=== PATIENT | male | born 1940 | race Caucasian/White ===

== ENCOUNTER 2023-04-21 18:31 | Inpatient (IN) | payer MEDICARE, OTHER, SELFPAY ==
[2023-04-21] VITALS (8 sets, daily range): BP systolic 98–148; BP diastolic 61–82
[2023-04-21 13:18] LABS: % Basophils 0.3 % (0-2); % Eosinophils 1.2 % (0-6); % Immature Granulocytes 0.4 % (0-0.5); % Lymphocytes 5.9 % (20.5-51.1); % Monocytes 6.8 % (1.7-9.3); % Neutrophils 85.4 % (42.2-75.2); Absolute Eosinophils 0.1 10^3/uL (0-0.7); Absolute Lymphocytes 0.6 10^3/uL (1.2-3.4); Absolute Monocytes 0.7 10^3/uL (0.1-0.6); Absolute Neutrophils 8.1 10^3/uL (1.4-6.5); Hematocrit 35.8 % (39.0-52.0); Hemoglobin 12.4 g/dL (13.0-18.0); Mean Corp Hgb Conc. 34.6 g/dL (33.0-37.0); Mean Corpuscular Hgb 27.8 pg (27.0-31.0); Mean Corpuscular Volume 80.3 fL (80.0-94.0); Nucleated Red Blood Cells % 0 % (-); Platelet Count 255 10^3/uL (130-400); Red Blood Cell Count 4.46 10^6/uL (4.70-6.10); Red Cell Dist. Width 14.6 % (11.5-14.5); White Blood Cell Count 9.5 10^3/uL (4.8-10.8)
[2023-04-21 13:52] LABS: Troponin I 0.061 ng/ml
[2023-04-21 13:53] LABS: ALT (SGPT) 120 U/L (0-50); AST (SGOT) 152 U/L (17-59); Albumin 3.7 g/dl (3.5-5.0); Alkaline Phosphatase 157 U/L (38-126); Blood Urea Nitrogen 82 mg/dl (9-20); Calcium 8.3 mg/dl (8.4-10.2); Carbon Dioxide 10 mmol/L (22-30); Chloride 107 mmol/L (98-107); Glucose 209 mg/dl (70-99); Potassium 5.3 mmol/L (3.5-5.1); Sodium 131 mmol/L (135-145); Total Protein 6.8 g/dl (6.3-8.2)
--- NOTE | 2023-04-21 14:33 | ED.GENMED ---
History of Present Illness
General
Chief Complaint: Weakness
Time Seen by Provider: 04/21/23 14:03
Travel History
Have you had any contact with someone who has COVID-19?: No
Do you have any symptoms of coronavirus? Fever > 100 degrees, chills, cough, shortness of breath, sore throat, loss of taste or smell, muscle aches, or headache?: No
History of Present Illness
History of Present Illness:
82-year-old male with history of insulin-dependent diabetes, hypertension, hyperlipidemia, and recent TIA presents to the emergency department for evaluation of generalized weakness and poor p.o. intake over the past 7 to 10 days. Patient was
recently admitted to [facility] in January after a TIA for reasons unknown the patient was apparently referred to nephrology as an outpatient due to chronic kidney disease however is not aware of what his baseline creatinine seems to
be. He was also started after his hospitalization on Entresto, he had some difficulty obtaining this due to over insurance coverage however started approximately 1 month ago. As his symptoms progressed he contacted his first coat operator (Dr Munguia at
[facility]) who advised him to stop the Entresto however his symptoms continue to progress downward, this was 1-2 weeks ago. Patient reports that he has been urinating well and denies any difficulty starting his stream. No abdominal pain. No fevers or
chills. Denies any other new medications that he initiated. Denies any muscle aches or weakness
Review of Systems
Review of Systems
Allergies reviewed?: Yes
All Other Systems: ROS reviewed and negative except as documented in HPI and ROS
Phy Exam
Physical Exam
Physical Exam:
GEN: Ill-appearing, no immediate distress
Eyes: PERRLA, EOMs intact, no scleral icterus
HENT: NCAT, oral mucosa dry
Lungs: CTAB, no wheezes, rales, rhonchi, normal chest wall excursion
Cardiac: Tachycardic and irregular, no murmur
Abdomen: S, NT, ND, NABS, no masses or hepatosplenomegaly
Neuro: AO x 3, no focal deficits to BUE/BLE, normal sensation throughout
MSK: No gross deformity or ecchymosis. No edema. No digital clubbing
Skin: No rashes, petechiae. Normal color, no pallor or jaundice.
Psych: Calm, cooperative, proper hygiene
Course
Orders/Labs/Results
Orders:
Orders
04/21/23 12:48
EKG [Electrocardiogram (*1)] Urgent
Reason for Study: Tachycardia
04/21/23 12:49
EKG- Treatment ONCE
04/21/23 13:08
Complete Blood Count/With Diff Urgent
Comprehensive Metabolic Panel Urgent
Creatine Phosphokinase Urgent
Comment: ADD ON
Troponin I Urgent
04/21/23 14:05
Add On- LAB Urgent
Tests Added?: CPK
Bladder Scan- Treatment ONCE
04/21/23 14:20
US Renal Only W/O Bladder Urgent
Comment:
Reason For Exam: acute renal failure
04/21/23 14:37
Urinalysis Reflex To Culture Urgent
Date Specimen was Collected: 04/21/23
Time Specimen was Collected: 14:18
Urine Microscopic Reflex Cult Urgent
Urine Culture Urgent
LUIS ENRIQUE Source: U
Specimen Description:
Date Specimen was Collected: 04/21/23
Time Specimen was Collected: 14:18
0.9% Sodium Chloride 1000 ml [Nss] 1,000 ml IV BOLUS
04/21/23 14:39
NEPHROLOGY CONSULT Urgent
Consulting Provider: Clare Loredo
Was physician already notified: Yes
Reason for consult: renal failure
04/21/23 15:08
Sodium Zirconium Cyclosilicate [Lokelma] 10 gram PO NOW STA
04/21/23 15:09
Lactic Acid Urgent
Venous Blood Gas Urgent
%Oxygen/Room Air: 97
Blood Culture Q30M
LUIS ENRIQUE Source: Blood/Venous
Specimen Description:
04/21/23 15:23
Blood Culture Q30M
LUIS ENRIQUE Source: Blood/Venous
Specimen Description:
04/21/23 15:30
Dextrose 5%/Water 1000 ml [D5w] 1,000 ml Sodium Bicarbonate 150 meq IV 150 mls/hr
04/21/23 17:23
Admit/Transfer Patient As Directed
Co-Sign Provider:
Level of Care: Inpatient admission
Assign to:: Telemetry
Physician / Group: Sofia
Diagnosis: TESSA, Metabolic Acidosis
Reason for Telemetry: Arrhythmia
Date to Stop Telemetry: 04/24/23
Time to Stop Telemetry: 11:00
Reason for Hospitalization: Nephrology consult
Expected length of stay greater than two midnights?: Yes
ELOS- Estimated Length of Stay in days: 3
I certify the patient meets the requirements for IP care: Yes
04/21/23 17:25
Code Status As Directed
Resuscitation Status: Full Code
04/21/23 18:04
Cordova Catheter [Catheter- Indwelling] As Directed
Reason for insertion: Acute Kidney Injury
Discontinue Date/Time: 04/24/23 0600
Intake/ Output As Directed
Frequency: Per unit guidelines
Comment: strict intake and output monitoring
Weight As Directed
Frequency: Daily
04/24/23 11:00
DC Protocol for Telemetry ONCE
Abnormal Lab Results
04/21/23 04/21/23 04/21/23
13:08 14:37 15:09
RBC 4.46 L 10^6/uL
(4.70-6.10)
Hgb 12.4 L g/dL
(13.0-18.0)
Hct 35.8 L %
(39.0-52.0)
RDW 14.6 H %
(11.5-14.5)
Absolute Neuts (auto) 8.1 H 10^3/uL
(1.4-6.5)
Absolute Lymphs (auto) 0.6 L 10^3/uL
(1.2-3.4)
Absolute Monos (auto) 0.7 H 10^3/uL
(0.1-0.6)
Neutrophils % 85.4 H %
(42.2-75.2)
Lymphocytes % 5.9 L %
(20.5-51.1)
VBG pH 7.21 L
(7.32-7.43)
VBG HCO3 14.4 L mmol/L
(22-27)
Sodium 131 L mmol/L
(135-145)
Potassium 5.3 H mmol/L
(3.5-5.1)
Carbon Dioxide 10 L* mmol/L
(22-30)
BUN 82 H mg/dl
(9-20)
Creatinine 15.7 H* mg/dL
(0.7-1.3)
Glucose 209 H mg/dl
(70-99)
Calcium 8.3 L mg/dl
(8.4-10.2)
AST 152 H U/L
(17-59)
ALT 120 H U/L
(0-50)
Alkaline Phosphatase 157 H U/L
(38-126)
Creatine Kinase 650 H U/L
(55-170)
Troponin I 0.061 H* ng/ml
Urine Ketones Trace A
(Negative)
Ur Occult Blood Reflex 4+ A
(Negative)
Leukocyte Esterase Rfl 1+ A
(Negative)
Urine WBC (Reflex) 11-15 A /HPF
(0-5)
Urine Bacteria (Reflex) Many A
(Negative)
Urine Glucose 1+ A
(Negative)
Urine Albumin (Reflex) 2+ A
(Neg - Trace)
04/21/23 13:08
04/21/23 13:08
Vital Signs
Initial and Last Documented VS:
Initial Vital Signs
Temp Pulse Resp BP Pulse Ox
97.4 F 114 18 148/82 100
04/21/23 12:46 04/21/23 12:46 04/21/23 12:46 04/21/23 12:46 04/21/23 12:46
Last Documented Vital Signs
Temp Pulse Resp BP Pulse Ox
97.4 F 92 21 135/62 100
04/21/23 12:46 04/21/23 16:31 04/21/23 16:31 04/21/23 17:03 04/21/23 17:30
MDM/Problems Addressed
MDM/Problems Addressed:
82-year-old male presenting with weakness, found to have profound acute renal failure with metabolic acidosis. He was started on crystalloid resuscitation and bicarbonate infusion. Nephrology was made aware, he is currently clinically stable but
certainly may require dialysis given severe creatinine elevation. Could be partially due to recent Entresto use, bladder scan negative rules out postrenal etiology. Will be admitted to the hospitalist service for further management
Comment
Comment:
EKG independently interpreted by me shows rapid atrial fibrillation at a rate of 105 with a left bundle branch block, no ST changes concerning for ischemia
*Critical Care Note
Total Time (30-74mins, 75-104mins- exclusive of procedures): 45 minutes
comment:
Critical care time: 45 minutes
Critical care time was exclusive of: Separately billable procedures, treating other patients, and teaching time
Critical care was necessary to treat or prevent imminent or life-threatening deterioration of the following conditions: Metabolic acidosis/renal failure
Critical care time spent personally by me on the following activities:
[x] Review of old charts
[x] Obtaining history from patient or surrogate
[x] Ordering and review of the laboratory studies
[x] Ordering and review of radiographic studies
[x] Ordering and performing treatments and interventions
[x] Patient patient's response to treatment
[x] Development of treatment plan with patient or surrogate
Update Note
Update Note:
Patient's creatinine was 2.7 as of outpatient labs of March 23 and 1.85 as of inpatient labs to [facility] in January
ED Attending Note
-
Portions of this chart may have been created with voice recognition software.� Occasional wrong word or��sound alike� substitutions may have occurred due to the inherent limitations of voice recognition software.
Discharge Plan
Departure
Patient Disposition: Admit
Date of Disposition: 04/21/23
Time of Disposition: 16:34
Admit to: IMU
Presentation/result/management discussed w/ accepting MD/DO: Hospitalist
Discharge Problem:
Acute renal failure, Metabolic acidosis, Acute hyperkalemia
Prescriptions:
No Action
Tradjenta 5 MG tablet
5 mg PO DAILY
clopidogrel 75 MG tablet
75 mg PO DAILY 0RF
metoprolol succinate [Toprol XL] 25 mg Tablet Extended Release 24 Hr
25 mg PO BID
ezetimibe [Zetia] 10 mg Tablet
10 mg PO QPM
rosuvastatin [Crestor] 40 mg Tablet
40 mg PO QPM
insulin glargine [Lantus Solostar U-100 Insulin] 100 unit/mL (3 mL) Insulin Pen
30 unit SC DAILY
Eliquis 2.5 mg Tablet
2.5 mg PO BID
Simbrinza 1-0.2 % Drops,Suspension
1 drp RIGHT EYE BID
Referrals:
UNKNOWN - PT DOES,NOT KNOW [Family Provider] -
Interventions
Interventions:
ED- Fall Risk Assessment Last Done: 04/21/23 15:27
ED- Cardiac Assessment Last Done: 04/21/23 15:27
ED- Neurological Assessment Last Done: 04/21/23 15:27
ED- Pulmonary Assessment Last Done: 04/21/23 15:27
[2023-04-21 14:34] LABS: eGFR 2.76
[2023-04-21 15:07] LABS: Urine Albumin 2+ (Neg - Trace); Urine Bilirubin Negative (Negative); Urine Character Slightly Cloudy (Clear); Urine Color Yellow; Urine Glucose 1+ (Negative); Urine Ketone Trace (Negative); Urine Leukocyte 1+ (Negative); Urine Nitrite Negative (Negative); Urine Occult Blood 4+ (Negative); Urine Specific Gravity 1.015 (<1.030); Urine Urobilinogen Negative (Neg - 1+)
[2023-04-21 15:15] LABS: Creatine Phosphokinase 650 U/L (55-170)
[2023-04-21] MEDS: NSS 1000 IV (15:20)
[2023-04-21] MEDS: LOKELMA 10 GRAM PO (15:21)
[2023-04-21 15:24] LABS: Venous Blood Gas B.E. -12.6 mmol/L (-4 to +4); Venous Blood Gas HCO3 14.4 mmol/L (22-27); Venous Blood Gas O2 Sat % 77.6 %; Venous Blood Gas pCO2 36 mmHg (35-48); Venous Blood Gas pH 7.21 (7.32-7.43); Venous Blood Gas pO2 49 mmHg (30-50)
[2023-04-21 15:28] LABS: Urine Bacteria Many (Negative); Urine Red Blood Cell 0-2 /HPF (0-2)
[2023-04-21 15:29] LABS: Urine Amorphous Seen
[2023-04-21] MEDS: SODIUM BICARBONATE 1150 MEQ IV ×2 (15:34→23:44)
[2023-04-21 15:35] LABS: Lactic Acid 0.9 mmol/L (0.7-2.0)
--- NOTE | 2023-04-21 17:19 | HPS.HSE ---
Addendum entered and electronically signed by Moise Black DO 04/21/23 18:36:
Patient seen and examined and discussed with BLAYNE Taylor and I agree with her note. Gen-AAOx3, NAD
HEENT-NC, AT, anicteric, clear oral mm
Neck-supple
CV-reg, no M, +S1/S2
Lungs-clear B/L
Abd-soft, NT, ND
Ext-no edema
Musculoskeletal-no cyanosis, clubbing, right second toe superficial gangrene
Skin-warm and dry
Neuro-grossly non-focal
Psych-calm, cooperative
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 Admit to telemetry. Consult nephrology. IV fluids. Renal ultrasound done today without hydronephrosis.
Metabolic acidosis -high anion gap and normal anion gap acidosis. Serum bicarbonate 10. Bicarbonate infusion. Repeat labs in the morning.
Hyperkalemia -suspect due to TESSA.
Hyponatremia -component of hyperglycemia induced hyponatremia.
DM2 with hyperglycemia -suspect component of mild DKA given positive urine ketones and metabolic acidosis. Glucose 209 this afternoon. Resume glargine insulin at 50% usual dose. Low resistance sliding scale. Hold Tradjenta.
Right second toe superficial gangrene -check DONOVAN, may need vascular surgery consult. Recently completed a course of oral antibiotics for right lower extremity cellulitis.
Hyperlipidemia
Essential hypertension
History of stroke x 2
Permanent atrial fibrillation -hold Eliquis for now in case a procedure is needed.
CAD -stable. Continue clopidogrel.
Chronic heart failure reduced EF -currently volume depleted. Has not been on diuretics at home.
Colon cancer
Full code
PT/OT
Family updated at the bedside.
Original Note:
Family Physician
-
Family Physician: NOT KNOW UNKNOWN - PT DOES
Chief Complaint
-
Weakness
History of Present Illness
Patient is an 82 y/o male past medical history of hypertension, diabetes, chronic kidney disease, atherosclerotic cardiovascular disease, heart failure and recent stroke who presents with weakness and poor oral intake over the past 7-10 days.
Work-up in the emergency department revealed a creatinine of 15. Upon further discussion patient had recent been started on Entresto and Lasix after her was found to have newly reduced EF by Echo. He has since stopped both of these medicines as he
lost 10lbs and also was experiencing episodes of dizziness and low blood pressure. Patient also reports recent episodes of diarrhea which has improved. He states he is still making urine, and currently has the urge to urinate. Review of previous
blood work shows creatinine was 1.85 in January and 2.7 on March 23.
Medical History
Past Medical History
Past Medical History: Reports Other
Additional Past Medical History:
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
Coronary Artery Disease s/p stent
Bilateral Carotid Artery Stenosis
Chronic HFrEF
Atrial Fibrillation
Essential Hypertension
Hyperlipidemia
Diabetes Mellitus
CKD Stage IV
Colon Cancer
Past Surgical History: Reports Other
Additional Past Surgical History:
Cholecystectomy
Right Hemicolectomy
Ventral Hernia Repair
Lower Extremity Angioplasty
Social History
Tobacco: Former Smoker (Quit in 1977)
Alcohol: Occasional
Personal:
Family History
Family History: Not pertinent
Allergies / Home Medications
Allergies reflects when Allergies were last updated in [facility].
Home Medications with original date entered in [facility]
Allergy/Medication List:
Allergies
Allergy/AdvReac Type Severity Reaction Status Date / Time
ibuprofen Allergy chest pain Verified 06/15/17 11:50
Home Medications
linagliptin 5 mg tablet (Tradjenta) 5 mg PO DAILY 06/15/17
clopidogrel 75 mg tablet 75 mg PO DAILY 06/16/17
apixaban 2.5 mg tablet (Eliquis) 2.5 mg PO BID 04/21/23
brinzolamide 1 %-brimonidine 0.2 % eye drops,suspension (Simbrinza) 1 drp RIGHT EYE BID 04/21/23
ezetimibe 10 mg tablet (Zetia) 10 mg PO QPM 04/21/23
insulin glargine 100 unit/mL (3 mL) subcutaneous pen (Lantus Solostar U-100 Insulin) 30 unit SC DAILY 04/21/23
metoprolol succinate 25 mg tablet,extended release 24 hr (Toprol XL) 25 mg PO BID 04/21/23
rosuvastatin 40 mg tablet (Crestor) 40 mg PO QPM 04/21/23
Review of Systems
-
A 12 point ROS was completed and negative except as noted: Yes
Constitutional: Denies Fever or Chills
Respiratory: Denies Cough or Trouble Breathing
Cardiac: Denies Chest Pain or Palpitations
Physical Exam
Vital Signs
Vital Signs
Temp Pulse Resp BP Pulse Ox
97.4 F 95 15 130/81 99
04/21/23 12:46 04/21/23 15:30 04/21/23 15:30 04/21/23 15:06 04/21/23 15:15
Physical Exam
General: Comfortable and Conversant
HEENT: NormoCephalic, Anicteric and Atraumatic
Respiratory: Clear and Non Labored Respirations
Cardiac: S1/S2 and Irregular Rhythm
GI: Soft and Non Tender
Rectal: Deferred by Provider
Musculoskeletal: No Clubbing, No Cyanosis and No Edema
Skin: Warm and Dry
Neuro: Awake, Alert, Oriented and Nonfocal/grossly intact
Psych: Calm
Laboratory Results
-
04/21/23 13:08
04/21/23 13:08
Laboratory Results
Lactic Acid 0.9 mmol/L (0.7-2.0) 04/21/23 15:09
Total Bilirubin 1.0 mg/dl (0.2-1.3) 04/21/23 13:08
AST 152 U/L (17-59) H 04/21/23 13:08
ALT 120 U/L (0-50) H 04/21/23 13:08
Alkaline Phosphatase 157 U/L (38-126) H 04/21/23 13:08
Troponin I 0.061 ng/ml H* 04/21/23 13:08
Data Reviewed
-
Ultrasound: Report Reviewed by me
Lab Data: Labs Reviewed by me
Old Records: Reviewed
Impression/Plan
-
Acute Kidney Injury on CKD Stage IV
Severe Metabolic Acidosis
-Consult Nephrology
-Place Cordova Catheter
-Continue IVFs with sodium bicarbonate
-Monitor labs closely
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
Coronary Artery Disease s/p stent
-Continue Plavix
Chronic HFrEF
-Echo Jan 2023: EF 20-25% with Stage II Diastolic Dysfunction
-Monitor Is&Os and Daily Weights
Permanent Atrial Fibrillation
-Hold Eliquis should patient require any procedures
-Continue metoprolol
Hyperlipidemia
-Continue Crestor and Zetia
Diabetes Mellitus, Type II
-Continue Lantus at decreased dose
-Monitor sugars and continue coverage insulin
DVT proph: Eliquis
Code Status: Full Code
[2023-04-21 20:30] LABS: Glucose - Point of Care 324 mg/dl (70-99)
[2023-04-21 21:01] LABS: Blood Urea Nitrogen 76 mg/dl (9-20); Chloride 113 mmol/L (98-107); Glucose 205 mg/dl (70-99); Sodium 131 mmol/L (135-145); eGFR 3.53
[2023-04-21 21:03] LABS: Calcium 6.5 mg/dl (8.4-10.2); Carbon Dioxide 9 mmol/L (22-30)
--- NOTE | 2023-04-21 21:19 | W.CON.NEPH ---
Consultation
-
Date/Time Consultation Requested: 04/21/23
Date/Time Consultation Performed: 04/21/23 9:20PM
Requesting Provider: Ankita Taylor
Performing Provider: Clare Loredo
Reason for Consultation: TESSA
Medical History
-
Chief Complaint: TESAS
History of Present Illness:
Mr. Chicas is an 82 YOM with PMH of HTN, T2DM, CKD, HFrEF with diastolic dysfunction ( EF20-25%), stroke who presents to the hospital for weakness over the past month.
Patient has had a long and complicated medical course over the past few years. He had stent placement in 2017. He had his great toe amputated on R foot after infection (2019). Most recently in January 2023, he had a TIA (third one). He was placed
at a hospital rehab after his TIA. States that he started hearing he had kidney trouble a few years ago. Briefly, the patient was seen by me on 03/04 in the nephrology clinic for abnormal kidney function. Our records are limited but reviewing Cr
trend, patient appears to have a normal Cr of 1.1 in 2018. By 2019, Cr had elevated to 1.76 and over the past few weeks it has risen from 2.48 to 2.65. When I saw the patient, I stopped his lasix as it was causing issues with urination and the
patient had minimal signs of volume overload and appeared to be volume down. I advised caution on Entresto and asked the patient to check labs if cardiology ended up initiating entresto. His repeat Cr was 2.7 on 03/22/23. Since then, he continued
entresto and had episodes of dizziness and low blood pressure. He also had a bout of ?cellulitis and was started on Keflex (course completed) but then developed diarrhea. He felt so horrible, he stopped the entresto but then was told to restart by
cardiology. He again stopped the medication when his noted that his blood pressures were as low as 80s/50s at home. He continues to make urine, significantly less than prior. He has lost about 10lbs.
Past Medical History
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
Coronary Artery Disease s/p stent
Bilateral Carotid Artery Stenosis
Chronic HFrEF
Atrial Fibrillation
Essential Hypertension
Hyperlipidemia
Diabetes Mellitus
CKD Stage IV
Colon Cancer
Social History
Tobacco: Former Smoker
Alcohol: None
Drug: None
Personal:
Living: With Family
Family History
Family History: Not Pertinent and Other (no known family history of CKD)
Allergies / Home Medications
Allergy/AdvReac Type Severity Reaction Status Date / Time
ibuprofen Allergy chest pain Verified 06/15/17 11:50
Medication Instructions Recorded Confirmed Type
linagliptin 5 mg tablet (Tradjenta) 5 mg PO DAILY 06/15/17 04/21/23 History
clopidogrel 75 mg tablet 75 mg PO DAILY 06/16/17 04/21/23 Rx
apixaban 2.5 mg tablet (Eliquis) 2.5 mg PO BID 04/21/23 04/21/23 History
brinzolamide 1 %-brimonidine 0.2 % 1 drp RIGHT EYE BID 04/21/23 04/21/23 History
eye drops,suspension (Simbrinza)
ezetimibe 10 mg tablet (Zetia) 10 mg PO QPM 04/21/23 04/21/23 History
insulin glargine 100 unit/mL (3 30 unit SC DAILY 04/21/23 04/21/23 History
mL) subcutaneous pen (Lantus
Solostar U-100 Insulin)
metoprolol succinate 25 mg 25 mg PO BID 04/21/23 04/21/23 History
tablet,extended release 24 hr
(Toprol XL)
rosuvastatin 40 mg tablet (Crestor) 40 mg PO QPM 04/21/23 04/21/23 History
Review of Systems
-
History Source: Patient and Family
All other systems: Negative unless noted
Constitutional: Weight Loss and Fatigue
EENT: Other (bloody nose)
Respiratory: No Symptoms
Cardiac: No Symptoms
Abdomen/GI: Diarrhea
: Incontinence and Urgency
Musculoskeletal: No Symptoms
Skin: No Symptoms
Neurological: Weakness
Physical Exam
Vital Signs
Vital Signs
Temp Pulse Resp BP Pulse Ox
97.4 F 86 21 116/74 100
04/21/23 12:46 04/21/23 20:01 04/21/23 20:01 04/21/23 20:01 04/21/23 18:30
Lab Results
WBC 9.5 10^3/uL (4.8-10.8) 04/21/23 13:08
RBC 4.46 10^6/uL (4.70-6.10) L 04/21/23 13:08
Hgb 12.4 g/dL (13.0-18.0) L 04/21/23 13:08
Hct 35.8 % (39.0-52.0) L 04/21/23 13:08
Plt Count 255 10^3/uL (130-400) 04/21/23 13:08
Sodium 131 mmol/L (135-145) L 04/21/23 20:31
Potassium Not Reportable 04/21/23 20:31
Chloride 113 mmol/L (98-107) H 04/21/23 20:31
Carbon Dioxide 9 mmol/L (22-30) L* 04/21/23 20:31
BUN 76 mg/dl (9-20) H 04/21/23 20:31
Creatinine 12.8 mg/dL (0.7-1.3) H* 04/21/23 20:31
eGFR 3.53 04/21/23 20:31
Glucose 205 mg/dl (70-99) H 04/21/23 20:31
Calcium 6.5 mg/dl (8.4-10.2) L* D 04/21/23 20:31
Albumin 3.7 g/dl (3.5-5.0) 04/21/23 13:08
Physical Exam
General: AOx3
HEENT: PERRL and EOMI
Respiratory: Clear
Cardiac: S1/S2 and No Edema
Breast: N/A
Abdomen: Soft and Nontender
Rectal: Deferred by Provider
Genito-urinary: Clear Urine
Musculoskeletal: No Edema
Skin: No Rash, Warm and Dry
Neuro: Nonfocal/Grossly Intact
Psych: Mood/afflect pleasant and Insight/judgement good
Assessment/Plan
-
Assessment:
TESSA on CKD
HAGMA + NAGMA
Afib
HFrEF
Diarrhea
hyperK
hypocalcemia
Plan:
TESSA likely in the setting of volume depletion vs. AIN (keflex?) vs. ATN from hemodynamic shifts
- peak 15.7, down to 12.8
Noted to have CKD with baseline Cr around 2.7 with significant proteinuria in the outpatient. thought to be in the setting of DKD
- obtain UPCR while inpatient. obtain paraprotein workup.
agree with sodium bicarb gtt at 150cc/hr
please replete calcium PRN
likely hyponatremia from renal failure --> continue with sodium bicarbonate
- uosm and raul obtained
KUS without evidence of obstruction
Agree with Cordova placement for accurate I/Os
hold all nephrotoxic agents
Data Reviewed
-
Radiology: Image Personally Visualized and interpreted (KUS without evidence of hydronephrosis) and Report Reviewed by me
Labs: Labs Reviewed by me, Discussed with Physician and Discussed with Patient
Old Records: Reviewed
[2023-04-21] MEDS: CRESTOR 40 MG PO (22:03)
[2023-04-21] MEDS: ZETIA 10 MG PO (22:06)
[2023-04-21] MEDS: TOPROL XL 25 MG PO (22:06)
[2023-04-21] MEDS: NOVOLOG FLEXPEN-LOW RESISTANCE 4 UNITS SC (22:10)
[2023-04-21] MEDS: SODIUM BICARBONATE IV (22:22)
[2023-04-21 22:30] LABS: Blood Urea Nitrogen 81 mg/dl (9-20); Calcium 7.3 mg/dl (8.4-10.2); Carbon Dioxide 15 mmol/L (22-30); Chloride 103 mmol/L (98-107); Glucose 313 mg/dl (70-99); Potassium 4.4 mmol/L (3.5-5.1); Sodium 129 mmol/L (135-145)
[2023-04-21] MEDS: CALCIUM GLUCONATE 100 IV (22:48)
[2023-04-21 23:11] LABS: eGFR 2.89
[2023-04-21 23:44] LABS: Glucose - Point of Care 344 mg/dl (70-99)
[2023-04-22] VITALS (27 sets, daily range): BP systolic 94–126; BP diastolic 59–90; BMI 24.9; BMI 25.7
[2023-04-22] MEDS: SODIUM BICARBONATE 1150 MEQ IV ×2 (00:44→10:09)
[2023-04-22 02:12] LABS: Osmolality Urine 341 mOsm/kg (300-900)
[2023-04-22 02:17] LABS: Protein/creatinine Ratio 2.3; Urine Protein 156 mg/dl; Urine Sodium 85 mmol/L (30-90)
[2023-04-22 02:43] LABS: Microalbumin, Random Urine 40.9 mg/dl (0.6-1.7)
[2023-04-22 06:09] LABS: Hematocrit 27.4 % (39.0-52.0); Hemoglobin 9.7 g/dL (13.0-18.0); Mean Corp Hgb Conc. 35.4 g/dL (33.0-37.0); Mean Corpuscular Hgb 27.6 pg (27.0-31.0); Mean Corpuscular Volume 78.1 fL (80.0-94.0); Mean Platelet Volume 10.4 fL (7.4-10.4); Platelet Count 209 10^3/uL (130-400); Red Blood Cell Count 3.51 10^6/uL (4.70-6.10); Red Cell Dist. Width 14.4 % (11.5-14.5); White Blood Cell Count 7.6 10^3/uL (4.8-10.8)
[2023-04-22 06:36] LABS: Blood Urea Nitrogen 80 mg/dl (9-20); Calcium 7.4 mg/dl (8.4-10.2); Carbon Dioxide 16 mmol/L (22-30); Chloride 105 mmol/L (98-107); Estimated Creatinine Clearance 4 ml/min; Glucose 158 mg/dl (70-99); Magnesium 2.1 mg/dl (1.6-2.3); Phosphorus 5.9 mg/dl (2.5-4.5); Potassium 4.1 mmol/L (3.5-5.1); Sodium 131 mmol/L (135-145); eGFR 2.94
--- NOTE | 2023-04-22 06:39 | PTCARENOTE ---
Patient arrived to room 3350 at 0615. Transferred from stretcher to bed, pt has unsteady gait. CHG bath done. A/O x4, slightly forgetful. Tele applied showing Afib. 95-99% on RA. Denies any pain, nausea, sob or palpitations. Admission questions
started. Cordova catheter in place. ED ER emptied about 315mL urine total. IVF Bicarb continue. Right big toe amputated, second toe is black in color. Pt endorses numbness and tingling. Partial dentures at home, no hearing aids, glasses at bedside.
Bed alarm set. Call pascal and tray table within reach. Report to be given to dayshift RN.
--- NOTE | 2023-04-22 07:46 | W.PN.HOSP.TC ---
Today's Communication/Plan
-
Consult vascular surgery
DONOVAN
Continue bicarb drip
Assessment / Plan
Assessment / Plan
Gen-Awake, alert, NAD
HEENT-NC, AT, anicteric, clear oral mm
Neck-supple
CV-reg, no M, +S1/S2
Lungs-clear B/L
Abd-soft, NT, ND
Ext-no edema
Musculoskeletal-no cyanosis, clubbing, right second toe superficial gangrene
Skin-warm and dry
Neuro-grossly non-focal
Psych-calm, cooperative
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 Possibly antibiotic induced interstitial nephritis given exposure to Keflex prior to admission. Nephrology consulted.� IV fluids.� Renal ultrasound without
hydronephrosis. Creatinine 14.9 this morning. Cordova catheter placed on admission.
Subacute diarrhea -started after exposure to Keflex. Patient states it is improving. Low suspicion for C. difficile colitis. Can check stools if it worsens.
Metabolic acidosis -high anion gap and normal anion gap acidosis.� Serum bicarbonate improving, 16 today. Continue sodium bicarbonate drip.
Hyperkalemia -suspect due to TESSA. Potassium improved.
Hyponatremia -component of hyperglycemia induced hyponatremia.
DM2 with hyperglycemia -suspect component of mild DKA given positive urine ketones and metabolic acidosis.� Glucose 158 this morning. Anion gap 10.� Resume glargine insulin at 50% usual dose.� Low resistance sliding scale.� Hold Tradjenta.
Right second toe superficial gangrene -check DONOVAN, may need vascular surgery consult.� Recently completed a course of oral antibiotics for right lower extremity cellulitis.
Hyperlipidemia -continue Crestor, Zetia.
Essential hypertension -stable.
History of stroke x 2
Permanent atrial fibrillation -hold Eliquis for now in case a procedure is needed.
CAD -stable.� Continue clopidogrel.
Chronic heart failure reduced EF -currently volume depleted.� Has not been on diuretics at home.
Colon cancer
Full code
PT/OT
Anticipated Discharge: > 48 hours
Subjective/Interval History
-
Date of Service: April 22, 2023
Patient seen and examined. Currently denies any symptoms.
Objective Data
-
Labs:
Laboratory Results
04/21/23 04/21/23 04/22/23
20:31 22:01 05:43
WBC 7.6
Hgb 9.7 L D
Hct 27.4 L
Plt Count 209
Sodium 131 L 129 L 131 L
Potassium Not Reportable 4.4 4.1
Chloride 113 H 103 105
Carbon Dioxide 9 L* 15 L 16 L
BUN 76 H 81 H 80 H
Creatinine 12.8 H* 15.1 H* 14.9 H*
Glucose 205 H 313 H 158 H
Calcium 6.5 L* D 7.3 L 7.4 L
Vital Signs:
Vital Signs
Temp Pulse Resp BP Pulse Ox
97.6 F 77 20 113/77 99
04/22/23 06:31 04/22/23 06:30 04/22/23 06:30 04/22/23 06:13 04/22/23 06:13
I&O
04/21/23 04/22/23 04/23/23
06:59 06:59 06:59
Output Total 325 / 325
Balance -325 / -325
Review of Systems
-
History Source: Patient
All other systems: Reviewed and negative
[2023-04-22] MEDS: NOVOLOG FLEXPEN-LOW RESISTANCE SC ×2 (07:58→14:33)
[2023-04-22 08:07] LABS: Glucose - Point of Care 139 mg/dl (70-99)
--- NOTE | 2023-04-22 09:30 | W.PN.NEPH.PH ---
Today's Communication / Plan
-
arrange for HD catheter placement
maintain IVfs
Assessment/Plan
-
Assessment:
TESSA on CKD
HAGMA + NAGMA
Afib
HFrEF
Diarrhea
hyperK
hypocalcemia
Plan:
TESSA likely in the setting of volume depletion vs. AIN (keflex?) vs. ATN from hemodynamic shifts
- peak 15.7, now back up to ~15, with around 300cc uop via hdz
-renal u/s noted no obstruction: noted chronic changes
-Noted to have CKD with baseline Cr around 2.7 with significant proteinuria in the outpatient. thought to be in the setting of DKD
obtained UPCR while inpatient. obtain paraprotein workup.: 2.3 grams
agree with sodium bicarb gtt at 150cc/hr for metabolic acidosis
please replete calcium PRN
likely hyponatremia from renal failure
Agree with Hdz placement for accurate I/Os
will arrange for HD as creatinine with minimal improvement and patient oliguric
IR to be contacte
high clinical risk with persistent TESSA
-
-
Date of Service: April 22, 2023
CC / HPI / ROS
-
Chief Complaint:
TESSA
History of Present Illness:
TESSA persistent
hemodynamically stable
metabolic acidosis persistent on sodium bicarbonate IVFs
Review of Systems:
oliguric
no fevers
no chest pain or SOB
Labs
-
Labs:
WBC 7.6 10^3/uL (4.8-10.8) 04/22/23 05:43
RBC 3.51 10^6/uL (4.70-6.10) L 04/22/23 05:43
Hgb 9.7 g/dL (13.0-18.0) L D 04/22/23 05:43
Hct 27.4 % (39.0-52.0) L 04/22/23 05:43
Plt Count 209 10^3/uL (130-400) 04/22/23 05:43
Sodium 131 mmol/L (135-145) L 04/22/23 05:43
Potassium 4.1 mmol/L (3.5-5.1) 04/22/23 05:43
Chloride 105 mmol/L (98-107) 04/22/23 05:43
Carbon Dioxide 16 mmol/L (22-30) L 04/22/23 05:43
BUN 80 mg/dl (9-20) H 04/22/23 05:43
Creatinine 14.9 mg/dL (0.7-1.3) H* 04/22/23 05:43
eGFR 2.94 04/22/23 05:43
Glucose 158 mg/dl (70-99) H 04/22/23 05:43
Calcium 7.4 mg/dl (8.4-10.2) L 04/22/23 05:43
Phosphorus 5.9 mg/dl (2.5-4.5) H 04/22/23 05:43
Albumin 3.7 g/dl (3.5-5.0) 04/21/23 13:08
Physical Exam
-
Vital Signs:
Vital Signs
Temp Pulse Resp BP Pulse Ox
97.6 F 77 20 113/77 99
04/22/23 06:31 04/22/23 06:30 04/22/23 06:30 04/22/23 06:13 04/22/23 06:13
Cardiovascular:: Regular rate and rhythm
Respiratory:: Bilateral: CTA
Lung Excursion:: Normal
Abdomen:: Nontender and Soft
Bowel Sounds:: Normal
Extremity Edema:: None: Bilateral:
Hdz Catheter: Yes
[2023-04-22] MEDS: TOPROL XL 25 MG PO (10:01)
[2023-04-22] MEDS: PLAVIX 75 MG PO (10:02)
[2023-04-22] MEDS: LANTUS 0.149999999999999994 UNITS SC (10:02)
--- NOTE | 2023-04-22 10:15 | CM ---
Alert awake oriented patient who lives with his Henny who lives in a 2 story home with 1 step to enter and 16 steps to bed and bathroom. He is independent in showering assisted with meals and med prep.Spoke with Henny explained CM role and
she was happy for call. He uses a walker.Pt may need new HD as per
No VN hx / No SNF history
Pharmacy [facility]
PCP DR Ermias Munguia cardiology
PLAN Will need PT OT gigi to prepare dc plan
[2023-04-22 10:19] LABS: Glucose - Point of Care 209 mg/dl (70-99)
--- NOTE | 2023-04-22 11:59 | CON.VAS ---
Addendum entered and electronically signed by CAIN Smart 04/22/23 14:13:
Right second toe wound
Original Note:
Consultation
Consultation Request
Performing Provider: Moi
Reason for Consultation: Nonhealing right toe wound
Medical History
-
Chief Complaint: SOB
History of Present Illness:
82-year-old male with hypertension, diabetes, coronary artery disease (history of coronary stenting, EF 20 to 25%), CKD.� Admitted with worsened renal function.� Now had catheter placed for hemodialysis today.� To initiate dialysis soon.� Asked to
evaluate regarding right second toe lesion.� Per patient's initiated likely about 2 and half weeks ago.� [place] to be from rubbing on the shoes.� (He has a history of a prior right first toe amputation without any revascularization, healed
although the notes was very slow and required a VAC).� No prior lower extremity revascularizations.� No history/family history of aneurysms that he is aware.
He does have a history of tobacco use smoked 2-1/2 packs a day but quit in the 1970s.
On exam He is awake and alert.� Head is normocephalic and atraumatic.� Eyes are anicteric.� Neck is soft no jugular venous distention.� Breathing is unlabored.� Abdomen is soft, nondistended, nontender.� Lower extremity with 2+ femoral pulses
palpable bilaterally.� 1+ popliteal pulses palpable bilaterally.� Feet are warm pink and well-perfused nonpalpable distal pulses bilaterally.� No rubor.� On the right foot there is a healed first toe amputation.� The right second toe with dry
gangrene on the dorsum.� No overt infection.
Noninvasive studies reviewed.� Right lower extremity DONOVAN 0.44.� Mid/distal SFA stenosis greater than 75% based on velocity ratio.� Left-sided DONOVAN 0.61.
Past Medical History
Past Medical History: Arrhythmias (afib), CAD, Cancer (colon), CHF, HTN, IDDM, Renal Failure (CKD 4) and Other (CVA Right Tad in Jan 2023, Bilateral Carotid Artery Stenosis, Hyperlipidemia)
Past Surgical History: Bowel Resection, Cholecystectomy and Other (Lower extremity angioplasty?)
Social History
Tobacco: Former Smoker
Alcohol: Occasional
Personal:
Family History
Family History: Reviewed & Not Pertinent
Allergies / Home Medications
Allergy/AdvReac Type Severity Reaction Status Date / Time
ibuprofen Allergy chest pain Verified 06/15/17 11:50
Medication Instructions Recorded Confirmed Type
linagliptin 5 mg tablet (Tradjenta) 5 mg PO DAILY 06/15/17 04/21/23 History
clopidogrel 75 mg tablet 75 mg PO DAILY 06/16/17 04/21/23 Rx
apixaban 2.5 mg tablet (Eliquis) 2.5 mg PO BID 04/21/23 04/21/23 History
brinzolamide 1 %-brimonidine 0.2 % 1 drp RIGHT EYE BID 04/21/23 04/21/23 History
eye drops,suspension (Simbrinza)
ezetimibe 10 mg tablet (Zetia) 10 mg PO QPM 04/21/23 04/21/23 History
insulin glargine 100 unit/mL (3 30 unit SC DAILY 04/21/23 04/21/23 History
mL) subcutaneous pen (Lantus
Solostar U-100 Insulin)
metoprolol succinate 25 mg 25 mg PO BID 04/21/23 04/21/23 History
tablet,extended release 24 hr
(Toprol XL)
rosuvastatin 40 mg tablet (Crestor) 40 mg PO QPM 04/21/23 04/21/23 History
Review of Systems
-
History Source: Patient
All other systems: Negative unless noted
Constitutional: Reports No Symptoms
EENT: Reports No Symptoms
Respiratory: Reports Trouble Breathing
Cardiac: Reports No Symptoms
Vascular: Denies Leg Pain / Claudication
Abdomen/GI: Reports No Symptoms
: Reports No Symptoms
Musculoskeletal: Reports Edema
Skin: Reports Other (right 2nd toe wound)
Neurological: Reports No Symptoms
Endocrine: Reports No Symptoms
Physical Exam
Vital Signs
Temp Pulse Resp BP Pulse Ox
97.4 F 89 15 117/73 99
04/22/23 07:15 04/22/23 11:00 04/22/23 11:00 04/22/23 10:01 04/22/23 08:15
Lab Results
04/22/23 05:43
04/22/23 05:43
Troponin I 0.061 ng/ml H* 04/21/23 13:08
Physical Exam
General: No Apparent Distress
HEENT: Normocephalic and Atraumatic
Respiratory: Non Labored Respirations
Cardiac: Negative JVD
GI: Soft and Non Tender
Musculoskeletal: No Clubbing, No Cyanosis and Edema (mild to the right foot)
Skin: Warm and Other (see above image)
Neuro: Awake, Alert and Oriented
Psych: Calm
Pulses: Bilateral Femoral: +2, Bilateral Popliteal: +1, Bilateral Dorsalis Pedis: Doppler (nonpalp) and Bilateral Posterior Tibial: Doppler (nonpalp)
Assessment / Plan
-
Plan/
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
in the setting of right second toe gangrene and arterial insufficiency noted on exam and on ultrasound studies.� Discussed angiography.� Discussed scenarios/outcomes including: #1 successful endovascular treatment, #2 need for staged surgical
bypass, #3 no unreconstructable distal small vessel disease.� Discussed risks of procedures including but not limited to bleeding, arterial injury/worsened or acute limb ischemia.� Discussed also if he has some recoverable renal function, this could
impact this as well (contrast-induced nephropathy).� However if he is permanently on dialysis likely will not make a difference.� Therefore for now recommend dialysis since he is requiring that at this point.� Would recommend optimization over the
course of the next week.� Will discuss with breastfeeding peer counselor, and if likely permanent dialysis, then we will plan angiography next week.� If patient still here then we will plan as inpatient, otherwise I will schedule him as an outpatient (likely
angiogram on Thursday04/29/23).�
2) ESRD.� Will discuss with breastfeeding peer counselor, but likely will need eventual permanent dialysis access creation.� If needed after discussion with breastfeeding peer counselor, will plan this in the outpatient setting.
--- NOTE | 2023-04-22 13:38 | W.PN.UPDATE ---
Update Note
Progress Note Update
Seen and examined with CLERK TYPIST's. Full consultation to follow. Briefly 82-year-old male with hypertension, diabetes, coronary artery disease (history of coronary stenting, EF 20 to 25%), CKD. Admitted with worsened renal function. Now had catheter
placed for hemodialysis today. To initiate dialysis soon. Asked to evaluate regarding right second toe lesion. Per patient's initiated likely about 2 and half weeks ago. [place] to be from rubbing on the shoes. (He has a history of a prior
right first toe amputation without any revascularization, healed although the notes was very slow and required a VAC). No prior lower extremity revascularizations. No history/family history of aneurysms that he is aware.
He does have a history of tobacco use smoked 2-1/2 packs a day but quit in the 1970s.
On exam He is awake and alert. Head is normocephalic and atraumatic. Eyes are anicteric. Neck is soft no jugular venous distention. Breathing is unlabored. Abdomen is soft, nondistended, nontender. Lower extremity with 2+ femoral pulses
palpable bilaterally. 1+ popliteal pulses palpable bilaterally. Feet are warm pink and well-perfused nonpalpable distal pulses bilaterally. No rubor. On the right foot there is a healed first toe amputation. The right second toe with dry
gangrene on the dorsum. No overt infection.
Noninvasive studies reviewed. Right lower extremity DONOVAN 0.44. Mid/distal SFA stenosis greater than 75% based on velocity ratio. Left-sided DONOVAN 0.61.
Plan/
1) PAD with gangrene R 2nd toe, chronic limb threatening ischemia. Discussed extensively with the patient and his at the bedside management here. Discussed recommendation for revascularization given risk of limb loss without revascularization
in the setting of right second toe gangrene and arterial insufficiency noted on exam and on ultrasound studies. Discussed angiography. Discussed scenarios/outcomes including: #1 successful endovascular treatment, #2 need for staged surgical
bypass, #3 no unreconstructable distal small vessel disease. Discussed risks of procedures including but not limited to bleeding, arterial injury/worsened or acute limb ischemia. Discussed also if he has some recoverable renal function, this could
impact this as well (contrast-induced nephropathy). However if he is permanently on dialysis likely will not make a difference. Therefore for now recommend dialysis since he is requiring that at this point. Would recommend optimization over the
course of the next week. Will discuss with seating and mobility technologist, and if likely permanent dialysis, then we will plan angiography next week. If patient still here then we will plan as inpatient, otherwise I will schedule him as an outpatient (likely
angiogram on Thursday04/29/23).
2) ESRD. Will discuss with seating and mobility technologist, but likely will need eventual permanent dialysis access creation. If needed after discussion with seating and mobility technologist, will plan this in the outpatient setting.
--- NOTE | 2023-04-22 14:15 | WOUNDNOTE ---
R GREAT TOE (photo taken by Krystin Cruz, WOC RN)
[2023-04-22 14:43] LABS: Glucose - Point of Care 147 mg/dl (70-99)
--- NOTE | 2023-04-22 14:46 | WOUNDNOTE ---
WO RN note: Patient admitted with right second toe gangrene
See H&P for complete history.
PMH: HTN, diabetes CAD, CHF, CKD, plan to start HD today or tomorrow. RLE DONOVAN .44, Left DONOVAN .61. Prior right toe amputation w/o revascularization.
Wound Location and type/assessment: Patient admitted with: right second necrotic toe. No open areas or drainage noted. Heels are blanchable, sacrum intact. Patient is able to turn self and reports independence with ADL's prior to hospitalization.
Appetite: Ate 100% of meal during assessment and reports very good appetite.
Pressure redistribution devices in place: Centrella Max Air. Heels off-loaded with pillow under heels when in bed.
Plan: Betadine applied to eschar of right toe. Adhesive foam applied to bilateral heel. Instructed patient on turning/repositioning and off-loading heels when in bed. Continue to follow for plan from vascular. Will confirm orders with hospitalist
and update nurse. Updated care plan and will follow as needed.
Note to case management of equipment requested for discharge:
Recommend follow up at wound care center upon discharge.
[2023-04-22 16:39] LABS: Glucose - Point of Care 178 mg/dl (70-99)
[2023-04-22] MEDS: NOVOLOG FLEXPEN-LOW RESISTANCE 1 UNITS SC (17:02)
[2023-04-22] MEDS: ZETIA 10 MG PO (17:12)
[2023-04-22] MEDS: CRESTOR 40 MG PO (17:12)
--- NOTE | 2023-04-22 17:13 | W.PN.NEPH.HD ---
Assessment
-
Patient seen on HD
sbp stable on HD
HD again tomorrow
Progress Note - Hemodialysis
-
Date of Service: April 22, 2023
Duration: 2 hours
Potassium Bath: 3
Calcium Bath: 2.5
Opti-Dialyzer: 160
Ultrafiltration: Other (even)
Blood Flow: 250
Dialysate Flow: 600
Heparin: none
EPO: given
[2023-04-22] MEDS: MANNITOL 12.5 GRAMS IV ×2 (17:40→18:49)
[2023-04-22 18:05] LABS: Calcium 7.4 mg/dl (8.4-10.2)
[2023-04-22] MEDS: HEPARIN 2500 UNITS INTRACATH ×2 (19:35)
[2023-04-22] MEDS: HEPARIN INTRACATH (19:42)
[2023-04-22] MEDS: SODIUM BICARBONATE IV (19:42)
[2023-04-22] MEDS: TOPROL XL PO (20:31)
[2023-04-22 21:54] LABS: Glucose - Point of Care 216 mg/dl (70-99)
--- NOTE | 2023-04-22 23:06 | PTCARENOTE ---
Pt AAOx3, status post HD. VSS. Pt noted to have blood tinged urine in hdz catheter tubing and bag. Hdz care performed. Some dried blood noted around catheter insertion site. This RN ensured catheter tubing is secure in stat lock. Bag emptied.
Will continue to monitor output throughout this shift. Safe environment maintained. Call pascal within reach.
[2023-04-23] VITALS (27 sets, daily range): BP systolic 90–128; BP diastolic 56–94; PULSE 91–117; O2SAT 98; BMI 23.5
[2023-04-23 05:24] LABS: % Basophils 0.4 % (0-2); % Eosinophils 1.8 % (0-6); % Immature Granulocytes 0.6 % (0-0.5); % Monocytes 8.9 % (1.7-9.3); % Neutrophils 82.3 % (42.2-75.2); Absolute Eosinophils 0.2 10^3/uL (0-0.7); Absolute Immature Granulocytes 0.1 10^3/uL (0-0.05); Absolute Lymphocytes 0.5 10^3/uL (1.2-3.4); Absolute Monocytes 0.8 10^3/uL (0.1-0.6); Absolute Neutrophils 6.9 10^3/uL (1.4-6.5); Hematocrit 27.9 % (39.0-52.0); Hemoglobin 9.9 g/dL (13.0-18.0); Mean Corp Hgb Conc. 35.5 g/dL (33.0-37.0); Mean Corpuscular Hgb 27.6 pg (27.0-31.0); Mean Corpuscular Volume 77.7 fL (80.0-94.0); Mean Platelet Volume 10.6 fL (7.4-10.4); Nucleated Red Blood Cells % 0 % (-); Platelet Count 191 10^3/uL (130-400); Red Blood Cell Count 3.59 10^6/uL (4.70-6.10); Red Cell Dist. Width 14.1 % (11.5-14.5); White Blood Cell Count 8.4 10^3/uL (4.8-10.8)
[2023-04-23 05:54] LABS: ALT (SGPT) 84 U/L (0-50); AST (SGOT) 94 U/L (17-59); Albumin 2.7 g/dl (3.5-5.0); Alkaline Phosphatase 101 U/L (38-126); Blood Urea Nitrogen 57 mg/dl (9-20); Calcium 7.4 mg/dl (8.4-10.2); Carbon Dioxide 25 mmol/L (22-30); Chloride 97 mmol/L (98-107); Estimated Creatinine Clearance 5 ml/min; Glucose 133 mg/dl (70-99); Potassium 3.7 mmol/L (3.5-5.1); Sodium 133 mmol/L (135-145); Total Bilirubin 1.2 mg/dl (0.2-1.3); Total Protein 5.3 g/dl (6.3-8.2); eGFR 4.74
[2023-04-23 08:12] LABS: Glucose - Point of Care 146 mg/dl (70-99)
--- NOTE | 2023-04-23 08:30 | W.PN.HOSP.TC ---
Addendum entered and electronically signed by Moise Black DO 04/23/23 14:19:
Non Ischemic myocardial injury -present on admission. Suspect related to severe acute kidney injury.
Addendum entered and electronically signed by Moise Black DO 04/23/23 10:10:
I spoke with Dr. Prater of vascular surgery. He recommends resuming Eliquis as he is not likely to do any procedures this week. Possibly next week.
Original Note:
Today's Communication/Plan
-
Check anemia labs
Assessment / Plan
Assessment / Plan
Gen-Awake, alert, NAD
HEENT-NC, AT, anicteric, clear oral mm
Neck-supple
CV-reg, no M, +S1/S2
Lungs-clear B/L
Abd-soft, NT, ND
Ext-no edema
Musculoskeletal-no cyanosis, clubbing, right second toe superficial gangrene
Skin-warm and dry
Neuro-grossly non-focal
Psych-calm, cooperative
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 Possibly antibiotic induced interstitial nephritis given exposure to Keflex prior to admission. Hemodialysis started. Temporary dialysis catheter placed.�
Renal ultrasound without hydronephrosis. Creatinine 10 this morning. Cordova catheter placed on admission.
Subacute diarrhea -started after exposure to Keflex. Patient states it is improving. Low suspicion for C. difficile colitis. Can check stools if it worsens.
Metabolic acidosis -high anion gap and normal anion gap acidosis.� Acidosis resolved. Serum bicarbonate improving, 25 today.
Hyperkalemia -suspect due to TESSA. Potassium improved.
Hyponatremia -component of hyperglycemia induced hyponatremia. Sodium stable at 133.
DM2 with hyperglycemia -suspect component of mild DKA given positive urine ketones and metabolic acidosis.� Glucose 133 this morning, 216 last night. Received 15 units of Lantus last night. Continue low resistance aspart scale.�Hold Tradjenta.
PAD/right second toe superficial gangrene -severe PAD noted, ABIs noted. Appreciate vascular surgery input. Will need eventual revascularization.
Hyperlipidemia -continue Crestor, Zetia.
Essential hypertension -stable.
History of stroke x 2
Permanent atrial fibrillation -hold Eliquis for now in case a procedure is needed. Will discuss with Dr. Prater timing of resumption.
CAD -stable.� Continue clopidogrel.
Chronic heart failure reduced EF -currently volume depleted.� Has not been on diuretics at home.
Chronic anemia -likely due to chronic kidney disease. Hemoglobin relatively stable today, 9.9. Microcytosis noted. Check anemia labs.
Hx Colon cancer
Full code
PT/OT
Anticipated Discharge: > 48 hours
Subjective/Interval History
-
Date of Service: April 23, 2023
Patient seen and examined. Finished breakfast. No complaints. Feels well.
Objective Data
-
Labs:
Laboratory Results
04/23/23
05:17
WBC 8.4
Hgb 9.9 L
Hct 27.9 L
Plt Count 191
Sodium 133 L
Potassium 3.7
Chloride 97 L
Carbon Dioxide 25
BUN 57 H
Creatinine 10.0 H*
Glucose 133 H
Calcium 7.4 L
Total Bilirubin 1.2
AST 94 H
ALT 84 H
Alkaline Phosphatase 101
Vital Signs:
Vital Signs
Temp Pulse Resp BP Pulse Ox
98.5 F 88 25 110/71 90
04/23/23 04:08 04/23/23 06:00 04/23/23 06:00 04/23/23 06:00 04/23/23 06:00
I&O
04/22/23 04/23/23 04/24/23
06:59 06:59 06:59
Intake Total 1800 / 1800
Output Total 325 / 325 900 / 900
Balance -325 / -325 900 / 900
Review of Systems
-
History Source: Patient
All other systems: Reviewed and negative
[2023-04-23] MEDS: NOVOLOG FLEXPEN-LOW RESISTANCE SC (08:31)
[2023-04-23] MEDS: LANTUS 0.149999999999999994 UNITS SC (08:37)
[2023-04-23] MEDS: PLAVIX 75 MG PO (08:37)
[2023-04-23] MEDS: TOPROL XL PO ×2 (08:37→20:24)
[2023-04-23 08:47] LABS: Reticulocyte Count 0.6 % (0.4-2.8)
[2023-04-23 10:23] LABS: Iron 61 ug/dl (49-181)
[2023-04-23 10:27] LABS: Percent Saturation 24 % (20-50); Total Iron Binding Capacity 246 ug/dl (261-462)
[2023-04-23 11:00] LABS: Folate 12.4 ng/ml (2.76-20); Vitamin B12 580 pg/ml (239-931)
[2023-04-23 12:09] LABS: Glucose - Point of Care 244 mg/dl (70-99)
--- NOTE | 2023-04-23 12:22 | CM ---
Chart reviewed. Spoke with pt and at bedside
PT/OT recs snf at d/c - pt agreeable to snf
Given list of SNF's from [employer] site
Requested pt/ review facility's and try to choose at least 3
CM will follow up with family regarding snf choices
Plan - d/c to snf - tbd - when medically stable
[2023-04-23] MEDS: ELIQUIS 2.5 MG PO ×2 (12:26→20:30)
[2023-04-23] MEDS: NOVOLOG FLEXPEN-LOW RESISTANCE 2 UNITS SC (12:26)
[2023-04-23] MEDS: MANNITOL 12.5 GRAMS IV ×2 (12:58→14:19)
--- NOTE | 2023-04-23 13:36 | PN.CDI ---
CDI
- -
CDI:
Physician Documentation Request
Admit Date: 04/21/23 18:31
Dear Doctor Sofia,
Patient admitted with TESSA on CKD 4. HD to started. Troponin on 04/20 resulted at 0.061 H
Could you provide a diagnosis that supports the above lab abnormalities?
Non Ischemic myocardial injury
Type II LA demand ischemia
Abnormal lab value clinically insignificant
Other
Use of terms such as suspected, likely, concern for, or probable (associated with a specific diagnosis that is being evaluated, monitored, or treated as if it exists) are acceptable and can be coded in the inpatient setting, when documented at the
time of discharge.
Thank you,
Mayuri Polk RN, BSN
CDI Specialist
tiger text
Please use your independent medical judgment in providing your response.
--- NOTE | 2023-04-23 13:45 | W.PN.NEPH.HD ---
Assessment
-
patient seen on HD
sbp stable at 120, even u/f
HD again in am then watch overweekend for renal recovery
Progress Note - Hemodialysis
-
Date of Service: April 23, 2023
Duration: 30 minutes and 2 hours
Potassium Bath: 3
Calcium Bath: 2.5
Opti-Dialyzer: 160
Ultrafiltration: Other (none)
Blood Flow: 250
Dialysate Flow: 600
Heparin: none
EPO: none
[2023-04-23] MEDS: HEPARIN 2100 UNITS INTRACATH (15:03)
--- NOTE | 2023-04-23 16:45 | PTCARENOTE ---
pt being transferred to room 329. report given to Torito. transport called for wheelchair.
[2023-04-23] MEDS: ZETIA 10 MG PO (17:45)
[2023-04-23] MEDS: CRESTOR 40 MG PO (17:45)
[2023-04-23 18:03] LABS: Glucose - Point of Care 166 mg/dl (70-99)
[2023-04-23] MEDS: NOVOLOG FLEXPEN-LOW RESISTANCE 1 UNITS SC (18:04)
--- NOTE | 2023-04-23 18:21 | TRANSFER ---
pt arrives to unit at 1723 via wheel chair with spouse at side. 1 person assist provided as pt ambulated to hospital bed. pt and spouse oriented to unit. Pt aaox3, VSS, on RA. lungs clear throughout. reports neuropathy in feet. Cordova intact
draining francy color urine in tubing and punch red in collection bag, emptied for 500 mls. pt with b/l PIV in forearms and Right IJ present. Pt afib on the monitor. reports pain in feet, awaiting pharmacy to clear pain meds. dinner ordered. pt
with no concern at the moment. care plan continues to followed. HD scheduled tomorrow at 0700.
[2023-04-23] MEDS: ULTRAM 25 MG PO (18:41)
[2023-04-23 19:09] LABS: Hepatitis B Surface Antigen Negative (Negative)
[2023-04-23 19:26] LABS: Hepatitis B Core Ab, Total Negative (Negative); Hepatitis B Surface Antibody Negative; Hepatitis C Antibody Negative (Negative)
[2023-04-23] MEDS: TYLENOL 650 MG PO (20:36)
[2023-04-23 22:43] LABS: Glucose - Point of Care 178 mg/dl (70-99)
[2023-04-24 03:41] VITALS: BP 127/64
[2023-04-24 06:09] LABS: % Basophils 0.5 % (0-2); % Eosinophils 1.5 % (0-6); % Immature Granulocytes 0.4 % (0-0.5); % Lymphocytes 6.2 % (20.5-51.1); % Monocytes 9.8 % (1.7-9.3); % Neutrophils 81.6 % (42.2-75.2); Absolute Eosinophils 0.1 10^3/uL (0-0.7); Absolute Lymphocytes 0.5 10^3/uL (1.2-3.4); Absolute Monocytes 0.8 10^3/uL (0.1-0.6); Hematocrit 29.6 % (39.0-52.0); Hemoglobin 10.2 g/dL (13.0-18.0); Mean Corp Hgb Conc. 34.5 g/dL (33.0-37.0); Mean Corpuscular Hgb 28.1 pg (27.0-31.0); Mean Corpuscular Volume 81.5 fL (80.0-94.0); Mean Platelet Volume 10.5 fL (7.4-10.4); Nucleated Red Blood Cells % 0 % (-); Platelet Count 172 10^3/uL (130-400); Red Blood Cell Count 3.63 10^6/uL (4.70-6.10); Red Cell Dist. Width 14.1 % (11.5-14.5); White Blood Cell Count 8.6 10^3/uL (4.8-10.8)
[2023-04-24 07:36] LABS: ALT (SGPT) 89 U/L (0-50); AST (SGOT) 106 U/L (17-59); Albumin 2.8 g/dl (3.5-5.0); Alkaline Phosphatase 120 U/L (38-126); Blood Urea Nitrogen 39 mg/dl (9-20); Calcium 7.4 mg/dl (8.4-10.2); Carbon Dioxide 27 mmol/L (22-30); Chloride 99 mmol/L (98-107); Estimated Creatinine Clearance 6 ml/min; Glucose 145 mg/dl (70-99); Potassium 3.9 mmol/L (3.5-5.1); Sodium 132 mmol/L (135-145); Total Bilirubin 1.2 mg/dl (0.2-1.3); Total Protein 5.4 g/dl (6.3-8.2); eGFR 5.93
[2023-04-24 07:44] VITALS: BP 120/76
[2023-04-24] MEDS: MANNITOL 12.5 GRAMS IV ×2 (08:15→09:19)
[2023-04-24 08:18] LABS: Glucose - Point of Care 114 mg/dl (70-99)
[2023-04-24] MEDS: NOVOLOG FLEXPEN-LOW RESISTANCE SC ×2 (08:42→12:34)
[2023-04-24] MEDS: LANTUS 0.149999999999999994 UNITS SC (08:44)
--- NOTE | 2023-04-24 08:47 | CM ---
CM received call from pts with choices for SNF referrals
[facility]
Referrals sent in Care port
Plan - d/c to snf -tbd, when medically ready
[2023-04-24] MEDS: RETACRIT 6000 UNITS IV (09:19)
--- NOTE | 2023-04-24 10:07 | W.PN.HOSP.TC ---
Today's Communication/Plan
-
[place] nasal spray
Elevate heels
Continue current care
Assessment / Plan
Assessment / Plan
Gen-Awake, alert, NAD
HEENT-NC, AT, anicteric, clear oral mm, dried blood in right nares
Neck-supple
CV-reg, no M, +S1/S2
Lungs-clear B/L
Abd-soft, NT, ND
Ext-no edema
Musculoskeletal-no cyanosis, clubbing, right second toe superficial gangrene, dressings on both heels
Skin-warm and dry
Neuro-grossly non-focal
Psych-calm, cooperative
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 Possibly antibiotic induced interstitial nephritis given exposure to Keflex prior to admission. Hemodialysis started. Temporary dialysis catheter placed.�
Renal ultrasound without hydronephrosis. Creatinine 8.3 this morning. Cordova catheter placed on admission.
Subacute diarrhea -started after exposure to Keflex. Patient states it is improving. Low suspicion for C. difficile colitis. Can check stools if it worsens.
Metabolic acidosis -high anion gap and normal anion gap acidosis.� Acidosis resolved. Serum bicarbonate improving, 27 today.
Right-sided epistaxis -appears to have resolved. [place] nasal spray ordered. Discussed with patient to avoid blowing the nose or sticking tissues up the nose. Not currently on oxygen.
Hyperkalemia -suspect due to TESSA. Potassium improved.
Hyponatremia -component of hyperglycemia induced hyponatremia. Sodium stable at 132.
DM2 with hyperglycemia -suspect component of mild DKA given positive urine ketones and metabolic acidosis.� Glucose 145 this morning, 178 last night. Received 15 units of Lantus last night. Continue low resistance aspart scale.�Hold Tradjenta.
PAD/right second toe superficial gangrene -severe PAD noted, ABIs noted. Appreciate vascular surgery input. Will need eventual revascularization.
Hyperlipidemia -continue Crestor Zetia.
Essential hypertension -stable.
History of stroke x 2
Permanent atrial fibrillation -hold Eliquis for now in case a procedure is needed. Will discuss with Dr. Prater timing of resumption.
CAD -stable.� Continue clopidogrel.
Chronic heart failure reduced EF -currently volume depleted.� Has not been on diuretics at home.
Chronic anemia -likely due to chronic kidney disease. Hemoglobin relatively stable today, 10.2. Microcytosis noted. Not iron deficient on labs. B12, folic acid normal.
Hx Colon cancer
Full code
PT/OT
Dispo -eventual discharge to SNF when medically stable.
Anticipated Discharge: > 48 hours
Subjective/Interval History
-
Date of Service: April 24, 2023
Patient seen and examined. Complaining of pain in both heels.
Objective Data
-
Labs:
Laboratory Results
04/24/23
05:54
WBC 8.6
Hgb 10.2 L
Hct 29.6 L
Plt Count 172
Sodium 132 L
Potassium 3.9
Chloride 99
Carbon Dioxide 27
BUN 39 H
Creatinine 8.3 H*
Glucose 145 H
Calcium 7.4 L
Total Bilirubin 1.2
AST 106 H
ALT 89 H
Alkaline Phosphatase 120
Vital Signs:
Vital Signs
Temp Pulse Resp BP Pulse Ox
97.4 F 77 20 120/76 97
04/24/23 07:44 04/24/23 07:44 04/24/23 07:44 04/24/23 07:44 04/24/23 07:44
I&O
04/23/23 04/24/23 04/25/23
06:59 06:59 06:59
Intake Total 1800 / 1800 1000 / 1000
Output Total 900 / 900 950 / 950
Balance 900 / 900 50 / 50
Review of Systems
-
History Source: Patient
All other systems: Reviewed and negative
[2023-04-24 11:20] VITALS: BP 119/62
[2023-04-24] MEDS: ELIQUIS 2.5 MG PO ×2 (11:26→19:40)
[2023-04-24] MEDS: PLAVIX 75 MG PO (11:26)
[2023-04-24] MEDS: TOPROL XL PO (11:26)
[2023-04-24] MEDS: HEPARIN 2500 UNITS INTRACATH (11:47)
[2023-04-24 11:56] LABS: Glucose - Point of Care 141 mg/dl (70-99)
[2023-04-24 12:45] VITALS: BMI 25.4
--- NOTE | 2023-04-24 12:55 | W.PN.NEPH.HD ---
Assessment
-
- plan for third session HD today
- will monitor over the weekend for renal recovery
Progress Note - Hemodialysis
-
Date of Service: April 24, 2023
Duration: 30 minutes and 3 hours
Potassium Bath: 3
Calcium Bath: 2.5
Opti-Dialyzer: 160
Ultrafiltration: Other (none)
Blood Flow: 300
Dialysate Flow: 600
[2023-04-24 15:00] VITALS: BP 112/77; PULSE 85
[2023-04-24 15:12] VITALS: BP 112/77
[2023-04-24 16:39] LABS: Glucose - Point of Care 195 mg/dl (70-99)
[2023-04-24] MEDS: ZETIA 10 MG PO (17:19)
[2023-04-24] MEDS: NOVOLOG FLEXPEN-LOW RESISTANCE 1 UNITS SC (17:19)
[2023-04-24] MEDS: CRESTOR 40 MG PO (17:19)
[2023-04-24] MEDS: TOPROL XL 25 MG PO (19:39)
[2023-04-24 21:23] LABS: Glucose - Point of Care 183 mg/dl (70-99)
[2023-04-24 23:00] VITALS: BP 121/76
[2023-04-25 06:00] VITALS: BMI 25.2
[2023-04-25 07:47] VITALS: BP 130/74
[2023-04-25 08:09] LABS: % Basophils 0.4 % (0-2); % Eosinophils 1.6 % (0-6); % Immature Granulocytes 0.4 % (0-0.5); % Lymphocytes 8.2 % (20.5-51.1); % Monocytes 8.4 % (1.7-9.3); Absolute Eosinophils 0.1 10^3/uL (0-0.7); Absolute Lymphocytes 0.7 10^3/uL (1.2-3.4); Absolute Monocytes 0.7 10^3/uL (0.1-0.6); Absolute Neutrophils 6.7 10^3/uL (1.4-6.5); Hematocrit 33.8 % (39.0-52.0); Hemoglobin 11.3 g/dL (13.0-18.0); Mean Corp Hgb Conc. 33.4 g/dL (33.0-37.0); Mean Corpuscular Volume 83.7 fL (80.0-94.0); Mean Platelet Volume 10.9 fL (7.4-10.4); Nucleated Red Blood Cells % 0 % (-); Platelet Count 196 10^3/uL (130-400); Red Blood Cell Count 4.04 10^6/uL (4.70-6.10); Red Cell Dist. Width 14.3 % (11.5-14.5); White Blood Cell Count 8.3 10^3/uL (4.8-10.8)
[2023-04-25 08:12] LABS: Glucose - Point of Care 125 mg/dl (70-99)
[2023-04-25] MEDS: ELIQUIS 2.5 MG PO ×2 (08:28→20:14)
[2023-04-25] MEDS: LANTUS 0.149999999999999994 UNITS SC (08:28)
[2023-04-25] MEDS: TOPROL XL 25 MG PO (08:29)
[2023-04-25] MEDS: NOVOLOG FLEXPEN-LOW RESISTANCE SC (08:29)
[2023-04-25] MEDS: PLAVIX 75 MG PO (08:29)
[2023-04-25 08:38] LABS: ALT (SGPT) 101 U/L (0-50); AST (SGOT) 138 U/L (17-59); Albumin 3.3 g/dl (3.5-5.0); Alkaline Phosphatase 129 U/L (38-126); Blood Urea Nitrogen 30 mg/dl (9-20); Calcium 8.3 mg/dl (8.4-10.2); Carbon Dioxide 29 mmol/L (22-30); Chloride 95 mmol/L (98-107); Estimated Creatinine Clearance 8 ml/min; Glucose 140 mg/dl (70-99); Potassium 3.8 mmol/L (3.5-5.1); Sodium 135 mmol/L (135-145); Total Bilirubin 1.9 mg/dl (0.2-1.3); Total Protein 6.2 g/dl (6.3-8.2)
[2023-04-25 11:15] LABS: Intact PTH 903.8 pg/ml (13.6-85.8)
--- NOTE | 2023-04-25 11:32 | W.PN.NEPH.PH ---
Today's Communication / Plan
-
- HD Thursday
- Repeat UA
Assessment/Plan
-
Assessment:
TESSA on CKD
HAGMA + NAGMA
Afib
HFrEF
Diarrhea
hyperK
hypocalcemia
Plan:
TESSA likely in the setting of volume depletion vs. AIN (keflex?) vs. ATN from hemodynamic shifts
-peak 15.7, coming down with HD,Cordova out, 2 moderate urination events noted
-renal u/s noted no obstruction: noted chronic changes
-Noted to have CKD with baseline Cr around 2.7 with significant proteinuria in the outpatient. thought to be in the setting of DKD
obtained UPCR while inpatient. obtain paraprotein workup.: 2.3 grams
-will monitor over weekend for renal recovery.
-repeat UA to check for blood. if continued blood, will obtain serologic workup of TESSA
-plan for HD on Thursday if Cr does not downtrend
-
-
Date of Service: April 25, 2023
CC / HPI / ROS
-
Chief Complaint:
TESSA
History of Present Illness:
TESSA persistent, now on HD
hemodynamically stable
Review of Systems:
oliguric
no fevers
no chest pain or SOB
Labs
-
Labs:
WBC 8.3 10^3/uL (4.8-10.8) 04/25/23 07:43
RBC 4.04 10^6/uL (4.70-6.10) L 04/25/23 07:43
Hgb 11.3 g/dL (13.0-18.0) L 04/25/23 07:43
Hct 33.8 % (39.0-52.0) L 04/25/23 07:43
Plt Count 196 10^3/uL (130-400) 04/25/23 07:43
Sodium 135 mmol/L (135-145) 04/25/23 07:43
Potassium 3.8 mmol/L (3.5-5.1) 04/25/23 07:43
Chloride 95 mmol/L (98-107) L 04/25/23 07:43
Carbon Dioxide 29 mmol/L (22-30) 04/25/23 07:43
BUN 30 mg/dl (9-20) H 04/25/23 07:43
Creatinine 6.9 mg/dL (0.7-1.3) H* 04/25/23 07:43
eGFR 7.40 04/25/23 07:43
Glucose 140 mg/dl (70-99) H 04/25/23 07:43
Calcium 8.3 mg/dl (8.4-10.2) L 04/25/23 07:43
Phosphorus 5.9 mg/dl (2.5-4.5) H 04/22/23 05:43
Albumin 3.3 g/dl (3.5-5.0) L 04/25/23 07:43
Physical Exam
-
Vital Signs:
Vital Signs
Temp Pulse Resp BP Pulse Ox
98 F 80 17 130/74 99
04/25/23 07:47 04/25/23 08:29 04/25/23 07:47 04/25/23 08:29 04/25/23 07:47
Cardiovascular:: Regular rate and rhythm
Respiratory:: Bilateral: Coarse
Lung Excursion:: Normal
Abdomen:: Nontender and Soft
Bowel Sounds:: Normal
Extremity Edema:: None: Bilateral:
Cordova Catheter: No
[2023-04-25 12:04] LABS: Glucose - Point of Care 229 mg/dl (70-99)
[2023-04-25] MEDS: NOVOLOG FLEXPEN-LOW RESISTANCE 2 UNITS SC ×2 (12:43→17:08)
--- NOTE | 2023-04-25 12:43 | W.PN.HOSP.TC ---
Today's Communication/Plan
-
Continue current care
Assessment / Plan
Assessment / Plan
Gen-Awake, alert, NAD
HEENT-NC, AT, anicteric, clear oral mm, dried blood in right nares
Neck-supple
CV-reg, no M, +S1/S2
Lungs-clear B/L
Abd-soft, NT, ND
Ext-no edema
Musculoskeletal-no cyanosis, clubbing, right second toe superficial gangrene, dressings on both heels
Skin-warm and dry
Neuro-grossly non-focal
Psych-calm, cooperative
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 Possibly antibiotic induced interstitial nephritis given exposure to Keflex prior to admission. Hemodialysis started. Temporary dialysis catheter placed.�
Renal ultrasound without hydronephrosis. Creatinine 6.9 this morning. Cordova catheter placed on admission.
Subacute diarrhea -started after exposure to Keflex. Patient states it is improving. Low suspicion for C. difficile colitis. Can check stools if it worsens.
Metabolic acidosis -high anion gap and normal anion gap acidosis.� Acidosis resolved.
Right-sided epistaxis -appears to have resolved. [place] nasal spray ordered. Discussed with patient to avoid blowing the nose or sticking tissues up the nose. Not currently on oxygen.
Hyperkalemia -suspect due to TESSA. Potassium improved.
Hyponatremia -component of hyperglycemia induced hyponatremia. Sodium stable at 132.
DM2 with hyperglycemia -suspect component of mild DKA given positive urine ketones and metabolic acidosis.� Glucose 140 this morning, 183 last night. Received 15 units of Lantus last night. Continue low resistance aspart scale.�Hold Tradjenta.
PAD/right second toe superficial gangrene -severe PAD noted, ABIs noted. Appreciate vascular surgery input. Will need eventual revascularization.
Hyperlipidemia -continue Crestor, Zetia.
Essential hypertension -stable.
History of stroke x 2
Permanent atrial fibrillation -Eliquis resumed. Discussed with vascular surgery, timing of any intervention to be determined.
CAD -stable.� Continue clopidogrel.
Chronic heart failure reduced EF -currently volume depleted.� Has not been on diuretics at home.
Chronic anemia -likely due to chronic kidney disease. Hemoglobin stable. Microcytosis noted. Not iron deficient on labs. B12, folic acid normal.
Hx Colon cancer
Full code
PT/OT
Dispo -eventual discharge to SNF when medically stable. Updated at the bedside.
Anticipated Discharge: 24 - 48 hours
Subjective/Interval History
-
Date of Service: April 25, 2023
Patient seen and examined. No shortness of breath on exertion. No complaints.
Objective Data
-
Labs:
Laboratory Results
04/25/23
07:43
WBC 8.3
Hgb 11.3 L
Hct 33.8 L
Plt Count 196
Sodium 135
Potassium 3.8
Chloride 95 L
Carbon Dioxide 29
BUN 30 H
Creatinine 6.9 H*
Glucose 140 H
Calcium 8.3 L
Total Bilirubin 1.9 H
AST 138 H
ALT 101 H
Alkaline Phosphatase 129 H
Vital Signs:
Vital Signs
Temp Pulse Resp BP Pulse Ox
98 F 80 17 130/74 99
04/25/23 07:47 04/25/23 08:29 04/25/23 07:47 04/25/23 08:29 04/25/23 07:47
I&O
04/24/23 04/25/23 04/26/23
06:59 06:59 07:59
Intake Total 1000 / 1000 1200 / 1200
Output Total 950 / 950
Balance 50 / 50 1200 / 1200
Review of Systems
-
History Source: Patient
All other systems: Reviewed and negative
[2023-04-25 13:05] LABS: 24 Hour Urine Total Volume Random mL; Urine Collection Length Random hr; Urine Free Kappa Light Chains 535.12 mg/L (0.00-32.90); Urine Free Lambda Light Chains 322.64 mg/L (0.00-3.79)
[2023-04-25 15:27] VITALS: BP 127/76
[2023-04-25 16:55] LABS: Glucose - Point of Care 228 mg/dl (70-99)
[2023-04-25] MEDS: ZETIA 10 MG PO (17:12)
[2023-04-25] MEDS: CRESTOR 40 MG PO (17:12)
[2023-04-25 17:39] LABS: Urine Albumin 2+ (Neg - Trace); Urine Bilirubin Negative (Negative); Urine Character Clear (Clear); Urine Color Yellow; Urine Glucose 2+ (Negative); Urine Ketone Negative (Negative); Urine Leukocyte Negative (Negative); Urine Nitrite Negative (Negative); Urine Occult Blood 3+ (Negative); Urine Urobilinogen 1+ (Neg - 1+)
[2023-04-25 17:48] LABS: Urine Hyaline Cast 0-2 /LPF (0-2); Urine Squamous Cell 0-2 /LPF (Few); Urine Waxy Cast 0-2 /LPF; Urine White Cell 0-2 /HPF (0-5)
[2023-04-25] MEDS: OCEAN, SALINE MIST 1 SPRAYS NASAL (18:08)
[2023-04-25] MEDS: TOPROL XL PO (20:14)
[2023-04-25 21:13] LABS: Glucose - Point of Care 245 mg/dl (70-99)
[2023-04-25 21:24] LABS: Albumin 2.82 g/dL (3.75-5.01); Alpha 2 Globulin 0.92 g/dL (0.48-1.05); SPEP IFE Reflex Not Done; Total Protein-Electrophoresis 5.7 g/dL (6.3-8.2)
[2023-04-25 23:00] VITALS: BP 120/71
[2023-04-26 06:00] VITALS: BMI 25.4
[2023-04-26 07:39] VITALS: BP 127/69
[2023-04-26 08:08] LABS: Glucose - Point of Care 128 mg/dl (70-99)
[2023-04-26] MEDS: PLAVIX 75 MG PO (09:08)
[2023-04-26] MEDS: ELIQUIS 2.5 MG PO ×2 (09:08→19:56)
[2023-04-26] MEDS: TOPROL XL 25 MG PO (09:09)
[2023-04-26] MEDS: LANTUS 0.149999999999999994 UNITS SC (09:10)
[2023-04-26] MEDS: NOVOLOG FLEXPEN-LOW RESISTANCE SC (09:10)
--- NOTE | 2023-04-26 11:01 | W.PN.HOSP.TC ---
Today's Communication/Plan
-
Add NovoLog
Assessment / Plan
Assessment / Plan
Gen-Awake, alert, NAD
HEENT-NC, AT, anicteric, clear oral mm, dried blood in right nares
Neck-supple
CV-reg, no M, +S1/S2
Lungs-clear B/L
Abd-soft, NT, ND
Ext-no edema
Musculoskeletal-no cyanosis, clubbing, right second toe superficial gangrene, dressings on both heels
Skin-warm and dry
Neuro-grossly non-focal
Psych-calm, cooperative
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 Possibly antibiotic induced interstitial nephritis given exposure to Keflex prior to admission. Hemodialysis started. Temporary dialysis catheter placed.�
Renal ultrasound without hydronephrosis. Creatinine improving. Cordova catheter placed on admission.
Subacute diarrhea -started after exposure to Keflex. Patient states it is improving. Low suspicion for C. difficile colitis. Can check stools if it worsens.
Metabolic acidosis -high anion gap and normal anion gap acidosis.� Acidosis resolved.
Right-sided epistaxis -appears to have resolved. [place] nasal spray ordered. Discussed with patient to avoid blowing the nose or sticking tissues up the nose. Not currently on oxygen.
Hyperkalemia -suspect due to TESSA. Potassium improved.
Hyponatremia -component of hyperglycemia induced hyponatremia. Sodium improved.
DM2 with hyperglycemia -suspect component of mild DKA given positive urine ketones and metabolic acidosis.� Glucose 128 this morning, 245 last night. Received 15 units of Lantus last night. Continue low resistance aspart scale.�Hold Tradjenta.
Add 4 units of NovoLog AC.
PAD/right second toe superficial gangrene -severe PAD noted, ABIs noted. Appreciate vascular surgery input. Will need eventual revascularization.
Hyperlipidemia -continue Crestor, Zetia.
Essential hypertension -stable.
History of stroke x 2
Permanent atrial fibrillation -Eliquis resumed. Discussed with vascular surgery, timing of any intervention to be determined.
CAD -stable.� Continue clopidogrel.
Chronic heart failure reduced EF -currently volume depleted.� Has not been on diuretics at home.
Chronic anemia -likely due to chronic kidney disease. Hemoglobin stable. Microcytosis noted. Not iron deficient on labs. B12, folic acid normal.
Hx Colon cancer
Full code
PT/OT
Dispo -eventual discharge to SNF when medically stable. Updated at the bedside.
Anticipated Discharge: > 48 hours
Subjective/Interval History
-
Date of Service: April 26, 2023
Patient seen and examined. Eating breakfast. No complaints.
Objective Data
-
Vital Signs:
Vital Signs
Temp Pulse Resp BP Pulse Ox
98 F 75 17 127/69 99
04/26/23 07:39 04/26/23 09:09 04/26/23 07:39 04/26/23 09:09 04/26/23 07:39
I&O
04/25/23 04/26/23 04/27/23
05:59 06:59 06:59
Intake Total
Output Total
Balance
Review of Systems
-
History Source: Patient
All other systems: Reviewed and negative
--- NOTE | 2023-04-26 11:19 | W.PN.NEPH.PH ---
Today's Communication / Plan
-
- ordered serologies
- HD tomorrow
Assessment/Plan
-
Assessment:
TESSA on CKD
HAGMA + NAGMA
Afib
HFrEF
Diarrhea
hyperK
hypocalcemia
Plan:
TESSA likely in the setting of volume depletion vs. AIN (keflex?) vs. ATN from hemodynamic shifts
-peak 15.7, coming down with HD,Cordova out, 2 moderate urination events noted
-renal u/s noted no obstruction: noted chronic changes
-Noted to have CKD with baseline Cr around 2.7 with significant proteinuria in the outpatient. thought to be in the setting of DKD
-obtained UPCR while inpatient: 2.3 grams. paraprotein workup negative
-no evidence of renal recovery noted
-repeat UA with blood. will obtain NYDIA, ANCA
-repeat UA to check for blood. if continued blood, will obtain serologic workup of TESSA
-plan for HD on Thursday if Cr does not downtrend
-
-
Date of Service: April 26, 2023
CC / HPI / ROS
-
Chief Complaint:
TESSA
History of Present Illness:
TESSA persistent, now on HD
hemodynamically stable
Review of Systems:
oliguric
no fevers
no chest pain or SOB
Labs
-
Labs:
WBC 8.3 10^3/uL (4.8-10.8) 04/25/23 07:43
RBC 4.04 10^6/uL (4.70-6.10) L 04/25/23 07:43
Hgb 11.3 g/dL (13.0-18.0) L 04/25/23 07:43
Hct 33.8 % (39.0-52.0) L 04/25/23 07:43
Plt Count 196 10^3/uL (130-400) 04/25/23 07:43
Sodium 135 mmol/L (135-145) 04/25/23 07:43
Potassium 3.8 mmol/L (3.5-5.1) 04/25/23 07:43
Chloride 95 mmol/L (98-107) L 04/25/23 07:43
Carbon Dioxide 29 mmol/L (22-30) 04/25/23 07:43
BUN 30 mg/dl (9-20) H 04/25/23 07:43
Creatinine 6.9 mg/dL (0.7-1.3) H* 04/25/23 07:43
eGFR 7.40 04/25/23 07:43
Glucose 140 mg/dl (70-99) H 04/25/23 07:43
Calcium 8.3 mg/dl (8.4-10.2) L 04/25/23 07:43
Phosphorus 5.9 mg/dl (2.5-4.5) H 04/22/23 05:43
Albumin 3.3 g/dl (3.5-5.0) L 04/25/23 07:43
Physical Exam
-
Vital Signs:
Vital Signs
Temp Pulse Resp BP Pulse Ox
98 F 75 17 127/69 99
04/26/23 07:39 04/26/23 09:09 04/26/23 07:39 04/26/23 09:09 04/26/23 07:39
Cardiovascular:: Regular rate and rhythm
Respiratory:: Bilateral: CTA
Lung Excursion:: Normal
Abdomen:: Nontender and Soft
Bowel Sounds:: Normal
Extremity Edema:: None: Bilateral:
Cordova Catheter: No
[2023-04-26 12:48] LABS: Glucose - Point of Care 313 mg/dl (70-99)
[2023-04-26] MEDS: NOVOLOG FLEXPEN 4 UNITS SC ×2 (12:53→17:12)
[2023-04-26] MEDS: NOVOLOG FLEXPEN-LOW RESISTANCE 4 UNITS SC (12:54)
[2023-04-26 15:30] VITALS: BP 120/64
[2023-04-26 16:04] VITALS: BP 120/64; PULSE 94; O2SAT 94
[2023-04-26 16:41] LABS: Glucose - Point of Care 250 mg/dl (70-99)
[2023-04-26] MEDS: NOVOLOG FLEXPEN-LOW RESISTANCE 3 UNITS SC (17:12)
[2023-04-26] MEDS: CRESTOR 40 MG PO (17:12)
[2023-04-26] MEDS: ZETIA 10 MG PO (17:12)
[2023-04-26] MEDS: TOPROL XL PO (19:55)
[2023-04-26 21:44] LABS: Glucose - Point of Care 256 mg/dl (70-99)
[2023-04-26 23:25] VITALS: BP 110/76
[2023-04-27 01:12] LABS: Complement C3 95 mg/dl (88-165)
[2023-04-27 06:00] VITALS: BMI 25.4
[2023-04-27 07:00] VITALS: BP 130/67
[2023-04-27 08:13] LABS: Glucose - Point of Care 165 mg/dl (70-99)
[2023-04-27] MEDS: NOVOLOG FLEXPEN SC (08:52)
[2023-04-27] MEDS: NOVOLOG FLEXPEN-LOW RESISTANCE SC ×2 (08:53→11:23)
--- NOTE | 2023-04-27 09:17 | W.PN.HOSP.TC ---
Addendum entered and electronically signed by Cullen York MD 04/27/23 17:04:
Discussed with vascular surgery, who recommends holding Eliquis and making the patient n.p.o. after midnight for possible angiogram tomorrow.
Original Note:
Today's Communication/Plan
-
see bold
Assessment / Plan
Assessment / Plan
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 Possibly antibiotic induced interstitial nephritis given exposure to Keflex prior to admission. Hemodialysis started. Temporary dialysis catheter placed.�
Renal ultrasound without hydronephrosis. Creatinine improving. Cordova catheter placed on admission. Continue dialysis as per nephrology, monitor for renal recovery. Needs SNF upon dc
Subacute diarrhea -started after exposure to Keflex. Patient states it is improving. Low suspicion for C. difficile colitis. Can check stools if it worsens.
PAD/right second toe superficial gangrene -severe PAD noted, ABIs noted. Appreciate vascular surgery input. Will need eventual revascularization. Timing TBD. Change tramadol to oxycodone for pain prn
Metabolic acidosis -high anion gap and normal anion gap acidosis.� Acidosis resolved.
Right-sided epistaxis -appears to have resolved. [place] nasal spray ordered. Discussed with patient to avoid blowing the nose or sticking tissues up the nose. Not currently on oxygen.
Hyperkalemia -suspect due to TESSA. Resolved, potassium normal
Hyponatremia -component of hyperglycemia induced hyponatremia. Resolved, sodium normal
DM2 with hyperglycemia -suspect component of mild DKA given positive urine ketones and metabolic acidosis.� Glucose 128 this morning, 245 last night. Received 15 units of Lantus last night. Continue low resistance aspart scale.�Hold Tradjenta.
Continue Lantus 15 units at bedtime, NovoLog 4 units AC 3 times daily
Hyperlipidemia -continue Crestor, Zetia.
Essential hypertension -stable.
History of stroke x 2
Permanent atrial fibrillation -Eliquis resumed. Discussed with vascular surgery, timing of any intervention to be determined.
CAD -stable.� Continue clopidogrel.
Chronic heart failure reduced EF -currently volume depleted.� Has not been on diuretics at home.
Chronic anemia -likely due to chronic kidney disease. Hemoglobin stable. Microcytosis noted. Not iron deficient on labs. B12, folic acid normal.
Hx Colon cancer
DVT prophylaxis�Eliquis
Full code
Gen-Awake, alert, NAD
HEENT-NC, AT, anicteric, clear oral mm, dried blood in right nares
Neck-supple
CV-reg, no M, +S1/S2
Lungs-clear B/L
Abd-soft, NT, ND
Ext-no edema
Musculoskeletal-no cyanosis, clubbing, right second toe superficial gangrene, dressings on both heels
Skin-warm and dry
Neuro-grossly non-focal
Psych-calm, cooperative
Anticipated Discharge: 24 - 48 hours
Subjective/Interval History
-
Date of Service: April 27, 2023
Patient complains of his right second toe pain. No fever, no chest pain, no shortness of breath. No nausea, no vomiting.
Objective Data
-
Vital Signs:
Vital Signs
Temp Pulse Resp BP Pulse Ox
98.2 F 88 16 130/67 97
04/27/23 07:00 04/27/23 07:00 04/27/23 07:00 04/27/23 07:00 04/27/23 07:00
I&O
04/26/23 04/27/23 04/28/23
06:59 06:59 06:59
Intake Total 1380 / 1380
Output Total
Balance 1380 / 1380
--- NOTE | 2023-04-27 11:06 | W.PN.NEPH.HD ---
Assessment
-
pt seen during HD
SBP 99, limited F
pt reports urinating normal-need to measure UOP
will also need pre HD cr values
likely change to TDC if no improvement seen on thursday
serologies pending
Progress Note - Hemodialysis
-
Date of Service: April 27, 2023
Duration: 3 hours
Potassium Bath: 3
Calcium Bath: 2.5
Opti-Dialyzer: 160
Ultrafiltration: Other (1-1.5kg)
Blood Flow: 400
Dialysate Flow: 600
Heparin: no
EPO: no
[2023-04-27] MEDS: DILAUDID 0.25 MG IV (11:18)
[2023-04-27] MEDS: ELIQUIS 2.5 MG PO (11:19)
[2023-04-27] MEDS: PLAVIX 75 MG PO (11:19)
[2023-04-27] MEDS: TOPROL XL PO ×2 (11:20→19:31)
[2023-04-27 11:23] LABS: Glucose - Point of Care 102 mg/dl (70-99)
[2023-04-27] MEDS: LANTUS 0.149999999999999994 UNITS SC (11:23)
[2023-04-27] MEDS: NOVOLOG FLEXPEN 4 UNITS SC ×2 (11:23→17:24)
--- NOTE | 2023-04-27 14:51 | CM ---
Chart reviewed - CM following for d/c planning
Creat remains elevated, receiving HD - Nephro following
CM - will follow - May need out-patient HD
Plan - d/c to snf (TBD) when medically ready
[2023-04-27 15:00] VITALS: BP 105/55
[2023-04-27 16:57] LABS: Glucose - Point of Care 264 mg/dl (70-99)
[2023-04-27] MEDS: ZETIA 10 MG PO (17:22)
[2023-04-27] MEDS: CRESTOR 10 MG PO (17:22)
[2023-04-27] MEDS: NOVOLOG FLEXPEN-LOW RESISTANCE 3 UNITS SC (17:23)
[2023-04-27 21:38] LABS: Glucose - Point of Care 249 mg/dl (70-99)
[2023-04-27 23:01] VITALS: BP 105/67
[2023-04-28 06:00] VITALS: BMI 25.1
[2023-04-28 06:38] LABS: Blood Urea Nitrogen 39 mg/dl (9-20); Calcium 7.7 mg/dl (8.4-10.2); Carbon Dioxide 30 mmol/L (22-30); Chloride 98 mmol/L (98-107); Estimated Creatinine Clearance 8 ml/min; Glucose 136 mg/dl (70-99); Potassium 3.7 mmol/L (3.5-5.1); Sodium 133 mmol/L (135-145)
[2023-04-28 07:24] LABS: Glucose - Point of Care 138 mg/dl (70-99)
[2023-04-28 07:31] VITALS: BP 130/75
--- NOTE | 2023-04-28 07:59 | W.PN.HOSP.TC ---
Today's Communication/Plan
-
Discussed with nephrology and vascular surgery, plan for angiogram on Thursday so he can have dialysis afterwards to protect his kidneys
Assessment / Plan
Assessment / Plan
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 Cordova catheter placed on admission. Continue dialysis M/W/F as per nephrology, monitor for
renal recovery. Needs SNF upon dc
Subacute diarrhea -started after exposure to Keflex. Patient states it is improving. Low suspicion for C. difficile colitis. Continue to monitor
PAD/right second toe superficial gangrene -severe PAD noted, ABIs noted. Discussed with nephrology and vascular surgery, plan for angiogram on Thursday so he can have dialysis afterwards to protect his kidneys. Continue oxycodone as needed pain
Metabolic acidosis -high anion gap and normal anion gap acidosis.� Acidosis resolved.
Right-sided epistaxis -appears to have resolved. [place] nasal spray ordered. Discussed with patient to avoid blowing the nose or sticking tissues up the nose. Not currently on oxygen.
Hyperkalemia -suspect due to TESSA. Resolved, potassium normal
Hyponatremia -component of hyperglycemia induced hyponatremia. Resolved, sodium normal
DM2 with hyperglycemia -suspect component of mild DKA given positive urine ketones and metabolic acidosis.��Hold Tradjenta. Continue Lantus 15 units at bedtime, NovoLog 4 units AC 3 times daily, SSI
Hyperlipidemia -continue Crestor, Zetia.
Essential hypertension -stable.
History of stroke x 2
Permanent atrial fibrillation -continue Eliquis
CAD -stable.� Continue clopidogrel.
Chronic heart failure reduced EF -currently volume depleted.� Has not been on diuretics at home.
Chronic anemia -likely due to chronic kidney disease. Hemoglobin stable. Microcytosis noted. Not iron deficient on labs. B12, folic acid normal.
Hx Colon cancer
DVT prophylaxis�Eliquis
Full code
Total time spent to see the patient on the floor, examine the patient, review data and lab results, discuss treatment plan with patient, nursing staff around 51 minutes.
Gen-Awake, alert, NAD
HEENT-NC, AT, anicteric, clear oral mm, dried blood in right nares
Neck-supple
CV-reg, no M, +S1/S2
Lungs-clear B/L
Abd-soft, NT, ND
Ext-no edema
Musculoskeletal-no cyanosis, clubbing, right second toe superficial gangrene, dressings on both heels
Skin-warm and dry
Neuro-grossly non-focal
Psych-calm, cooperative
Anticipated Discharge: > 48 hours
Subjective/Interval History
-
Date of Service: April 28, 2023
Patient reports that he has mild right toe pain. No nausea, no vomiting. No chest pain, no shortness of breath. No fever.
Objective Data
-
Labs:
Laboratory Results
04/28/23
05:45
Sodium 133 L
Potassium 3.7
Chloride 98
Carbon Dioxide 30
BUN 39 H
Creatinine 6.5 H*
Glucose 136 H
Calcium 7.7 L
Vital Signs:
Vital Signs
Temp Pulse Resp BP Pulse Ox
97.8 F 91 17 130/75 93
04/28/23 07:31 04/28/23 07:31 04/28/23 07:31 04/28/23 07:31 04/28/23 07:31
I&O
04/27/23 04/28/23 04/29/23
06:59 06:59 06:59
Intake Total 1380 / 1380 480 / 480
Balance 1380 / 1380 480 / 480
[2023-04-28] MEDS: NOVOLOG FLEXPEN-LOW RESISTANCE SC ×2 (08:24→12:03)
[2023-04-28] MEDS: LANTUS SC (08:24)
[2023-04-28] MEDS: NOVOLOG FLEXPEN SC (08:24)
[2023-04-28] MEDS: PLAVIX 75 MG PO (08:25)
[2023-04-28] MEDS: TOPROL XL 25 MG PO (08:25)
--- NOTE | 2023-04-28 08:25 | W.PN.UPDATE ---
Addendum entered and electronically signed by Martin Cordova III, MD 04/28/23 11:01:
This patient was seen and examined with CAIN Epps. Discussed case with hospitalist and nephrology. They would like to wait on the arteriogram until a dialysis day so that he can be dialyzed following the administration of contrast
media. Will plan for Thursday05/01/23.
Signed:
Martin Cordova III, MD
[facility]
[phone] (cell)
Original Note:
Update Note
Progress Note Update
Plan for right lower extremity arteriogram today with Dr. Martin Cordova III, NPO and vivienne kennedy. Discussed with patient at bedside, all questions and concerns addressed. Nursing updated.
[2023-04-28 10:37] VITALS: BP 111/63; PULSE 89; O2SAT 98
[2023-04-28 11:49] LABS: Glucose - Point of Care 120 mg/dl (70-99)
[2023-04-28] MEDS: ELIQUIS 2.5 MG PO ×2 (12:01→20:50)
[2023-04-28] MEDS: LANTUS 0.149999999999999994 UNITS SC (12:01)
[2023-04-28] MEDS: NOVOLOG FLEXPEN 4 UNITS SC ×2 (12:01→17:22)
--- NOTE | 2023-04-28 13:25 | W.PN.NEPH.PH ---
Today's Communication / Plan
-
see plan
Assessment/Plan
-
Assessment:
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
HAGMA + NAGMA
Afib
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
Diarrhea
hyperK
hypocalcemia
PAD/right second toe superficial gangrene -severe PAD noted
h/o amputation of right foot toe
Right iliac art aneurysm
Right-sided epistaxis -appears to have resolved.�
DM2 with hyperglycemia
Hyperlipidemia
Essential hypertension
History of stroke x 2
Permanent atrial fibrillation- Eliquis
CAD
h/o pericarditis
Chronic anemia
Hx Colon cancer s/p right hemicolectomy 2016
bilat carotid art disease
h/o ventral hernia repair 2021
Echo at [facility]: 01/2023:
EF 20-25%, Grade2 DD, mild AI
Plan:
TESSA likely in the setting of volume depletion ATN from hemodynamic shifts vs AIN from abx
-peak 15.7 on admit, HD initiated on 04/21, need to monitor UOP still
-renal u/s noted no obstruction: noted chronic changes
-Noted to have CKD with baseline Cr around 2.7 with significant proteinuria in the outpatient. thought to be in the setting of DKD
-obtained UPCR while inpatient: 2.3 grams. paraprotein workup negative, serologies pending
-no evidence of renal recovery noted at this time
uncertain if we are going to expect renal recovery
plan angio on Thursday and HD after
HD tomorrow per schedule MWF
need to change to tunneled catheter and out pt HD unit placement
long d/w pt and at bedside in detail , answered many questions
d/w primary and vasc
-
-
Date of Service: April 28, 2023
CC / HPI / ROS
-
Chief Complaint:
TESSA
History of Present Illness:
TESSA persistent, now on HD from 04/21
hemodynamically stable
no fever,
Review of Systems:
UOP not measured
no fevers
no chest pain or SOB
Labs
-
Labs:
WBC 8.3 10^3/uL (4.8-10.8) 04/25/23 07:43
RBC 4.04 10^6/uL (4.70-6.10) L 04/25/23 07:43
Hgb 11.3 g/dL (13.0-18.0) L 04/25/23 07:43
Hct 33.8 % (39.0-52.0) L 04/25/23 07:43
Plt Count 196 10^3/uL (130-400) 04/25/23 07:43
Sodium 133 mmol/L (135-145) L 04/28/23 05:45
Potassium 3.7 mmol/L (3.5-5.1) 04/28/23 05:45
Chloride 98 mmol/L (98-107) 04/28/23 05:45
Carbon Dioxide 30 mmol/L (22-30) 04/28/23 05:45
BUN 39 mg/dl (9-20) H 04/28/23 05:45
Creatinine 6.5 mg/dL (0.7-1.3) H* 04/28/23 05:45
eGFR 7.90 04/28/23 05:45
Glucose 136 mg/dl (70-99) H 04/28/23 05:45
Calcium 7.7 mg/dl (8.4-10.2) L 04/28/23 05:45
Phosphorus 5.9 mg/dl (2.5-4.5) H 04/22/23 05:43
Albumin 3.3 g/dl (3.5-5.0) L 04/25/23 07:43
Physical Exam
-
Vital Signs:
Vital Signs
Temp Pulse Resp BP Pulse Ox
97.8 F 91 17 130/75 93
04/28/23 07:31 04/28/23 08:25 04/28/23 07:31 04/28/23 08:25 04/28/23 08:34
Cardiovascular:: Regular rate and rhythm
Respiratory:: Bilateral: CTA
Lung Excursion:: Normal
Abdomen:: Nontender and Soft
Extremity Edema:: None: Bilateral:
Cordova Catheter: No
[2023-04-28 15:21] VITALS: BP 116/63
[2023-04-28 16:46] LABS: Glucose - Point of Care 273 mg/dl (70-99)
[2023-04-28] MEDS: NOVOLOG FLEXPEN-LOW RESISTANCE 3 UNITS SC (17:23)
[2023-04-28] MEDS: ZETIA 10 MG PO (17:23)
[2023-04-28] MEDS: CRESTOR 10 MG PO (17:23)
[2023-04-28] MEDS: TOPROL XL PO ×2 (20:50→21:10)
[2023-04-28 21:31] LABS: Glucose - Point of Care 268 mg/dl (70-99)
[2023-04-28 23:00] VITALS: BP 116/70
[2023-04-29 02:37] LABS: ANA, IgG Reflex to HEp-2 None Detected (None Detected)
[2023-04-29 06:00] VITALS: BMI 24.8
[2023-04-29 07:00] VITALS: BP 111/63
[2023-04-29 08:24] LABS: Glucose - Point of Care 122 mg/dl (70-99)
[2023-04-29] MEDS: NOVOLOG FLEXPEN-LOW RESISTANCE SC ×2 (08:36→17:27)
[2023-04-29] MEDS: LANTUS 0.149999999999999994 UNITS SC (09:00)
[2023-04-29] MEDS: NOVOLOG FLEXPEN 4 UNITS SC ×2 (09:01→12:03)
[2023-04-29] MEDS: ELIQUIS 2.5 MG PO ×2 (09:01→21:23)
[2023-04-29] MEDS: PLAVIX 75 MG PO (09:02)
[2023-04-29] MEDS: TOPROL XL PO (09:02)
--- NOTE | 2023-04-29 09:08 | W.PN.HOSP.TC ---
Today's Communication/Plan
-
see bold
Assessment / Plan
Assessment / Plan
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 Cordova catheter placed on admission. Continue dialysis M/W/F as per nephrology, monitor for
renal recovery. Needs SNF upon dc
Subacute diarrhea -started after exposure to Keflex. Patient states it is improving. Low suspicion for C. difficile colitis. Continue to monitor
PAD/right second toe superficial gangrene -severe PAD noted, ABIs noted. Discussed with nephrology and vascular surgery, plan for angiogram on Thursday so he can have dialysis afterwards to protect his kidneys. Continue oxycodone as needed pain
Metabolic acidosis -high anion gap and normal anion gap acidosis.� Acidosis resolved.
Right-sided epistaxis -appears to have resolved. [place] nasal spray ordered. Discussed with patient to avoid blowing the nose or sticking tissues up the nose. Not currently on oxygen.
Hyperkalemia -suspect due to TESSA. Resolved, potassium normal
Hyponatremia -component of hyperglycemia induced hyponatremia. Resolved, sodium normal
DM2 with hyperglycemia -suspect component of mild DKA given positive urine ketones and metabolic acidosis.��Hold Tradjenta. Continue Lantus 15 units at bedtime, increase NovoLog 8 units AC 3 times daily, SSI
Hyperlipidemia -continue Crestor, Zetia.
Essential hypertension -stable.
History of stroke x 2
Permanent atrial fibrillation -continue Eliquis
CAD -stable.� Continue clopidogrel.
Chronic heart failure reduced EF -currently volume depleted.� Has not been on diuretics at home.
Chronic anemia -likely due to chronic kidney disease. Hemoglobin stable. Microcytosis noted. Not iron deficient on labs. B12, folic acid normal.
Hx Colon cancer
DVT prophylaxis�Eliquis
Full code
Physical exam
Gen-Awake, alert, NAD
HEENT-NC, AT, anicteric, clear oral mm, dried blood in right nares
Neck-supple
CV-reg, no M, +S1/S2
Lungs-clear B/L
Abd-soft, NT, ND
Ext-no edema
Musculoskeletal-no cyanosis, clubbing, right second toe superficial gangrene, dressings on both heels
Skin-warm and dry
Neuro-grossly non-focal
Psych-calm, cooperative
Anticipated Discharge: > 48 hours
Subjective/Interval History
-
Date of Service: April 29, 2023
Patient reports that his right second toe pain is tolerable. No chest pain, shortness of breath.
Objective Data
-
Labs:
Laboratory Results
04/29/23
06:00
PT Pending
INR Pending
Sodium Pending
Potassium Pending
Chloride Pending
Carbon Dioxide Pending
BUN Pending
Creatinine Pending
Glucose Pending
Calcium Pending
Vital Signs:
Vital Signs
Temp Pulse Resp BP Pulse Ox
98.2 F 72 18 111/63 98
04/29/23 07:00 04/29/23 07:00 04/29/23 07:00 04/29/23 09:02 04/29/23 07:00
I&O
04/28/23 04/29/23 04/30/23
06:59 06:59 06:59
Intake Total 480 / 480 600 / 600
Balance 480 / 480 600 / 600
[2023-04-29 11:57] LABS: Glucose - Point of Care 287 mg/dl (70-99)
[2023-04-29] MEDS: NOVOLOG FLEXPEN-LOW RESISTANCE 3 UNITS SC (12:03)
[2023-04-29] MEDS: HEPARIN 500 UNITS IV ×2 (12:25→13:25)
[2023-04-29 13:23] LABS: Blood Urea Nitrogen 59 mg/dl (9-20); Carbon Dioxide 25 mmol/L (22-30); Chloride 93 mmol/L (98-107); Estimated Creatinine Clearance 7 ml/min; Glucose 263 mg/dl (70-99); Potassium 3.8 mmol/L (3.5-5.1); Sodium 131 mmol/L (135-145); eGFR 6.55
[2023-04-29] MEDS: MANNITOL 12.5 GRAMS IV (13:34)
[2023-04-29] MEDS: FLEXBUMIN 25% FOR HEMODIALYSIS 12.5 GRAMS IV (13:34)
[2023-04-29 13:48] LABS: INR 1.58
[2023-04-29 15:00] VITALS: BP 137/71
--- NOTE | 2023-04-29 15:03 | W.PN.NEPH.HD ---
Assessment
-
- no complaints on HD
- continues to make urine
- blood pressures softer, decreased UF goal
Progress Note - Hemodialysis
-
Date of Service: April 29, 2023
Duration: 30 minutes and 3 hours
Potassium Bath: 3
Calcium Bath: 2.5
Opti-Dialyzer: 160
Ultrafiltration: Other
Blood Flow: 400
Dialysate Flow: 600
Heparin: 500x2
[2023-04-29] MEDS: HEPARIN 2200 UNITS INTRACATH (16:07)
[2023-04-29 17:23] LABS: Glucose - Point of Care 121 mg/dl (70-99)
[2023-04-29] MEDS: NOVOLOG FLEXPEN 8 UNITS SC (17:27)
[2023-04-29] MEDS: ZETIA 10 MG PO (17:28)
[2023-04-29] MEDS: CRESTOR 10 MG PO (17:28)
[2023-04-29] MEDS: TOPROL XL 25 MG PO (21:23)
[2023-04-29 21:40] LABS: Glucose - Point of Care 258 mg/dl (70-99)
--- NOTE | 2023-04-29 22:18 | PTCARENOTE ---
Pt complained of 5/0 pain in right foot. Oral PRN pain medications offered, pt refused. Pt requested topical cream. COMPUTER OPERATIONS SUPERVISOR made aware, new order provided, see MAR. Will continue to monitor.
[2023-04-29] MEDS: BenGay-Like 1 APPLIC TOPICAL (22:50)
[2023-04-29 23:00] VITALS: BP 114/55
[2023-04-29 23:25] LABS: Glomerular Base Membrane Ab 0 AU/mL (0-19); Myeloperoxidase Antibody 0 AU/mL (0-19); Serine Protease-3, IgG 0 AU/mL (0-19)
[2023-04-29 23:53] VITALS: BP 114/55
[2023-04-30 06:00] VITALS: BMI 24.5
[2023-04-30 07:00] VITALS: BP 136/77
[2023-04-30 07:12] LABS: Blood Urea Nitrogen 35 mg/dl (9-20); Calcium 7.8 mg/dl (8.4-10.2); Carbon Dioxide 29 mmol/L (22-30); Chloride 101 mmol/L (98-107); Estimated Creatinine Clearance 11 ml/min; Glucose 121 mg/dl (70-99); Potassium 3.8 mmol/L (3.5-5.1); Sodium 133 mmol/L (135-145); eGFR 11.09
[2023-04-30 08:15] LABS: Glucose - Point of Care 124 mg/dl (70-99)
[2023-04-30] MEDS: TOPROL XL 25 MG PO ×2 (08:17→19:53)
[2023-04-30] MEDS: ELIQUIS 2.5 MG PO (08:17)
[2023-04-30] MEDS: PLAVIX 75 MG PO (08:18)
[2023-04-30] MEDS: LANTUS 0.149999999999999994 UNITS SC (08:18)
[2023-04-30] MEDS: NOVOLOG FLEXPEN 8 UNITS SC ×2 (08:20→12:46)
[2023-04-30] MEDS: NOVOLOG FLEXPEN-LOW RESISTANCE SC ×3 (08:20→17:28)
--- NOTE | 2023-04-30 08:43 | W.PN.HOSP.TC ---
Today's Communication/Plan
-
For angiogram tomorrow followed by dialysis tomorrow
Assessment / Plan
Assessment / Plan
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 Cordova catheter placed on admission. Continue dialysis M/W/F as per nephrology, monitor for
renal recovery. Getting tunneled HD catheter today. Needs SNF upon dc
Subacute diarrhea -started after exposure to Keflex. Patient states it is improving. Low suspicion for C. difficile colitis. Continue to monitor
PAD/right second toe superficial gangrene -severe PAD noted, ABIs noted. Discussed with nephrology and vascular surgery, plan for angiogram on Thursday so he can have dialysis afterwards to protect his kidneys. Continue oxycodone as needed pain
Metabolic acidosis -high anion gap and normal anion gap acidosis.� Acidosis resolved.
Right-sided epistaxis -appears to have resolved. [place] nasal spray ordered. Discussed with patient to avoid blowing the nose or sticking tissues up the nose. Not currently on oxygen.
Hyperkalemia -suspect due to TESSA. Resolved, potassium normal
Hyponatremia -component of hyperglycemia induced hyponatremia. Resolved, sodium normal
DM2 with hyperglycemia -suspect component of mild DKA given positive urine ketones and metabolic acidosis.��Hold Tradjenta. Continue Lantus 15 units at bedtime, increase NovoLog 10 units AC 3 times daily, SSI
Hyperlipidemia -continue Crestor, Zetia.
Essential hypertension -stable.
History of stroke x 2
Permanent atrial fibrillation -hold eliquis tonight for angiogram tomorrow
CAD -stable.� Continue clopidogrel.
Chronic heart failure reduced EF -currently volume depleted.� Has not been on diuretics at home.
Chronic anemia -likely due to chronic kidney disease. Hemoglobin stable. Microcytosis noted. Not iron deficient on labs. B12, folic acid normal.
Hx Colon cancer
DVT prophylaxis�hold eliquis tonight for angiogram tomorrow
Full code
Physical exam
Gen-Awake, alert, NAD
HEENT-NC, AT, anicteric, clear oral mm, dried blood in right nares
Neck-supple
CV-reg, no M, +S1/S2
Lungs-clear B/L
Abd-soft, NT, ND
Ext-no edema
Musculoskeletal-no cyanosis, clubbing
Right first toe amputation noted
Right second toe superficial gangrene, dressings on both heels
Skin-warm and dry
Neuro-grossly non-focal
Psych-calm, cooperative
Anticipated Discharge: > 48 hours
Subjective/Interval History
-
Date of Service: April 30, 2023
No chest pain, no shortness of breath. Right toe pain tolerable.
Objective Data
-
Labs:
Laboratory Results
04/30/23
05:56
Sodium 133 L
Potassium 3.8
Chloride 101
Carbon Dioxide 29
BUN 35 H
Creatinine 4.9 H*
Glucose 121 H
Calcium 7.8 L
Vital Signs:
Vital Signs
Temp Pulse Resp BP Pulse Ox
97.6 F 82 18 136/77 99
04/30/23 07:00 04/30/23 08:17 04/30/23 07:00 04/30/23 08:17 04/30/23 07:00
I&O
04/29/23 04/30/23 05/01/23
06:59 06:59 06:59
Intake Total 600 / 600 1440 / 1440
Balance 600 / 600 1440 / 1440
[2023-04-30 12:00] VITALS: BP 116/72; PULSE 104
[2023-04-30 12:07] LABS: Glucose - Point of Care 268 mg/dl (70-99)
--- NOTE | 2023-04-30 12:43 | W.PN.NEPH.PH ---
Today's Communication / Plan
-
- HD tomorrow AFTER arteriogram
Assessment/Plan
-
Assessment:
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
HAGMA + NAGMA
Afib
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
Diarrhea
hyperK
hypocalcemia
PAD/right second toe superficial gangrene -severe PAD noted
h/o amputation of right foot toe
Right iliac art aneurysm
Right-sided epistaxis -appears to have resolved.�
DM2 with hyperglycemia
Hyperlipidemia
Essential hypertension
History of stroke x 2
Permanent atrial fibrillation- Eliquis
CAD
h/o pericarditis
Chronic anemia
Hx Colon cancer s/p right hemicolectomy 2016
bilat carotid art disease
h/o ventral hernia repair 2021
Echo at [facility]: 01/2023:
EF 20-25%, Grade2 DD, mild AI
Plan:
TESSA likely in the setting of volume depletion ATN from hemodynamic shifts vs AIN from abx
-peak 15.7 on admit, HD initiated on 04/21, need to monitor UOP still
-renal u/s noted no obstruction: noted chronic changes
-Noted to have CKD with baseline Cr around 2.7 with significant proteinuria in the outpatient. thought to be in the setting of DKD
-obtained UPCR while inpatient: 2.3 grams. paraprotein workup negative, serologies negative
-no evidence of renal recovery noted at this time
uncertain if we are going to expect renal recovery
plan for arteriogram tomorrow with HD afterwards
HD tomorrow per schedule MWF
need to change to tunneled catheter and out pt HD unit placement
d/w primary and vasc
-
-
Date of Service: April 30, 2023
CC / HPI / ROS
-
Chief Complaint:
TESSA
History of Present Illness:
TESSA persistent, now on HD from 04/21
hemodynamically stable
no fever,
Review of Systems:
UOP not measured
no fevers
no chest pain or SOB
Labs
-
Labs:
WBC 8.3 10^3/uL (4.8-10.8) 04/25/23 07:43
RBC 4.04 10^6/uL (4.70-6.10) L 04/25/23 07:43
Hgb 11.3 g/dL (13.0-18.0) L 04/25/23 07:43
Hct 33.8 % (39.0-52.0) L 04/25/23 07:43
Plt Count 196 10^3/uL (130-400) 04/25/23 07:43
Sodium 133 mmol/L (135-145) L 04/30/23 05:56
Potassium 3.8 mmol/L (3.5-5.1) 04/30/23 05:56
Chloride 101 mmol/L (98-107) 04/30/23 05:56
Carbon Dioxide 29 mmol/L (22-30) 04/30/23 05:56
BUN 35 mg/dl (9-20) H 04/30/23 05:56
Creatinine 4.9 mg/dL (0.7-1.3) H* 04/30/23 05:56
eGFR 11.09 04/30/23 05:56
Glucose 121 mg/dl (70-99) H 04/30/23 05:56
Calcium 7.8 mg/dl (8.4-10.2) L 04/30/23 05:56
Phosphorus 5.9 mg/dl (2.5-4.5) H 04/22/23 05:43
Albumin 3.3 g/dl (3.5-5.0) L 04/25/23 07:43
Physical Exam
-
Vital Signs:
Vital Signs
Temp Pulse Resp BP Pulse Ox
97.6 F 82 18 136/77 99
04/30/23 07:00 04/30/23 08:17 04/30/23 07:00 04/30/23 08:17 04/30/23 07:00
Cardiovascular:: Regular rate and rhythm
Respiratory:: Bilateral: Coarse
Lung Excursion:: Normal
Abdomen:: Nontender and Soft
Bowel Sounds:: Normal
Extremity Edema:: None: Bilateral:
Cordova Catheter: No
[2023-04-30 14:30] VITALS: BP 109/71; BP_SYST 75
--- NOTE | 2023-04-30 14:50 | CM ---
Chart reviewed and spoke with pts - pt off unit
Pt accepted at [facility] for snf - based on bed availability at time of d/c
Explained process to Mrs Chicas - asked for more choices for snf - reports she will review and either call CM or CM will follow up with family tomorrow
Plan - snf at d/c -
[2023-04-30 15:00] VITALS: BP 114/65
[2023-04-30 15:48] VITALS: BP 133/80
[2023-04-30] MEDS: FLUSH (NSS) 1 FLUSH IV (15:55)
[2023-04-30] MEDS: ANCEF 10 IV (15:55)
[2023-04-30 17:02] LABS: Glucose - Point of Care 126 mg/dl (70-99)
[2023-04-30] MEDS: CRESTOR 10 MG PO (17:35)
[2023-04-30] MEDS: ZETIA 10 MG PO (17:35)
[2023-04-30] MEDS: NOVOLOG FLEXPEN 10 UNITS SC (17:49)
--- NOTE | 2023-04-30 19:10 | VATNOTE ---
Pt's R tunnelled HD cath bleeding. Asked by primary RN to change dressing. Dressing changed and QuikClot applied. 30 min later called because dressing was saturated. Dressing changed again using 2 QuikClots, pt laid flat and 1L IV bag placed over
new dressing for pressure. IR contacted per primary RN. Will continue to monitor.
--- NOTE | 2023-04-30 19:34 | VATNOTE ---
checked right hd tunneled catheter site now; no active bleeding. Pt. holding IV bag over site. PCN raised HOB slightly now to see pt. progress with HDC bleeding. at bedside and extremely angry. She insists that the HD catheter bleeding be
repaired tonight. PCN states that IR on-call employee has been reached out to. will follow next 4 hrs. by this VAT RN.
--- NOTE | 2023-04-30 21:10 | VATNOTE ---
assessed right IJ HD catheter @ 2100. No active bleeding from site. Found pt. in chair with weight bag on bedside table. Dsg. non-occlusive on bottom side so another dsg. applied.
[2023-04-30 21:46] LABS: Glucose - Point of Care 96 mg/dl (70-99)
[2023-04-30 23:30] VITALS: BP 124/74
[2023-05-01] VITALS (12 sets, daily range): BP systolic 96–128; BP diastolic 60–79; PULSE 81; BMI 25.1
[2023-05-01 06:00] LABS: Glucose - Point of Care 102 mg/dl (70-99)
[2023-05-01] MEDS: NOVOLOG FLEXPEN-LOW RESISTANCE SC ×2 (06:04→12:51)
[2023-05-01] MEDS: BenGay-Like 1 APPLIC TOPICAL (06:05)
[2023-05-01] MEDS: NOVOLOG FLEXPEN SC ×2 (08:22→12:51)
[2023-05-01] MEDS: PLAVIX 75 MG PO (08:25)
[2023-05-01] MEDS: TOPROL XL 25 MG PO (08:25)
[2023-05-01] MEDS: LANTUS 0.149999999999999994 UNITS SC (08:26)
--- NOTE | 2023-05-01 08:43 | W.PN.HOSP.TC ---
Today's Communication/Plan
-
For angiogram followed by dialysis today
Assessment / Plan
Assessment / Plan
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 Cordova catheter placed on admission. Continue dialysis M/W/F as per nephrology, monitor for
renal recovery. S/p tunneled R IJ HD catheter 04/29. Needs SNF upon dc
Subacute diarrhea -started after exposure to Keflex. Patient states it is improving. Low suspicion for C. difficile colitis. Continue to monitor
PAD/right second toe superficial gangrene -severe PAD noted, ABIs noted. Discussed with nephrology and vascular surgery, plan for angiogram today so he can have dialysis afterwards to protect his kidneys. Continue oxycodone as needed pain
Metabolic acidosis -high anion gap and normal anion gap acidosis.� Acidosis resolved.
Right-sided epistaxis -appears to have resolved. [place] nasal spray ordered. Discussed with patient to avoid blowing the nose or sticking tissues up the nose. Not currently on oxygen.
Hyperkalemia -suspect due to TESSA. Resolved, potassium normal
Hyponatremia -component of hyperglycemia induced hyponatremia. Resolved, sodium normal
DM2 with hyperglycemia -suspect component of mild DKA given positive urine ketones and metabolic acidosis.��Hold Tradjenta. Continue Lantus 15 units at bedtime, increase NovoLog 10 units AC 3 times daily, SSI
Hyperlipidemia -continue Crestor, Zetia.
Essential hypertension -stable.
History of stroke x 2
Permanent atrial fibrillation -hold eliquis for angiogram today
CAD -stable.� Continue clopidogrel.
Chronic heart failure reduced EF -currently volume depleted.� Has not been on diuretics at home.
Chronic anemia -likely due to chronic kidney disease. Hemoglobin stable. Microcytosis noted. Not iron deficient on labs. B12, folic acid normal.
Hx Colon cancer
DVT prophylaxis�hold eliquis for angiogram today
Full code
Physical exam
Gen-Awake, alert, NAD
HEENT-NC, AT, anicteric, clear oral mm, dried blood in right nares
Neck-supple
CV-reg, no M, +S1/S2
Lungs-clear B/L
Abd-soft, NT, ND
Ext-no edema
Musculoskeletal-no cyanosis, clubbing
Right first toe amputation noted
Right second toe superficial gangrene, dressings on both heels
Skin-warm and dry
Neuro-grossly non-focal
Psych-calm, cooperative
Anticipated Discharge: > 48 hours
Subjective/Interval History
-
Date of Service: May 01, 2023
Patient reports that his right foot pain is tolerable. No chest pain, shortness of breath, or palpitations.
Objective Data
-
Labs:
Laboratory Results
05/01/23
06:00
WBC Pending
Hgb Pending
Hct Pending
Plt Count Pending
Sodium Pending
Potassium Pending
Chloride Pending
Carbon Dioxide Pending
BUN Pending
Creatinine Pending
Glucose Pending
Calcium Pending
Vital Signs:
Vital Signs
Temp Pulse Resp BP Pulse Ox
97.8 F 83 16 128/71 94
05/01/23 07:45 05/01/23 08:25 05/01/23 07:45 05/01/23 08:25 05/01/23 07:45
I&O
04/30/23 05/01/23 05/02/23
06:59 06:59 06:59
Intake Total 1440 / 1440 480 / 480
Output Total 100 / 100
Balance 1440 / 1440 380 / 380
[2023-05-01 09:41] LABS: Glucose - Point of Care 120 mg/dl (70-99)
--- NOTE | 2023-05-01 10:47 | W.SUR.PREOP ---
Pre-Operative Surgical Note
-
I have examined this patient prior to the performance of the scheduled procedure.
The patient's condition is unchanged from the time of the current History and
Physical and the patient is able to undergo the scheduled procedure.
--- NOTE | 2023-05-01 13:22 | W.PV.INTER ---
VPI Note
Pre Admission Note
Functional Status: Self Care
Ambulation: Ambulate with Assistance (rolling walker)
Pre Op Medications
Pre Op ASA: No
Pre Op Statin: Yes
Pre Op DINORA Inhibitor/ARB: No
Pre Op P2y12 Antagonist: Clopidogrel
Pre Op Beta Blockers: Chronic > 30 Days
Pre Op Chronic Anticoagulant: Apixaban
Pre Op Cilostazol: No
Post Op Medications
Post Op ASA: No
Post Op Statin: Yes
Post Op DINORA Inhibitor/ARB: No
Post Op P2y12 Antagonist: Clopidogrel
Post Op Beta Blockers: Chronic > 30 Days
Post Op Chronic Anticoagulant: Apixaban
Post Op Cilostazol: No
[2023-05-01 13:25] LABS: Glucose - Point of Care 99 mg/dl (70-99)
--- NOTE | 2023-05-01 13:26 | W.IMMPOSTOP ---
Surgical Immed Post Op Note
-
Primary Surgeon: Martin Cordova III, MD
Assisting Surgeon: Dhruv Carmichael MD
Pre-op Diagnosis: Non-healing RLE wound
Post-op Diagnosis: Non-healing RLE wound
Procedure Performed: RLE angiogram, R SFA balloon angioplasty / stenting, R peroneal shockwave lithotripsy / balloon angioplasty
Anesthesia Type: Light Sedation
Specimen / Cultures: NA
Estimated Blood Loss: 2cc
Complications: NA
Operative Findings:
Access was obtained across contralateral leg and wire/catheters/sheath were serially advanced across the iliac bifurcation into the contralateral femoral artery. CO2 arteriogram demonstrated significant SFA disease, significant peroneal disease.
Shockwave lithotripsy and balloon angioplasty of the peroneal artery was successful. SFA was serially dilated with balloon catheter and ZILVER PTX 6x60 stent placement in mid/distal SFA without issue.
--- NOTE | 2023-05-01 13:39 | CM ---
Spoke with pts at bedside- pt off floor
CM following for d/c planning - obtained additional choice
Additional referral sent in [facility]
Will cont to follow for d/c needs
Plan - snf when medically stable - tbd
--- NOTE | 2023-05-01 14:19 | PTCARENOTE ---
pt arrived from PACU. report received from Vicente SOURCING ASSISTANT. Pt resting comfortably in bed. L groin CDI, soft and nontender. b/l dorsalis pedis pulses present with doppler. pt currently on bedrest until 1912.
[2023-05-01 14:57] LABS: Hematocrit 27.1 % (39.0-52.0); Hemoglobin 9.1 g/dL (13.0-18.0); Mean Corp Hgb Conc. 33.6 g/dL (33.0-37.0); Mean Corpuscular Volume 83.4 fL (80.0-94.0); Platelet Count 179 10^3/uL (130-400); Red Blood Cell Count 3.25 10^6/uL (4.70-6.10); Red Cell Dist. Width 14.9 % (11.5-14.5); White Blood Cell Count 7.7 10^3/uL (4.8-10.8)
[2023-05-01 15:03] LABS: Blood Urea Nitrogen 46 mg/dl (9-20); Calcium 7.9 mg/dl (8.4-10.2); Carbon Dioxide 23 mmol/L (22-30); Chloride 103 mmol/L (98-107); Estimated Creatinine Clearance 8 ml/min; Glucose 87 mg/dl (70-99); Potassium 4.1 mmol/L (3.5-5.1); Sodium 133 mmol/L (135-145); eGFR 7.76
--- NOTE | 2023-05-01 15:09 | W.PN.NEPH.HD ---
Assessment
-
pt seen during HD
vials stable
s/p angio earlier, sig PAD
RLE angiogram, R SFA balloon angioplasty / stenting, R peroneal shockwave lithotripsy / balloon angioplasty
cr cont to riise pre HD , cont HD
subjectively non oliguric
monitor bleeding from CVC site
Progress Note - Hemodialysis
-
Date of Service: May 01, 2023
Duration: 30 minutes and 3 hours
Potassium Bath: 3
Calcium Bath: 2.5
Opti-Dialyzer: 160
Ultrafiltration: Other (1kg)
Blood Flow: 400
Dialysate Flow: 600
Heparin: no
EPO: 6000
[2023-05-01] MEDS: RETACRIT 6000 UNITS IV (15:33)
--- NOTE | 2023-05-01 15:44 | OR.RPT ---
Operative Report
Operative Report
Date of Operation: 05/01/2023
Pre Op Diagnosis: Critical limb threatening ischemia right lower extremity
Post Op Diagnosis: Critical limb threatening ischemia right lower extremity
Procedure:
1.) Intravascular lithotripsy to right peroneal artery and tibioperoneal trunk stenoses (3.5 mm x 40 mm S4 shockwave balloon)
2.) Intravascular lithotripsy to right superficial femoral artery stenosis (6 mm x 60 mm M5 + shockwave balloon)
3.) Balloon angioplasty and stenting of right superficial femoral artery stenosis (6 mm x 60 mm Zilver PTX; postdilated with 6 mm balloon)
4.) Diagnostic aortobiiliac arteriogram (CO2)
5.) Diagnostic right lower extremity arteriogram (CO2 + 1/4 strength contrast)
6.) Ultrasound-guided percutaneous access to the left common femoral artery
Surgeon: Martin Cordova III, MD
Research Investigator: Dhruv Carmichael MD PGY-1
Anesthesia: Sedation with local
Fluoroscopy:
36.7 min
109 mGy
32.58 Gy.cm2
Complications: None
Estimated Blood Loss: Less than 20 cc
History and Indications for Procedure: 82-year-old male with multiple medical comorbidities and critical limb threatening ischemia of his right lower extremity.
Procedure in Detail: Pito Chicas was correctly identified and placed supine on the operating table. After adequate induction of anesthesia the bilateral groins were prepped and draped in the usual sterile fashion. A timeout was performed with the
nursing and anesthesia staff confirming the patient's identity as well as the nature and laterality of the procedure.
The left common femoral artery was identified under ultrasound guidance. The artery was patent. The superior and inferior aspects of the femoral head were identified with radiographic guidance and marked at the skin level. The proposed puncture site
was infiltrated with local anesthesia. We saved a copy of the ultrasound image to the medical record. Under ultrasound guidance we accessed the left common femoral artery with a micropuncture needle and upsized to a 5 Fr sheath over a Bentson wire.
The wire and a [email or web address] hook flush catheter were advanced into the distal abdominal aorta and a diagnostic aorto-biiliac arteriogram was performed with CO2:
AORTO-ILIAC ARTERIOGRAM:
Aorta: Patent with no significant stenosis identified
Right common iliac artery: Patent with no significant stenosis identified
Right external iliac artery: Tortuous. Patent with no significant stenosis identified
CO2 flow down the left iliac system was not clearly visualized
Under roadmap guidance using a Glidewire and the Shepherds hook catheter we selected the right common iliac artery and then the external iliac artery. A catheter was tracked up and over the aortic bifurcation and placed in the distal external iliac
artery. A diagnostic right lower extremity arteriogram was then performed with a combination of CO2 and quarter strength contrast which demonstrated the following:
RIGHT LOWER EXTREMITY:
Common femoral artery: Patent with no significant stenosis identified
Profunda femoral artery: Patent with no significant stenosis identified
Superficial femoral artery: Patent. Diffuse calcified plaque identified, especially mid/distally contributing to high-grade stenosis.
Popliteal artery: Peripherally calcified. Patent with no significant stenosis identified.
Anterior tibial artery: Occluded. No distal reconstitution identified. No reconstitution of the dorsalis pedis identified.
Tibioperoneal trunk: Patent with diffuse calcified high-grade stenosis
Peroneal artery: Patent proximal and mid section with high-grade calcified stenosis proximally. Occludes distally into a robust collateral network that continues towards the foot.
Posterior tibial artery: Occluded. Limited reconstitution of a heavily diseased segment behind the medial malleolus. Flow into the foot via plantar branches is identified.
Severe distal tibial disease and small vessel disease identified.
ENDOVASCULAR INTERVENTION: Systemic heparin was administered. Exchanged out for a 6 Fr 45 cm sheath over a Frenzoo wire. Selected the superficial femoral and popliteal artery under roadmap guidance with Quickcross catheter and glidewire. The
mid/distal SFA stenoses were crossed with a Quickcross and Glidewire. Similarly the TP trunk and proximal peroneal artery stenoses were crossed in this manner. The wire and catheter were advanced into the distal peroneal artery and subtraction
angio confirmed proper position in the true lumen. Exchanged out for a 0.014 wire. Due to the heavily calcified nature of the TP trunk and peroneal artery disease and in an effort to modify the calcium to achieve maximum luminal gain with
endovascular intervention I elected to proceed with intravascular lithotripsy. A 3.5 mm x 40 mm S4 shockwave balloon was placed across the stenosis under roadmap guidance. Alternating rounds of lithotripsy pulse delivery at sub-nominal pressure and
angioplasty at nominal pressure was performed across the stenosis. In between rounds of pulse delivery and angioplasty the balloon was deflated and repositioned under roadmap guidance. All 160 pulses were delivered. Subsequent arteriogram
demonstrated an excellent technical result. There was some residual distal focal stenosis that was treated with a 3 mm x 40 mm angioplasty balloon.
Next I focused my attention on the superficial femoral artery disease. Due to the heavily calcified nature of the arterial disease and in an effort to modify the calcium to achieve maximum luminal gain with endovascular intervention I elected to
proceed with intravascular lithotripsy. A 6 mm x 60 mm M5+ shockwave balloon was placed across the stenosis under roadmap guidance. Alternating rounds of lithotripsy pulse delivery at sub-nominal pressure and angioplasty at nominal pressure was
performed across the stenosis. In between rounds of pulse delivery and angioplasty the balloon was deflated and repositioned under roadmap guidance. All 300 pulses were delivered. Subsequent arteriogram demonstrated a significantly improved but
suboptimal result with some residual stenosis present focally in the distal SFA. This was treated with a 6 mm x 60 mm Zilver PTX stent. This was deployed under roadmap guidance in the desired location. The stent was postdilated with a 6 mm
angioplasty balloon.
COMPLETION ARTERIOGRAM: Excellent technical result. Widely patent superficial femoral artery and popliteal artery. Patent SFA stent with no significant residual stenosis. TP trunk and peroneal artery patent with no significant residual stenosis
identified. Improved flow to the distal collaterals. Extensive tibial occlusive disease and small vessel disease once again demonstrated.
Satisfied with this result we concluded the procedure. The sheath tip was pulled back into the left external iliac artery. Protamine was administered.
The patient tolerated the procedure well and was taken to the recovery area in stable condition.
Attestation: I was present and responsible for the entire procedure.
Signed:
Martin Cordova III, MD
[facility]
[phone] (babn)
[2023-05-01 16:49] LABS: Glucose - Point of Care 183 mg/dl (70-99)
[2023-05-01] MEDS: NOVOLOG FLEXPEN-LOW RESISTANCE 1 UNITS SC (18:06)
[2023-05-01] MEDS: NOVOLOG FLEXPEN 10 UNITS SC (18:06)
[2023-05-01] MEDS: ZETIA 10 MG PO (18:07)
[2023-05-01] MEDS: CRESTOR 10 MG PO (18:07)
[2023-05-01] MEDS: TOPROL XL PO (20:02)
[2023-05-01 21:05] LABS: Glucose - Point of Care 136 mg/dl (70-99)
[2023-05-02 03:25] VITALS: BP 101/66
[2023-05-02 05:54] VITALS: BMI 25.1
[2023-05-02 07:42] LABS: Blood Urea Nitrogen 39 mg/dl (9-20); Carbon Dioxide 26 mmol/L (22-30); Chloride 98 mmol/L (98-107); Estimated Creatinine Clearance 10 ml/min; Glucose 142 mg/dl (70-99); Potassium 4.3 mmol/L (3.5-5.1); Sodium 134 mmol/L (135-145); eGFR 10.33
[2023-05-02 07:45] VITALS: BP 133/60
--- NOTE | 2023-05-02 08:02 | W.PN.VS ---
Today's Communication / Plan
-
Discussed with Dr. Damian
Assessment/Plan
-
POD 1 Intravascular lithotripsy to right peroneal artery and tibioperoneal trunk stenoses (3.5 mm x 40 mm S4 shockwave balloon)
Intravascular lithotripsy to right superficial femoral artery stenosis (6 mm x 60 mm M5 + shockwave balloon)
Balloon angioplasty and stenting of right superficial femoral artery stenosis (6 mm x 60 mm Zilver PTX; postdilated with 6 mm balloon)
Diagnostic right lower extremity arteriogram (CO2 + 1/4 strength contrast)
Plan:
-Okay for DC from vascular standpoint
-Follow-up added to chart
-Okay to start OAC
Subjective Data
-
Date of Service: May 02, 2023
Patient seen resting this a.m. at bedside. Patient offers no complaints at this time no events overnight. Groin site dry
Objective Data
-
Vital Signs
Temp Pulse Resp BP Pulse Ox
98.1 F 87 17 107/70 96
05/02/23 07:45 05/02/23 07:45 05/02/23 07:45 05/02/23 07:45 05/02/23 07:45
Intake and Output
05/01/23 05/02/23 05/03/23
06:59 06:59 06:59
Intake Total 480 / 480 704 / 704
Output Total 100 / 100
Balance 380 / 380 704 / 704
Intake:
Oral fluids 480 / 480 619 / 619
IV fluids (Total) 85 / 85
NS 85 / 85
Output:
Urine, Voided 100 / 100
Other:
Number of approximated MODERATE 1 2
amounts of urine
Lab Results
05/02/23 06:20
Calcium 8.0 mg/dl (8.4-10.2) L 05/02/23 06:20
Phosphorus 5.9 mg/dl (2.5-4.5) H 04/22/23 05:43
Magnesium 2.1 mg/dl (1.6-2.3) 04/22/23 05:43
Total Bilirubin 1.9 mg/dl (0.2-1.3) H 04/25/23 07:43
AST 138 U/L (17-59) H 04/25/23 07:43
ALT 101 U/L (0-50) H 04/25/23 07:43
Alkaline Phosphatase 129 U/L (38-126) H 04/25/23 07:43
Total Protein 6.2 g/dl (6.3-8.2) L 04/25/23 07:43
Albumin 3.3 g/dl (3.5-5.0) L 04/25/23 07:43
Physical Exam
-
AAOx3
No tachypnea
No tachycardia
Abdomen soft
Left groin site clean dry and intact, soft, no drainage
Bilateral feet warm and pink
--- NOTE | 2023-05-02 08:11 | W.PN.HOSP.TC ---
Today's Communication/Plan
-
see bold
Assessment / Plan
Assessment / Plan
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 Cordova catheter placed on admission. Continue dialysis M/W/F as per nephrology, monitor for
renal recovery. S/p tunneled R IJ HD catheter 04/29. Needs SNF upon dc
PAD/right second toe superficial gangrene -severe PAD noted, ABIs noted. Status post right lower extremity angiogram with lithotripsy and stent placement to the right superficial femoral artery 04/30. Vascular surgery recommends continued wound
care. No amputation recommended as the wound would likely not heal. Continue oxycodone as needed pain
Permanent atrial fibrillation -cleared by vascular surgery to resume Eliquis 05/01
Metabolic acidosis -high anion gap and normal anion gap acidosis.� Acidosis resolved.
Subacute diarrhea -started after exposure to Keflex. Resolved. Continue to monitor
Right-sided epistaxis -appears to have resolved. [place] nasal spray ordered. Discussed with patient to avoid blowing the nose or sticking tissues up the nose. Not currently on oxygen.
Hyperkalemia -suspect due to TESSA. Resolved, potassium normal
Hyponatremia -component of hyperglycemia induced hyponatremia. Resolved, sodium normal
DM2 with hyperglycemia -suspect component of mild DKA given positive urine ketones and metabolic acidosis.��Hold Tradjenta. Continue Lantus 15 units at bedtime, increased NovoLog 10 units AC 3 times daily, SSI
Hyperlipidemia -continue Crestor, Zetia.
Essential hypertension -stable.
History of stroke x 2
CAD -stable.� Continue clopidogrel.
Chronic heart failure reduced EF -currently volume depleted.� Has not been on diuretics at home.
Chronic anemia -likely due to chronic kidney disease. Hemoglobin stable. Microcytosis noted. Not iron deficient on labs. B12, folic acid normal.
Hx Colon cancer
DVT prophylaxis�Eliquis
Full code
Total time spent to see the patient on the floor, examine the patient, review data and lab results, discuss treatment plan with patient, nursing staff around 51 minutes.
Physical exam
Gen-Awake, alert, NAD
HEENT-NC, AT, anicteric, clear oral mm, dried blood in right nares
Neck-supple
CV-reg, no M, +S1/S2
Lungs-clear B/L
Abd-soft, NT, ND
Ext-no edema
Musculoskeletal-no cyanosis, clubbing
Right first toe amputation noted
Right second toe superficial gangrene, dressings on both heels
Skin-warm and dry
Neuro-grossly non-focal
Psych-calm, cooperative
Anticipated Discharge: > 48 hours
Subjective/Interval History
-
Date of Service: May 02, 2023
Patient reports improvement in his right toe pain. No chest pain, nausea, vomiting. No shortness of breath, no palpitations. No fever.
Objective Data
-
Labs:
Laboratory Results
05/02/23
06:20
WBC Pending
Hgb Pending
Hct Pending
Plt Count Pending
Sodium 134 L
Potassium 4.3
Chloride 98
Carbon Dioxide 26
BUN 39 H
Creatinine 5.2 H*
Glucose 142 H
Calcium 8.0 L
Vital Signs:
Vital Signs
Temp Pulse Resp BP Pulse Ox
98.1 F 87 17 107/70 96
05/02/23 07:45 05/02/23 07:45 05/02/23 07:45 05/02/23 07:45 05/02/23 07:45
I&O
05/01/23 05/02/23 05/03/23
06:59 06:59 06:59
Intake Total 480 / 480 704 / 704
Output Total 100 / 100
Balance 380 / 380 704 / 704
[2023-05-02 08:12] LABS: Glucose - Point of Care 141 mg/dl (70-99)
[2023-05-02] MEDS: TOPROL XL 25 MG PO ×2 (09:18→21:08)
[2023-05-02] MEDS: PLAVIX 75 MG PO (09:18)
[2023-05-02] MEDS: NOVOLOG FLEXPEN 10 UNITS SC ×3 (09:19→18:10)
[2023-05-02] MEDS: NOVOLOG FLEXPEN-LOW RESISTANCE SC (09:19)
[2023-05-02] MEDS: LANTUS 0.149999999999999994 UNITS SC (09:19)
[2023-05-02 09:29] LABS: Hematocrit 27.3 % (39.0-52.0); Mean Corpuscular Volume 84.8 fL (80.0-94.0); Mean Platelet Volume 11.6 fL (7.4-10.4); Platelet Count 150 10^3/uL (130-400); Red Blood Cell Count 3.22 10^6/uL (4.70-6.10); Red Cell Dist. Width 14.8 % (11.5-14.5); White Blood Cell Count 9.9 10^3/uL (4.8-10.8)
[2023-05-02 12:25] LABS: Glucose - Point of Care 202 mg/dl (70-99)
[2023-05-02] MEDS: NOVOLOG FLEXPEN-LOW RESISTANCE 2 UNITS SC (13:01)
[2023-05-02] MEDS: ELIQUIS 2.5 MG PO ×2 (13:02→21:07)
--- NOTE | 2023-05-02 13:41 | W.PN.NEPH.PH ---
Today's Communication / Plan
-
Await HD unit palcement
Assessment/Plan
-
Assessment:
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
HAGMA + NAGMA
Afib
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
Diarrhea
hyperK
hypocalcemia
PAD/right second toe superficial gangrene -severe PAD noted
h/o amputation of right foot toe
Right iliac art aneurysm
Right-sided epistaxis -appears to have resolved.�
DM2 with hyperglycemia
Hyperlipidemia
Essential hypertension
History of stroke x 2
Permanent atrial fibrillation- Eliquis
CAD
h/o pericarditis
Chronic anemia
Hx Colon cancer s/p right hemicolectomy 2016
bilat carotid art disease
h/o ventral hernia repair 2021
Echo at [facility]: 01/2023:
EF 20-25%, Grade2 DD, mild AI
Plan:
TESSA likely in the setting of volume depletion ATN from hemodynamic shifts vs AIN from abx
-peak 15.7 on admit, HD initiated on 04/21, need to monitor UOP still
-renal u/s noted no obstruction: noted chronic changes
-Noted to have CKD with baseline Cr around 2.7 with significant proteinuria in the outpatient. thought to be in the setting of DKD
-obtained UPCR while inpatient: 2.3 grams. paraprotein workup negative, serologies negative
-no evidence of renal recovery noted at this time
uncertain if we are going to expect renal recovery
s/p RLE angiogram, R SFA balloon angioplasty / stenting, R peroneal shockwave lithotripsy / balloon angioplasty on 04/30
HD tomorrow per schedule MWF
HD on Thursday, await HD unit placement
-
-
Date of Service: May 02, 2023
CC / HPI / ROS
-
Chief Complaint:
TESSA
History of Present Illness:
TESSA persistent, now on HD from 04/21
hemodynamically stable
no fever, UOP not measured
cr increasing trend pre HD
Review of Systems:
no fevers
no chest pain or SOB
not out of bed
Labs
-
Labs:
WBC 9.9 10^3/uL (4.8-10.8) 05/02/23 06:20
RBC 3.22 10^6/uL (4.70-6.10) L 05/02/23 06:20
Hgb 9.0 g/dL (13.0-18.0) L 05/02/23 06:20
Hct 27.3 % (39.0-52.0) L 05/02/23 06:20
Plt Count 150 10^3/uL (130-400) 05/02/23 06:20
Sodium 134 mmol/L (135-145) L 05/02/23 06:20
Potassium 4.3 mmol/L (3.5-5.1) 05/02/23 06:20
Chloride 98 mmol/L (98-107) 05/02/23 06:20
Carbon Dioxide 26 mmol/L (22-30) 05/02/23 06:20
BUN 39 mg/dl (9-20) H 05/02/23 06:20
Creatinine 5.2 mg/dL (0.7-1.3) H* 05/02/23 06:20
eGFR 10.33 05/02/23 06:20
Glucose 142 mg/dl (70-99) H 05/02/23 06:20
Calcium 8.0 mg/dl (8.4-10.2) L 05/02/23 06:20
Phosphorus 5.9 mg/dl (2.5-4.5) H 04/22/23 05:43
Albumin 3.3 g/dl (3.5-5.0) L 04/25/23 07:43
Physical Exam
-
Vital Signs:
Vital Signs
Temp Pulse Resp BP Pulse Ox
98.1 F 92 17 133/60 98
05/02/23 07:45 05/02/23 07:45 05/02/23 07:45 05/02/23 07:45 05/02/23 07:45
Cardiovascular:: Regular rate and rhythm
Respiratory:: Bilateral: CTA
Lung Excursion:: Normal
Abdomen:: Nontender and Soft
Extremity Edema:: None: Bilateral:
Cordova Catheter: No
[2023-05-02 16:30] VITALS: BP 102/57; BP 129/65; PULSE 90
[2023-05-02 16:36] VITALS: BP 129/65
[2023-05-02 17:05] LABS: Glucose - Point of Care 157 mg/dl (70-99)
[2023-05-02] MEDS: NOVOLOG FLEXPEN-LOW RESISTANCE 300 UNITS SC (18:10)
[2023-05-02] MEDS: CRESTOR 10 MG PO (18:11)
[2023-05-02] MEDS: ZETIA 10 MG PO (18:11)
[2023-05-02 21:22] LABS: Glucose - Point of Care 84 mg/dl (70-99)
[2023-05-02 23:30] VITALS: BP 113/68
[2023-05-03 06:00] VITALS: BMI 25.3
[2023-05-03 07:34] LABS: Hematocrit 27.3 % (39.0-52.0); Hemoglobin 8.9 g/dL (13.0-18.0); Mean Corp Hgb Conc. 32.6 g/dL (33.0-37.0); Mean Corpuscular Volume 85.8 fL (80.0-94.0); Mean Platelet Volume 11.4 fL (7.4-10.4); Platelet Count 154 10^3/uL (130-400); Red Blood Cell Count 3.18 10^6/uL (4.70-6.10); White Blood Cell Count 7.7 10^3/uL (4.8-10.8)
[2023-05-03 07:57] VITALS: BP 125/63
--- NOTE | 2023-05-03 08:04 | W.PN.HOSP.TC ---
Today's Communication/Plan
-
see bold
Assessment / Plan
Assessment / Plan
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 Cordova catheter placed on admission. Continue dialysis M/W/F as per nephrology, monitor for
renal recovery. S/p tunneled R IJ HD catheter 04/29. Needs SNF upon dc
PAD/right second toe superficial gangrene -severe PAD noted, ABIs noted. Status post RLE angiogram & angioplasty w/ stent placement to the right superficial femoral artery 04/30. Vascular surgery recommends continued wound care. No amputation
recommended as the wound would likely not heal. Continue Eliquis, Plavix, oxycodone as needed for pain.
Permanent atrial fibrillation -cleared by vascular surgery to resume Eliquis 05/01
Metabolic acidosis -high anion gap and normal anion gap acidosis.� Acidosis resolved.
Subacute diarrhea -started after exposure to Keflex. Resolved. Continue to monitor
Right-sided epistaxis -appears to have resolved. [place] nasal spray ordered. Discussed with patient to avoid blowing the nose or sticking tissues up the nose. Not currently on oxygen.
Acute blood loss anemia superimposed on anemia of chronic disease�blood loss due to epistaxis, resolved. Monitor hemoglobin
Hyperkalemia -suspect due to TESSA. Resolved, potassium normal
Hyponatremia -component of hyperglycemia induced hyponatremia. Resolved, sodium normal
DM2 with hyperglycemia -suspect component of mild DKA given positive urine ketones and metabolic acidosis.��Hold Tradjenta. Continue Lantus 15 units at bedtime, increased NovoLog 10 units AC 3 times daily, SSI
Hyperlipidemia -continue Crestor, Zetia.
Essential hypertension -stable.
History of stroke x 2
CAD -stable.� Continue clopidogrel.
Chronic heart failure reduced EF -currently volume depleted.� Has not been on diuretics at home.
Chronic anemia -likely due to chronic kidney disease. Hemoglobin stable. Microcytosis noted. Not iron deficient on labs. B12, folic acid normal.
Hx Colon cancer
DVT prophylaxis�Eliquis
Full code
Physical exam
Gen-Awake, alert, NAD
HEENT-NC, AT, anicteric, clear oral mm, dried blood in right nares
Neck-supple
CV-reg, no M, +S1/S2
Lungs-clear B/L
Abd-soft, NT, ND
Ext-no edema
Musculoskeletal-no cyanosis, clubbing
Right first toe amputation noted
Right second toe superficial gangrene, dressings on both heels
Skin-warm and dry
Neuro-grossly non-focal
Psych-calm, cooperative
Anticipated Discharge: 24 - 48 hours
Subjective/Interval History
-
Date of Service: May 03, 2023
Patient denies chest pain, shortness of breath, palpitations. No fever, no vomiting. His right toe pain is tolerable.
Objective Data
-
Labs:
Laboratory Results
05/03/23
05:48
WBC 7.7
Hgb 8.9 L
Hct 27.3 L
Plt Count 154
Vital Signs:
Vital Signs
Temp Pulse Resp BP Pulse Ox
97.9 F 91 17 125/63 96
05/03/23 07:57 05/03/23 07:57 05/03/23 07:57 05/03/23 07:57 05/03/23 07:57
I&O
05/02/23 05/03/23 05/04/23
06:59 06:59 06:59
Intake Total 704 / 704 1380 / 1380
Balance 704 / 704 1380 / 1380
[2023-05-03 08:43] LABS: Glucose - Point of Care 127 mg/dl (70-99)
[2023-05-03] MEDS: NOVOLOG FLEXPEN-LOW RESISTANCE SC (08:53)
[2023-05-03] MEDS: NOVOLOG FLEXPEN 10 UNITS SC ×3 (09:10→17:24)
[2023-05-03] MEDS: PLAVIX 75 MG PO (09:11)
[2023-05-03] MEDS: TOPROL XL 25 MG PO ×2 (09:11→21:28)
[2023-05-03] MEDS: ELIQUIS 2.5 MG PO ×2 (09:11→21:28)
[2023-05-03] MEDS: LANTUS 0.149999999999999994 UNITS SC (09:13)
[2023-05-03 12:28] LABS: Glucose - Point of Care 235 mg/dl (70-99)
[2023-05-03] MEDS: NOVOLOG FLEXPEN-LOW RESISTANCE 2 UNITS SC (12:39)
--- NOTE | 2023-05-03 14:07 | W.PN.NEPH.PH ---
Today's Communication / Plan
-
HD tomorrow
Assessment/Plan
-
Assessment:
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
HAGMA + NAGMA
Afib
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
Diarrhea
hyperK
hypocalcemia
PAD/right second toe superficial gangrene -severe PAD noted
h/o amputation of right foot toe
Right iliac art aneurysm
Right-sided epistaxis -appears to have resolved.�
DM2 with hyperglycemia
Hyperlipidemia
Essential hypertension
History of stroke x 2
Permanent atrial fibrillation- Eliquis
CAD
h/o pericarditis
Chronic anemia
Hx Colon cancer s/p right hemicolectomy 2016
bilat carotid art disease
h/o ventral hernia repair [address] [facility]: 01/2023:
EF 20-25%, Grade2 DD, mild AI
Plan:
TESSA likely in the setting of volume depletion ATN from hemodynamic shifts vs AIN from abx
-peak 15.7 on admit, HD initiated on 04/21, need to monitor UOP still
-renal u/s noted no obstruction: noted chronic changes
-Noted to have CKD with baseline Cr around 2.7 with significant proteinuria in the outpatient. thought to be in the setting of DKD
- UPCR while inpatient: 2.3 grams. paraprotein workup negative, serologies negative
-no evidence of renal recovery noted at this time
uncertain if we are going to expect renal recovery
s/p RLE angiogram, R SFA balloon angioplasty / stenting, R peroneal shockwave lithotripsy / balloon angioplasty on 04/30
HD MWF, await HD unit placement
c/o right uE weakness for 2months, CT head shows old lacunar infarct
known Afib on AC
-
-
Date of Service: May 03, 2023
CC / HPI / ROS
-
Chief Complaint:
TESSA
History of Present Illness:
TESSA persistent, now on HD from 04/21
hemodynamically stable
no fever, UOP not measured, subjectively non oliguric
cr increasing trend pre HD
Review of Systems:
no fevers
no chest pain or SOB
walking in room with walker
Labs
-
Labs:
WBC 7.7 10^3/uL (4.8-10.8) 05/03/23 05:48
RBC 3.18 10^6/uL (4.70-6.10) L 05/03/23 05:48
Hgb 8.9 g/dL (13.0-18.0) L 05/03/23 05:48
Hct 27.3 % (39.0-52.0) L 05/03/23 05:48
Plt Count 154 10^3/uL (130-400) 05/03/23 05:48
Sodium 134 mmol/L (135-145) L 05/02/23 06:20
Potassium 4.3 mmol/L (3.5-5.1) 05/02/23 06:20
Chloride 98 mmol/L (98-107) 05/02/23 06:20
Carbon Dioxide 26 mmol/L (22-30) 05/02/23 06:20
BUN 39 mg/dl (9-20) H 05/02/23 06:20
Creatinine 5.2 mg/dL (0.7-1.3) H* 05/02/23 06:20
eGFR 10.33 05/02/23 06:20
Glucose 142 mg/dl (70-99) H 05/02/23 06:20
Calcium 8.0 mg/dl (8.4-10.2) L 05/02/23 06:20
Phosphorus 5.9 mg/dl (2.5-4.5) H 04/22/23 05:43
Albumin 3.3 g/dl (3.5-5.0) L 04/25/23 07:43
Physical Exam
-
Vital Signs:
Vital Signs
Temp Pulse Resp BP Pulse Ox
97.9 F 91 17 125/63 96
05/03/23 07:57 05/03/23 09:11 05/03/23 07:57 05/03/23 09:11 05/03/23 07:57
Cardiovascular:: Regular rate and rhythm
Respiratory:: Bilateral: CTA
Lung Excursion:: Normal
Abdomen:: Nontender and Soft
Extremity Edema:: None: Bilateral:
Cordova Catheter: No
[2023-05-03 15:35] VITALS: BP 131/67
[2023-05-03 17:14] LABS: Glucose - Point of Care 167 mg/dl (70-99)
[2023-05-03] MEDS: CRESTOR 10 MG PO (17:23)
[2023-05-03] MEDS: ZETIA 10 MG PO (17:23)
[2023-05-03] MEDS: NOVOLOG FLEXPEN-LOW RESISTANCE 1 UNITS SC (17:25)
[2023-05-03 21:13] LABS: Glucose - Point of Care 128 mg/dl (70-99)
[2023-05-03 23:15] VITALS: BP 133/74
[2023-05-04 06:00] VITALS: BMI 25.0
[2023-05-04 07:00] VITALS: BP 163/102
[2023-05-04 08:07] LABS: Glucose - Point of Care 155 mg/dl (70-99)
[2023-05-04] MEDS: LANTUS 0.149999999999999994 UNITS SC (08:26)
[2023-05-04] MEDS: PLAVIX 75 MG PO (08:26)
[2023-05-04] MEDS: ELIQUIS 2.5 MG PO ×2 (08:26→21:23)
[2023-05-04] MEDS: TOPROL XL 25 MG PO (08:26)
[2023-05-04] MEDS: NOVOLOG FLEXPEN 10 UNITS SC ×3 (08:27→21:23)
[2023-05-04] MEDS: NOVOLOG FLEXPEN-LOW RESISTANCE 1 UNITS SC ×3 (08:27→21:23)
[2023-05-04 10:38] LABS: Hematocrit 29.6 % (39.0-52.0); Hemoglobin 9.6 g/dL (13.0-18.0); Mean Corp Hgb Conc. 32.4 g/dL (33.0-37.0); Mean Corpuscular Hgb 28.2 pg (27.0-31.0); Mean Corpuscular Volume 86.8 fL (80.0-94.0); Mean Platelet Volume 11.4 fL (7.4-10.4); Platelet Count 221 10^3/uL (130-400); Red Blood Cell Count 3.41 10^6/uL (4.70-6.10); Red Cell Dist. Width 15.2 % (11.5-14.5); White Blood Cell Count 8.6 10^3/uL (4.8-10.8)
[2023-05-04 10:52] LABS: Blood Urea Nitrogen 67 mg/dl (9-20); Calcium 8.5 mg/dl (8.4-10.2); Carbon Dioxide 22 mmol/L (22-30); Chloride 97 mmol/L (98-107); Estimated Creatinine Clearance 7 ml/min; Glucose 248 mg/dl (70-99); Magnesium 2.1 mg/dl (1.6-2.3); Potassium 4.2 mmol/L (3.5-5.1); Sodium 133 mmol/L (135-145); eGFR 6.25
--- NOTE | 2023-05-04 11:08 | W.PN.HOSP.TC ---
Today's Communication/Plan
-
Discharge planning
Assessment / Plan
Assessment / Plan
Gen-AAOx3, NAD
HEENT-NC, AT, anicteric, clear oral mm
Neck-supple
CV-reg, no M, +S1/S2
Lungs-clear B/L
Abd-soft, NT, ND
Ext-no edema
Musculoskeletal-no cyanosis, clubbing
Skin-warm and dry
Neuro-grossly non-focal
Psych-calm, cooperative
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 [place] catheter placed on admission. Continue dialysis M/W/F as per nephrology, monitor for
renal recovery. S/p tunneled R IJ HD catheter 04/29. Needs SNF upon dc
PAD/right second toe superficial gangrene -severe PAD noted, ABIs noted. Status post RLE angiogram & angioplasty w/ stent placement to the right superficial femoral artery 04/30. Vascular surgery recommends continued wound care. No amputation
recommended as the wound would likely not heal. Continue Eliquis, Plavix, oxycodone as needed for pain.
Permanent atrial fibrillation -Eliquis resumed. Heart rate elevated this morning, can consider increasing metoprolol dose if persists.
Metabolic acidosis -high anion gap and normal anion gap acidosis.� Acidosis resolved.
Subacute diarrhea -started after exposure to Keflex. Resolved. Continue to monitor
Right-sided epistaxis -appears to have resolved. [place] nasal spray ordered. Discussed with patient to avoid blowing the nose or sticking tissues up the nose. Not currently on oxygen.
Acute blood loss anemia superimposed on anemia of chronic disease�blood loss due to epistaxis, resolved. Monitor hemoglobin
Hyperkalemia -suspect due to TESSA. Resolved, potassium normal
Hyponatremia -component of hyperglycemia induced hyponatremia. Resolved, sodium normal
DM2 with hyperglycemia -suspect component of mild DKA given positive urine ketones and metabolic acidosis.��Hold Tradjenta. Continue Lantus 15 units at bedtime, continue NovoLog 10 units AC 3 times daily, SSI
Hyperlipidemia -continue Crestor, Zetia.
Essential hypertension -blood pressure high this morning, should improve with dialysis.
History of stroke x 2
CAD -stable.� Continue clopidogrel.
Chronic heart failure reduced EF -currently volume depleted.� Has not been on diuretics at home.
Chronic anemia -likely due to chronic kidney disease. Hemoglobin stable. Microcytosis noted. Not iron deficient on labs. B12, folic acid normal.
Hx Colon cancer
DVT prophylaxis�Eliquis
Full code
Dispo -medically stable for discharge to SNF. Case management aware.
Anticipated Discharge: Within 24 hours
Subjective/Interval History
-
Date of Service: May 04, 2023
Patient seen and examined. No complaints.
Objective Data
-
Labs:
Laboratory Results
05/04/23
09:52
WBC 8.6
Hgb 9.6 L
Hct 29.6 L
Plt Count 221 D
Sodium 133 L
Potassium 4.2
Chloride 97 L
Carbon Dioxide 22
BUN 67 H
Creatinine 7.9 H*
Glucose 248 H
Calcium 8.5
Vital Signs:
Vital Signs
Temp Pulse Resp BP Pulse Ox
98.0 F 124 19 163/102 96
05/04/23 07:00 05/04/23 08:26 05/04/23 07:00 05/04/23 08:26 05/04/23 07:00
I&O
05/03/23 05/04/23 05/05/23
06:59 06:59 06:59
Intake Total 1380 / 1380 1260 / 1260
Output Total 500 / 500
Balance 1380 / 1380 760 / 760
Review of Systems
-
History Source: Patient
All other systems: Reviewed and negative
[2023-05-04 11:37] LABS: Glucose - Point of Care 195 mg/dl (70-99)
[2023-05-04 13:58] VITALS: BP 163/102; PULSE 85
--- NOTE | 2023-05-04 14:51 | CM ---
CM following for d/c planning
Medically ready - no beds at referred facilities
Spoke with pt and his
Obtained additional facilities - referred in [facility]
Plan - snf at d/c tbd
[2023-05-04 15:00] VITALS: BP 126/57
[2023-05-04 16:38] LABS: Glucose - Point of Care 226 mg/dl (70-99)
[2023-05-04] MEDS: RETACRIT 8000 UNITS IV (16:53)
--- NOTE | 2023-05-04 17:06 | W.PN.NEPH.HD ---
Assessment
-
Patient seen on HD
resting comfortably
sbp stable at 132 at current u/f
Progress Note - Hemodialysis
-
Date of Service: May 04, 2023
Duration: 30 minutes and 3 hours
Potassium Bath: 3
Calcium Bath: 2.5
Opti-Dialyzer: 160
Ultrafiltration: Other (1kg)
Blood Flow: 400
Dialysate Flow: 600
Heparin: none
EPO: 8ooo
[2023-05-04] MEDS: HEPARIN 4200 UNITS INTRACATH (19:30)
[2023-05-04 21:20] LABS: Glucose - Point of Care 157 mg/dl (70-99)
[2023-05-04] MEDS: CRESTOR 10 MG PO (21:21)
[2023-05-04] MEDS: ZETIA 10 MG PO (21:21)
[2023-05-04] MEDS: TOPROL XL PO ×2 (21:23→22:12)
[2023-05-04 22:10] VITALS: BP 115/63
[2023-05-05 06:00] VITALS: BMI 24.7
[2023-05-05 07:36] VITALS: BP 99/58
[2023-05-05 07:38] LABS: Glucose - Point of Care 134 mg/dl (70-99)
[2023-05-05] MEDS: NOVOLOG FLEXPEN 10 UNITS SC ×3 (08:33→17:36)
[2023-05-05] MEDS: NOVOLOG FLEXPEN-LOW RESISTANCE SC ×2 (08:33→11:59)
[2023-05-05] MEDS: LANTUS 0.149999999999999994 UNITS SC (08:35)
[2023-05-05] MEDS: ELIQUIS 2.5 MG PO ×2 (08:35→21:35)
[2023-05-05] MEDS: PLAVIX 75 MG PO (08:36)
[2023-05-05] MEDS: TOPROL XL PO (08:36)
--- NOTE | 2023-05-05 10:32 | W.PN.HOSP.TC ---
Today's Communication/Plan
-
Await placement
Assessment / Plan
Assessment / Plan
Gen-AAOx3, NAD
HEENT-NC, AT, anicteric, clear oral mm
Neck-supple
CV-reg, no M, +S1/S2
Lungs-clear B/L
Abd-soft, NT, ND
Ext-no edema
Musculoskeletal-no cyanosis, clubbing
Skin-warm and dry
Neuro-grossly non-focal
Psych-calm, cooperative
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 [place] catheter placed on admission. Continue dialysis M/W/F as per nephrology, monitor for
renal recovery. S/p tunneled R IJ HD catheter 04/29. Needs SNF upon dc
PAD/right second toe superficial gangrene -severe PAD noted, ABIs noted. Status post RLE angiogram & angioplasty w/ stent placement to the right superficial femoral artery 04/30. Vascular surgery recommends continued wound care. No amputation
recommended as the wound would likely not heal. Continue Eliquis, Plavix, oxycodone as needed for pain.
Permanent atrial fibrillation -Eliquis resumed. Rate controlled.
Metabolic acidosis -high anion gap and normal anion gap acidosis.� Acidosis resolved.
Subacute diarrhea -started after exposure to Keflex. Resolved. Continue to monitor
Right-sided epistaxis -appears to have resolved. [place] nasal spray ordered. Discussed with patient to avoid blowing the nose or sticking tissues up the nose. Not currently on oxygen.
Acute blood loss anemia superimposed on anemia of chronic disease�blood loss due to epistaxis, resolved. Monitor hemoglobin
Hyperkalemia -suspect due to TESSA. Resolved, potassium normal
Hyponatremia -component of hyperglycemia induced hyponatremia. Resolved, sodium normal
DM2 with hyperglycemia -glucose 134 this morning.��Hold Tradjenta. Continue Lantus 15 units at bedtime, continue NovoLog 10 units AC 3 times daily, SSI
Hyperlipidemia -continue Crestor, Zetia.
Essential hypertension -blood pressure high this morning, should improve with dialysis.
History of stroke x 2
CAD -stable.� Continue clopidogrel.
Chronic heart failure reduced EF -currently volume depleted.� Has not been on diuretics at home.
Chronic anemia -likely due to chronic kidney disease. Hemoglobin stable. Microcytosis noted. Not iron deficient on labs. B12, folic acid normal.
Hx Colon cancer
DVT prophylaxis�Eliquis
Full code
Dispo -medically stable for discharge to SNF. Case management aware.
Anticipated Discharge: Within 24 hours
Subjective/Interval History
-
Date of Service: May 05, 2023
Patient seen and examined. No complaints.
Objective Data
-
Vital Signs:
Vital Signs
Temp Pulse Resp BP Pulse Ox
98.1 F 88 18 99/58 99
05/05/23 07:36 05/05/23 08:36 05/05/23 07:36 05/05/23 08:36 05/05/23 07:36
I&O
05/04/23 05/05/23 05/06/23
06:59 06:59 06:59
Intake Total 1260 / 1260 840 / 840
Output Total 500 / 500 400 / 400
Balance 760 / 760 440 / 440
Review of Systems
-
History Source: Patient
All other systems: Reviewed and negative
--- NOTE | 2023-05-05 11:23 | WOUNDNOTE ---
R 2ND TOE
--- NOTE | 2023-05-05 11:24 | WOUNDNOTE ---
WON RN NOTE: Followed up today regarding R 2nd toe. Dry eschar in place, no drainage. Continued with Betadine to eschar, 2x2 gauze btw 2nd and 3rd toe. Patient able to turn self to sides, sacrum and heels blanchable red. Air cushion given to use
when sitting. Repositioned patient in bed with assist from nurse Adam, pillow placed under calves. Patient states he is hopefully going to be discharged soon and go to either a rehab or home.
[2023-05-05 11:40] LABS: Glucose - Point of Care 118 mg/dl (70-99)
--- NOTE | 2023-05-05 11:44 | W.PN.NEPH.PH ---
Today's Communication / Plan
-
Hd tomorrow
Assessment/Plan
-
Assessment:
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
HAGMA + NAGMA
Afib
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
Diarrhea
hyperK
hypocalcemia
PAD/right second toe superficial gangrene -severe PAD noted
h/o amputation of right foot toe
Right iliac art aneurysm
Right-sided epistaxis -appears to have resolved.�
DM2 with hyperglycemia
Hyperlipidemia
Essential hypertension
History of stroke x 2
Permanent atrial fibrillation- Eliquis
CAD
h/o pericarditis
Chronic anemia
Hx Colon cancer s/p right hemicolectomy 2016
bilat carotid art disease
h/o ventral hernia repair 2021
Echo at [facility]: 01/2023:
EF 20-25%, Grade2 DD, mild AI
Plan:
TESSA likely in the setting of volume depletion ATN from hemodynamic shifts vs AIN from abx
-peak 15.7 on admit, HD initiated on 04/21, need to monitor UOP still non oliguric ~400cc, but creatinine was 7.9 yesterday pre HD
-renal u/s noted no obstruction: noted chronic changes
-Noted to have CKD with baseline Cr around 2.7 with significant proteinuria in the outpatient. thought to be in the setting of DKD
- UPCR while inpatient: 2.3 grams. paraprotein workup negative, serologies negative
-no evidence of renal recovery noted at this time , patient remains hemodynamically unstable
s/p RLE angiogram, R SFA balloon angioplasty / stenting, R peroneal shockwave lithotripsy / balloon angioplasty on 04/30
HD MWF, await HD unit placement
c/o right uE weakness for 2months, CT head shows old lacunar infarct
known Afib on AC
-
-
Date of Service: May 05, 2023
CC / HPI / ROS
-
Chief Complaint:
TESSA
History of Present Illness:
TESSA persistent, now on HD from 04/21
hemodynamically labile
creatinine increasing trend pre HD
Review of Systems:
no fevers
no chest pain or SOB
walking in room with walker
non oliguric
Labs
-
Labs:
WBC 8.6 10^3/uL (4.8-10.8) 05/04/23 09:52
RBC 3.41 10^6/uL (4.70-6.10) L 05/04/23 09:52
Hgb 9.6 g/dL (13.0-18.0) L 05/04/23 09:52
Hct 29.6 % (39.0-52.0) L 05/04/23 09:52
Plt Count 221 10^3/uL (130-400) D 05/04/23 09:52
Sodium 133 mmol/L (135-145) L 05/04/23 09:52
Potassium 4.2 mmol/L (3.5-5.1) 05/04/23 09:52
Chloride 97 mmol/L (98-107) L 05/04/23 09:52
Carbon Dioxide 22 mmol/L (22-30) 05/04/23 09:52
BUN 67 mg/dl (9-20) H 05/04/23 09:52
Creatinine 7.9 mg/dL (0.7-1.3) H* 05/04/23 09:52
eGFR 6.25 05/04/23 09:52
Glucose 248 mg/dl (70-99) H 05/04/23 09:52
Calcium 8.5 mg/dl (8.4-10.2) 05/04/23 09:52
Phosphorus 5.9 mg/dl (2.5-4.5) H 04/22/23 05:43
Albumin 3.3 g/dl (3.5-5.0) L 04/25/23 07:43
Physical Exam
-
Vital Signs:
Vital Signs
Temp Pulse Resp BP Pulse Ox
98.1 F 88 18 99/58 99
05/05/23 07:36 05/05/23 08:36 05/05/23 07:36 05/05/23 08:36 05/05/23 07:36
Cardiovascular:: Regular rate and rhythm
Respiratory:: Bilateral: CTA
Lung Excursion:: Normal
Abdomen:: Nontender and Soft
Bowel Sounds:: Normal
Extremity Edema:: None: Bilateral:
Cordova Catheter: No
--- NOTE | 2023-05-05 12:50 | CM ---
Addendum entered by Renetta Croft 05/05/23 14:59:
Received call from pts
Updated on accepting facilities - agreed to [facility]
Waiting for acceptance from [facility] for HD chair
Original Note:
CM following for d/c planning
Pt accepted at [facility]
[place] - no HD beds available
Additional clinicals faxed to [facility] at [facility]
[2023-05-05 14:46] VITALS: BP 100/55
[2023-05-05] MEDS: NOVOLOG FLEXPEN-LOW RESISTANCE 2 UNITS SC (17:35)
[2023-05-05 17:38] LABS: Glucose - Point of Care 217 mg/dl (70-99)
[2023-05-05] MEDS: ZETIA 10 MG PO (17:38)
[2023-05-05] MEDS: CRESTOR 10 MG PO (17:38)
[2023-05-05 21:34] LABS: Glucose - Point of Care 175 mg/dl (70-99)
[2023-05-05] MEDS: TOPROL XL 25 MG PO (21:35)
[2023-05-06 00:08] VITALS: BP 117/61
[2023-05-06 07:16] LABS: Glucose - Point of Care 131 mg/dl (70-99)
[2023-05-06 07:29] VITALS: BP 131/72
[2023-05-06] MEDS: LANTUS 0.149999999999999994 UNITS SC (07:43)
[2023-05-06] MEDS: NOVOLOG FLEXPEN-LOW RESISTANCE SC ×2 (07:44→12:12)
[2023-05-06] MEDS: NOVOLOG FLEXPEN 10 UNITS SC ×3 (07:45→17:48)
[2023-05-06 08:20] LABS: Hematocrit 28.3 % (39.0-52.0); Hemoglobin 9.2 g/dL (13.0-18.0)
[2023-05-06 08:35] LABS: Blood Urea Nitrogen 48 mg/dl (9-20); Calcium 8.4 mg/dl (8.4-10.2); Carbon Dioxide 23 mmol/L (22-30); Chloride 101 mmol/L (98-107); Estimated Creatinine Clearance 8 ml/min; Glucose 206 mg/dl (70-99); Sodium 134 mmol/L (135-145)
[2023-05-06] MEDS: MANNITOL 12.5 GRAMS IV ×2 (08:54→09:56)
--- NOTE | 2023-05-06 08:59 | CM ---
Received call from [facility] requesting chest xray or TB testing for pt
Additional clinical information sent to [facility] at [facility] via fax
Waiting on acceptance from [facility] for HD chair
Plan - [facility] when HD chair obtained
[2023-05-06] MEDS: RETACRIT 10000 UNITS IV (09:57)
--- NOTE | 2023-05-06 10:38 | W.PN.HOSP.TC ---
Today's Communication/Plan
-
Discharge planning
Assessment / Plan
Assessment / Plan
Gen-AAOx3, NAD
HEENT-NC, AT, anicteric, clear oral mm
Neck-supple
CV-reg, no M, +S1/S2
Lungs-clear B/L
Abd-soft, NT, ND
Ext-no edema
Musculoskeletal-no cyanosis, clubbing
Skin-warm and dry
Neuro-grossly non-focal
Psych-calm, cooperative
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 Cordova catheter placed on admission. Continue dialysis M/W/F as per nephrology, monitor for
renal recovery. S/p tunneled R IJ HD catheter 04/29. Needs SNF upon dc
PAD/right second toe superficial gangrene -severe PAD noted, ABIs noted. Status post RLE angiogram & angioplasty w/ stent placement to the right superficial femoral artery 04/30. Vascular surgery recommends continued wound care. No amputation
recommended as the wound would likely not heal. Continue Eliquis, Plavix, oxycodone as needed for pain.
Permanent atrial fibrillation -Eliquis resumed. Rate controlled.
Metabolic acidosis -high anion gap and normal anion gap acidosis.� Acidosis resolved.
Subacute diarrhea -started after exposure to Keflex. Resolved. Continue to monitor
Right-sided epistaxis -appears to have resolved. [place] nasal spray ordered. Discussed with patient to avoid blowing the nose or sticking tissues up the nose. Not currently on oxygen.
Acute blood loss anemia superimposed on anemia of chronic disease�blood loss due to epistaxis, resolved. Monitor hemoglobin
Hyperkalemia -suspect due to TESSA. Resolved, potassium normal
Hyponatremia -component of hyperglycemia induced hyponatremia. Resolved, sodium normal
DM2 with hyperglycemia -glucose 134 this morning.��Hold Tradjenta. Continue Lantus 15 units at bedtime, continue NovoLog 10 units AC 3 times daily, SSI
Hyperlipidemia -continue Crestor, Zetia.
Essential hypertension -blood pressure high this morning, should improve with dialysis.
History of stroke x 2
CAD -stable.� Continue clopidogrel.
Chronic heart failure reduced EF -currently volume depleted.� Has not been on diuretics at home.
Chronic anemia -likely due to chronic kidney disease. Hemoglobin stable. Microcytosis noted. Not iron deficient on labs. B12, folic acid normal.
Hx Colon cancer
Full code
Dispo -medically stable for discharge to SNF. Case management aware. updated at the bedside.
Anticipated Discharge: Within 24 hours
Subjective/Interval History
-
Date of Service: May 06, 2023
Patient seen and examined. Getting dialysis. No complaints.
Objective Data
-
Labs:
Laboratory Results
05/06/23
08:10
Hgb 9.2 L
Hct 28.3 L
Sodium 134 L
Potassium 4.0
Chloride 101
Carbon Dioxide 23
BUN 48 H
Creatinine 6.3 H*
Glucose 206 H
Calcium 8.4
Vital Signs:
Vital Signs
Temp Pulse Resp BP Pulse Ox
97.8 F 92 17 131/72 99
05/06/23 07:29 05/06/23 07:29 05/06/23 07:29 05/06/23 07:29 05/06/23 07:29
I&O
05/05/23 05/06/23 05/07/23
06:59 06:59 06:59
Intake Total 840 / 840 660 / 660
Output Total 400 / 400
Balance 440 / 440 660 / 660
Review of Systems
-
History Source: Patient
All other systems: Reviewed and negative
[2023-05-06] MEDS: HEPARIN 4300 UNITS INTRACATH (11:27)
[2023-05-06 11:33] LABS: Glucose - Point of Care 85 mg/dl (70-99)
--- NOTE | 2023-05-06 11:36 | W.PN.NEPH.HD ---
Assessment
-
pt seen during HD
vitals stable
BP soft hence no UF and wt sig wt gain as he probably is non oliguric
cr rise is slightly better, follow pre HD labs
await HD unit placement
CVC functions well
d/w
Progress Note - Hemodialysis
-
Date of Service: May 06, 2023
Duration: 30 minutes and 3 hours
Potassium Bath: 3
Calcium Bath: 2.5
Opti-Dialyzer: 160
Ultrafiltration: Other (0)
Blood Flow: 400
Dialysate Flow: 600
Heparin: no
EPO: [id number]
[2023-05-06] MEDS: PLAVIX 75 MG PO (11:41)
[2023-05-06] MEDS: ELIQUIS 2.5 MG PO ×2 (11:41→23:21)
[2023-05-06] MEDS: TOPROL XL PO (11:45)
[2023-05-06 12:24] VITALS: BMI 24.8
[2023-05-06 15:40] VITALS: BP 127/66
[2023-05-06 15:50] VITALS: BP 111/54; PULSE 85; O2SAT 100
[2023-05-06 16:01] VITALS: BP 111/54; PULSE 91; O2SAT 99
[2023-05-06 16:34] LABS: Glucose - Point of Care 176 mg/dl (70-99)
[2023-05-06] MEDS: NOVOLOG FLEXPEN-LOW RESISTANCE 1 UNITS SC (17:48)
[2023-05-06] MEDS: ZETIA 10 MG PO (17:54)
[2023-05-06] MEDS: CRESTOR 10 MG PO (17:54)
[2023-05-06 21:37] LABS: Glucose - Point of Care 252 mg/dl (70-99)
[2023-05-06] MEDS: TOPROL XL 25 MG PO (23:21)
[2023-05-06 23:40] VITALS: BP 121/64
[2023-05-07 06:00] VITALS: BMI 25.0
[2023-05-07 07:36] LABS: Glucose - Point of Care 130 mg/dl (70-99)
[2023-05-07 07:45] VITALS: BP 121/67
[2023-05-07] MEDS: PLAVIX 75 MG PO (07:51)
[2023-05-07] MEDS: ELIQUIS 2.5 MG PO (07:51)
[2023-05-07] MEDS: NOVOLOG FLEXPEN-LOW RESISTANCE SC (07:51)
[2023-05-07] MEDS: LANTUS 0.149999999999999994 UNITS SC (07:51)
[2023-05-07] MEDS: TOPROL XL 25 MG PO (07:53)
[2023-05-07] MEDS: NOVOLOG FLEXPEN 10 UNITS SC ×2 (09:39→12:12)
--- NOTE | 2023-05-07 11:21 | W.PN.HOSP.TC ---
Today's Communication/Plan
-
Discharge
Assessment / Plan
Assessment / Plan
Gen-AAOx3, NAD
HEENT-NC, AT, anicteric, clear oral mm
Neck-supple
CV-reg, no M, +S1/S2
Lungs-clear B/L
Abd-soft, NT, ND
Ext-no edema
Musculoskeletal-no cyanosis, clubbing
Skin-warm and dry
Neuro-grossly non-focal
Psych-calm, cooperative
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 Cordova catheter placed on admission. Continue dialysis M/W/F as per nephrology, monitor for
renal recovery. S/p tunneled R IJ HD catheter 04/29. Needs SNF upon dc
PAD/right second toe superficial gangrene -severe PAD noted, ABIs noted. Status post RLE angiogram & angioplasty w/ stent placement to the right superficial femoral artery 04/30. Vascular surgery recommends continued wound care. No amputation
recommended as the wound would likely not heal. Continue Eliquis, Plavix, oxycodone as needed for pain.
Permanent atrial fibrillation -Eliquis resumed. Rate controlled.
Metabolic acidosis -high anion gap and normal anion gap acidosis.� Acidosis resolved.
Subacute diarrhea -started after exposure to Keflex. Resolved. Continue to monitor
Right-sided epistaxis -appears to have resolved. [place] nasal spray ordered. Discussed with patient to avoid blowing the nose or sticking tissues up the nose. Not currently on oxygen.
Acute blood loss anemia superimposed on anemia of chronic disease�blood loss due to epistaxis, resolved. Monitor hemoglobin
Hyperkalemia -suspect due to TESSA. Resolved, potassium normal
Hyponatremia -component of hyperglycemia induced hyponatremia. Resolved, sodium normal
DM2 with hyperglycemia -glucose 134 this morning.��Hold Tradjenta. Continue Lantus 15 units at bedtime, continue NovoLog 10 units AC 3 times daily, SSI
Hyperlipidemia -continue Crestor, Zetia.
Essential hypertension -blood pressure high this morning, should improve with dialysis.
History of stroke x 2
CAD -stable.� Continue clopidogrel.
Chronic heart failure reduced EF -currently volume depleted.� Has not been on diuretics at home.
Chronic anemia -likely due to chronic kidney disease. Hemoglobin stable. Microcytosis noted. Not iron deficient on labs. B12, folic acid normal.
Hx Colon cancer
Full code
Dispo -medically stable for discharge to SNF. Case management aware. updated at the bedside.
Anticipated Discharge: Today
Subjective/Interval History
-
Date of Service: May 07, 2023
Patient seen and examined. at the bedside. No complaints.
Objective Data
-
Vital Signs:
Vital Signs
Temp Pulse Resp BP Pulse Ox
98.0 F 84 16 121/67 94
05/07/23 07:45 05/07/23 07:45 05/07/23 07:45 05/07/23 07:45 05/07/23 07:45
I&O
05/06/23 05/07/23 05/08/23
06:59 06:59 06:59
Intake Total 660 / 660 420 / 420
Balance 660 / 660 420 / 420
Review of Systems
-
History Source: Patient
All other systems: Reviewed and negative
--- NOTE | 2023-05-07 11:23 | W.DS.TRANS ---
DC Summary - [employer] Super[employer]
-
Discharge Instructions:
Sleep Apnea Risk Intermediate
Discharge Diagnosis/Procedures Acute kidney injury, chronic kidney disease, PAD
, permanent atrial fibrillation
Diet Diabetic, Carb Controlled,2 Gram Sodium,Other
diet
Additional Diets 40 ounce fluid restriction
Activity With assistance
Driving Restrictions No driving
Bathing Restrictions None
Others Tests Ultrasound: 06/04 @ 2
Instructions:
Stand-Alone Forms: DC Instr - Vascular OR
Changes to Home Medications: No
Discharge Medications:
DC Medications w/original date entered in [facility]
linagliptin 5 mg tablet (Tradjenta) 5 mg PO DAILY Diabetes 06/15/17
clopidogrel 75 mg tablet 75 mg PO DAILY 06/16/17
apixaban 2.5 mg tablet (Eliquis) 2.5 mg PO BID Blood Clot Prevention/Tx 04/21/23
brinzolamide 1 %-brimonidine 0.2 % eye drops,suspension (Simbrinza) 1 drp RIGHT EYE BID Eye Condition 04/21/23
ezetimibe 10 mg tablet (Zetia) 10 mg PO QPM High Cholesterol 04/21/23
metoprolol succinate 25 mg tablet,extended release 24 hr (Toprol XL) 25 mg PO BID Blood Pressure 04/21/23
rosuvastatin 40 mg tablet (Crestor) 40 mg PO QPM High Cholesterol 04/21/23
Insulin Glargine Lantus [Lantus] 15 units As Directed mls/hr SC DAILY 05/06/23
insulin aspart U-100 100 unit/mL (3 mL) subcutaneous pen 10 unit (0.1 mL) SC AC #0 mL 05/06/23
sodium chloride 0.65 % nasal spray aerosol (Saline Nasal) 0 sprays intranasal QIDPRN PRN dry nose #0 mL 05/06/23
Home Medication Changes
Pending Results: No
[2023-05-07 11:32] LABS: Glucose - Point of Care 257 mg/dl (70-99)
--- NOTE | 2023-05-07 11:34 | CM ---
Pt for d/c today to [facility] [place]
Discussed IMM with pt and
Pts to transport to facility
Plan - Transfer to [facility]
Report - [phone]
Fax - [phone]
[2023-05-07] MEDS: NOVOLOG FLEXPEN-LOW RESISTANCE 3 UNITS SC (12:11)
[2023-05-07 13:17] VITALS: BP 104/57
--- NOTE | 2023-05-07 15:31 | W.PN.NEPH.PH ---
Today's Communication / Plan
-
d/c to rehab
Assessment/Plan
-
Assessment:
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
HAGMA + NAGMA
Afib
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
Diarrhea
hyperK
hypocalcemia
PAD/right second toe superficial gangrene -severe PAD noted
h/o amputation of right foot toe
Right iliac art aneurysm
Right-sided epistaxis -appears to have resolved.�
DM2 with hyperglycemia
Hyperlipidemia
Essential hypertension
History of stroke x 2
Permanent atrial fibrillation- Eliquis
CAD
h/o pericarditis
Chronic anemia
Hx Colon cancer s/p right hemicolectomy 2016
bilat carotid art disease
h/o ventral hernia repair 2021
Echo at [facility]: 01/2023:
EF 20-25%, Grade2 DD, mild AI
Plan:
TESSA likely in the setting of volume depletion ATN from hemodynamic shifts vs AIN from abx
-peak 15.7 on admit, HD initiated on 04/21,
-renal u/s noted no obstruction: noted chronic changes
-Noted to have CKD with baseline Cr around 2.7 with significant proteinuria in the outpatient. thought to be in the setting of DKD
- UPCR while inpatient: 2.3 grams. paraprotein workup negative, serologies negative
-no evidence of renal recovery noted at this time , patient remains hemodynamically stable
pre HD cr variable but no definite improvement noted yet
s/p R SFA balloon angioplasty / stenting, R peroneal shockwave lithotripsy / balloon angioplasty on 04/30
HD MWF, for d/c today
d/w and pt
-
-
Date of Service: May 07, 2023
CC / HPI / ROS
-
Chief Complaint:
TESSA
History of Present Illness:
TESSA persistent, now on HD from 04/21
hemodynamically stable
creatinine increasing trend pre HD
Review of Systems:
no fevers
no chest pain or SOB
Labs
-
Labs:
WBC 8.6 10^3/uL (4.8-10.8) 05/04/23 09:52
RBC 3.41 10^6/uL (4.70-6.10) L 05/04/23 09:52
Hgb 9.2 g/dL (13.0-18.0) L 05/06/23 08:10
Hct 28.3 % (39.0-52.0) L 05/06/23 08:10
Plt Count 221 10^3/uL (130-400) D 05/04/23 09:52
Sodium 134 mmol/L (135-145) L 05/06/23 08:10
Potassium 4.0 mmol/L (3.5-5.1) 05/06/23 08:10
Chloride 101 mmol/L (98-107) 05/06/23 08:10
Carbon Dioxide 23 mmol/L (22-30) 05/06/23 08:10
BUN 48 mg/dl (9-20) H 05/06/23 08:10
Creatinine 6.3 mg/dL (0.7-1.3) H* 05/06/23 08:10
eGFR 8.20 05/06/23 08:10
Glucose 206 mg/dl (70-99) H 05/06/23 08:10
Calcium 8.4 mg/dl (8.4-10.2) 05/06/23 08:10
Phosphorus 5.9 mg/dl (2.5-4.5) H 04/22/23 05:43
Albumin 3.3 g/dl (3.5-5.0) L 04/25/23 07:43
Physical Exam
-
Vital Signs:
Vital Signs
Temp Pulse Resp BP Pulse Ox
98.9 F 90 20 104/57 100
05/07/23 13:17 05/07/23 13:17 05/07/23 13:17 05/07/23 13:17 05/07/23 13:17
Cardiovascular:: Regular rate and rhythm
Respiratory:: Bilateral: CTA
Lung Excursion:: Normal
Abdomen:: Nontender and Soft
Extremity Edema:: None: Bilateral:
[place] Catheter: No
== END 2023-05-07 16:43 | DRG 278 ==
LOC: 3 WEST ACU 18:31
PROVIDERS: Emergency Medicine; Family Medicine; Internal Medicine; Nurse Practitioner Gerontology; Physician Assistant; Physician Assistant Medical; Radiology Diagnostic Radiology; Radiology Vascular & Interventional Radiology; Specialist; Surgery Vascular Surgery; ADMITTING PHYSICIAN Hospitalist; CONSULT PHYSICIAN Student in an Organized Health Care Education/Training Program; EMERGENCY PHYSICIAN Emergency Medicine; OTHER PHYSICIAN Surgery Vascular Surgery
PROC: 0T9B70Z Drainage of Bladder with Drainage Device, Via Natural or Artificial Opening (ICD-10-PCS; 2023-04-21)
PROC: 02H633Z Insertion of Infusion Device into Right Atrium, Percutaneous Approach (ICD-10-PCS; 2023-04-22)
PROC: 5A1D70Z Performance of Urinary Filtration, Intermittent, Less than 6 Hours Per Day (ICD-10-PCS; 2023-04-22)
PROC: B5181ZA Fluoroscopy of Superior Vena Cava using Low Osmolar Contrast, Guidance (ICD-10-PCS; 2023-04-22)
PROC: 0JH63XZ Insertion of Tunneled Vascular Access Device into Chest Subcutaneous Tissue and Fascia, Percutaneous Approach (ICD-10-PCS; 2023-04-30)
PROC: B41F1ZZ Fluoroscopy of Right Lower Extremity Arteries using Low Osmolar Contrast (ICD-10-PCS; 2023-05-01)
PROC: 04FK3ZZ Fragmentation of Right Femoral Artery, Percutaneous Approach (ICD-10-PCS; 2023-05-01)
PROC: 04FM3ZZ Fragmentation of Right Popliteal Artery, Percutaneous Approach (ICD-10-PCS; 2023-05-01)
PROC: B41C1ZZ Fluoroscopy of Pelvic Arteries using Low Osmolar Contrast (ICD-10-PCS; 2023-05-01)
PROC: B4101ZZ Fluoroscopy of Abdominal Aorta using Low Osmolar Contrast (ICD-10-PCS; 2023-05-01)
PROC: 047K34Z Dilation of Right Femoral Artery with Drug-eluting Intraluminal Device, Percutaneous Approach (ICD-10-PCS; 2023-05-01)
PROC: 04FT3ZZ Fragmentation of Right Peroneal Artery, Percutaneous Approach (ICD-10-PCS; 2023-05-01)
DX: E11.52 Type 2 diabetes mellitus with diabetic peripheral angiopathy with gangrene (principal); N17.0 Acute kidney failure with tubular necrosis; E87.1 Hypo-osmolality and hyponatremia; I50.22 Chronic systolic (congestive) heart failure; I13.0 Hypertensive heart and chronic kidney disease with heart failure and stage 1 through stage 4 chronic kidney disease, or unspecified chronic kidney disease; I70.261 Atherosclerosis of native arteries of extremities with gangrene, right leg; L03.115 Cellulitis of right lower limb; I48.21 Permanent atrial fibrillation; K52.1 Toxic gastroenteritis and colitis; I5A Non-ischemic myocardial injury (non-traumatic); N10 Acute pyelonephritis; N18.4 Chronic kidney disease, stage 4 (severe); D62 Acute posthemorrhagic anemia; E11.10 Type 2 diabetes mellitus with ketoacidosis without coma; R53.1 Weakness; E83.51 Hypocalcemia; T36.1X5A Adverse effect of cephalosporins and other beta-lactam antibiotics, initial encounter; Y92.9 Unspecified place or not applicable; E87.5 Hyperkalemia; E11.22 Type 2 diabetes mellitus with diabetic chronic kidney disease; E11.65 Type 2 diabetes mellitus with hyperglycemia; E78.5 Hyperlipidemia, unspecified; D63.1 Anemia in chronic kidney disease; I65.23 Occlusion and stenosis of bilateral carotid arteries; I25.10 Atherosclerotic heart disease of native coronary artery without angina pectoris; E86.9 Volume depletion, unspecified; R04.0 Epistaxis; Z86.73 Personal history of transient ischemic attack (TIA), and cerebral infarction without residual deficits; Z79.02 Long term (current) use of antithrombotics/antiplatelets; Z79.01 Long term (current) use of anticoagulants; Z79.4 Long term (current) use of insulin; Z95.5 Presence of coronary angioplasty implant and graft; Z87.891 Personal history of nicotine dependence; Z88.6 Allergy status to analgesic agent; Z85.038 Personal history of other malignant neoplasm of large intestine; Z86.11 Personal history of tuberculosis; Z89.419 Acquired absence of unspecified great toe
CPT/HCPCS: 36556; 36558; 51702; 51798; 70450; 71046; 75625; 75716; 76775; 76937; 77001; 80048; 80053; 81003; 81015; 82043; 82550; 82570; 82607; 82728; 82746; 82805; 82962; 83516; 83521; 83540; 83550; 83605; 83735; 83935; 83970; 84100; 84155; 84156; 84165; 84300; 84484; 85014; 85018; 85025; 85027; 85045; 85610; 86038; 86160; 86335; 86704; 86706; 86803; 87040; 87070; 87086; 87340; 93005; 93922; 93925; 96365; 96366; 97116; 97163; 97167; 97530; 97535; 99152; 99153; 99291; C1725; C1750; C1752; C1769; C1874; C1894; C9765; C9772; G0257; P9047; Q5106; Q9967

== ENCOUNTER 2023-05-19 02:32 | Inpatient (IN) | payer MEDICARE, OTHER, SELFPAY ==
[2023-05-18 20:21] VITALS: BMI 25.4
[2023-05-18 20:23] VITALS: BP 127/72
[2023-05-18 20:48] LABS: % Basophils 0.4 % (0-2); % Immature Granulocytes 0.3 % (0-0.5); % Neutrophils 84.3 % (42.2-75.2); Absolute Eosinophils 0.2 10^3/uL (0-0.7); Absolute Lymphocytes 0.5 10^3/uL (1.2-3.4); Absolute Monocytes 0.8 10^3/uL (0.1-0.6); Absolute Neutrophils 7.9 10^3/uL (1.4-6.5); Hematocrit 28.4 % (39.0-52.0); Hemoglobin 9.4 g/dL (13.0-18.0); Mean Corp Hgb Conc. 33.1 g/dL (33.0-37.0); Mean Corpuscular Hgb 28.1 pg (27.0-31.0); Mean Platelet Volume 10.7 fL (7.4-10.4); Nucleated Red Blood Cells % 0 % (-); Platelet Count 254 10^3/uL (130-400); Red Blood Cell Count 3.34 10^6/uL (4.70-6.10); Red Cell Dist. Width 15.9 % (11.5-14.5); White Blood Cell Count 9.4 10^3/uL (4.8-10.8)
[2023-05-18 21:15] LABS: ALT (SGPT) 39 U/L (0-50); AST (SGOT) 62 U/L (17-59); Albumin 3.7 g/dl (3.5-5.0); Alkaline Phosphatase 184 U/L (38-126); Blood Urea Nitrogen 20 mg/dl (9-20); Calcium 8.2 mg/dl (8.4-10.2); Carbon Dioxide 28 mmol/L (22-30); Chloride 99 mmol/L (98-107); Glucose 231 mg/dl (70-99); Potassium 4.1 mmol/L (3.5-5.1); Sodium 135 mmol/L (135-145); Total Bilirubin 1.3 mg/dl (0.2-1.3); Total Protein 6.7 g/dl (6.3-8.2); eGFR 14.15
[2023-05-18 21:20] LABS: NT-proBNP > 27000 pg/ml; Troponin I 0.047 ng/ml
[2023-05-18 21:33] LABS: INR 1.64; PT 19.2 Sec (11.4-14.6)
[2023-05-18 22:22] VITALS: BP 117/77
--- NOTE | 2023-05-18 22:30 | ED.GENMED ---
History of Present Illness
<ERICKA Lo - Last Filed: 05/18/23 22:42>
General
Chief Complaint: Breathing Problem
Source: patient
Exam Limitations: none
Time Seen by Provider: 05/18/23 22:03
Nursing documentation reviewed up to this point in time: agreed with
Travel History
Have you had any contact with someone who has COVID-19?: No
Do you have any symptoms of coronavirus? Fever > 100 degrees, chills, cough, shortness of breath, sore throat, loss of taste or smell, muscle aches, or headache?: No
History of Present Illness
History of Present Illness:
patient is a 83 y/o male with PMH of CKD, AFIB, CHF presenting with shortness of breath for the last few days. patient states that he becomes SOB on exertion. Patient states symptoms get better with rest. Patient states that he can' barely walk two
steps without stopping.' Patient admits to mild dizziness when he becomes short of breath on walking. Patient admits to a mild stomach ache that occurred yesterday but was relieved with having a bowel movement and has not had issues since. Patient
denies CP, RICO, cough, fever, chills, palpations, V/D/C, edema. Patient admits that he is currently living at home and his last dialysis appointment was this morning with no issues. Patient is currently on Eliquis and clopidogrel. Patient is
currently in afib.
Review of Systems
<ERICKA Lo - Last Filed: 05/18/23 22:42>
Review of Systems
Constitutional: Reports no symptoms
EENT: Reports no symptoms
Respiratory: Reports trouble breathing (dyspnea on exertion)
Cardiac: Reports no symptoms
ABD/GI: Reports nausea
: Reports no symptoms
Musculoskeletal: Reports no symptoms
Skin: Reports no symptoms
Neurological: Reports dizzy (with exertion)
Endocrine: Reports no symptoms
Hematologic/Lymphatic: Reports no symptoms
Psychiatric: Reports no symptoms
Phy Exam
<Sissy FrancheskaSTPA - Last Filed: 05/18/23 22:42>
General Physical Exam
General Presentation: well appearing and no apparent distress
General Skin: warm and dry
General Habitus: normal
General Mental: alert
General Hydration: appears well hydrated
ENT Exam
ENT Exam: EOMI, pharynx normal, neck supple and normocephalic
Eye Exam
Eye Exam: PERRL, cornea clear and conjunctiva normal
Cardiovascular Exam
Cardiovascular Exam: regular rate/rhythm, no edema, no murmur and normal peripheral pulses
Pulmonary Exam
Pulmonary Exam: no cough
Gastrointestinal Exam
Gastrointestinal Exam: normal bowel sounds, non tender, soft, no organomegaly, no pulsatile mass and non distended
Neurological Exam
Neurological Exam: alert, oriented x3, no motor deficits and speech normal
Musculoskeletal Exam
Musculoskeletal Exam: full ROM and no edema
Skin Exam
Skin Exam: normal color, warm/dry, no rash and no petechia
Psychiatric Exam
Psychiatric Exam: normal mood/affect
Scores
<Em Gee DO - Last Filed: 05/19/23 00:27>
Heart Failure Risk
Heart Failure Risk Score: Yes
History of Stroke or TIA: Yes
History of intubation for respiratory distress: No
Heart rate on ED arrival >/= 110: No
SaO2 <90% on arrival on room air: No
HR >/=110 during 3min walk test (or too ill to perform test): Yes
ECG has acute ischemic changes: No
Urea >/=12mmol/L (BUN 33.6mg/dL): No
Serum CO2>/=35mmol/L: No
Troponin I or T elevated to AL Level (0.4mg/dL): No
NT-proBNP >/=5,000ng/L (5,000pg/ml): Yes
HF Risk Score: 4
Admission Status: HIGH RISK 26.1% Consider SNF treatment or admission to hospital
Course
<ERICKA Lo - Last Filed: 05/18/23 22:42>
Orders/Labs/Results
Orders:
Orders
05/18/23 20:28
Electrocardiogram (*1) Urgent
Reason for Study: Atrial Fibrillation
05/18/23 20:29
EKG- Treatment ONCE
05/18/23 20:41
Complete Blood Count/With Diff Urgent
05/18/23 20:42
Comprehensive Metabolic Panel Urgent
NT-proBNP Urgent
PT/INR [Prothrombin Time] Urgent
Troponin I Urgent
05/18/23 22:16
CR Chest - 2 Views Urgent
Comment:
Reason For Exam: SOB
Abnormal Lab Results
05/18/23 05/18/23
20:41 20:42
RBC 3.34 L 10^6/uL
(4.70-6.10)
Hgb 9.4 L g/dL
(13.0-18.0)
Hct 28.4 L %
(39.0-52.0)
RDW 15.9 H %
(11.5-14.5)
MPV 10.7 H fL
(7.4-10.4)
Absolute Neuts (auto) 7.9 H 10^3/uL
(1.4-6.5)
Absolute Lymphs (auto) 0.5 L 10^3/uL
(1.2-3.4)
Absolute Monos (auto) 0.8 H 10^3/uL
(0.1-0.6)
Neutrophils % 84.3 H %
(42.2-75.2)
Lymphocytes % 5.0 L %
(20.5-51.1)
PT 19.2 H Sec
(11.4-14.6)
Creatinine 4.0 H mg/dL
(0.7-1.3)
Glucose 231 H mg/dl
(70-99)
Calcium 8.2 L mg/dl
(8.4-10.2)
AST 62 H U/L
(17-59)
Alkaline Phosphatase 184 H U/L
(38-126)
Troponin I 0.047 H* ng/ml
05/18/23 20:41
05/18/23 20:42
Vital Signs
Initial and Last Documented VS:
Initial Vital Signs
Temp Pulse Resp BP Pulse Ox
97.5 F 121 16 127/72 98
05/18/23 20:23 05/18/23 20:23 05/18/23 20:23 05/18/23 20:23 05/18/23 20:23
Last Documented Vital Signs
Temp Pulse Resp BP Pulse Ox
97.5 F 95 19 117/77 98
05/18/23 20:23 05/18/23 22:22 05/18/23 22:22 05/18/23 22:22 05/18/23 22:22
<Em Gee, DO - Last Filed: 05/19/23 00:27>
Orders/Labs/Results
Orders:
Orders
05/18/23 20:28
Electrocardiogram (*1) Urgent
Reason for Study: Atrial Fibrillation
05/18/23 20:29
EKG- Treatment ONCE
05/18/23 20:41
Complete Blood Count/With Diff Urgent
05/18/23 20:42
Comprehensive Metabolic Panel Urgent
NT-proBNP Urgent
PT/INR [Prothrombin Time] Urgent
Troponin I Urgent
05/18/23 22:16
CR Chest - 2 Views Urgent
Comment:
Reason For Exam: SOB
Abnormal Lab Results
05/18/23 05/18/23
20:41 20:42
RBC 3.34 L 10^6/uL
(4.70-6.10)
Hgb 9.4 L g/dL
(13.0-18.0)
Hct 28.4 L %
(39.0-52.0)
RDW 15.9 H %
(11.5-14.5)
MPV 10.7 H fL
(7.4-10.4)
Absolute Neuts (auto) 7.9 H 10^3/uL
(1.4-6.5)
Absolute Lymphs (auto) 0.5 L 10^3/uL
(1.2-3.4)
Absolute Monos (auto) 0.8 H 10^3/uL
(0.1-0.6)
Neutrophils % 84.3 H %
(42.2-75.2)
Lymphocytes % 5.0 L %
(20.5-51.1)
PT 19.2 H Sec
(11.4-14.6)
Creatinine 4.0 H mg/dL
(0.7-1.3)
Glucose 231 H mg/dl
(70-99)
Calcium 8.2 L mg/dl
(8.4-10.2)
AST 62 H U/L
(17-59)
Alkaline Phosphatase 184 H U/L
(38-126)
Troponin I 0.047 H* ng/ml
05/18/23 20:41
05/18/23 20:42
Vital Signs
Initial and Last Documented VS:
Initial Vital Signs
Temp Pulse Resp BP Pulse Ox
97.5 F 121 16 127/72 98
04/01/24 20:23 05/18/23 20:23 05/18/23 20:23 05/18/23 20:23 05/18/23 20:23
Last Documented Vital Signs
Temp Pulse Resp BP Pulse Ox
97.5 F 95 19 117/77 98
05/18/23 20:23 05/18/23 22:22 05/18/23 22:22 05/18/23 22:22 05/18/23 22:22
<ERICKA Lo - Last Filed: 05/18/23 22:42>
MDM/Problems Addressed
Differential Diagnosis Includes:
heart failure exacerbation
fluid overload
afib exacerbation
MDM/Problems Addressed:
shortness of breath
<ERICKA Lo - Last Filed: 05/18/23 22:42>
*Critical Care Note
Total Time (30-74mins, 75-104mins- exclusive of procedures): Not Applicable
<Em Gee DO - Last Filed: 05/19/23 00:27>
*Radiology
Radiology exam reviewed: preliminary read by ED provider (Increased interstitial markings bilaterally as well as scant effusion right base concerning for acute CHF. Small nodular density right base appears similar to previous.)
*Pulse Oximetry
Patient hypoxic: no
*EKG
Interpreted by ED Provider?: Yes
Interpretation: abnormal
Comparison EKG: no changes (Unchanged from previous April 21, 2023)
Heart Rate: 100
Rate: normal
Rhythm: a-fib
[place]: left axis deviation
QRS Pattern: left vent hypertrophy
Ischemia: non-specific ST changes
*Student Services Representative Interpretation
Rate: normal
Interpretation: abnormal
Rhythm: a-fib
ED Attending Note
<ERICKA Lo - Last Filed: 05/18/23 22:42>
-
Portions of this chart may have been created with voice recognition software.� Occasional wrong word or��sound alike� substitutions may have occurred due to the inherent limitations of voice recognition software.
<Em Gee DO - Last Filed: 05/19/23 00:27>
ED Attending Note
Patient seen and examined by attending physician: Yes
I performed the substantive portion of visit, reviewed & personally made and approve the management plan that is documented in note by myself or ENZO.: Yes
I performed a history and physical exam of patient and discussed management with resident, I reviewed resident's note and agree with documented findings and plan of care.: Yes
ED Attending Note:
This is an 83-year-old gentleman who has history of hypertension, chronic A-fib, diabetes, chronic kidney disease, atherosclerotic CVD, CHF, suffered a TIA March of this year who was hospitalized here April 20 until May 06 initially for
treatment of acute kidney injury on chronic kidney disease thought to be related to severe volume depletion, anorexia and GI losses. Treated with IV fluids along with initiation of hemodialysis. Hospital course was complicated by severe ischemia
of right lower extremity requiring angioplasty of several vessels of his right lower extremity.
He is chronically maintained on Eliquis as well as Plavix.
He was discharged to a [facility] facility where he remained for only 5 days, then transition to home.
He continues on thrice weekly dialysis having received dialysis today, May 17.
Prior to his hospitalization April 20, it was found that patient had recently lost 10 pounds and had recently been started on Lasix as well as Entresto. His initial creatinine was 15, prior to that creatinine was 1.8 in January and 2.7 March 23.
Lasix and Entresto were discontinued only of day or 2 prior to hospitalization April 20 and have not been resumed.
He has been feeling relatively well since discharge home last week. More recently however over the past 2 to 3 days he has had progressive dyspnea on exertion, today moderate to severe dyspnea on exertion reporting significant shortness of breath
with only taking a few steps. He has not had a fever nor chills. He admits to rare dry cough that is somewhat chronic and unchanged. He denies palpitations.
He denies chest pain but does note some perhaps mild chest discomfort that he attributes to shortness of breath with activity.
He has had no leg pain or swelling.
He does continue to urinate and has had no difficulty with urination. Appetite has been fair.
GENERAL: 83-year-old gentleman appears his stated age, awake and alert, pleasant, very minimal resting tachypnea is noted but able to speak in full sentences without difficulty nor breathlessness.
EYE: anicteric
NECK: Supple, nontender, no meningismus, no significant adenopathy. Mild to moderate JVD.
ENT: oral mucosa is moist. nares patent.
CARDIAC: Irregularly irregular at a rate of 100, no murmur. Dialysis catheter right upper chest wall, site is clean and dry.
LUNGS: Minimal resting tachypnea, moderate bibasilar rales are noted. No wheezing.
ABDOMEN: Soft, nondistended, without focal tenderness, . normoactive BS.
NEUROLOGICAL: Alert and oriented x3, no focal neuro deficits.
SKIN: Warm and dry, mildly pale/sallow in complexion, skin intact. No rash.
MUSCULOSKELETAL: No C/C/E. peripheral pulses are full and equal b/l. No palpable tenderness.
PSYCH: Normal and appropriate interaction.
Concern for acute CHF, ACS, pneumonia, pleural effusion.
As patient has been maintained on Eliquis and Plavix, PE is unlikely.
Labs show mild anemia with hemoglobin of 9.4 has improved from May 05 at 9.2. Normal white blood cell count.
Chemistries show improvement in creatinine currently at 4.0, trending down from 6.3 May 05. Normal electrolytes. Random glucose moderately elevated at 234.
Troponin borderline elevated 0.047, improved from April 20, 0.061.
BNP is markedly elevated greater than 27,000.
EKG shows atrial fibrillation with ventricular response of 100. Left axis deviation. LVH with mild strain high laterally, overall similar to previous EKG April 20.
Will check chest x-ray.
05/19/2023 0021 AM
Chest x-ray shows increased interstitial markings bilaterally as well as scant effusion right base concerning for acute CHF. There is a hazy nodular density right lower lobe that appears similar to previous film. No definitive evidence of
pneumonia.
Patient has significant dyspnea with only minimal exertion and there is still some concern for ACS.
Will give an IV dose of Lasix and admit to hospitalist service.
Discharge Plan
Departure
Patient Disposition: Admit
Date of Disposition: 05/19/23
Time of Disposition: 00:22
Admit to: Telemetry
Admit to doctor: Jordan
Presentation/result/management discussed w/ accepting MD/DO: Hospitalist
Condition: Fair
Discharge Problem:
Acute CHF (congestive heart failure), Elevated troponin, r/o ACS
Prescriptions:
No Action
Tradjenta 5 MG tablet
5 mg PO DAILY
clopidogrel 75 MG tablet
75 mg PO DAILY 0RF
metoprolol succinate [Toprol XL] 25 mg Tablet Extended Release 24 Hr
25 mg PO BID
ezetimibe [Zetia] 10 mg Tablet
10 mg PO QPM
rosuvastatin [Crestor] 40 mg Tablet
40 mg PO QPM
Eliquis 2.5 mg Tablet
2.5 mg PO BID
Simbrinza 1-0.2 % Drops,Suspension
1 drp RIGHT EYE BID
insulin glargine [Lantus Solostar U-100 Insulin] 100 unit/mL (3 mL) insulin pen
30 unit SC DAILY
Referrals:
UNKNOWN - PT DOES,NOT KNOW [Unknown Provider] -
Interventions
Interventions:
*Risk Screen - Suicide Last Done: 05/18/23 22:59
*General Assessment Last Done: 05/18/23 22:59
*Neglect/Abuse Screening Last Done: 05/18/23 22:59
ED- Fall Risk Assessment Last Done: 05/18/23 22:25
*ED COVID-19 Vaccine History Last Done: 05/18/23 20:23
ED- Cardiac Assessment Last Done: 05/18/23 22:25
ED- Pulmonary Assessment Last Done: 05/18/23 22:25
Discharge Date and Time
Print Language: UKRAINIAN
[2023-05-18 23:00] VITALS: BP 113/78
[2023-05-19] VITALS (37 sets, daily range): BP systolic 97–155; BP diastolic 64–116; BMI 25.3
[2023-05-19] MEDS: LASIX 40 MG IV (00:10)
--- NOTE | 2023-05-19 01:53 | HPS.HSE ---
Family Physician
-
Family Physician: * NONE
Chief Complaint
-
SoB
History of Present Illness
83M Recent prolonged admission, DC'd on 04/18/23
S/P Nadja angiogram with balloon angioplasty and stenting of right superficial femoral artery stenosis for critical limb-threatening ischemia of right lower extremity, TESSA on CKD4 requiring HD since, Perm AF on Eliquis, ACD.
Evaluated ER for SoB:
Progressive over last few days.
last HD on 05/18/23 AM
As of now, dyspneic with minimal exertion.
ROS
Denied orthopnea and PND.
Denied CP, palpitation
@ ER.
proBNO > 27K
CXR c/w CHF
IV Lasix 40 x 1 given
Medical History
Past Medical History
Past Medical History: Reports Other
Additional Past Medical History:
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
Coronary Artery Disease s/p stent
Bilateral Carotid Artery Stenosis
Chronic HFrEF
Atrial Fibrillation
Essential Hypertension
Hyperlipidemia
Diabetes Mellitus
CKD Stage IV
Colon Cancer
Past Surgical History: Reports Other
Additional Past Surgical History:
Cholecystectomy
Right Hemicolectomy
Ventral Hernia Repair
Lower Extremity Angioplasty
Social History
Tobacco: Former Smoker
Alcohol: Occasional
Personal:
Living: With Family
Family History
Family History: Not pertinent
Allergies / Home Medications
Allergies reflects when Allergies were last updated in [facility].
Home Medications with original date entered in [facility]
Allergy/Medication List:
Allergies
Allergy/AdvReac Type Severity Reaction Status Date / Time
ibuprofen Allergy chest pain Verified 05/19/23 01:12
Home Medications
linagliptin 5 mg tablet (Tradjenta) 5 mg PO DAILY Diabetes 06/15/17
clopidogrel 75 mg tablet 75 mg PO DAILY 06/16/17
apixaban 2.5 mg tablet (Eliquis) 2.5 mg PO BID Blood Clot Prevention/Tx 04/21/23
brinzolamide 1 %-brimonidine 0.2 % eye drops,suspension (Simbrinza) 1 drp RIGHT EYE BID Eye Condition 04/21/23
ezetimibe 10 mg tablet (Zetia) 10 mg PO QPM High Cholesterol 04/21/23
metoprolol succinate 25 mg tablet,extended release 24 hr (Toprol XL) 25 mg PO BID Blood Pressure 04/21/23
rosuvastatin 40 mg tablet (Crestor) 40 mg PO QPM High Cholesterol 04/21/23
insulin glargine 100 unit/mL (3 mL) subcutaneous pen (Lantus Solostar U-100 Insulin) 30 unit SC DAILY 05/18/23
Review of Systems
-
Constitutional: Reports No Symptoms
EENT: Reports No Symptoms
Respiratory: Reports See HPI and Trouble Breathing
Cardiac: Reports See HPI; Denies Chest Pain, Diaphoresis or Palpitations
Abdomen/GI: Reports No Symptoms
: Reports No Symptoms
Musculoskeletal: Reports No Symptoms
Skin: Reports No Symptoms
Neurological: Reports No Symptoms
Endocrine: Reports No Symptoms
Hematologic/Lymphatic: Reports No Symptoms
Psych: Reports No Symptoms
Physical Exam
Vital Signs
Vital Signs
Temp Pulse Resp BP Pulse Ox
97.5 F 97 25 119/101 94
05/18/23 20:23 05/19/23 01:00 05/19/23 01:00 05/19/23 01:00 05/19/23 01:00
Physical Exam
General: Well Developed and No Apparent Distress; No Fever
HEENT: NormoCephalic, Anicteric and Moist mucous membranes
Respiratory: Clear; No Wheezes, Rales or Rhonchi
Cardiac: S1/S2 and Irregular Rhythm (perm AF)
Breast: Deferred by me
GI: Soft, Non Tender, Non Distended and Normal Bowel Sounds
Rectal: Deferred by Provider
Genito-urinary: Deferred by me
Musculoskeletal: No Edema and Other (Rt uppper chest tunnel cath )
Skin: Warm and Dry
Neuro: AO x 3
Psych: Calm
Laboratory Results
-
05/18/23 20:41
05/18/23 20:42
Laboratory Results
PT 19.2 Sec (11.4-14.6) H 05/18/23 20:42
INR 1.64 05/18/23 20:42
Total Bilirubin 1.3 mg/dl (0.2-1.3) 05/18/23 20:42
AST 62 U/L (17-59) H 05/18/23 20:42
ALT 39 U/L (0-50) 05/18/23 20:42
Alkaline Phosphatase 184 U/L (38-126) H 05/18/23 20:42
Troponin I 0.047 ng/ml H* 05/18/23 20:42
Data Reviewed
-
Diagnostic Radiology: Image Personally Visualized and interpreted
Medical Tests (Nuc Med, Echo, EKG etc): Report Reviewed by me
Lab Data: Labs Reviewed by me
Old Records: Reviewed
Impression/Plan
-
Reviewed VS: Afebrile HR 97 BP 120/100 RR25 POx 94
Wt. 72.25 kg ( 05/07/23) --> 73. 48 Kg ( 05/18/23)
Data
Hgb 9.4 -stable
INR 1.6
K 4.1
Cr 4.0
BG 230
Ca 8.3
TPNI 0.047
pro BNP > 27
My read on CXR suspect CHF
EKG report
ATRIAL FIBRILLATION
LEFT AXIS DEVIATION
INCOMPLETE RIGHT BUNDLE BRANCH BLOCK
MODERATE VOLTAGE CRITERIA FOR LVH, MAY BE NORMAL VARIANT ( R in aVL , [employer]
product )
ST and T WAVE ABNORMALITY, CONSIDER LATERAL ISCHEMIA
PROLONGED QT
ABNORMAL ECG
Last hospitalist admission: 04/21/23 - 05/08/23
1. Critical limb-threatening ischemia, right lower extremity.
2. Acute kidney injury on chronic kidney disease, stage 4.
3. Permanent atrial fibrillation.
4. Metabolic acidosis.
5. Right-sided epistaxis.
6. Acute blood loss anemia superimposed on anemia of chronic
disease.
7. Hyperkalemia.
8. Hyponatremia.
Impression and plan
Acute on Chr HFrEF
Associated NYHA Class III Dyspnea
Jan 2023 TTE: EF 20-25% with Stage II Diastolic Dysfunction
- IV Lasix 40 x1 at ER
- daily Wt and IOs
- Renal consult for vol. management - additional HD ?
Permanent AF
- Rate controlled on metoprolol sux
- on Eliquis resumed
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
Etiology: acute interstitial nephritis from Keflex versus ATN from hemodynamic shifts vs. volume depletion per record
S/p tunneled R IJ HD catheter 04/29
ACDz plus recent ACBLA : Hgb 9.4 and stable
- currently HD MWF
- await renal evaluation
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
HX CVA x2
CAD s/p stent
- Continue Plavix
Hyperlipidemia
- on Crestor and Zetia
IDDMT2
- cont Lantus and Aspat
- add ISS low
HX Colon CA
DVT Px: Eliquis
Code: Full
IMU
[2023-05-19 06:23] LABS: Hematocrit 32.6 % (39.0-52.0); Hemoglobin 10.1 g/dL (13.0-18.0); Mean Corpuscular Hgb 27.8 pg (27.0-31.0); Mean Corpuscular Volume 89.8 fL (80.0-94.0); Mean Platelet Volume 10.8 fL (7.4-10.4); Platelet Count 269 10^3/uL (130-400); Red Blood Cell Count 3.63 10^6/uL (4.70-6.10); Red Cell Dist. Width 16.2 % (11.5-14.5); White Blood Cell Count 9.6 10^3/uL (4.8-10.8)
[2023-05-19 06:56] LABS: Blood Urea Nitrogen 22 mg/dl (9-20); Calcium 8.8 mg/dl (8.4-10.2); Carbon Dioxide 27 mmol/L (22-30); Chloride 100 mmol/L (98-107); Estimated Creatinine Clearance 11 ml/min; Glucose 153 mg/dl (70-99); Potassium 4.2 mmol/L (3.5-5.1); Sodium 138 mmol/L (135-145); eGFR 11.09
[2023-05-19 07:45] LABS: Troponin I 0.058 ng/ml
[2023-05-19 08:04] LABS: Glucose - Point of Care 176 mg/dl (70-99)
[2023-05-19] MEDS: PLAVIX 75 MG PO (08:05)
[2023-05-19] MEDS: ELIQUIS 2.5 MG PO ×2 (08:05→20:27)
[2023-05-19] MEDS: TOPROL XL 25 MG PO ×2 (08:05→20:27)
[2023-05-19 08:36] LABS: Glycohemoglobin (HgbA1c) 7.4 % (4.0-5.6)
[2023-05-19] MEDS: NOVOLOG FLEXPEN-LOW RESISTANCE 1 UNITS SC (09:25)
[2023-05-19] MEDS: LANTUS 0.299999999999999989 UNITS SC (09:25)
[2023-05-19] MEDS: SIMBRINZA 1%-0.2% OPHTH SUSP 1 DROP RIGHT EYE ×2 (09:26→20:28)
--- NOTE | 2023-05-19 09:45 | W.CON.NEPH ---
Consultation
-
Date/Time Consultation Requested: 05/19/23 08
Date/Time Consultation Performed: 05/19/23 0915
Requesting Provider: Todd Rodas
Performing Provider: Flori Steve
Reason for Consultation: TESSA on HD
Medical History
-
Chief Complaint: SOB
History of Present Illness:
Mr. Chicas is an 83 YOM with PMH of HTN, perm afib on BB for rate control and AC with ELiquis, T2DM on insulin, HFrEF with diastolic dysfunction ( EF20-25%), stroke on plavix who had prolonged admission in April for TESSA with cr peak of 15 and
started HD on 04/21. He was d/c on 05/05 to [facility] unit present with SOB,started 3days ago. He reports sob did not improve with HD yesterday and he could not sleep with orthopnea and admits to LOWE. He notices decreased UOP lately. During
last admit he also underwent Nadja angiogram with balloon angioplasty and stenting of right superficial femoral artery stenosis for critical limb-threatening ischemia of right lower extremity. he offers no cp or and pain. No n/v. No dysuria.
Past Medical History
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
Coronary Artery Disease s/p stent
Bilateral Carotid Artery Stenosis
Chronic HFrEF
Atrial Fibrillation
Essential Hypertension
Hyperlipidemia
Diabetes Mellitus
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
Colon Cancer
Right Nadja angiogram with balloon angioplasty and stenting of right superficial femoral artery stenosis for critical limb 04/2023
Past Surgical History: Other (Cholecystectomy Right Hemicolectomy Ventral Hernia Repair Lower Extremity Angioplasty )
Social History
Tobacco: Former Smoker
Alcohol: None
Drug: None
Personal:
Living: With Family
Family History
no CKD
Family History: Not Pertinent
Allergies / Home Medications
Allergy/AdvReac Type Severity Reaction Status Date / Time
ibuprofen Allergy chest pain Verified 05/19/23 01:12
�Medication �Instructions �Recorded �Confirmed �Type
linagliptin 5 mg tablet (Tradjenta) 5 mg PO DAILY Diabetes 06/15/17 05/18/23 History
clopidogrel 75 mg tablet 75 mg PO DAILY 06/16/17 05/18/23 Rx
apixaban 2.5 mg tablet (Eliquis) 2.5 mg PO BID Blood Clot 04/21/23 05/18/23 History
Prevention/Tx
brinzolamide 1 %-brimonidine 0.2 % 1 drp RIGHT EYE BID Eye Condition 04/21/23 05/18/23 History
eye drops,suspension (Simbrinza)
ezetimibe 10 mg tablet (Zetia) 10 mg PO QPM High Cholesterol 04/21/23 05/18/23 History
metoprolol succinate 25 mg 25 mg PO BID Blood Pressure 04/21/23 05/18/23 History
tablet,extended release 24 hr
(Toprol XL)
rosuvastatin 40 mg tablet (Crestor) 40 mg PO QPM High Cholesterol 04/21/23 05/18/23 History
insulin glargine 100 unit/mL (3 30 unit SC DAILY 05/18/23 05/18/23 History
mL) subcutaneous pen (Lantus
Solostar U-100 Insulin)
Review of Systems
-
all complete 12 point ROS have been inquired and found negative other than stated in HPI
Physical Exam
Vital Signs
Vital Signs
Temp Pulse Resp BP Pulse Ox
97.5 F 140 23 126/99 93
05/18/23 20:23 05/19/23 08:05 05/19/23 06:30 05/19/23 08:05 05/19/23 06:30
Lab Results
WBC 9.6 10^3/uL (4.8-10.8) 05/19/23 06:10
RBC 3.63 10^6/uL (4.70-6.10) L 05/19/23 06:10
Hgb 10.1 g/dL (13.0-18.0) L 05/19/23 06:10
Hct 32.6 % (39.0-52.0) L 05/19/23 06:10
Plt Count 269 10^3/uL (130-400) 05/19/23 06:10
Sodium 138 mmol/L (135-145) 05/19/23 06:10
Potassium 4.2 mmol/L (3.5-5.1) 05/19/23 06:10
Chloride 100 mmol/L (98-107) 05/19/23 06:10
Carbon Dioxide 27 mmol/L (22-30) 05/19/23 06:10
BUN 22 mg/dl (9-20) H 05/19/23 06:10
Creatinine 4.9 mg/dL (0.7-1.3) H* 05/19/23 06:10
eGFR 11.09 05/19/23 06:10
Glucose 153 mg/dl (70-99) H 05/19/23 06:10
Calcium 8.8 mg/dl (8.4-10.2) 05/19/23 06:10
Ifo-N-Ywfjanepwgn Pept > 90863 pg/ml 05/18/23 20:42
Albumin 3.7 g/dl (3.5-5.0) 05/18/23 20:42
CXR:
TECHNIQUE: Frontal and lateral views of the chest were performed.
COMPARISON: 05/05/2023.
FINDINGS:
Right dual lumen central venous dialysis catheter with the tip at the cavoatrial junction. Mild prominence of the pulmonary vascular markings. No focal consolidation or pneumothorax. Trace right pleural fluid. Stable right lower lobe granuloma. Mild
enlargement of the cardiac silhouette. Chronic degenerative changes of the spine.
IMPRESSION:
Mild pulmonary vascular congestion.
Assessment/Plan
-
IMP:
Acute on Chr HFrEF
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
Afib with RVR
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
PAD/right second toe superficial gangrene -severe PAD noted
S/P Nadja angiogram with balloon angioplasty and stenting of right superficial femoral artery stenosis 04/2023
h/o amputation of right foot toe
Right iliac art aneurysm
DM2
Hyperlipidemia
Essential hypertension
History of stroke x 2
Permanent atrial fibrillation- Eliquis
CAD
h/o pericarditis
Chronic anemia
Hx Colon cancer s/p right hemicolectomy 2016
bilat carotid art disease
h/o ventral hernia repair 2021
Echo at [facility]: 01/2023:
EF 20-25%, Grade2 DD, mild AI
Plan:
Recent d/c after starting HD for TESSA in May 05, now returns with LOWE, orthopnea
Pt reports decreased UOP lately
completed HD yesterday however wt is higher than last d/c
will arrange for UF later today with midodrine
monitor afib, consider cards eval if RVR persists
cont lasix
renal diet and FR 40 ounces/day
d/w primary
Data Reviewed
-
Radiology: Report Reviewed by me
Labs: Labs Reviewed by me and Discussed with Patient
[2023-05-19 11:02] LABS: Troponin I 0.058 ng/ml
--- NOTE | 2023-05-19 11:55 | PTCARENOTE ---
Pt is currently IMU hold status in the ED. Ox3 and appropriate. Pleasant. Currently in AFib in the 130-150's, BP 105/72. Nephrology ordered HD treatment today, he has not been given a time yet. 97% on RA, some crackles at the bases. Good appetite,
ate 100% of low cholesterol diet. POC glucose 176. Oliguric. R chest tunnelled cath in place. Iv sites intact. Pt makes needs known.
[2023-05-19 12:46] LABS: Glucose - Point of Care 227 mg/dl (70-99)
[2023-05-19] MEDS: NOVOLOG FLEXPEN-LOW RESISTANCE 2 UNITS SC (13:11)
--- NOTE | 2023-05-19 13:45 | CON.CAR ---
Addendum entered and electronically signed by Pradip Johnson DO 05/19/23 16:54:
I saw and examined the patient.
The Home Office Claims Examiner's note was reviewed and I agree with the note.
Comment:
Plan:
Evidence of volume overload
HD as per nephrology for volume control
Obtain records from [facility]. Pt was already scheduled to see Dr Hernandez
Remains in Afib with rapid HRs at times. Cont Toprol. Rate control adjustment has been limited by hypotension. Continue midodrine as needed for bp support.
Add Amiodarone 200 mg twice daily for rate control
Monitor QTc, repeat EKG in AM
Continue Eliquis 2.5 mg twice daily. He is also chronically on Plavix for history of strokes
Cont medical therapy of nonMI Trop
He is scheduled to see Dr. Hernandez as a new patient to our office 06/17/23.
Original Note:
Consultation
Consultation Request
Date/Time Consultation Performed: 05/19/23
Requesting Provider: Dr. Ortega
Performing Provider: Donna Bates PA-C for Dr. Johnson
Reason for Consultation: CHF, afib
Medical History
-
Chief Complaint: SOB
History of Present Illness:
Patient is an 83 yo M with PMH of hypertension, hyperlipidemia, insulin-dependent diabetes, CAD with prior LCx stenting in 2018, ischemic cardiomyopathy with EF 20 to 25%, permanent afib on chronic eliquis, bilateral carotid artery disease status
post unsuccessful left carotid stent placement, history of TIAs, most recent in 01/2023 at [facility]. He also had CKD - Cr of 1.76 in 2019 up to 2.5 02/2023. During 01/2023, outpatient Jardiance was stopped due to worsening renal function. Appears he was
started on entresto for CM in 02/2023. Repeat blood work 03/22 with Cr 2.7. This medication was then stopped several weeks later by patient due to rash, dizziness, and hypotension. He then was hospitalized 04/20-05/07/23 for acute renal failure with Cr on
presentation of 15.7. He was started on HD during this admission. During admission also had critical limb threatening ischemia of the right lower extremity resulting in angiogram with balloon angioplasty and stenting of right superficial femoral
artery stenosis and intravascular lithotripsy to right tibioperoneal trunk stenosis. patient was discharged to SNF and then to home 5 days later. He remains on HD MWF at this time. He now presents back for eval of SOB. He reports orthopnea last
night improved with sitting up. He denies weight gain or lower extremity edema. He is not presently taking Lasix as an outpatient, this was stopped 02/2023 by nephrology at was not felt to be volume overloaded and with worsening kidney function. He
does still urinate. proBNP >72783. EKG afib. Weight up from last discharge weight if accurate.
PMH:
CAD with prior left circumflex stenting in 2018, residual complex proximal LAD disease, medically managed
Ischemic cardiomyopathy with a EF 20 to 25% by most recent echo
Permanent atrial fibrillation
Chronic anticoagulation with Eliquis
By lateral carotid artery disease status post unsuccessful left carotid stent placement
History of CVA/TIA x 3, most recently 01/2023 at [facility]
CKD, with recent hospitalization 04/2023 at for ARF resulting in HD initiation
PAD with critical limb threatening ischemia of right lower extremity status post balloon angioplasty and stenting of R SFA, intravascular lithotripsy of right tibioperoneal trunk stenosis 04/2023
Hypertension
LVH
Hyperlipidemia
Insulin-dependent diabetes
Anemia of chronic disease
Past Medical History
Past Medical History: Other (in HPI)
Social History
Tobacco: Former Smoker
Alcohol: Other (rare)
Personal:
Living: With Family
Employment: Retired
Allergies / Home Medications
Allergy/AdvReac Type Severity Reaction Status Date / Time
ibuprofen Allergy chest pain Verified 05/19/23 01:12
�Medication �Instructions �Recorded �Confirmed �Type
linagliptin 5 mg tablet (Tradjenta) 5 mg PO DAILY Diabetes 06/15/17 05/18/23 History
clopidogrel 75 mg tablet 75 mg PO DAILY 06/16/17 05/18/23 Rx
apixaban 2.5 mg tablet (Eliquis) 2.5 mg PO BID Blood Clot 04/21/23 05/18/23 History
Prevention/Tx
brinzolamide 1 %-brimonidine 0.2 % 1 drp RIGHT EYE BID Eye Condition 04/21/23 05/18/23 History
eye drops,suspension (Simbrinza)
ezetimibe 10 mg tablet (Zetia) 10 mg PO QPM High Cholesterol 04/21/23 05/18/23 History
metoprolol succinate 25 mg 25 mg PO BID Blood Pressure 04/21/23 05/18/23 History
tablet,extended release 24 hr
(Toprol XL)
rosuvastatin 40 mg tablet (Crestor) 40 mg PO QPM High Cholesterol 04/21/23 05/18/23 History
insulin glargine 100 unit/mL (3 30 unit SC DAILY Diabetes 05/18/23 05/18/23 History
mL) subcutaneous pen (Lantus
Solostar U-100 Insulin)
Review of Systems
-
History Source: Patient
All other systems: Negative unless noted
Physical Exam
Vital Signs
Temp Pulse Resp BP Pulse Ox
97.5 F 113 29 105/72 96
05/18/23 20:23 05/19/23 11:30 05/19/23 11:30 05/19/23 11:00 05/19/23 11:30
Lab Results
05/19/23 06:10
05/19/23 06:10
Troponin I 0.058 ng/ml H* 05/19/23 10:23
Mkd-R-Hxkcikaplel Pept > 27271 pg/ml 05/18/23 20:42
Physical Exam
General: No Apparent Distress, Comfortable and Other (sitting in chair)
HEENT: Normocephalic, Anicteric and Moist Mucous Membranes
Respiratory: Crackles and Non Labored Respirations
Cardiac: S1/S2 and Irregular Rhythm
GI: Soft, Non Tender, Non Distended and Normal Bowel Sounds
Musculoskeletal: No Clubbing, No Cyanosis and Edema (trace of B/L LE)
Skin: Warm and Dry
Neuro: AO x 3
Impression / Plan
-
Primary Registered Nurse Float Pool: Previously Dr. Munguia of [facility], scheduled to see Dr. Hernandez 06/17/23
Assessment:
Presentation with SOB
Acute on chronic HFrEF
Elevated troponin, suspected nonMI trop elevation
CAD with prior left circumflex stenting in 2018, residual complex proximal LAD disease, medically managed
Ischemic cardiomyopathy with a EF 20 to 25% by most recent echo
Permanent atrial fibrillation
Chronic anticoagulation with Eliquis
By lateral carotid artery disease status post unsuccessful left carotid stent placement
History of CVA/TIA x 3, most recently 01/2023 at [facility]
CKD, with recent hospitalization 04/2023 at for ARF resulting in HD initiation
PAD with critical limb threatening ischemia of right lower extremity status post balloon angioplasty and stenting of R SFA, intravascular lithotripsy of right tibioperoneal trunk stenosis 04/2023
Hypertension
LVH
Hyperlipidemia
Insulin-dependent diabetes
Anemia of chronic disease status post abdominal hernia repair with mesh 02/2021
ECHO at [facility] 02/05/23: EF 22.6%, moderately increased left ventricular internal cavity size, grade 2 diastolic dysfunction, RVSP 32 mmHg, mild AR. Compared to prior in 2020, EF previously 40 to 45%
Plan:
-Patient presents with orthopnea and shortness of breath.
-records obtained and reviewed from [facility] including echo 02/05/23 as above and last office note 04/07/23
-[place] to be volume overloaded with proBNP greater than 27,000. Chest x-ray with mild pulmonary vascular congestion, consistent with heart failure
-Volume removal through HD per nephrology. for HD today
-Could consider giving Lasix as patient still urinates, however remains unclear if has potential for return of renal function, so may not want to compromise renal status. defer to nephrology
-avoiding other nephrotoxic agents
-Remains in atrial fibrillation with elevated heart rates at times. Unclear if this is driving acute CHF in addition to his known ischemic cardiomyopathy. Uptitration of rate control will be limited due to hypotension associated with HD. continue
midodrine as needed. Continue low-dose Toprol. Will plan to add amiodarone 200 mg twice daily for rate control
-follow QTc, repeat EKG in AM
-Continue Eliquis 2.5 mg twice daily. He is also chronically on Plavix for history of strokes
-trop 0.058. no CP. suspected nonMI trop elevation in setting of acute CHF and ESRD. he has known prox LAD disease, not felt to be amenable to CABG or PCI, medically managed.
-he is scheduled to see Dr. Hernandez as a new patient to our office 06/17/23.
-d/w ER nursing
Data Reviewed
-
EKG: Tracing Personally Visualized and interpreted
Radiology: Image Personally Visualized and interpreted and Report Reviewed by me
Medical Tests (Nuc Med, Echo etc): Report Reviewed by me
Labs: Labs Reviewed by me
Old Records: Reviewed
--- NOTE | 2023-05-19 16:54 | PTCARENOTE ---
Pt rec'd into U 3345 at approx 16:00. accompanying. Oriented to new room and plan of care, Tracey MONSIVAIS RN in room to start HD at this time. Dinner ordered. Pt is Aox3 and pleasant, VSS at this time. Continuing to monitor.
[2023-05-19] MEDS: ProAmatine 5 MG PO (17:24)
[2023-05-19] MEDS: CRESTOR 40 MG PO (17:24)
[2023-05-19] MEDS: ZETIA 10 MG PO (17:24)
--- NOTE | 2023-05-19 18:37 | W.PN.NEPH.HD ---
Assessment
-
pt evaluated during HD
isolated UF of 2.5kg
midodrine pre HD
vitals stable
afib rate controlled
cvc functions
Progress Note - Hemodialysis
-
Date of Service: May 19, 2023
Duration: 30 minutes and 2 hours
Opti-Dialyzer: 160
Ultrafiltration: Other (2.5kg)
Blood Flow: 400
Dialysate Flow: 600
Heparin: no
EPO: no
[2023-05-19] MEDS: NOVOLOG FLEXPEN-LOW RESISTANCE SC (19:46)
[2023-05-19] MEDS: PACERONE 200 MG PO (20:27)
[2023-05-20] VITALS (33 sets, daily range): BP systolic 94–132; BP diastolic 59–100; PULSE 90–91; O2SAT 96–97; BMI 23.6
[2023-05-20 00:39] LABS: Glucose - Point of Care 164 mg/dl (70-99)
[2023-05-20 04:19] LABS: Hematocrit 29.9 % (39.0-52.0); Hemoglobin 9.7 g/dL (13.0-18.0); Mean Corp Hgb Conc. 32.4 g/dL (33.0-37.0); Mean Corpuscular Volume 86.2 fL (80.0-94.0); Mean Platelet Volume 11.1 fL (7.4-10.4); Platelet Count 261 10^3/uL (130-400); Red Blood Cell Count 3.47 10^6/uL (4.70-6.10); Red Cell Dist. Width 15.9 % (11.5-14.5); White Blood Cell Count 9.2 10^3/uL (4.8-10.8)
[2023-05-20 05:03] LABS: Blood Urea Nitrogen 35 mg/dl (9-20); Calcium 8.9 mg/dl (8.4-10.2); Carbon Dioxide 24 mmol/L (22-30); Chloride 100 mmol/L (98-107); Estimated Creatinine Clearance 9 ml/min; Glucose 128 mg/dl (70-99); Potassium 4.1 mmol/L (3.5-5.1); Sodium 135 mmol/L (135-145)
--- NOTE | 2023-05-20 05:47 | PTCARENOTE ---
Patient observed with periods of sleep apnea. Patient desats to the 70s while asleep. Placed on 4 liters NC.
[2023-05-20 07:49] LABS: Glucose - Point of Care 120 mg/dl (70-99)
[2023-05-20] MEDS: LANTUS 0.299999999999999989 UNITS SC (07:55)
[2023-05-20] MEDS: NOVOLOG FLEXPEN-LOW RESISTANCE SC ×3 (07:55→17:11)
[2023-05-20] MEDS: ProAmatine 5 MG PO (08:09)
[2023-05-20] MEDS: RETACRIT 3000 UNITS IV (08:40)
[2023-05-20] MEDS: MANNITOL 12.5 GRAMS IV ×2 (08:53→10:19)
--- NOTE | 2023-05-20 09:26 | W.PN.NEPH.HD ---
Assessment
-
Patient seen on HD
sbp 120 at current u/f
Progress Note - Hemodialysis
-
Date of Service: May 20, 2023
Duration: 30 minutes and 3 hours
Potassium Bath: 3
Calcium Bath: 2.5
Opti-Dialyzer: 160
Ultrafiltration: Other (1.5kg)
Blood Flow: 400
Dialysate Flow: 600
Heparin: none
EPO: 3000
[2023-05-20] MEDS: FLEXBUMIN 25% FOR HEMODIALYSIS 12.5 GRAMS IV (10:20)
--- NOTE | 2023-05-20 10:25 | PTCARENOTE ---
Pt continues on HD with out incident.
--- NOTE | 2023-05-20 10:31 | W.PN.HOSP.TC ---
Today's Communication/Plan
-
HD per nephro
PT/OT
transfer to tele
Assessment / Plan
Assessment / Plan
Acute on chronic systolic CHF
- Associated NYHA Class III Dyspnea
- Jan 2023 TTE: EF 20-25% with Stage II Diastolic Dysfunction
- Patient please make some urine. nephro holding on diuretics to preserve residual renal function.
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
-Continue on dialysis per nephro
-Requiring midodrine support during dialysis
Permanent AF with RVR
-Patient started on amiodarone as Hypotension limits rate control medication use
-Continue on Eliquis therapy
Anemia of chronic renal disease
-Hemoglobin close to baseline, continue follow
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
HX CVA x2
CAD s/p stent
- Continue Plavix
Hyperlipidemia
- on Crestor and Zetia
Type 2 diabetes mellitus
- cont Lantus and Aspat
- add ISS low
S/P Nadja angiogram with balloon angioplasty and stenting of right superficial femoral artery stenosis 04/2023
History of colon cancer
history of pericarditis
Status post right hemicolectomy
Bilateral carotid artery disease
History of ventral hernia repair
Essential hypertension
DVT Px: Eliquis
Code: Full
Anticipated Discharge: 24 - 48 hours
Subjective/Interval History
-
Date of Service: May 20, 2023
Resting comfortably in bed
Denies any excessive dyspnea/chest discomfort/cough
Objective Data
-
Labs:
Laboratory Results
05/20/23
03:51
WBC 9.2
Hgb 9.7 L
Hct 29.9 L
Plt Count 261
Sodium 135
Potassium 4.1
Chloride 100
Carbon Dioxide 24
BUN 35 H
Creatinine 6.0 H*
Glucose 128 H
Calcium 8.9
Vital Signs:
Vital Signs
Temp Pulse Resp BP Pulse Ox
98.0 F 124 32 120/79 97
05/20/23 07:40 05/20/23 06:00 05/20/23 06:00 05/20/23 08:09 05/20/23 06:00
I&O
05/19/23 05/20/23 05/21/23
06:59 06:59 06:59
Intake Total 120 / 120
Output Total 400 / 400 240 / 240
Balance -400 / -400 -120 / -120
Review of Systems
-
Respiratory: Reports No Symptoms
Cardiac: Reports No Symptoms
Abdomen/GI: Reports No Symptoms
Physical Exam
-
General: No Apparent Distress and Comfortable
HEENT: Negative Oxygen
Respiratory: Clear to Auscultation
Cardiac: Regular Rhythm and S1/S2; Negative Murmur or Rub
GI: Soft, Nontender, Nondistended and Normal Bowel Sounds
Musculoskeletal: No Edema
Neuro: Awake, Alert, Oriented, No Motor Deficits and Nonfocal/Grossly Intact
Psych: Calm
[2023-05-20] MEDS: HEPARIN 4300 UNITS INTRACATH (11:41)
[2023-05-20] MEDS: PLAVIX 75 MG PO (12:10)
[2023-05-20] MEDS: PACERONE 200 MG PO ×2 (12:10→20:45)
[2023-05-20] MEDS: TOPROL XL 25 MG PO ×2 (12:11→20:45)
[2023-05-20] MEDS: ELIQUIS 2.5 MG PO ×2 (12:11→20:45)
[2023-05-20] MEDS: SIMBRINZA 1%-0.2% OPHTH SUSP 1 DROP RIGHT EYE ×2 (12:12→20:45)
[2023-05-20 12:37] LABS: Glucose - Point of Care 80 mg/dl (70-99)
--- NOTE | 2023-05-20 13:31 | W.PN.CARDCBS ---
Addendum entered and electronically signed by Pramod Yadav MD 05/21/23 12:24:
Abnormal troponin is likely Non Ischemic Myocardial Injury
Addendum entered and electronically signed by Pramod Yadav MD 05/20/23 14:38:
I saw and examined the patient.
The Report Checker's note was reviewed and I agree with the note.
Comment:
GEN: No distress, awake, Ox3
HEENT: supple, anicteric, mmm
LUNGS: dec BS at bases
CV: irreg, S1/S2, 1/6 syst LSB, no gallop
ABD: soft, BS+, NT/ND
EXT: No edema
NEURO: Gross non-focal
SKIN: No rash
Plan:
Will continue to try to remove volume through hemodialysis.
A-fib is overall rate controlled. Continue Toprol, amiodarone, and Eliquis.
Continue medical therapy for coronary artery disease. Continue metoprolol, Crestor, Zetia, Plavix, and Eliquis.
Original Note:
Today's Communication / Plan
-
continue volume mgmt through HD
continue toprol, amiodarone 200mg BID
continue eliquis, plavix
Impression / Plan
-
Primary Diabetes Territory Manager: Previously Dr. Munguia of [facility], scheduled to see Dr. Hernandez 06/17/23
Assessment:
Presentation with SOB
Acute on chronic HFrEF
Elevated troponin, suspected nonMI trop elevation
CAD with prior left circumflex stenting in 2018, residual complex proximal LAD disease, medically managed
Ischemic cardiomyopathy with a EF 20 to 25% by most recent echo
Permanent atrial fibrillation
Chronic anticoagulation with Eliquis
By lateral carotid artery disease status post unsuccessful left carotid stent placement
History of CVA/TIA x 3, most recently 01/2023 at [facility]
CKD, with recent hospitalization 04/2023 at for ARF resulting in HD initiation
PAD with critical limb threatening ischemia of right lower extremity status post balloon angioplasty and stenting of R SFA, intravascular lithotripsy of right tibioperoneal trunk stenosis 04/2023
Hypertension
LVH
Hyperlipidemia
Insulin-dependent diabetes
Anemia of chronic disease status post abdominal hernia repair with mesh 02/2021
ECHO at [facility] 02/05/23: EF 22.6%, moderately increased left ventricular internal cavity size, grade 2 diastolic dysfunction, RVSP 32 mmHg, mild AR. Compared to prior in 2019, EF previously 40 to 45%
Plan:
-Presented with SOB. [place] to be volume overloaded with proBNP greater than 27,000. Chest x-ray with mild pulmonary vascular congestion, consistent with heart failure
-Volume removal through HD per nephrology. s/p HD 05/18 and again 05/19
-avoiding other nephrotoxic agents
-HRs adequate in afib on review of tele overnight. continue toprol 25mg BID. amiodarone 200mg BID added this admission. QTc stable by EKG 05/19
-Continue Eliquis 2.5 mg twice daily. He is also chronically on Plavix for history of strokes
-he was noted to have periods of O2 desaturation overnight. would plan for OP sleep study if not previously evaluated
-trop 0.058. no CP. suspected nonMI trop elevation in setting of acute CHF and ESRD. he has known prox LAD disease, not felt to be amenable to CABG or PCI, medically managed.
-he is scheduled to see Dr. Hernandez as a new patient to our office 06/17/23, may make appt sooner if able
Progress Note - Diabetes Territory Manager
Subjective
Date of Service: May 20, 2023
with periods of O2 desaturation overnight. also with brief episodes of tachycardia. tolerating HD/UF
Objective
Labs:
05/20/23 03:51
05/20/23 03:51
Labs
Hgb 9.7 g/dL (13.0-18.0) L 05/20/23 03:51
Hct 29.9 % (39.0-52.0) L 05/20/23 03:51
Plt Count 261 10^3/uL (130-400) 05/20/23 03:51
PT 19.2 Sec (11.4-14.6) H 05/18/23 20:42
INR 1.64 05/18/23 20:42
Sodium 135 mmol/L (135-145) 05/20/23 03:51
Potassium 4.1 mmol/L (3.5-5.1) 05/20/23 03:51
BUN 35 mg/dl (9-20) H 05/20/23 03:51
Creatinine 6.0 mg/dL (0.7-1.3) H* 05/20/23 03:51
Glucose 128 mg/dl (70-99) H 05/20/23 03:51
Troponins
05/18/23 05/19/23 05/19/23
20:42 04:36 10:23
Troponin I 0.047 H* 0.058 H* 0.058 H*
05/19/23
14:37
Troponin I Cancelled
Vital Signs and I&O:
Vital Signs
Temp Pulse Resp BP Pulse Ox
97.1 F 98 25 115/66 95
05/20/23 11:40 05/20/23 12:10 05/20/23 10:30 05/20/23 12:10 05/20/23 10:30
Vital Signs
Temp Pulse Resp BP Pulse Ox
97.1 F 98 25 115/66 95
05/20/23 11:40 05/20/23 12:10 05/20/23 10:30 05/20/23 12:10 05/20/23 10:30
Intake & Output
05/18/23 05/19/23 05/20/23 05/21/23
07:59 07:59 07:59 07:59
Intake Total 120 / 120
Output Total 400 / 400 240 / 240 100 / 100
Balance -400 / -400 -120 / -120 -100 / -100
--- NOTE | 2023-05-20 14:06 | CM ---
Patient with Hx ESRD on HD with Dx HF. Room air. PT & OT Evals pending.
Met with patient and Henny.
The patient resides with his in a 2 story house with 1 ROMANA.
The patient has been independent in ADLs and ambulation.
DME - [facility]
VN - [facility]
SNF - [facility]
PCP - [facility]
Pharmacy - [facility]
The patient goes to [facility] MWF 5am, and provides transport.
Offered VN and declines saying she does not feel the prior VN was of any value.
Plan follow up after PT/OT Evals.
[2023-05-20 17:10] LABS: Glucose - Point of Care 119 mg/dl (70-99)
[2023-05-20] MEDS: ZETIA 10 MG PO (17:30)
[2023-05-20] MEDS: CRESTOR 40 MG PO (17:30)
[2023-05-20 21:58] LABS: Glucose - Point of Care 122 mg/dl (70-99)
--- NOTE | 2023-05-20 22:28 | RESPNOTE ---
Nocturnal oximetry started on RA
[2023-05-21] VITALS: BP 115/60
[2023-05-21 02:00] VITALS: BP 133/86
[2023-05-21 03:56] LABS: Hematocrit 28.9 % (39.0-52.0); Hemoglobin 9.6 g/dL (13.0-18.0); Mean Corp Hgb Conc. 33.2 g/dL (33.0-37.0); Mean Corpuscular Hgb 28.2 pg (27.0-31.0); Mean Platelet Volume 10.6 fL (7.4-10.4); Platelet Count 221 10^3/uL (130-400); Red Cell Dist. Width 15.9 % (11.5-14.5); White Blood Cell Count 7.6 10^3/uL (4.8-10.8)
[2023-05-21 04:00] VITALS: BP 124/74
[2023-05-21 04:29] LABS: Blood Urea Nitrogen 26 mg/dl (9-20); Calcium 9.2 mg/dl (8.4-10.2); Carbon Dioxide 24 mmol/L (22-30); Chloride 98 mmol/L (98-107); Estimated Creatinine Clearance 13 ml/min; Glucose 71 mg/dl (70-99); Potassium 3.7 mmol/L (3.5-5.1); Sodium 136 mmol/L (135-145); eGFR 13.74
--- NOTE | 2023-05-21 05:36 | PTCARENOTE ---
No acute events overnight. Patient with nocturnal pulsox study completed.
[2023-05-21 06:00] VITALS: BP 117/56; BMI 23.5
[2023-05-21 07:29] LABS: Glucose - Point of Care 87 mg/dl (70-99)
[2023-05-21 08:00] VITALS: BP 127/92
[2023-05-21] MEDS: NOVOLOG FLEXPEN-LOW RESISTANCE SC ×2 (08:42→11:50)
[2023-05-21] MEDS: PACERONE 200 MG PO (08:43)
[2023-05-21] MEDS: ELIQUIS 2.5 MG PO (08:43)
[2023-05-21] MEDS: TOPROL XL 25 MG PO (08:43)
[2023-05-21] MEDS: PLAVIX 75 MG PO (08:43)
[2023-05-21] MEDS: SIMBRINZA 1%-0.2% OPHTH SUSP 1 DROP RIGHT EYE (08:44)
[2023-05-21] MEDS: LANTUS 0.299999999999999989 UNITS SC (08:44)
--- NOTE | 2023-05-21 09:05 | W.PN.HOSP.TC ---
Addendum entered and electronically signed by Todd Varela MD 05/22/23 17:48:
Document addendum placed in response of CDI query
Adjust diagnosis:
Acute on Chronic Combined CHF
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
Original Note:
Today's Communication/Plan
-
d/c home with HH
Assessment / Plan
Assessment / Plan
Acute on chronic systolic CHF
- Associated NYHA Class III Dyspnea
- Jan 2023 TTE: EF 20-25% with Stage II Diastolic Dysfunction
- Patient please make some urine. nephro holding on diuretics to preserve residual renal function.
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
-Continue on dialysis per nephro
-Requiring midodrine support during dialysis
-got HD yesterday, continue post discharge MWF HD
Permanent AF with RVR
-Patient started on amiodarone as Hypotension limits rate control medication use
-Continue on Eliquis therapy
-Discussed with cardio and discharge on amiodarone 200mg bid x15 days > then daily
Possible SHELLIE
-have night time hypoxia episode on nocturnal pulse o2 testing
-discussed findings with patient and will require Pulmo office f/u for sleep study
-will consult CM to arrange o2 for night time use
Anemia of chronic renal disease
-Hemoglobin close to baseline, continue follow
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
HX CVA x2
CAD s/p stent
- Continue Plavix
Hyperlipidemia
- on Crestor and Zetia
Type 2 diabetes mellitus
- cont Lantus and Aspat
- add ISS low
S/P Nadja angiogram with balloon angioplasty and stenting of right superficial femoral artery stenosis 04/2023
History of colon cancer
history of pericarditis
Status post right hemicolectomy
Bilateral carotid artery disease
History of ventral hernia repair
Essential hypertension
DVT Px: Eliquis
Code: Full
More than 30 minutes spent in discharge including
Final examination of the patient
Summarizing hospital stay
Instructions for continuing care to all relevant caregivers
Preparation of discharge records, prescriptions, and referral forms
Total time spent (in minutes): 40 mins
Anticipated Discharge: Today
Subjective/Interval History
-
Date of Service: May 21, 2023
clinically better
denies of having any excessive shortness brath
off of o2
Objective Data
-
Labs:
Laboratory Results
05/21/23
03:30
WBC 7.6
Hgb 9.6 L
Hct 28.9 L
Plt Count 221
Sodium 136
Potassium 3.7
Chloride 98
Carbon Dioxide 24
BUN 26 H
Creatinine 4.1 H*
Glucose 71
Calcium 9.2
Vital Signs:
Vital Signs
Temp Pulse Resp BP Pulse Ox
98.4 F 80 13 127/92 97
05/21/23 07:15 05/21/23 08:43 05/21/23 06:00 05/21/23 08:43 05/21/23 06:00
I&O
05/20/23 05/21/23 05/22/23
06:59 06:59 06:59
Intake Total 120 / 120 170 / 170
Output Total 240 / 240 100 / 100
Balance -120 / -120 70 / 70
Review of Systems
-
Respiratory: Reports No Symptoms
Cardiac: Reports No Symptoms
Abdomen/GI: Reports No Symptoms
Physical Exam
-
General: No Apparent Distress and Comfortable
HEENT: Negative Oxygen
Respiratory: Clear to Auscultation
Cardiac: Regular Rhythm and S1/S2; Negative Murmur or Rub
GI: Soft, Nontender and Nondistended
Musculoskeletal: No Edema
Neuro: Awake, Alert, Oriented, No Motor Deficits and Nonfocal/Grossly Intact
Psych: Calm
--- NOTE | 2023-05-21 09:52 | PN.CDI ---
CDI
- -
CDI:
Physician Documentation Request
Admit Date: 05/19/23 02:32
Dear Doctor /PA ,
Please review the following and provide your response in the progress notes.
Clinical Indicators:
Pt admitted with Acute on Chronic CHF exacerbation
Documented per cardiology notes, ' Elevated troponin, suspected nonMI trop elevation..'
Please provide the diagnosis with the documented troponin elevation:
Non Ischemic Myocardial Injury
Abnormal lab finding
Other
Use of terms such as suspected, likely, concern for, or probable (associated with a specific diagnosis that is being evaluated, monitored, or treated as if it exists) are acceptable and can be coded in the inpatient setting, when documented at the
time of discharge.
Thank you,
Mavis Wesley RN
CDI Specialist
[place] [facility]
Please use your independent medical judgment in providing your response.
--- NOTE | 2023-05-21 09:54 | W.PN.CARDCBS ---
Addendum entered and electronically signed by Donna Bates PA-C 05/21/23 14:51:
Correction to below: Non Ischemic Myocardial Injury
Original Note:
Today's Communication / Plan
-
Cont current cardiac meds and monitor HR on tele
Impression / Plan
-
Primary Loading Rack Supervisor: Previously Dr. Munguia of [facility], scheduled to see Dr. Hernandez 06/17/23
Assessment:
Presentation with SOB
Acute on chronic HFrEF
Elevated troponin, suspected nonMI trop elevation
CAD with prior left circumflex stenting in 2018, residual complex proximal LAD disease, medically managed
Ischemic cardiomyopathy with a EF 20 to 25% by most recent echo
Permanent atrial fibrillation
Chronic anticoagulation with Eliquis
By lateral carotid artery disease status post unsuccessful left carotid stent placement
History of CVA/TIA x 3, most recently 01/2023 at [facility]
CKD, with recent hospitalization 04/2023 at for ARF resulting in HD initiation
PAD with critical limb threatening ischemia of right lower extremity status post balloon angioplasty and stenting of R SFA, intravascular lithotripsy of right tibioperoneal trunk stenosis 04/2023
Hypertension
LVH
Hyperlipidemia
Insulin-dependent diabetes
Anemia of chronic disease status post abdominal hernia repair with mesh 02/2021
ECHO at [facility] 02/05/23: EF 22.6%, moderately increased left ventricular internal cavity size, grade 2 diastolic dysfunction, RVSP 32 mmHg, mild AR. Compared to prior in 2019, EF previously 40 to 45%
Plan:
-Presented with SOB. [place] to be volume overloaded with proBNP greater than 27,000. Chest x-ray with mild pulmonary vascular congestion, consistent with heart failure
-Volume removal through HD per nephrology
-HRs adequate in afib on review of tele overnight. continue toprol 25mg BID. amiodarone 200mg BID added this admission.
-Continue Eliquis 2.5 mg twice daily. He is also chronically on Plavix for history of strokes.
-trop 0.058. no CP. suspected nonMI trop elevation in setting of acute CHF and ESRD. he has known prox LAD disease, not felt to be amenable to CABG or PCI, medically managed.
-he is scheduled to see Dr. Hernandez as a new patient to our office 06/17/23, may make appt sooner if able
Progress Note - Loading Rack Supervisor
Subjective
Date of Service: May 21, 2023
NAOE. Resting comfortably this AM. No cardiac complaints.
Objective
Labs:
05/21/23 03:30
05/21/23 03:30
Labs
Hgb 9.6 g/dL (13.0-18.0) L 05/21/23 03:30
Hct 28.9 % (39.0-52.0) L 05/21/23 03:30
Plt Count 221 10^3/uL (130-400) 05/21/23 03:30
PT 19.2 Sec (11.4-14.6) H 05/18/23 20:42
INR 1.64 05/18/23 20:42
Sodium 136 mmol/L (135-145) 05/21/23 03:30
Potassium 3.7 mmol/L (3.5-5.1) 05/21/23 03:30
BUN 26 mg/dl (9-20) H 05/21/23 03:30
Creatinine 4.1 mg/dL (0.7-1.3) H* 05/21/23 03:30
Glucose 71 mg/dl (70-99) 05/21/23 03:30
Troponins
05/18/23 05/19/23 05/19/23
20:42 04:36 10:23
Troponin I 0.047 H* 0.058 H* 0.058 H*
05/19/23
14:37
Troponin I Cancelled
Vital Signs and I&O:
Vital Signs
Temp Pulse Resp BP Pulse Ox
98.4 F 80 13 127/92 96
05/21/23 07:15 05/21/23 08:43 05/21/23 06:00 05/21/23 08:43 05/21/23 08:00
Vital Signs
Temp Pulse Resp BP Pulse Ox
98.4 F 80 13 127/92 96
05/21/23 07:15 05/21/23 08:43 05/21/23 06:00 05/21/23 08:43 05/21/23 08:00
Intake & Output
05/19/23 05/20/23 05/21/23 05/22/23
06:59 06:59 06:59 06:59
Intake Total 120 / 120 170 / 170
Output Total 400 / 400 240 / 240 100 / 100
Balance -400 / -400 -120 / -120 70 / 70
Physical Exam
Physical Exam
Gen: NAD, AAOx3
HEENT: NC/AT, sclera anicteric
Neck: Mildly elevated JVP
CV: irregularly irregular, NL S1/S2
Lungs: CTAB on RA
Abd: S/ND
Ext: No LE edema
Skin: Warm, dry
Neuro: Non-focal
--- NOTE | 2023-05-21 09:57 | PN.CDI ---
CDI
- -
CDI:
Physician Documentation Request
Admit Date: 05/19/23 02:32
Dear Doctor Avery,
Please review the following and provide your response in the progress notes.
Clinical Indicators:
Pt admitted with Acute on Chronic CHF /TESSA on CKD 4 on HD
There is potentially conflicting documentation in the record regarding patients renal functions.
Documented per H&P,' TESSA on CKD4 Etiology: acute interstitial nephritis from Keflex versus ATN from hemodynamic shifts vs. volume depletion... currently HD MWF...'
Documented per Nephrology consult, ' prolonged admission in April for TESSA with cr peak of 15 and started HD on 04/21. He was d/c on 05/05..TESSA CKD Stage IV-HD dependant 04/2023..TESSA on CKD 4, last cr 2.7 in Mar ...Pt reports decreased UOP lately ...'
Cardiology consult, ' ... acute CHF and ESRD....'
Please provide in your note the diagnosis associated with the patients current renal status:
TESSA with ATN on CKD 4
TESSA on CKD 4 only
CKD 4 progressed to ESRD
Other ( Please Specify)
Stages of Chronic Kidney Disease*
Level Description GFR
G1 Normal or High >90
G2 Mildly decreased 60-89
G3a Mildly to moderately decreased 45-59
G3b Moderately to severely decreased 30-44
G4 Severely decreased 15-29
G5 Kidney failure <15
Use of terms such as suspected, likely, concern for, or probable (associated with a specific diagnosis that is being evaluated, monitored, or treated as if it exists) are acceptable and can be coded in the inpatient setting, when documented at the
time of discharge.
Thank you,
Mavis Wesley RN
CDI Specialist
[place] [facility]
Please use your independent medical judgment in providing your response.
*Source: Kidney Disease: Improving Global Outcomes (KDIGO) 2012
--- NOTE | 2023-05-21 10:07 | PN.CDI ---
CDI
- -
CDI:
Physician Documentation Request
Admit Date: 05/19/23 02:32
Dear Doctor Avery,
Please review the following and provide your response in the progress notes.
Clinical Indicators:
Pt admitted with Acute on Chronic CHF
There is potentially conflicting documentation in the record regarding the type of CHF.
Progress notes/H&P, ' Acute on Chr HFrEF ..Jan 2023 TTE: EF 20-25% with Stage II Diastolic Dysfunction....'
Documented per renal consult, ' Acute on Chr HFrEF ...combined HFrEF and DD EF 20-25% 01/2023....'
Cardiology notes, ' Acute on chronic HFrEF..Ischemic cardiomyopathy with a EF 20 to 25% by most recent echo...'
Please provide further specificity regarding the most likely type of CHF you are evaluating, treating or monitoring.
Acute on Chronic Combined CHF
Acute on Chronic Systolic CHF only
Other
Use of terms such as suspected, likely, concern for, or probable (associated with a specific diagnosis that is being evaluated, monitored, or treated as if it exists) are acceptable and can be coded in the inpatient setting, when documented at the
time of discharge.
Thank you,
Mavis Wesley RN
CDI Specialist
[place] [facility]
Please use your independent medical judgment in providing your response.
--- NOTE | 2023-05-21 10:30 | CM ---
Addendum entered by Fern Jones RN 05/21/23 10:38:
Plan home today with Nocturnal Home O2 concentrator, with script for outpatient PT.
Original Note:
Patient with Hx ESRD on HD with Dx HF. Room air. Nocturnal O2 Sat study. PT & OT recommend HH.
Message from Dr Varela; he would like patient to have Nocturnal Home O2 2L. He will provide script for outpatient PT.
Spoke with patient's Henny; she agrees to home O2 concentrator for HS for her through [employer]. Discussed PT/OT recommendations- Henny does not want VN for PT/OT for her however agrees to a script for outpatient PT - he will go
to [facility] for this. will be here around noon for transporting patient home.
Plan home today with Nocturnal Home O2 concentrator, with script fot outpatient PT.
--- NOTE | 2023-05-21 11:23 | W.PN.NEPH.PH ---
Today's Communication / Plan
-
Stable for discharge today
Dialysis at home unit tomorrow
Assessment/Plan
-
IMP:
Acute on Chr HFrEF
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
Afib with RVR
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
PAD/right second toe superficial gangrene -severe PAD noted
S/P Nadja angiogram with balloon angioplasty and stenting of right superficial femoral artery stenosis 04/2023
h/o amputation of right foot toe
Right iliac art aneurysm
DM2
Hyperlipidemia
Essential hypertension
History of stroke x 2
Permanent atrial fibrillation- Eliquis
CAD
h/o pericarditis
Chronic anemia
Hx Colon cancer s/p right hemicolectomy 2016
bilat carotid art disease
h/o ventral hernia repair 2021
Echo at [facility]: 01/2023:
EF 20-25%, Grade2 DD, mild AI
Plan:
Recent d/c after starting HD for TESSA in May 05, now returns with LOWE, orthopnea
For discharge today and dialysis at his home unit tomorrow
completed HD yesterday
will arrange for UF later today with midodrine
renal diet and FR 40 ounces/day needs to be enforced as outpatient to control volume gain
d/w primary
-
-
Date of Service: May 21, 2023
CC / HPI / ROS
-
Chief Complaint:
End-stage renal disease
History of Present Illness:
ESRD Thursday
Hemodynamically
Review of Systems:
No fevers
No resting shortness of breath or chest pain
Labs
-
Labs:
WBC 7.6 10^3/uL (4.8-10.8) 05/21/23 03:30
RBC 3.40 10^6/uL (4.70-6.10) L 05/21/23 03:30
Hgb 9.6 g/dL (13.0-18.0) L 05/21/23 03:30
Hct 28.9 % (39.0-52.0) L 05/21/23 03:30
Plt Count 221 10^3/uL (130-400) 05/21/23 03:30
Sodium 136 mmol/L (135-145) 05/21/23 03:30
Potassium 3.7 mmol/L (3.5-5.1) 05/21/23 03:30
Chloride 98 mmol/L (98-107) 05/21/23 03:30
Carbon Dioxide 24 mmol/L (22-30) 05/21/23 03:30
BUN 26 mg/dl (9-20) H 05/21/23 03:30
Creatinine 4.1 mg/dL (0.7-1.3) H* 05/21/23 03:30
eGFR 13.74 05/21/23 03:30
Glucose 71 mg/dl (70-99) 05/21/23 03:30
Calcium 9.2 mg/dl (8.4-10.2) 05/21/23 03:30
Vqo-Z-Jwnzbqgmtnt Pept > 70914 pg/ml 05/18/23 20:42
Albumin 3.7 g/dl (3.5-5.0) 05/18/23 20:42
Physical Exam
-
Vital Signs:
Vital Signs
Temp Pulse Resp BP Pulse Ox
97.4 F 95 21 127/92 97
05/21/23 11:07 05/21/23 10:00 05/21/23 10:00 05/21/23 08:43 05/21/23 10:00
Cardiovascular:: Regular rate and rhythm
Respiratory:: Bilateral: Coarse
Lung Excursion:: Normal
Abdomen:: Nontender and Soft
Bowel Sounds:: Normal
Extremity Edema:: +1: Bilateral:
[place] Catheter: No
[2023-05-21 11:29] VITALS: BP 117/66
[2023-05-21 11:41] LABS: Glucose - Point of Care 143 mg/dl (70-99)
--- NOTE | 2023-05-21 12:31 | PTCARENOTE ---
Pt given dc instructions , VS taken , Iv removed . O2 company will call with delivery ttime
--- NOTE | 2023-05-22 07:30 | W.DCSUMMARY ---
Discharge Summary
Discharge Data
Date of Admission: 05/19/23
Date of Discharge: 05/21/23
-
Pending Results: No
Hospital Course
Discharging Physician : Dr Todd Varela
Disposition : Home with
Primary care physician : Unknown
Principal Discharge diagnosis :
Acute on chronic systolic congestive heart failure
Acute kidney injury on chronic disease stage IV on hemodialysis
Permanent atrial fibrillation with rapid ventricular rate
Possible obstructive sleep apnea
Chronic Discharge diagnosis :
Anemia of chronic renal disease
History of right alvarado stroke
Coronary artery disease post stenting
Hyperlipidemia
Type 2 diabetes mellitus
History of right lower extremity angioplasty and stenting
History of peripheral artery disease
History of colon cancer
History of pericarditis
History of right hemicolectomy
Bilateral carotid artery disease
History of ventral hernia repair
Essential hypertension
Hospital Course :
Patient is 83-year-old male with mentioned past medical history came in for new onset of shortness of breath. Patient having significant exertional dyspnea and was able to walk few steps only before getting short of breath. In ER evaluation
showing patient having new heart failure exacerbation. Patient was provided IV Lasix and was admitted for further care. Patient also noted to having rapid ventricular rate with underlying A-fib. As patient blood pressure soft cardiology was
involved in care who recommended for patient to be started on amiodarone therapy. Next 48 hours patient symptoms improved with dialysis and volume optimization. Nephro recommended against providing further IV diuretics as patient to preserve some
residual renal function. Patient was noted to having some nighttime hypoxia and a nocturnal oxygen test was done which showed episode of hypoxia suggestive of undiagnosed sleep apnea. Patient instructed to follow-up with pulmonology postdischarge.
After medical optimization and improvement in symptoms patient was discharged home with home health care.
Important imaging findings :
None
Procedure findings :
None
Discharge Plan
-
Patient Disposition: Home (Routine Discharge)
Discharge Diagnosis/Procedures: HF exacerbation, Dyspnea
Condition: Fair
Diet: 2 Gram Sodium and Other diet
Additional Diets: Low potassium diet
Activity: As tolerated
Driving Restrictions: No driving
Bathing Restrictions: OK to Shower
Instructions: *[facility] Heart Failure Instructions
Referrals:
Pradip Johnson, DO [Active] -
NONE,* [Family Provider] -
Prescriptions:
New
amiodarone 200 mg tablet
See Rx Instructions .ROUTE .COMPLEX Qty: 60 1RF
Rx Instructions:
Take 1 Tablet twice daily for 14 days THEN
Take 1 Tablet daily for maintenance
Continued
Tradjenta 5 MG tablet
5 mg PO DAILY
metoprolol succinate [Toprol XL] 25 mg Tablet Extended Release 24 Hr
25 mg PO BID
ezetimibe [Zetia] 10 mg Tablet
10 mg PO QPM
rosuvastatin [Crestor] 40 mg Tablet
40 mg PO QPM
Eliquis 2.5 mg Tablet
2.5 mg PO BID
Simbrinza 1-0.2 % Drops,Suspension
1 drp RIGHT EYE BID
insulin glargine [Lantus Solostar U-100 Insulin] 100 unit/mL (3 mL) insulin pen
30 unit SC DAILY
clopidogrel 75 MG tablet
75 mg PO DAILY Qty: 0 0RF
Discharge Orders:
Discharge Patient (As Directed); Ordered 05/21/23
Ordered By: Todd Varela
Discharge Date and Time
Discharge Date/Time: 05/21/23 12:57
Print Language: JAPANESE
--- NOTE | 2023-06-08 09:38 | W.HF.CON ---
Heart Failure
- LV Function
Left ventricular function study result: LV Ejection fraction </= 35%
Ejection Fraction Percentage: 20-25
- ARNI
Patient already on ARNI: No
Heart Failure ARNI Contraindication: End Stage Renal Disease
- ACEI/ARB
Patient already on ACEI/ARB: No
Heart Failure ACEI/ARB Contraindication: End Stage Renal Disease
- Beta Concepción
Patient already on Evidence Based Beta Concepción: Yes
- Mineralocorticord Receptor Antagonist
Patient already on MRA: No
Heart Failure MRA Contraindication: Cr > 2.5 in Men
- SGLT-2 Inhibitor
Patient already on SGLT-2 Inhibitor: No
Heart Failure SGLT-2 Inhibitor Contraindication: Patient currently on Dialysis
- Afib Anticoagulation
Patient already on Anticoagulation for Afib: Yes
- NYHA CHF Classification
NYHA CHF Classification Level: Class III - Symptoms w/ min exertion, interferes w/ nml daily activity
- ACC/AHA Stage
ACC/AHA Stage: Stage C: Symptomatic Heart Failure
--- NOTE | 2023-06-08 09:39 | HFEDUCATE ---
Pt had F/U appt on 06/02/23 at 9:00AM with SID GUILLAUME
== END 2023-05-21 12:57 | disposition home or self-care (01) | DRG 291 ==
LOC: IMU 02:32
PROVIDERS: Emergency Medicine; Specialist; ADMITTING PHYSICIAN Internal Medicine; ATTENDING PHYSICIAN Hospitalist; CONSULT PHYSICIAN Internal Medicine; CONSULT PHYSICIAN Nuclear Medicine Nuclear Cardiology; EMERGENCY PHYSICIAN Emergency Medicine
PROC: 5A1D70Z Performance of Urinary Filtration, Intermittent, Less than 6 Hours Per Day (ICD-10-PCS; 2023-05-19)
DX: I13.0 Hypertensive heart and chronic kidney disease with heart failure and stage 1 through stage 4 chronic kidney disease, or unspecified chronic kidney disease (principal); I50.43 Acute on chronic combined systolic (congestive) and diastolic (congestive) heart failure; N18.4 Chronic kidney disease, stage 4 (severe); I48.21 Permanent atrial fibrillation; N17.9 Acute kidney failure, unspecified; I65.23 Occlusion and stenosis of bilateral carotid arteries; E78.00 Pure hypercholesterolemia, unspecified; E11.22 Type 2 diabetes mellitus with diabetic chronic kidney disease; D63.1 Anemia in chronic kidney disease; I25.10 Atherosclerotic heart disease of native coronary artery without angina pectoris; G47.33 Obstructive sleep apnea (adult) (pediatric); I25.5 Ischemic cardiomyopathy; I5A Non-ischemic myocardial injury (non-traumatic); Z79.01 Long term (current) use of anticoagulants; Z86.73 Personal history of transient ischemic attack (TIA), and cerebral infarction without residual deficits; Z99.2 Dependence on renal dialysis; Z79.02 Long term (current) use of antithrombotics/antiplatelets; Z79.4 Long term (current) use of insulin; Z95.5 Presence of coronary angioplasty implant and graft; Z87.891 Personal history of nicotine dependence; Z85.038 Personal history of other malignant neoplasm of large intestine; Z90.49 Acquired absence of other specified parts of digestive tract; Z88.6 Allergy status to analgesic agent
CPT/HCPCS: 71046; 80048; 80053; 82962; 83036; 83880; 84484; 85025; 85027; 85610; 93005; 94762; 96374; 97162; 97166; 99285; G0257; P9047; Q5106

== ENCOUNTER → 2023-06-05 13:45 | Outpatient (REF) | payer MEDICARE, OTHER, SELFPAY | LOC: RAD 13:45 | PROVIDERS: ATTENDING PHYSICIAN Surgery Vascular Surgery; FAMILY PHYSICIAN Nurse Practitioner Family | DX: I73.9 Peripheral vascular disease, unspecified (principal); N18.6 End stage renal disease; Z01.818 Encounter for other preprocedural examination | CPT/HCPCS: 93922; 93925; 93985 ==

== ENCOUNTER → 2023-07-16 06:57 | Outpatient (REF) | payer MEDICARE, OTHER, SELFPAY | LOC: RCS 06:57 | PROVIDERS: ATTENDING PHYSICIAN Internal Medicine Cardiovascular Disease; FAMILY PHYSICIAN Nurse Practitioner Family | DX: I42.9 Cardiomyopathy, unspecified (principal) | CPT/HCPCS: 93306 ==

== ENCOUNTER 2023-10-20 08:36 | Day surgery (SDC) | payer MEDICARE, OTHER, SELFPAY ==
[2023-10-20] VITALS (11 sets, daily range): BP systolic 102–130; BP diastolic 63–82; BMI 26.6
[2023-10-20 09:42] LABS: Hematocrit 32.4 % (39.0-52.0); Hemoglobin 10.9 g/dL (13.0-18.0); Mean Corp Hgb Conc. 33.6 g/dL (33.0-37.0); Mean Corpuscular Volume 86.2 fL (80.0-94.0); Mean Platelet Volume 11.2 fL (7.4-10.4); Platelet Count 175 10^3/uL (130-400); Red Blood Cell Count 3.76 10^6/uL (4.70-6.10); Red Cell Dist. Width 15.1 % (11.5-14.5); White Blood Cell Count 6.3 10^3/uL (4.8-10.8)
[2023-10-20 09:51] LABS: Blood Urea Nitrogen 24 mg/dl (9-20); Calcium 9.1 mg/dl (8.4-10.2); Carbon Dioxide 29 mmol/L (22-30); Chloride 97 mmol/L (98-107); Estimated Creatinine Clearance 13 ml/min; Glucose 154 mg/dl (70-99); Potassium 4.3 mmol/L (3.5-5.1); Sodium 139 mmol/L (135-145); eGFR 16.06
[2023-10-20] MEDS: PERIDEX 0.12% ORAL RINSE 15 ML PO (09:53)
[2023-10-20] MEDS: BACTROBAN NASAL 1 GRAM NASAL (09:53)
[2023-10-20] MEDS: NSS 500 IV (09:53)
--- NOTE | 2023-10-20 10:16 | HP.FOC2 ---
Focused History & Physical
Chief Complaint
HPI:
Chief Complaint: ESRD requiring hemodialysis
HPI / Indication for Planned Procedure: This is an 83-year-old male with significant past medical history for end-stage renal disease requiring creation of AV fistula for continued hemodialysis requirement.
Relevant Past Medical History: Other (CHF, CKD, diabetes, stroke, colon cancer, hypertension, hypercholesterolemia, CAD with PCI, MA)
Relevant Social History: Tobacco Use (Former smoker)
Relevant Family History: Positive for (Coronary disease)
Relevant Past Surgical History: Positive for (Left varicocelectomy, colon cancer resection, PCI, tonsillectomy, bilateral cataracts, right great toe amputation, right lower extremity arteriogram)
Review of Systems
Review of Pertinent Systems: All Systems Negative
Medication
See Medication form for detailed medications: Yes
Medication List (including Herbals & OTC):
linagliptin 5 mg tablet (Tradjenta) 5 mg PO DAILY Diabetes 06/15/17
apixaban 2.5 mg tablet (Eliquis) 2.5 mg PO BID Blood Clot Prevention/Tx 04/21/23
brinzolamide 1 %-brimonidine 0.2 % eye drops,suspension (Simbrinza) 1 drp RIGHT EYE BID Eye Condition 04/21/23
ezetimibe 10 mg tablet (Zetia) 10 mg PO QPM High Cholesterol 04/21/23
metoprolol succinate 25 mg tablet,extended release 24 hr (Toprol XL) 25 mg PO DAILY Blood Pressure 04/21/23
rosuvastatin 40 mg tablet (Crestor) 40 mg PO QPM High Cholesterol 04/21/23
insulin glargine 100 unit/mL (3 mL) subcutaneous pen (Lantus Solostar U-100 Insulin) 30 unit SC DAILY Diabetes 05/18/23
clopidogrel 75 mg tablet 75 mg PO DAILY Heart disease/condition ##0 05/21/23
latanoprost (PF) 0.005 % eye drops in a dropperette 1 drp RIGHT EYE HS 10/16/23
Medications Reviewed: Yes
Allergies and Reactions
Patient has Allergies: Yes
Noted Allergies and Reactions:
Allergy/AdvReac Type Severity Reaction Status Date / Time
amiodarone Allergy Renal Verified 10/20/23 10:00
Failure
ibuprofen Allergy chest pain Verified 10/20/23 10:00
Pertinent Physical Exam
All Other Systems: Negative
Head/Neck: Normal
Lungs: Normal (Bilateral lungs CTA)
Heart: Normal (RRR)
Abdomen: Normal (Nontender nondistended)
Extremities: Normal (Bilateral radial pulse +2 palpable)
Neurological: Normal
Diagnosis / Assessment
83-year-old male with end-stage renal disease
Plan / Procedure
Will proceed with scheduled creation of left upper extremity AV fistula possible graft.
Anesthesia/Sedation to be done by Anesthesia Provider: Yes
[2023-10-20 10:38] LABS: INR 1.24
[2023-10-20 10:39] LABS: PT 15.5 Sec (11.4-14.6)
--- NOTE | 2023-10-20 11:45 | W.SUR.POST ---
Surgical Immediate Post Op
Note
Pre Op Diagnosis: End-stage renal disease
Post Op Diagnosis: Same
Procedure Performed: Left upper extremity brachiobasilic AV fistula creation
Primary Surgeon: Tasha
Assist: Salvador BARLOW
Anesthesia: LMA
Estimated Blood Loss: 20 cc
Fluids: See anesthesia flowsheet
Drains/Shunts: None
Specimens/Cultures: None
Doppler/Duplex/Angio (Y/N): Y
Complications: None
Operative Findings: + thrill
--- NOTE | 2023-10-20 11:57 | OR.RPT ---
Operative Report
Operative Report
Date of Operation: 10/20/2023
Pre Op Diagnosis: End-stage renal disease requiring hemodialysis and in need of permanent hemodialysis access.
Post Op Diagnosis: End-stage renal disease requiring hemodialysis and in need of permanent hemodialysis access.
Procedure: Creation of left upper arm brachiobasilic arteriovenous fistula (first stage of a planned two-stage basilic vein transposition)
Surgeon: Martin Cordova III, MD
Firm Administrator: CAIN Epps
Anesthesia: General
Complications: None
Estimated Blood Loss: 20 cc
History and Indications for Procedure: 83-year-old male with end-stage renal disease requiring hemodialysis and in need of permanent hemodialysis access.
Procedure in Detail: Pito Chicas was correctly identified and placed supine on the operating table. After adequate induction of anesthesia the left arm was positioned, prepped and draped in the usual sterile fashion. Preoperative antibiotics were
administered. A timeout procedure was performed with the nursing and anesthesia staff confirming the patients identity as well as the nature and laterality of the procedure.
I performed intraoperative ultrasound on the veins of the left arm. I identified the upper arm basilic vein from the elbow to the axilla. The brachial artery was also identified in the distal upper arm and proximal forearm. The appropriate site for
the incision was then identified in the distal upper arm, just proximal to the elbow.
An incision was then made in the distal upper arm. Careful sharp dissection was performed and the basilic vein exposed. Branches of the vein were ligated between ties. The brachial artery was exposed with sharp dissection. Proximal and distal
control was obtained with vessel loops.
The distal end of the basilic vein was ligated with a tie. The vein was transected and flushed proximally with heparinized saline. The vein flushed easily and without resistance. The vessel loops on the artery were secured. An arteriotomy was made
with an 11-blade. This was extended just slightly proximally and distally with Chawla scissors. The proximal and distal artery was flushed with heparinized saline. The end of the vein was spatulated slightly. An end-to-side anastomosis was performed
from the end of the basilic vein to the brachial artery with a running 7-0 Prolene. At the completion of the anastomosis the proximal vessel loop was released first. After several heartbeats the distal brachial artery loop was released. The suture
line was closely inspected and hemostasis achieved. There was an excellent thrill in the vein. There was a good pulse in the brachial artery proximal and distal to the anastomosis.
The wound was irrigated with saline. Hemostasis was achieved in the wound bed. The wound was closed in multiple layers and sterile dressings applied.
The patient tolerated the procedure well and was taken to the PACU in stable condition. The thrill in the vein was marked at the skin level. The patient had a palpable radial pulse at the conclusion of the case in the left wrist.
Attestation: I was present and responsible for the entire procedure
Signed:
Martin Cordova III, MD
[facility]
[phone] (tsrm)
[2023-10-20 12:14] LABS: Glucose - Point of Care 124 mg/dl (70-99)
--- NOTE | 2023-10-20 13:55 | PTCARENOTE ---
after patient ambulated to the bathroom the incision seemed to be full again. Ling Kennedy DEBONING TEAM LEADER made aware and came to look at the site. She stated that it is full and but there is no bleeding or hematoma noted. Patient is able to be discharged as
planned
== END 2023-10-20 14:05 | disposition home or self-care (01) ==
LOC: CATH 08:36
PROVIDERS: ATTENDING PHYSICIAN Surgery Vascular Surgery; FAMILY PHYSICIAN Nurse Practitioner Family; OTHER PHYSICIAN Internal Medicine Cardiovascular Disease
DX: I13.2 Hypertensive heart and chronic kidney disease with heart failure and with stage 5 chronic kidney disease, or end stage renal disease (principal); N18.6 End stage renal disease; Z99.2 Dependence on renal dialysis; E11.22 Type 2 diabetes mellitus with diabetic chronic kidney disease; I50.9 Heart failure, unspecified; Z87.891 Personal history of nicotine dependence; Z85.038 Personal history of other malignant neoplasm of large intestine; E78.00 Pure hypercholesterolemia, unspecified; I25.10 Atherosclerotic heart disease of native coronary artery without angina pectoris; Z86.73 Personal history of transient ischemic attack (TIA), and cerebral infarction without residual deficits; Z79.84 Long term (current) use of oral hypoglycemic drugs; Z79.899 Other long term (current) drug therapy; Z79.02 Long term (current) use of antithrombotics/antiplatelets; Z79.4 Long term (current) use of insulin; Z82.49 Family history of ischemic heart disease and other diseases of the circulatory system; Z88.6 Allergy status to analgesic agent; I25.2 Old myocardial infarction
CPT/HCPCS: 36821; 80048; 82962; 85027; 85610; 85730

== ENCOUNTER 2023-10-29 13:38 | Emergency (ER) | payer MEDICARE, OTHER, SELFPAY ==
[2023-10-29 13:55] VITALS: BP 100/68
--- NOTE | 2023-10-29 15:17 | ED.GENMED ---
History of Present Illness
General
Chief Complaint: Fall
Source: patient, spouse and family
Exam Limitations: none
Time Seen by Provider: 10/29/23 14:18
Nursing documentation reviewed up to this point in time: agreed with
History of Present Illness
History of Present Illness:
83-year-old male presenting to the emergency department after sliding out of a chair hitting the left forehead no loss of consciousness otherwise feels well at patient's baseline. Patient is on blood thinners for A-fib.
Review of Systems
Review of Systems
Allergies reviewed?: Yes
All Other Systems: ROS reviewed and negative except as documented in HPI and ROS
Phy Exam
Physical Exam
Physical Exam:
GENERAL: Alert , in no apparent distress
EYE: pupils equal and reactive
NECK: Supple, no significant adenopathy.
ENT: 2.5 superficial laceration to the area just lateral to the left eyebrow small amount of bruising to the left forehead o/p clr, mmm.
CARDIAC: Regular rate and rhythm .
LUNGS: Clear breath sounds bilaterally, no acute respiratory distress, no wheezes/rales/rhonchi
ABDOMEN: Soft, without focal tenderness, no r/g, no cvat
NEUROLOGICAL: Alert and oriented, no focal neuro deficits 5 out of 5 upper and lower extremity strength normal sensation when palpating bilaterally normal finger-nose and [id number] no pronator
SKIN: Warm and dry, skin intact.
MUSCULOSKELETAL: No edema, well perfused.
PSYCH: Normal and appropriate interaction.
Course
Orders/Labs/Results
Orders:
Orders
10/29/23 14:03
CT Head W/o Iv Contrast Urgent
Comment: hx tia and afib
Reason For Exam: fell and hit left side of head. + bld thinner
Vital Signs
Initial and Last Documented VS:
Initial Vital Signs
Temp Pulse Resp BP Pulse Ox
98.6 F 91 16 100/68 98
10/29/23 13:55 10/29/23 13:55 10/29/23 13:55 10/29/23 13:55 10/29/23 13:55
Last Documented Vital Signs
Temp Pulse Resp BP Pulse Ox
98.6 F 91 16 100/68 98
10/29/23 13:55 10/29/23 13:55 10/29/23 13:55 10/29/23 13:55 10/29/23 13:55
Procedures
Laceration Closure
Left Lateral Eye brow:
Status of Wound: clean
Size of Wound in cm: 2.5
Description of Wound Edges: sharp
Preparation: cleaned with saline
Revision/Debridement: routine- no revision
Wound exploration: explored to base- no FB and no tendon involvement
Type of Closure: Dermabond-skin glue
MDM/Problems Addressed
MDM/Problems Addressed:
83-year-old male presenting to the emergency department today with concerns of sliding out of a chair. Patient hit the left side of his forehead otherwise feels well but is on a blood thinner so came in for CT scan. Small mount of bleeding to a
small laceration that superficial to the left lateral eyebrow. CT scan negative no evidence of injury. Laceration was cleaned thoroughly and closed with Dermabond. Otherwise stable for discharge
*Critical Care Note
Total Time (30-74mins, 75-104mins- exclusive of procedures): Not Applicable
ED Attending Note
-
Portions of this chart may have been created with voice recognition software.� Occasional wrong word or��sound alike� substitutions may have occurred due to the inherent limitations of voice recognition software.
Discharge Plan
Departure
Patient Disposition: Home (Routine Discharge)
Date of Disposition: 10/29/23
Time of Disposition: 15:26
Patient with high blood pressure during this ER visit?: No
Condition: Good
Covid-19: Not Applicable
Discharge Problem:
Fall, Forehead laceration
Instructions: Laceration Repair With Glue (DC), Minor Head Injury (DC)
Prescriptions:
No Action
Tradjenta 5 MG tablet
5 mg PO DAILY
metoprolol succinate [Toprol XL] 25 mg Tablet Extended Release 24 Hr
25 mg PO DAILY
ezetimibe [Zetia] 10 mg Tablet
10 mg PO QPM
rosuvastatin [Crestor] 40 mg Tablet
40 mg PO QPM
Eliquis 2.5 mg Tablet
2.5 mg PO BID
Simbrinza 1-0.2 % Drops,Suspension
1 drp RIGHT EYE BID
insulin glargine [Lantus Solostar U-100 Insulin] 100 unit/mL (3 mL) insulin pen
30 unit SC DAILY
clopidogrel 75 MG tablet
75 mg PO DAILY Qty: 0 0RF
latanoprost (PF) 0.005 % Dropperette
1 drp RIGHT EYE HS
Referrals:
Marce López CRNP [Family Provider] -
Activity Restrictions/Additional Instructions:
You came to the emergency department today after a fall. Your head CT was normal this is reassuring. The Dermabond and Steri-Strip on the left eyebrow will fall off over the next week or so. Please keep the area clean covered. Return to the
emergency department any worsening, new or concerning symptoms.
Interventions
Interventions:
*Risk Screen - Suicide Last Done: 10/29/23 13:55
*Neglect/Abuse Screening Last Done: 10/29/23 13:55
Discharge Date and Time
Print Language: MONGOLIAN
[2023-10-29 15:48] VITALS: BP 135/88
== END 2023-10-29 15:50 | disposition home or self-care (01) ==
LOC: EMR 13:38
PROVIDERS: EMERGENCY PHYSICIAN Emergency Medicine; FAMILY PHYSICIAN Nurse Practitioner Family
DX: S01.81XA Laceration without foreign body of other part of head, initial encounter (principal); W07.XXXA Fall from chair, initial encounter; I48.91 Unspecified atrial fibrillation; Z79.01 Long term (current) use of anticoagulants
CPT/HCPCS: 99284; 12011; 70450

== ENCOUNTER → 2023-12-03 10:31 | Outpatient (REF) | payer MEDICARE, OTHER, SELFPAY | LOC: RAD 10:31 | PROVIDERS: ATTENDING PHYSICIAN Registered Nurse; FAMILY PHYSICIAN Nurse Practitioner Family | DX: Z99.2 Dependence on renal dialysis (principal); I77.0 Arteriovenous fistula, acquired | CPT/HCPCS: 93990 ==

== ENCOUNTER 2023-12-26 00:12 | Emergency (ER) | payer MEDICARE, OTHER, SELFPAY ==
[2023-12-26 00:16] VITALS: BP 137/74
[2023-12-26 00:52] VITALS: BP 107/65
[2023-12-26 01:00] VITALS: BP 112/79
--- NOTE | 2023-12-26 01:46 | ED.GENMED ---
History of Present Illness
General
Chief Complaint: Eye Problems
Source: patient
Exam Limitations: none
Time Seen by Provider: 12/26/23 00:48
History of Present Illness
History of Present Illness:
83-year-old male on Eliquis and Plavix with history of glaucoma presents with atraumatic onset of painless blood in the left eye. He denies new vision change. He denies eye pain. No headache or paresthesias. No recalled trauma.
Phy Exam
Physical Exam
Physical Exam:
General: Well-appearing male no cyndie distress
HEENT: Normocephalic atraumatic
Left eye examined with fluorescein stain Johnson lamp. There is no corneal abrasion or retained foreign body. There is a subconjunctival hemorrhage noted over the lateral sclera. There is no hyphema. Pupil is round nonreactive to light. Pressures
were checked in the left eye using Pepito-Pen 3 different measurements were 14, 13 and 10
Extraocular's are intact and are painless.
Course
Vital Signs
Initial and Last Documented VS:
Initial Vital Signs
Temp Pulse Resp BP Pulse Ox
97.9 F 91 18 137/74 100
12/26/23 00:16 12/26/23 00:16 12/26/23 00:16 12/26/23 00:16 12/26/23 00:16
Last Documented Vital Signs
Temp Pulse Resp BP Pulse Ox
97.9 F 91 18 107/65 100
12/26/23 00:16 12/26/23 00:16 12/26/23 00:16 12/26/23 00:52 12/26/23 00:16
MDM/Problems Addressed
Differential Diagnosis Includes:
Redness left eye. This is painless. Pressures are good. No evidence of trauma. Suspect subconjunctival hemorrhage. Reassured patient. Recommended lubricant drops. 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 Visual acuity noted.
Stable for discharge
*Critical Care Note
Total Time (30-74mins, 75-104mins- exclusive of procedures): Not Applicable
ED Attending Note
-
Portions of this chart may have been created with voice recognition software.� Occasional wrong word or��sound alike� substitutions may have occurred due to the inherent limitations of voice recognition software.
Discharge Plan
Departure
Patient Disposition: Home (Routine Discharge)
Date of Disposition: 12/26/23
Time of Disposition: 01:50
Patient with high blood pressure during this ER visit?: No
Discharge Problem:
Subconjunctival hemorrhage
Instructions: Subconjunctival Hemorrhage
Prescriptions:
No Action
Tradjenta 5 MG tablet
5 mg PO DAILY
metoprolol succinate [Toprol XL] 25 mg Tablet Extended Release 24 Hr
25 mg PO DAILY
ezetimibe [Zetia] 10 mg Tablet
10 mg PO QPM
rosuvastatin [Crestor] 40 mg Tablet
40 mg PO QPM
Eliquis 2.5 mg Tablet
2.5 mg PO BID
Simbrinza 1-0.2 % Drops,Suspension
1 drp RIGHT EYE BID
insulin glargine [Lantus Solostar U-100 Insulin] 100 unit/mL (3 mL) insulin pen
30 unit SC DAILY
clopidogrel 75 MG tablet
75 mg PO DAILY Qty: 0 0RF
latanoprost (PF) 0.005 % Dropperette
1 drp RIGHT EYE HS
Referrals:
Marce López CRNP [Family Provider] -
Activity Restrictions/Additional Instructions:
Use lubricant drops if needed. Return here if worse otherwise follow-up with ophthalmology as planned
Interventions
Interventions:
*Risk Screen - Suicide Last Done: 12/26/23 00:16
*General Assessment Last Done: 12/26/23 00:16
*Neglect/Abuse Screening Last Done: 12/26/23 00:16
ED- Fall Risk Assessment Last Done: 12/26/23 00:16
*ED COVID-19 Vaccine History Last Done: 12/26/23 00:16
Discharge Date and Time
Print Language: MALAYSIAN
== END 2023-12-26 02:07 | disposition home or self-care (01) ==
LOC: EMR 00:12
PROVIDERS: EMERGENCY PHYSICIAN Emergency Medicine; FAMILY PHYSICIAN Nurse Practitioner Family
DX: H11.32 Conjunctival hemorrhage, left eye (principal); H40.9 Unspecified glaucoma; Z79.01 Long term (current) use of anticoagulants; Z79.02 Long term (current) use of antithrombotics/antiplatelets
CPT/HCPCS: 99282

== ENCOUNTER 2024-01-01 17:42 | Inpatient (IN) | payer MEDICARE, OTHER, SELFPAY ==
[2024-01-01] VITALS (9 sets, daily range): BP systolic 119–144; BP diastolic 70–97; BMI 23.3
--- NOTE | 2024-01-01 13:22 | ED.GENMED ---
History of Present Illness
General
Chief Complaint: Breathing Problem
Time Seen by Provider: 01/01/24 13:08
History of Present Illness
History of Present Illness:
83-year-old male with history of A-fib, CHF with ejection fraction below 30%, hypertension, hyperlipidemia, insulin-dependent diabetes, and chronic renal failure presents to the emergency department for evaluation of shortness of breath beginning
yesterday. Predominantly dyspnea on exertion, denies any orthopnea or chest pain. No fevers or chills. Denies leg swelling. Not currently on a diuretic.
Review of Systems
Review of Systems
Allergies reviewed?: Yes
All Other Systems: ROS reviewed and negative except as documented in HPI and ROS
Phy Exam
Physical Exam
Physical Exam:
GEN: Well appearing, NAD, WDWN
HEENT: Oral mucosa moist, no scleral icterus, positive JVD
Cardiac: Regular rate and rhythm, no murmur
Lung: No respiratory distress, no tachypnea, diminished breath sounds to right mid and lower lobe, otherwise lungs clear
MSK: No gross deformity or injuries
Skin: Good color, no pallor or jaundice, no rashes
Neuro: AO x3, moves all extremities freely
Psych: Calm, cooperative
Scores
Heart Failure Risk
Heart Failure Risk Score: Not Applicable
Course
Orders/Labs/Results
Orders:
Orders
01/01/24 Breakfast
Sodium, 2 Gram
At Your Request: Limited Participation
Does patient need a safe tray?: No
Fluid Restriction: 1500 mL/day (50 oz)
Low Sodium: Potassium, 2 Gram
01/01/24 13:13
EKG [Electrocardiogram (*1)] Urgent
Reason for Study: Shortness of Breath
EKG- Treatment ONCE
01/01/24 13:22
CR Chest - 2 Views Urgent
Comment:
Reason For Exam: SOB
01/01/24 13:46
BNP [NT-proBNP] Urgent
Complete Blood Count/With Diff Urgent
Comprehensive Metabolic Panel Urgent
Troponin I Urgent
01/01/24 15:02
Furosemide [Lasix] 20 mg IV NOW STA
01/01/24 16:26
Admit/Transfer Patient As Directed
Co-Sign Provider:
Level of Care: Inpatient admission
Assign to:: Telemetry
Physician / Group: Giovanny
Diagnosis: Pleural Effusion, Heart Failure
Reason for Telemetry: Acute Heart Failure
Date to Stop Telemetry: 01/04/24
Time to Stop Telemetry: 11:00
Reason for Hospitalization: Diuretics, Thoracentesis
Expected length of stay greater than two midnights?: Yes
ELOS- Estimated Length of Stay in days: 3
I certify the patient meets the requirements for IP care: Yes
PRN Pain Medication Management As Directed
May give lesser potent ordered pain med per pt: Yes
preference::
Protocol:: Medication orders for pain may be administered in a
manner that supports deferring to patient preference
when the pt is:
- Requesting an ordered lesser potent pain medication.
Least to most potent pain medications are defined
as: acetaminophen < NSAID < tramadol < opioids
(morphine, oxycodone, hydromorphone).
- Requesting a lesser dose of the same medication IF
ORDERED.
- Requesting a less intrusive route of administration
if both routes are prescribed by the provider (PO <
IV).
01/01/24 16:30
Furosemide [Lasix] 60 mg IV NOW STA
01/01/24 16:31
Code Status As Directed
Resuscitation Status: Full Code
01/01/24 17:00
Hemodialysis treatment As Directed
Treatment date:: 01/02/24
Treatment type: Hemodialysis
Ultrafiltration (kg): 3 kg
Treatment time (duration): 3 hours 30 minutes
Use dialysis access:: Tunneled Cath
Dialyzer:: Optiflux 160
Blood flow rate minimum: 350
Blood flow rate maximum: 400
Dialysis flow rate: 600 mL/min
Dialysate temperature: 35 degrees Celsius
Sodium (Na): 140
Potassium (K): 2
Calcium (Ca): 2.5
Bicarbonate (HCO3): 35
01/01/24 18:57
Acetaminophen [Tylenol] 650 mg PO Q4HPRN PRN
Dextrose 50%-Water [Dextrose 50% Syringe] 12.5 grams IV [id number] PRN
Ezetimibe [Zetia] 10 mg PO QPM
Glucagon [GlucaGen] 1 mg IM PRN PRN
01/01/24 18:57
CARDIOLOGY CONSULT Routine
Consulting Provider: lAton Hernandez
Was physician already notified: Yes
Heart Failure Dietary Consult [HF DIETARY CONSULT] Routine
Heart Failure Educator Consult [HF EDUCATOR CONSULT] Routine
Comment:
NEPHROLOGY CONSULT Routine
Consulting Provider: Efraín Hu
Was physician already notified: Yes
Body Fluid Amylase Routine
Fluid Source: Pleural
Body Fluid Cell Count Routine
What is the Body Fluid: pleural fluid
Comment: post procedure
Body Fluid Glucose Routine
Fluid Source: Pleural
Body Fluid LDH Routine
Fluid Source: Pleural
Body Fluid Protein Routine
Fluid Source: Pleural
Body Fluid Triglycerides Routine
Fluid Source: Pleural
Body Fluid pH Routine
Fluid Source: Pleural
Fluid Culture with Gram Stain Routine
LUIS ENRIQUE Source: Pleural Fluid
Specimen Description:
Comment: post procedure
Activity As Directed
Activity Level: Out of Bed-Early Mobility
With Assistance
Bedside Glucose Monitoring As Directed
Frequency: AC&HS
Additional Instructions:: Change to q6h if pt on TPN, tube feeding or not eating
I&O [Intake/ Output] As Directed
Frequency: q12h
Vital Signs As Directed
Frequency: Per unit guidelines
Weight As Directed
Frequency: Daily
IRAD Cytology Routine
Source: Pleural Fluid, Right
Clinical Impression: CHF
Ot Eval And Treat Routine
Pt Eval And Treat Routine
Activity Level: Out of Bed-Early Mobility
01/01/24 20:00
Troponin I Q8H
Apixaban [Eliquis] 2.5 mg PO BID
Rosuvastatin Calcium [Crestor] 10 mg PO QPM
01/02/24 04:00
Troponin I Q8H
01/02/24 06:00
Basic Metabolic Panel IN AM
Complete Blood Count/No Diff IN AM
Glycohemoglobin (HgbA1c) IN AM
LDH IN AM
LFT [Skrpg-Bemo-Eoijgsl] IN AM
Magnesium IN AM
Total Protein IN AM
01/02/24 07:00
Electrolytes Urgent
Comment: pre-Hemodialysis lab, to be drawn by HD nurse
H&H Urgent
Comment: pre-Hemodialysis lab, to be drawn by HD nurse
01/02/24 07:30
Insulin Aspart Corrective Low [Novolog Flexpen-Low Resistance] See Protocol SC AC
01/02/24 08:00
Albumin Human 25% 50 ml [Flexbumin 25% For Hemodialysis] 12.5 grams IV HD-Q1HPRN PRN
Clopidogrel Bisulfate [Plavix] 75 mg PO DAILY
Furosemide [Lasix] 80 mg IV DAILY
Heparin 500 units IV HD-ONCE ONE
Heparin 500 units IV HD-ONCE ONE
Heparin See Dose Instructions INTRACATH HD-ONCE ONE
Mannitol 25% 12.5 grams IV HD-Q1HPRN PRN
Metoprolol Xl [Toprol Xl] 25 mg PO DAILY
Sitagliptin Phosphate [Januvia] 25 mg PO DAILY
Sodium Chloride [Sodium Chloride 4 Meq/ml For Hemodialysis] 10 ml IV HD-Q1HPRN PRN
01/04/24 11:00
DC Protocol for Telemetry ONCE
Abnormal Lab Results
01/01/24
13:46
RBC 3.93 L 10^6/uL
(4.70-6.10)
Hgb 12.0 L g/dL
(13.0-18.0)
Hct 35.5 L %
(39.0-52.0)
RDW 15.2 H %
(11.5-14.5)
Absolute Lymphs (auto) 0.5 L 10^3/uL
(1.2-3.4)
Neutrophils % 83.2 H %
(42.2-75.2)
Lymphocytes % 7.5 L %
(20.5-51.1)
BUN 36 H mg/dl
(9-20)
Creatinine 4.4 H* mg/dL
(0.7-1.3)
Glucose 166 H mg/dl
(70-99)
Total Bilirubin 2.6 H mg/dl
(0.2-1.3)
ALT 51 H U/L
(0-50)
Alkaline Phosphatase 138 H U/L
(38-126)
Troponin I 0.064 H* ng/ml
01/01/24 13:46
01/01/24 13:46
Vital Signs
Initial and Last Documented VS:
Initial Vital Signs
Temp Pulse Resp BP Pulse Ox
97.7 F 110 20 126/80 99
01/01/24 12:35 01/01/24 12:35 01/01/24 12:35 01/01/24 12:35 01/01/24 12:35
Last Documented Vital Signs
Temp Pulse Resp BP Pulse Ox
98.7 F 102 18 144/79 95
01/01/24 19:28 01/01/24 18:56 01/01/24 19:28 01/01/24 19:06 01/01/24 19:28
MDM/Problems Addressed
MDM/Problems Addressed:
Patient is found to have a new right pleural effusion, unfortunately due to Eliquis use he will not be suitable for thoracentesis today. Will admit to the hospitalist service, given low-dose of Lasix for mild diuresis as he is not anuric. No
clinical symptoms of infectious etiology
*Critical Care Note
Total Time (30-74mins, 75-104mins- exclusive of procedures): Not Applicable
ED Attending Note
-
Portions of this chart may have been created with voice recognition software.� Occasional wrong word or��sound alike� substitutions may have occurred due to the inherent limitations of voice recognition software.
Discharge Plan
Departure
Patient Disposition: Admit
Date of Disposition: 01/01/24
Time of Disposition: 15:03
Admit to: Med/Surg
Presentation/result/management discussed w/ accepting MD/DO: Hospitalist
Discharge Problem:
Pleural effusion on right
Interventions
Interventions:
*Risk Screen - Suicide Last Done: 01/01/24 12:35
*General Assessment Last Done: 01/01/24 12:35
*Neglect/Abuse Screening Last Done: 01/01/24 12:35
ED- Fall Risk Assessment Last Done: 01/01/24 13:34
*ED COVID-19 Vaccine History Last Done: 01/01/24 12:35
*Nursing Disposition Last Done: 01/01/24 19:08
ED- Cardiac Assessment Last Done: 01/01/24 13:34
ED- Pulmonary Assessment Last Done: 01/01/24 13:34
Discharge Date and Time
Discharge Date/Time: 01/01/24 19:08
[2024-01-01 14:06] LABS: % Basophils 0.5 % (0-2); % Eosinophils 0.5 % (0-6); % Immature Granulocytes 0.3 % (0-0.5); % Lymphocytes 7.5 % (20.5-51.1); % Neutrophils 83.2 % (42.2-75.2); Absolute Lymphocytes 0.5 10^3/uL (1.2-3.4); Absolute Monocytes 0.5 10^3/uL (0.1-0.6); Hematocrit 35.5 % (39.0-52.0); Mean Corp Hgb Conc. 33.8 g/dL (33.0-37.0); Mean Corpuscular Hgb 30.5 pg (27.0-31.0); Mean Corpuscular Volume 90.3 fL (80.0-94.0); Mean Platelet Volume 10.4 fL (7.4-10.4); Nucleated Red Blood Cells % 0 % (-); Platelet Count 164 10^3/uL (130-400); Red Blood Cell Count 3.93 10^6/uL (4.70-6.10); Red Cell Dist. Width 15.2 % (11.5-14.5)
[2024-01-01 14:32] LABS: NT-proBNP > 27000 pg/ml
[2024-01-01 14:45] LABS: ALT (SGPT) 51 U/L (0-50); AST (SGOT) 58 U/L (17-59); Alkaline Phosphatase 138 U/L (38-126); Blood Urea Nitrogen 36 mg/dl (9-20); Calcium 9.1 mg/dl (8.4-10.2); Carbon Dioxide 24 mmol/L (22-30); Chloride 100 mmol/L (98-107); Estimated Creatinine Clearance 12 ml/min; Glucose 166 mg/dl (70-99); Potassium 4.4 mmol/L (3.5-5.1); Sodium 138 mmol/L (135-145); Total Bilirubin 2.6 mg/dl (0.2-1.3); Total Protein 6.8 g/dl (6.3-8.2); eGFR 12.62
[2024-01-01 15:04] LABS: Troponin I 0.064 ng/ml
[2024-01-01] MEDS: LASIX 20 MG IV (15:16)
--- NOTE | 2024-01-01 16:20 | HPS.HSE ---
Family Physician
-
Family Physician: CAIN Martinez
Chief Complaint
-
Shortness of Breath
History of Present Illness
Patient is an 83 y/o male past medical history of ASCVD, ESRD on HD , CHF and DM who presents with shortness of breath. Patient reports shortness of breath started yesterday morning. He notes dyspnea on exertion, but denies orthopnea. He denies
lower extremity edema, chest pain, palpitations, cough or fever. He states he did not go to dialysis today due to his symptoms.
Medical History
Past Medical History
Past Medical History: Reports Other
Additional Past Medical History:
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
Coronary Artery Disease s/p stent
Peripheral Artery Disease s/p Right SFA Stent
Bilateral Carotid Artery Stenosis
Chronic HFrEF
Permanent Atrial Fibrillation
ESRD
Essential Hypertension
Hyperlipidemia
Diabetes Mellitus, Type II
Anemia of Chronic Disease
Colon Cancer
Past Surgical History: Reports Other
Additional Past Surgical History:
Cholecystectomy
Right Hemicolectomy
Ventral Hernia Repair
Lower Extremity Angioplasty
Left Upper Ext AV Fistulat
Right SFA Stent
Social History
Tobacco: Former Smoker (Quit in 1977)
Alcohol: Occasional
Personal:
Family History
Family History: Not pertinent
Allergies / Home Medications
Allergies reflects when Allergies were last updated in [facility].
Home Medications with original date entered in [facility]
Allergy/Medication List:
Allergies
Allergy/AdvReac Type Severity Reaction Status Date / Time
amiodarone Allergy Renal Verified 01/01/24 12:35
Failure
ibuprofen Allergy chest pain Verified 01/01/24 12:35
Home Medications
linagliptin 5 mg tablet (Tradjenta) 5 mg PO DAILY Diabetes 06/15/17
brinzolamide 1 %-brimonidine 0.2 % eye drops,suspension (Simbrinza) 1 drp RIGHT EYE QPM Eye Condition 04/21/23
ezetimibe 10 mg tablet (Zetia) 10 mg PO QPM High Cholesterol 04/21/23
metoprolol succinate 25 mg tablet,extended release 24 hr (Toprol XL) 25 mg PO DAILY Blood Pressure 04/21/23
rosuvastatin 40 mg tablet (Crestor) 40 mg PO QPM High Cholesterol 04/21/23
insulin glargine 100 unit/mL (3 mL) subcutaneous pen (Lantus Solostar U-100 Insulin) 30 unit SC DAILY Diabetes 05/18/23
clopidogrel 75 mg tablet 75 mg PO DAILY Heart disease/condition ##0 05/21/23
latanoprost (PF) 0.005 % eye drops in a dropperette 1 drp BOTH EYES HS 10/16/23
apixaban 2.5 mg tablet (Eliquis) 2.5 mg PO BID 01/01/24
Review of Systems
-
A 12 point ROS was completed and negative except as noted: Yes
Constitutional: Denies Fever or Chills
Respiratory: Reports Trouble Breathing; Denies Cough
Cardiac: Denies Chest Pain or Palpitations
Physical Exam
Vital Signs
Vital Signs
Temp Pulse Resp BP Pulse Ox
97.7 F 92 25 119/83 96
01/01/24 12:35 01/01/24 15:16 01/01/24 14:30 01/01/24 15:16 01/01/24 14:30
Physical Exam
General: Comfortable and Conversant
HEENT: Anicteric, Moist mucous membranes and Oxygen (Nasal Cannula)
Respiratory: Non Labored Respirations and Other (Rales left lower and middle regions, absent breath sounds right base)
Cardiac: S1/S2, Irregular Rhythm and Tachycardia (Slightly)
GI: Soft and Non Tender
Rectal: Deferred by Provider
Musculoskeletal: No Clubbing, No Cyanosis and No Edema
Skin: Warm and Dry
Neuro: Awake, Alert, Oriented and Nonfocal/grossly intact
Psych: Calm
Laboratory Results
-
01/01/24 13:46
01/01/24 13:46
Laboratory Results
Total Bilirubin 2.6 mg/dl (0.2-1.3) H 01/01/24 13:46
AST 58 U/L (17-59) 01/01/24 13:46
ALT 51 U/L (0-50) H 01/01/24 13:46
Alkaline Phosphatase 138 U/L (38-126) H 01/01/24 13:46
Troponin I 0.064 ng/ml H* 01/01/24 13:46
Data Reviewed
-
Diagnostic Radiology: Report Reviewed by me
Lab Data: Labs Reviewed by me
Impression/Plan
-
Acute on Chronic HFrEF with Right Pleural Effusion
-Consult IR for thoracentesis
-Consult Cardiology
-Echo Echo June 2023: Severely reduced EF 25%.
-Continue Lasix 80mg IV Daily
-Monitor Is&Os and Daily Weights
Elevated Troponin, possible Non-Ischemic Myocardial Injury vs Chronic Troponin Elevation
-Continue to trend
ESRD on HD MoWeFr
-Consult Nephrology
ASCVD s/p Cardiac Stents, Right SFA Stent
-Continue Plavix
Permanent Atrial Fibrillation
-Continue Eliquis
Essential Hypertension
-Continue Toprol XL
Hyperlipidemia
-Continue Zetia
Diabetes Mellitus, Type II
-Continue Lantus and Tradjenta
-Monitor sugars and continue coverage insulin
Anemia of Chronic Disease
-Hgb stable
Hx Colon Cancer s/p Hemicolectomy
DVT proph: Eliquis
Code Status: Full Code
--- NOTE | 2024-01-01 16:55 | W.CON.NEPH ---
Consultation
-
Date/Time Consultation Requested: 01/01/2024 1600
Date/Time Consultation Performed: 01/01/2024 1600
Requesting Provider: Dr. Baltazar
Performing Provider: Dr. Hu
Reason for Consultation: ESRD
Medical History
-
Chief Complaint: SOB
History of Present Illness:
Mr. Chicas is an 83 YOM with HTN, perm afib on BB for rate control and AC with Eliquis, T2DM on insulin, HFrEF with diastolic dysfunction ( EF20-25%), stroke on plavix. He has ESRD on hemodialysis Wednesdays and Fridays at the [facility]. He says that he has had no issues with dialysis. His typically brings him to dialysis. This morning however he woke up short of breath and very weak and as a result did not go to dialysis. He ultimately came to the emergency
room for evaluation was felt to be volume overloaded. We are asked to assist in management of his dialysis issues. He denies any chest pain.
Past Medical History
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
Coronary Artery Disease s/p stent
Bilateral Carotid Artery Stenosis
Chronic HFrEF
Atrial Fibrillation
Essential Hypertension
Hyperlipidemia
Diabetes Mellitus
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
Colon Cancer
Right Nadja angiogram with balloon angioplasty and stenting of right superficial femoral artery stenosis for critical limb 04/2023
Past Surgical History: Other (Cholecystectomy Right Hemicolectomy Ventral Hernia Repair Lower Extremity Angioplasty )
Social History
Tobacco: Former Smoker
Alcohol: None
Drug: None
Personal:
Living: With Family
Family History
no CKD
Family History: Not Pertinent
Allergies / Home Medications
Allergy/AdvReac Type Severity Reaction Status Date / Time
amiodarone Allergy Renal Verified 01/01/24 12:35
Failure
ibuprofen Allergy chest pain Verified 01/01/24 12:35
�Medication �Instructions �Recorded �Confirmed �Type
linagliptin 5 mg tablet (Tradjenta) 5 mg PO DAILY Diabetes 06/15/17 01/01/24 History
brinzolamide 1 %-brimonidine 0.2 % 1 drp RIGHT EYE QPM Eye Condition 04/21/23 01/01/24 History
eye drops,suspension (Simbrinza)
ezetimibe 10 mg tablet (Zetia) 10 mg PO QPM High Cholesterol 04/21/23 01/01/24 History
metoprolol succinate 25 mg 25 mg PO DAILY Blood Pressure 04/21/23 01/01/24 History
tablet,extended release 24 hr
(Toprol XL)
rosuvastatin 40 mg tablet (Crestor) 40 mg PO QPM High Cholesterol 04/21/23 01/01/24 History
insulin glargine 100 unit/mL (3 30 unit SC DAILY Diabetes 05/18/23 01/01/24 History
mL) subcutaneous pen (Lantus
Solostar U-100 Insulin)
clopidogrel 75 mg tablet 75 mg PO DAILY Heart 05/21/23 01/01/24 Rx
disease/condition ##0
latanoprost (PF) 0.005 % eye drops 1 drp BOTH EYES HS 10/16/23 01/01/24 History
in a dropperette
apixaban 2.5 mg tablet (Eliquis) 2.5 mg PO BID 01/01/24 01/01/24 History
Review of Systems
-
Weakness, mild shortness of breath. No chest pain
All other systems: Negative unless noted
Physical Exam
Vital Signs
Vital Signs
Temp Pulse Resp BP Pulse Ox
97.7 F 92 25 119/83 96
01/01/24 12:35 01/01/24 15:16 01/01/24 14:30 01/01/24 15:16 01/01/24 14:30
Lab Results
WBC 6.0 10^3/uL (4.8-10.8) 01/01/24 13:46
RBC 3.93 10^6/uL (4.70-6.10) L 01/01/24 13:46
Hgb 12.0 g/dL (13.0-18.0) L 01/01/24 13:46
Hct 35.5 % (39.0-52.0) L 01/01/24 13:46
Plt Count 164 10^3/uL (130-400) 01/01/24 13:46
Sodium 138 mmol/L (135-145) 01/01/24 13:46
Potassium 4.4 mmol/L (3.5-5.1) 01/01/24 13:46
Chloride 100 mmol/L (98-107) 01/01/24 13:46
Carbon Dioxide 24 mmol/L (22-30) 01/01/24 13:46
BUN 36 mg/dl (9-20) H 01/01/24 13:46
Creatinine 4.4 mg/dL (0.7-1.3) H* 01/01/24 13:46
eGFR 12.62 01/01/24 13:46
Glucose 166 mg/dl (70-99) H 01/01/24 13:46
Calcium 9.1 mg/dl (8.4-10.2) 01/01/24 13:46
Sip-P-Zqmzdygoyky Pept > 49746 pg/ml 01/01/24 13:46
Albumin 4.0 g/dl (3.5-5.0) 01/01/24 13:46
Laboratory Tests
10/20/23 01/01/24
08:49 13:46
Hgb 10.9 L
Potassium 4.3
Troponin I 0.064 H*
Physical Exam
Patient is awake alert oriented and in no distress. Mood and affect were pleasant, insight and judgment were good. Pupils are equal round and reactive to light, extraocular movements are intact, sclera were anicteric. Hearing was normal, ears and
nose are intact. Oropharynx was clear. Neck was supple with trachea midline and no thyromegaly. Heart was regular rate and rhythm without rubs. Lower extremities without edema. Lungs were coarse with decreased breath sounds to auscultation
bilaterally and with normal excursion. Abdomen was soft, nontender, with normal active bowel sounds, and no hepatosplenomegaly. Skin was without rash and with normal turgor. AV fistula in the left upper arm was with good thrill and bruit, dialysis
catheter in the right upper chest wall clean dry and intact
Data Reviewed
-
Radiology: Image Personally Visualized and interpreted (Chest x-ray on 01/01/2024 by my reading shows cardiomegaly, right-sided effusion)
Medical Tests (Nuc Med, Echo etc): Image Personally Visualized and interpreted (EKG on 01/01/2024 by my read shows atrial fibrillation left axis deviation prolonged QT, ST-T wave abnormalities lateral)
Assessment/Plan
-
IMP:
ESRD
Afib with RVR
Heart failure reduced ejection fraction, decompensated
PAD
Right iliac art aneurysm
DM2
Hyperlipidemia
Essential hypertension
History of stroke x 2
Permanent atrial fibrillation- Eliquis
CAD
h/o pericarditis
Chronic anemia
Hx Colon cancer s/p right hemicolectomy 2016
bilat carotid art disease
h/o ventral hernia repair 2021
Plan:
Patient still makes urine, Lasix trial
Plan for dialysis tomorrow we will use catheter as it does not appear that fistula has been used yet
Strict dietary restrictions
--- NOTE | 2024-01-01 17:03 | W.PN.UPDATE ---
Update Note
Progress Note Update
This is an addendum to the H&P written by Ankita Wilder on 01/01/2024. Patient seen and examined independently with PA.
83-year-old male past medical history of ESRD on hemodialysis Thursday, Thursday, Thursday, permanent atrial fibrillation, HFrEF, CAD with stents, CVA, diabetes, presenting with shortness of breath.
Chest x-ray shows moderate right pleural effusion. Right lower lobe airspace disease may also be present, mild pulmonary vascular congestion. No clinical evidence of pneumonia.
Pleural effusion likely related to heart failure. IR consulted for thoracentesis. Nephrology, cardiology consulted.
[2024-01-01] MEDS: LASIX 60 MG IV (17:04)
[2024-01-01] MEDS: CRESTOR 10 MG PO (19:43)
[2024-01-01] MEDS: ZETIA 10 MG PO (19:43)
[2024-01-01] MEDS: ELIQUIS 2.5 MG PO (19:43)
[2024-01-01 21:04] LABS: Troponin I 0.071 ng/ml
[2024-01-01 21:14] LABS: Glucose - Point of Care 177 mg/dl (70-99)
--- NOTE | 2024-01-01 22:28 | PTCARENOTE ---
Received patient from ED. Afib on the monitor, HR in the 100s, VSS. L uppper limb alert and high fall risk bracelet in place. 95% on 2L nasal cannula. R chest hemodialysis catheter in place. Oriented pt to room. Educated pt on plan of care for
tomorrow, pt verbalizes understanding. No complaints from pt at this time, call pascal within reach.
[2024-01-02] VITALS (26 sets, daily range): BP systolic 85–140; BP diastolic 56–98; BMI 22.8
[2024-01-02 04:09] LABS: Hematocrit 35.9 % (39.0-52.0); Hemoglobin 11.6 g/dL (13.0-18.0); Mean Corp Hgb Conc. 32.3 g/dL (33.0-37.0); Mean Corpuscular Hgb 29.8 pg (27.0-31.0); Mean Corpuscular Volume 92.3 fL (80.0-94.0); Mean Platelet Volume 10.2 fL (7.4-10.4); Platelet Count 177 10^3/uL (130-400); Red Blood Cell Count 3.89 10^6/uL (4.70-6.10); Red Cell Dist. Width 15.3 % (11.5-14.5); White Blood Cell Count 6.1 10^3/uL (4.8-10.8)
[2024-01-02 04:42] LABS: Troponin I 0.069 ng/ml
[2024-01-02 04:43] LABS: ALT (SGPT) 49 U/L (0-50); AST (SGOT) 53 U/L (17-59); Albumin 3.7 g/dl (3.5-5.0); Alkaline Phosphatase 161 U/L (38-126); Blood Urea Nitrogen 39 mg/dl (9-20); Calcium 9.1 mg/dl (8.4-10.2); Carbon Dioxide 24 mmol/L (22-30); Chloride 100 mmol/L (98-107); Direct Bilirubin 0.7 mg/dl (0.0-0.4); Estimated Creatinine Clearance 10 ml/min; Glucose 172 mg/dl (70-99); LDH 239 U/L (120-246); Magnesium 2.2 mg/dl (1.6-2.3); Potassium 4.4 mmol/L (3.5-5.1); Sodium 138 mmol/L (135-145); Total Bilirubin 2.4 mg/dl (0.2-1.3); Total Protein 6.5 g/dl (6.3-8.2); eGFR 10.83
--- NOTE | 2024-01-02 07:42 | CON.CAR ---
Addendum entered and electronically signed by Goran Ann MD 01/02/24 08:12:
patient seen and examined
agree with KELLY Bates's notes and assessment
agree with KELLY Bates's plan
exam:
cor regular
fistula noted
aao x 3
appears to have some longer term memory deficit
reduced lung sounds right lung with rhales at bases bilat
abd soft nt nd
non focal neurologically
Assessment:
Presentation with SOB
Acute on chronic HFrEF
Elevated troponin, suspected nonischemic myocardial injury
CAD with prior left circumflex stenting in 2018, residual complex proximal LAD disease, medically managed
Ischemic cardiomyopathy with a EF 20 to 25% by most recent echo
Permanent atrial fibrillation
Chronic anticoagulation with Eliquis
Bilateral carotid artery disease status post unsuccessful left carotid stent placement
History of CVA/TIA x 3
ESRD on HD MWF starting 04/2023
PAD with critical limb threatening ischemia of right lower extremity status post balloon angioplasty and stenting of R SFA, intravascular lithotripsy of right tibioperoneal trunk stenosis 04/2023
Hypertension
LVH
Hyperlipidemia
Insulin-dependent diabetes
Anemia of chronic disease
ECHO 07/16/23: EF 24%, global hypokinesis, mild concentric LVH, MAC, mild to moderate MR, possible low-grade moderate aortic stenosis, peak/mean gradients 9/5 mmHg, MT 1.2 cm�, mild AR, mild to moderate TR, PAP 42 mmHg, severely dilated right
atrium, aortic root mildly dilated 4.1 cm
Plan:
-Patient presented with worsening SOB over the last 48 hours. proBNP >70812. CXR with R pleural effusion. Cardiology consulted for evaluation
-was given dose of IV lasix x1 in ER with some response (still makes urine). further lasix per nephrology. volume mgmt through HD, for HD today. would also consider for thoracentesis of R pleural effusion. OP eliquis on hold
-he has permanent atrial fibrillation. overall rates adequately controlled on review of telemetry overnight
-continue toprol
-trop elevated and flat in 0.07 range. suspected nonischemic myocardial injury. no CP. he has known lateral ST abnormality, which appears somewhat improved compared to prior EKG
-last echo with results as above, earlier this year.
-d/w nursing
Original Note:
Consultation
Consultation Request
Date/Time Consultation Performed: 01/02/24
Requesting Provider: Dr. Baltazar
Performing Provider: Donna Bates PA-C for Dr. Ann
Reason for Consultation: R pleural effusion, concern for CHF
Medical History
-
Chief Complaint: SOB
History of Present Illness:
Patient is an 83 yo M with PMH of hypertension, hyperlipidemia, insulin-dependent diabetes, CAD with prior LCx stenting in 2018, ischemic cardiomyopathy with EF 20 to 25%, permanent afib on chronic eliquis, bilateral carotid artery disease status
post unsuccessful left carotid stent placement, history of TIAs. HD started during admission 04/2023, on MWF schedule. He still makes some urine. Is not on diuretic as OP. He reports starting he noted SOB which has since progressed. He
missed HD yesterday due to feeling poorly. Upon arrival to ER noted to have proBNP >96633 and CXR with R pleural effusion. Cardiology consulted for evaluation.
PMH:
Chronic HFrEF
CAD with prior left circumflex stenting in 2018, residual complex proximal LAD disease, medically managed
Ischemic cardiomyopathy with a EF 20 to 25% by most recent echo
Permanent atrial fibrillation
Chronic anticoagulation with Eliquis
Bilateral carotid artery disease status post unsuccessful left carotid stent placement
History of CVA/TIA x 3
ESRD on HD MWF starting 04/2023
PAD with critical limb threatening ischemia of right lower extremity status post balloon angioplasty and stenting of R SFA, intravascular lithotripsy of right tibioperoneal trunk stenosis 04/2023
Hypertension
LVH
Hyperlipidemia
Insulin-dependent diabetes
Anemia of chronic disease
Past Medical History
Past Medical History: Other (in HPI)
Social History
Tobacco: Former Smoker
Alcohol: Other (rare)
Personal:
Living: With Family
Employment: Retired
Family History
Family History: Reviewed & Not Pertinent
Allergies / Home Medications
Allergy/AdvReac Type Severity Reaction Status Date / Time
amiodarone Allergy Renal Verified 01/01/24 12:35
Failure
ibuprofen Allergy chest pain Verified 01/01/24 12:35
�Medication �Instructions �Recorded �Confirmed �Type
linagliptin 5 mg tablet (Tradjenta) 5 mg PO DAILY Diabetes 06/15/17 01/01/24 History
brinzolamide 1 %-brimonidine 0.2 % 1 drp RIGHT EYE QPM Eye Condition 04/21/23 01/01/24 History
eye drops,suspension (Simbrinza)
ezetimibe 10 mg tablet (Zetia) 10 mg PO QPM High Cholesterol 04/21/23 01/01/24 History
metoprolol succinate 25 mg 25 mg PO DAILY Blood Pressure 04/21/23 01/01/24 History
tablet,extended release 24 hr
(Toprol XL)
rosuvastatin 40 mg tablet (Crestor) 40 mg PO QPM High Cholesterol 04/21/23 01/01/24 History
insulin glargine 100 unit/mL (3 30 unit SC DAILY Diabetes 05/18/23 01/01/24 History
mL) subcutaneous pen (Lantus
Solostar U-100 Insulin)
clopidogrel 75 mg tablet 75 mg PO DAILY Heart 05/21/23 01/01/24 Rx
disease/condition ##0
latanoprost (PF) 0.005 % eye drops 1 drp BOTH EYES HS 10/16/23 01/01/24 History
in a dropperette
apixaban 2.5 mg tablet (Eliquis) 2.5 mg PO BID 01/01/24 01/01/24 History
Review of Systems
-
History Source: Patient
All other systems: Negative unless noted
Physical Exam
Vital Signs
Temp Pulse Resp BP Pulse Ox
97.5 F 94 18 140/98 95
01/02/24 02:18 01/02/24 04:15 01/02/24 02:18 01/02/24 02:09 01/02/24 02:18
Lab Results
01/02/24 03:54
01/02/24 03:53
Troponin I 0.069 ng/ml H* 01/02/24 03:53
Ejw-O-Bwmhriavvnt Pept > 59772 pg/ml 01/01/24 13:46
Physical Exam
General: No Apparent Distress, Comfortable and Other (on supp O2)
HEENT: Normocephalic, Anicteric and Moist Mucous Membranes
Respiratory: Other (decreased BS RLB)
Cardiac: S1/S2, Irregular Rhythm and Murmur
GI: Soft, Non Tender, Non Distended and Normal Bowel Sounds
Musculoskeletal: No Clubbing, No Cyanosis and No Edema
Skin: Warm and Dry
Neuro: AO x 3
Impression / Plan
-
Primary Brush Cutter: Dr. Hernandez
Assessment:
Presentation with SOB
Acute on chronic HFrEF
Elevated troponin, suspected nonischemic myocardial injury
CAD with prior left circumflex stenting in 2018, residual complex proximal LAD disease, medically managed
Ischemic cardiomyopathy with a EF 20 to 25% by most recent echo
Permanent atrial fibrillation
Chronic anticoagulation with Eliquis
Bilateral carotid artery disease status post unsuccessful left carotid stent placement
History of CVA/TIA x 3
ESRD on HD MWF starting 04/2023
PAD with critical limb threatening ischemia of right lower extremity status post balloon angioplasty and stenting of R SFA, intravascular lithotripsy of right tibioperoneal trunk stenosis 04/2023
Hypertension
LVH
Hyperlipidemia
Insulin-dependent diabetes
Anemia of chronic disease
ECHO 07/16/23: EF 24%, global hypokinesis, mild concentric LVH, MAC, mild to moderate MR, possible low-grade moderate aortic stenosis, peak/mean gradients 9/5 mmHg, MT 1.2 cm�, mild AR, mild to moderate TR, PAP 42 mmHg, severely dilated right
atrium, aortic root mildly dilated 4.1 cm
Plan:
-Patient presented with worsening SOB over the last 48 hours. proBNP >37759. CXR with R pleural effusion. Cardiology consulted for evaluation
-was given dose of IV lasix x1 in ER with some response (still makes urine). further lasix per nephrology. volume mgmt through HD, for HD today. would also consider for thoracentesis of R pleural effusion. OP eliquis on hold
-he has permanent atrial fibrillation. overall rates adequately controlled on review of telemetry overnight
-continue toprol
-trop elevated and flat in 0.07 range. suspected nonischemic myocardial injury. no CP. he has known lateral ST abnormality, which appears somewhat improved compared to prior EKG
-last echo with results as above, earlier this year.
-d/w nursing
Data Reviewed
-
EKG: Tracing Personally Visualized and interpreted
Radiology: Report Reviewed by me
Medical Tests (Nuc Med, Echo etc): Report Reviewed by me
Labs: Labs Reviewed by me
Old Records: Reviewed
[2024-01-02] MEDS: PLAVIX 75 MG PO (09:08)
[2024-01-02 09:12] LABS: Glucose - Point of Care 181 mg/dl (70-99)
[2024-01-02] MEDS: NOVOLOG FLEXPEN-LOW RESISTANCE 1 UNITS SC (09:12)
[2024-01-02] MEDS: LANTUS 0.3 UNITS SC (09:16)
[2024-01-02 10:00] LABS: Glycohemoglobin (HgbA1c) 6.5 % (4.0-5.6)
[2024-01-02] MEDS: HEPARIN 500 UNITS IV (10:27)
--- NOTE | 2024-01-02 10:46 | W.PN.HOSP.TC ---
Today's Communication/Plan
-
see bold
Assessment / Plan
Assessment / Plan
Gen: NAD, AAOx3, appears chronically ill.
Eyes: EOMI, PERRLA, no scleral icterus.
Neck: supple.
CV: irreg/irreg, +S1/S2, no m/r/g.
Resp: CTAB anteriorly, no rales, wheezes, or rhonchi.
Abd: +BS, soft, NT, ND
Skin: No rashes.
Neuro: CN 2-12 intact, non-focal.
Psych: Normal mood and affect.
CXR:
1. Moderate right pleural effusion, new compared to prior chest x-ray.
2. Right lower lobe airspace disease may also be present.
3. Mild pulmonary vascular congestion.
Acute on Chronic HFrEF with Right Pleural Effusion
-Consult IR for thoracentesis
-Cardiology following
-Echo June 2023: Severely reduced EF 25%.
-Continue Lasix 80mg IV Daily (makes urine)
-Monitor Is&Os and Daily Weights
Elevated Troponin which is Non-Ischemic Myocardial Injury vs Chronic Troponin Elevation in the setting of ESRD
-Continue to trend
ESRD on HD MoWeFr
-Consult Nephrology
ASCVD s/p Cardiac Stents, Right SFA Stent
-Continue Plavix
Permanent Atrial Fibrillation
-Continue Eliquis
Essential Hypertension
-Continue Toprol XL
Hyperlipidemia
-Continue Zetia
Diabetes Mellitus, Type II
-Continue Lantus and Tradjenta
-Monitor sugars and continue coverage insulin
Anemia of Chronic Disease
-Hgb stable
Hx Colon Cancer s/p Hemicolectomy
FULL/Eliquis
Anticipated Discharge: > 48 hours
Subjective/Interval History
-
Date of Service: January 02, 2024
Denies CP/SOB.
Objective Data
-
Labs:
Laboratory Results
01/02/24 01/02/24
03:53 03:54
WBC 6.1
Hgb 11.6 L
Hct 35.9 L
Plt Count 177
Sodium 138
Potassium 4.4
Chloride 100
Carbon Dioxide 24
BUN 39 H
Creatinine 5.0 H*
Glucose 172 H
Calcium 9.1
Total Bilirubin 2.4 H
AST 53
ALT 49
Alkaline Phosphatase 161 H
Vital Signs:
Vital Signs
Temp Pulse Resp BP Pulse Ox
97.5 F 97 18 140/71 98
01/02/24 02:18 01/02/24 09:30 01/02/24 02:18 01/02/24 09:30 01/02/24 09:00
I&O
01/01/24 01/02/24 01/03/24
06:59 06:59 06:59
Intake Total 480 / 480
Output Total 450 / 450
Balance 30
--- NOTE | 2024-01-02 11:08 | W.PN.NEPH.HD ---
Assessment
-
Seen on HD. no complaints. feeling better. VSS, access CVC ok
continue lasix
Progress Note - Hemodialysis
-
Date of Service: January 02, 2024
Duration: 30 minutes and 3 hours
Potassium Bath: 2
Calcium Bath: 2.5
Opti-Dialyzer: 160
Ultrafiltration: Other (3kg)
Blood Flow: 400
Dialysate Flow: 600
Heparin: 500x2
EPO: no
[2024-01-02] MEDS: SODIUM CHLORIDE 4 MEQ/ML IV (11:19)
[2024-01-02] MEDS: [UNRECOGNIZED DRUG - OTHER] IV (11:19)
[2024-01-02] MEDS: HEPARIN 4000 UNITS INTRACATH (11:25)
[2024-01-02] MEDS: TOPROL XL 25 MG PO (11:38)
[2024-01-02] MEDS: JANUVIA 25 MG PO (11:39)
[2024-01-02] MEDS: LASIX 80 MG IV (11:41)
[2024-01-02 14:26] LABS: Glucose - Point of Care 89 mg/dl (70-99)
[2024-01-02] MEDS: NOVOLOG FLEXPEN-LOW RESISTANCE SC ×2 (14:36→17:22)
[2024-01-02 15:31] LABS: Body Fluid pH 7.51
[2024-01-02 15:32] LABS: Body Fluid Mononuclear 91.5 %; Body Fluid Polymorphonuclear 8.5 %; Body Fluid WBC 292 /CUMM
[2024-01-02 15:34] LABS: Body Fluid Second Tech JMK
[2024-01-02 15:48] LABS: Body Fluid Amylase 48 U/L; Body Fluid Glucose 140 mg/dl; Body Fluid LDH 96 U/L; Body Fluid Protein 2.3 g/dl; Body Fluid Triglycerides < 30 mg/dl
--- NOTE | 2024-01-02 16:15 | PTCARENOTE ---
Pt received this am alert and oriented. Denies any pain or discomfort. Had hemodialysis and then went for a right thoracentesis. Bandaid to right upper back dry and intact. Pt assisted oob to the BR to urinate. Gait steady with the walker and 1
assist.
[2024-01-02] MEDS: ZETIA 10 MG PO (17:16)
[2024-01-02] MEDS: CRESTOR 10 MG PO (17:19)
[2024-01-02 17:23] LABS: Glucose - Point of Care 132 mg/dl (70-99)
--- NOTE | 2024-01-02 20:39 | PTCARENOTE ---
Received patient at change of shift. Afib on the monitor, HR in the 90s, VSS. 95% on room air. Pt reports feeling much better than he did last night and has no pain in his thoracentesis site. Reinforced fluid restriction education, pt verbalized
understanding. James pascal within reach.
[2024-01-02 22:39] LABS: Glucose - Point of Care 122 mg/dl (70-99)
[2024-01-03] VITALS (11 sets, daily range): BP systolic 91–134; BP diastolic 61–84; PULSE 82–88; BMI 21.7
[2024-01-03 05:20] LABS: Blood Urea Nitrogen 29 mg/dl (9-20); Calcium 8.4 mg/dl (8.4-10.2); Carbon Dioxide 26 mmol/L (22-30); Chloride 101 mmol/L (98-107); Estimated Creatinine Clearance 13 ml/min; Glucose 56 mg/dl (70-99); Potassium 3.5 mmol/L (3.5-5.1); Sodium 140 mmol/L (135-145); eGFR 14.59
[2024-01-03 06:25] LABS: Glucose - Point of Care 63 mg/dl (70-99)
[2024-01-03 06:46] LABS: Glucose - Point of Care 82 mg/dl (70-99)
[2024-01-03 07:10] LABS: Glucose - Point of Care 103 mg/dl (70-99)
--- NOTE | 2024-01-03 07:15 | PTCARENOTE ---
Patients blood sugar 63, patient showed no symptoms of hypoglycemia. Hypoglycemia protocol initiated. [place] juice given to pt and BARREL BUILDER Harry Gonzales notified. Blood sugar rechecked 15 minutes after juice was given as 82.
[2024-01-03] MEDS: NOVOLOG FLEXPEN-LOW RESISTANCE SC ×2 (07:30→17:02)
[2024-01-03] MEDS: FLUSH (NSS) 2 FLUSH IV (08:23)
[2024-01-03] MEDS: PLAVIX 75 MG PO (08:24)
[2024-01-03] MEDS: TOPROL XL 25 MG PO (08:24)
[2024-01-03] MEDS: JANUVIA 25 MG PO (08:24)
[2024-01-03] MEDS: LASIX 80 MG IV (08:24)
[2024-01-03] MEDS: LANTUS 0.3 UNITS SC (08:25)
[2024-01-03 08:48] LABS: Glucose - Point of Care 72 mg/dl (70-99)
--- NOTE | 2024-01-03 09:10 | W.PN.HOSP.TC ---
Today's Communication/Plan
-
likely d/c tomorrow after HD
Assessment / Plan
Assessment / Plan
Gen: NAD, AAOx3, appears chronically ill.
Eyes: EOMI, PERRLA, no scleral icterus.
Neck: supple.
CV: remains irreg/irreg, +S1/S2, no m/r/g.
Resp: rales in the R base
Abd: +BS, soft, NT, ND
Skin: No rashes.
Neuro: remains CN 2-12 intact, non-focal.
Psych: Normal mood and affect.
CXR:
1. Moderate right pleural effusion, new compared to prior chest x-ray.
2. Right lower lobe airspace disease may also be present.
3. Mild pulmonary vascular congestion.
Acute on Chronic HFrEF with Right Pleural Effusion
-s/p R thoracentesis for 1100cc, transudative
-Cardiology following
-Echo June 2023: Severely reduced EF 25%.
-Continue Lasix 80mg IV Daily (makes urine)
-Monitor Is&Os and Daily Weights (wt down ~5Kg)
Elevated Troponin which is Non-Ischemic Myocardial Injury vs Chronic Troponin Elevation in the setting of ESRD
-Continue to trend
ESRD on HD MoWeFr
-Nephrology following for HD
ASCVD s/p Cardiac Stents, Right SFA Stent
-Continue Plavix
Permanent Atrial Fibrillation
-Continue Eliquis
Essential Hypertension
-Continue Toprol XL
Hyperlipidemia
-Continue Zetia
Diabetes Mellitus, Type II
-Continue Lantus and Tradjenta
-Monitor sugars and continue coverage insulin
Anemia of Chronic Disease
-Hgb stable
Hx Colon Cancer s/p Hemicolectomy
FULL/Eliquis
Anticipated Discharge: Within 24 hours
Subjective/Interval History
-
Date of Service: January 03, 2024
Denies CP/SOB.
Objective Data
-
Labs:
Laboratory Results
01/03/24
03:54
Sodium 140
Potassium 3.5
Chloride 101
Carbon Dioxide 26
BUN 29 H
Creatinine 3.9 H
Glucose 56 L
Calcium 8.4
Vital Signs:
Vital Signs
Temp Pulse Resp BP Pulse Ox
97.6 F 109 20 120/84 99
01/03/24 07:04 01/03/24 08:00 01/03/24 07:04 01/03/24 07:06 01/03/24 07:06
I&O
01/02/24 01/03/24 01/04/24
06:59 06:59 06:59
Intake Total 480 / 480 120 / 120
Output Total 450 / 450 100 / 100
Balance 30 / 30 20 / 20
--- NOTE | 2024-01-03 10:07 | W.PN.CARDCBS ---
Today's Communication / Plan
-
Appears improved
Nephrology managing volume status
Heart rate controlled in A-fib
Impression / Plan
-
Primary Director Consumer: Dr. Hernandez
Assessment:
Presentation with SOB
Acute on chronic HFrEF
nonischemic myocardial injury
CAD with prior left circumflex stenting in 2018, residual complex proximal LAD disease, medically managed
Ischemic cardiomyopathy with a EF 20 to 25% by most recent echo
Permanent atrial fibrillation
Chronic anticoagulation with Eliquis
Bilateral carotid artery disease status post unsuccessful left carotid stent placement
History of CVA/TIA x 3
ESRD on HD MWF starting 04/2023
PAD with critical limb threatening ischemia of right lower extremity status post balloon angioplasty and stenting of R SFA, intravascular lithotripsy of right tibioperoneal trunk stenosis 04/2023
Hypertension
LVH
Hyperlipidemia
Insulin-dependent diabetes
Anemia of chronic disease
ECHO 07/16/23: EF 24%, global hypokinesis, mild concentric LVH, MAC, mild to moderate MR, possible low-grade moderate aortic stenosis, peak/mean gradients 9/5 mmHg, MT 1.2 cm�, mild AR, mild to moderate TR, PAP 42 mmHg, severely dilated right
atrium, aortic root mildly dilated 4.1 cm
Plan:
Appears to be improved
Volume status being controlled by nephrology
Heart rate control reasonable in atrial fibrillation
Continue Toprol and Eliquis
Progress Note - Director Consumer
Subjective
Date of Service: January 03, 2024
No complaints. On room air
Objective
Labs:
01/02/24 03:54
01/03/24 03:54
Labs
Hgb 11.6 g/dL (13.0-18.0) L 01/02/24 03:54
Hct 35.9 % (39.0-52.0) L 01/02/24 03:54
Plt Count 177 10^3/uL (130-400) 01/02/24 03:54
Sodium 140 mmol/L (135-145) 01/03/24 03:54
Potassium 3.5 mmol/L (3.5-5.1) 01/03/24 03:54
BUN 29 mg/dl (9-20) H 01/03/24 03:54
Creatinine 3.9 mg/dL (0.7-1.3) H 01/03/24 03:54
Glucose 56 mg/dl (70-99) L 01/03/24 03:54
Troponins
01/01/24 01/01/24 01/02/24
13:46 20:27 03:53
Troponin I 0.064 H* 0.071 H* 0.069 H*
Vital Signs and I&O:
Vital Signs
Temp Pulse Resp BP Pulse Ox
97.6 F 109 20 120/84 97
01/03/24 07:04 01/03/24 08:00 01/03/24 07:04 01/03/24 07:06 01/03/24 08:25
Vital Signs
Temp Pulse Resp BP Pulse Ox
97.6 F 109 20 120/84 97
01/03/24 07:04 01/03/24 08:00 01/03/24 07:04 01/03/24 07:06 01/03/24 08:25
Intake & Output
01/01/24 01/02/24 01/03/24 01/04/24
06:59 06:59 06:59 06:59
Intake Total 480 / 480 120 / 120
Output Total 450 / 450 100 / 100
Balance 30
Physical Exam
Physical Exam
General: Well developed, well nourished in NAD.
Neck: Supple, no JVD, HJR, carotids +2 B/L, no bruits bilaterally.
Heart: Non displaced PMI, irregular, no murmurs, No S3, S4, no rubs.
Lungs: Scattered rhonchi
Extremities: No clubbing, cyanosis or edema bilaterally.
Neuro: Grossly nonfocal, awake, alert and oriented x3.
--- NOTE | 2024-01-03 10:45 | W.PN.NEPH.PH ---
Today's Communication / Plan
-
Dialysis tomorrow
Assessment/Plan
-
IMP:
ESRD
Afib with RVR
Heart failure reduced ejection fraction, decompensated
PAD
Right iliac art aneurysm
DM2
Hyperlipidemia
Essential hypertension
History of stroke x 2
Permanent atrial fibrillation- Eliquis
CAD
h/o pericarditis
Chronic anemia
Hx Colon cancer s/p right hemicolectomy 2016
bilat carotid art disease
h/o ventral hernia repair 2021
Plan:
May discontinue Lasix
Plan for dialysis tomorrow we will use catheter as it does not appear that fistula has been used yet
Strict dietary restrictions
-
-
Date of Service: January 03, 2024
CC / HPI / ROS
-
Chief Complaint:
ESRD
History of Present Illness:
Tolerated dialysis yesterday
Status post thoracentesis
BP stable
Shortness of breath improved
Review of Systems:
No chest pain or shortness of breath
Labs
-
Labs:
WBC 6.1 10^3/uL (4.8-10.8) 01/02/24 03:54
RBC 3.89 10^6/uL (4.70-6.10) L 01/02/24 03:54
Hgb 11.6 g/dL (13.0-18.0) L 01/02/24 03:54
Hct 35.9 % (39.0-52.0) L 01/02/24 03:54
Plt Count 177 10^3/uL (130-400) 01/02/24 03:54
Sodium 140 mmol/L (135-145) 01/03/24 03:54
Potassium 3.5 mmol/L (3.5-5.1) 01/03/24 03:54
Chloride 101 mmol/L (98-107) 01/03/24 03:54
Carbon Dioxide 26 mmol/L (22-30) 01/03/24 03:54
BUN 29 mg/dl (9-20) H 01/03/24 03:54
Creatinine 3.9 mg/dL (0.7-1.3) H 01/03/24 03:54
eGFR 14.59 01/03/24 03:54
Glucose 56 mg/dl (70-99) L 01/03/24 03:54
Calcium 8.4 mg/dl (8.4-10.2) 01/03/24 03:54
Isu-F-Lrutihskbmh Pept > 08780 pg/ml 01/01/24 13:46
Albumin 3.7 g/dl (3.5-5.0) 01/02/24 03:53
Physical Exam
-
Vital Signs:
Vital Signs
Temp Pulse Resp BP Pulse Ox
97.6 F 109 20 120/84 97
01/03/24 07:04 01/03/24 08:00 01/03/24 07:04 01/03/24 07:06 01/03/24 08:25
Cardiovascular:: Regular rate and rhythm
Lung Excursion:: Normal
Abdomen:: Nontender
Bowel Sounds:: Normal
Extremity Edema:: None: Bilateral:
[2024-01-03 10:56] LABS: Glucose - Point of Care 180 mg/dl (70-99)
[2024-01-03] MEDS: NOVOLOG FLEXPEN-LOW RESISTANCE 3 UNITS SC (12:23)
[2024-01-03 12:24] LABS: Glucose - Point of Care 268 mg/dl (70-99)
--- NOTE | 2024-01-03 12:25 | PTCARENOTE ---
I entered the patient's room to see if he had ordered lunch so I could check his BSG. I found the patient eating a grilled sandwich from [email or web address]. I asked him to please alert me before he eats so I can check his sugar. He happily agreed to do just that.
While I was getting his BSG, I tried to him educate him on his 2gm Na, 2 Gm K diet. I explained to him that his ABDI sandwich was a high in sodium food and could contribute to fluid overload. His interrupted me and stated in an irate tone,
'he's here for his heart and kidney's!' I tried to explain to her how sodium effects both the heart and kidneys and she interrupted me again and angrily said 'we don't eat like this everyday!' I told her that I was only trying to help educated them
on his diet and she snapped, 'I'm educated! I'm just as educated as you!'
--- NOTE | 2024-01-03 14:44 | PTCARENOTE ---
11 beat run of VT noted on the monitor. The patient is asymptomatic. Notified Dr. Hernandez.
--- NOTE | 2024-01-03 15:19 | PTCARENOTE ---
The patient asked for more water. His oral intake is at 1020 ml so far this shift. His brought him in a 16oz coffee from [facility] this afternoon and he drank the whole cup. I told him where he was in in oral intake totals and offered him ice chips
instead. He understood and accepted the ice chips.
[2024-01-03 16:44] LABS: Glucose - Point of Care 147 mg/dl (70-99)
[2024-01-03] MEDS: ZETIA 10 MG PO (18:02)
[2024-01-03] MEDS: CRESTOR 10 MG PO (18:02)
--- NOTE | 2024-01-03 20:34 | PTCARENOTE ---
Pt received start of shift, HR afib. Doppler b/l dorsalis pedis pulse. Bruit/thrill present in L arm fistula. Reinforced HF education w/ pt especially pertaining to fluid restriction, sodium restriction, and daily weight. Pt states understanding but
will need further reinforcement. Updated pt on plan of care.
[2024-01-03 22:18] LABS: Glucose - Point of Care 115 mg/dl (70-99)
[2024-01-04] VITALS (22 sets, daily range): BP systolic 73–121; BP diastolic 38–98; BMI 21.6
[2024-01-04 03:08] LABS: Glucose - Point of Care 83 mg/dl (70-99)
[2024-01-04 06:53] LABS: Glucose - Point of Care 74 mg/dl (70-99)
--- NOTE | 2024-01-04 07:30 | W.PN.CARDCBS ---
Addendum entered and electronically signed by Alvaro Winn MD 01/04/24 10:09:
83-year-old man on hemodialysis since April 2023, ischemic cardiomyopathy with EF 20-25% June 2023, admitted now with acute on chronic HFrEF after missing hemodialysis.
PMH: CAD, circumflex PCI 2018, complex LAD disease managed medically, EF 24%, permanent A-fib, cerebrovascular disease status post unsuccessful left carotid stent, history of CVA, PAD with limb threatening ischemia of the right lower extremity
treated with BONDED [employer] REPAIRER/stent right SFA and lithotripsy of right TP trunk, hypertension, hyperlipidemia, anemia, diabetes
Allergies: Amiodarone, ibuprofen
Outpatient meds: Apixaban, Plavix, ezetimibe, insulin, metoprolol ER 25, rosuvastatin 40, Tradjenta,, Simbrinza eyedrops
ROS: Negative except as above
109/58, pulse 81, respiratory 20, afebrile, sats 100%'s, no distress, reading a book on the third right, head neck exam unremarkable, rales in right base, neck veins up moderately, irregular rate and rhythm, aortic stenosis and MR murmur, abdomen
benign, extremities without much edema
ECG: A-fib, LVH, left axis deviation, possible lateral ischemia
Assessment:
Presented with SOB
Acute on chronic HFrEF
Nonischemic myocardial injury
CAD with prior left circumflex stenting in 2018, residual complex proximal LAD disease, medically managed
Ischemic cardiomyopathy with a EF 20 to 25% by most recent echo
Permanent atrial fibrillation
Chronic anticoagulation with Eliquis
Bilateral carotid artery disease status post unsuccessful left carotid stent placement
History of CVA/TIA x 3
ESRD on HD MWF starting 04/2023
PAD with critical limb threatening ischemia of right lower extremity status post balloon angioplasty and stenting of R SFA, intravascular lithotripsy of right tibioperoneal trunk stenosis 04/2023
Hypertension
LVH
Hyperlipidemia
Insulin-dependent diabetes
Anemia of chronic disease
Plan:
Stable cardiac status.
He has aortic stenosis and mitral regurgitation. Last echo in June. His murmur sounds as if mitral regurgitation may have progressed. Will check echo prior to discharge.
The major challenge is achieving adequate dialysis to dry weight in the setting of hypotension. Defer to nephrology in this regard.
Would not recommend any changes and admission medications at the time of discharge from cardiac standpoint.
Cardiac follow-up arranged, we will sign off, please call if questions
Original Note:
Today's Communication / Plan
-
For HD today
Continue Toprol 25mg daily
Brief run of NSVT noted on telemetry. Await AM labs.
Resume Eliquis 2.5mg BID
Follow up arranged.
Impression / Plan
-
Primary Shoulder Boner: Dr. Hernandez
Assessment:
Presented with SOB
Acute on chronic HFrEF
Nonischemic myocardial injury
CAD with prior left circumflex stenting in 2018, residual complex proximal LAD disease, medically managed
Ischemic cardiomyopathy with a EF 20 to 25% by most recent echo
Permanent atrial fibrillation
Chronic anticoagulation with Eliquis
Bilateral carotid artery disease status post unsuccessful left carotid stent placement
History of CVA/TIA x 3
ESRD on HD MWF starting 04/2023
PAD with critical limb threatening ischemia of right lower extremity status post balloon angioplasty and stenting of R SFA, intravascular lithotripsy of right tibioperoneal trunk stenosis 04/2023
Hypertension
LVH
Hyperlipidemia
Insulin-dependent diabetes
Anemia of chronic disease
ECHO 07/16/23: EF 24%, global hypokinesis, mild concentric LVH, MAC, mild to moderate MR, possible low-grade moderate aortic stenosis, peak/mean gradients 9/5 mmHg, MT 1.2 cm�, mild AR, mild to moderate TR, PAP 42 mmHg, severely dilated right
atrium, aortic root mildly dilated 4.1 cm
Plan:
-Presented with worsening SOB over the past few days. ProBNP > 27,000.
-R pleural effusion noted on CXR. s/p thoracentesis 11/18 with 1100 cc removed.
-Volume management per nephrology. IV lasix stopped. For HD today, 01/03.
-Weight down to 138 lbs 01/03, continue to follow.
-Permanent atrial fibrillation noted. Remains rate controlled on review of telemetry. 11 beat run of NSVT noted. Asymptomatic.
-Continue Toprol 25mg daily. BP stable.
-Eliquis 2.5mg BID on hold, would resume today.
-Elevated troponin noted, flat at 0.07. Suspect nonischemic myocardial injury.
-Echo 06/2023 with EF 24%, mild-mod MR, mod
-Cardiology follow up arranged.
HPI: Patient is an 83 yo M with PMH of hypertension, hyperlipidemia, insulin-dependent diabetes, CAD with prior LCx stenting in 2017, ischemic cardiomyopathy with EF 20 to 25%, permanent afib on chronic eliquis, bilateral carotid artery disease
status post unsuccessful left carotid stent placement, history of TIAs. HD started during admission 04/2023, on MWF schedule. He still makes some urine. Is not on diuretic as OP. He reports starting he noted SOB which has since progressed.
He missed HD yesterday due to feeling poorly. Upon arrival to ER noted to have proBNP >85044 and CXR with R pleural effusion. Cardiology consulted for evaluation.
Progress Note - Shoulder Boner
Subjective
Date of Service: January 04, 2024
Feeling well. No SOB. No edema
Objective
Labs:
Labs
Hgb 11.6 g/dL (13.0-18.0) L 01/02/24 03:54
Hct 35.9 % (39.0-52.0) L 01/02/24 03:54
Plt Count 177 10^3/uL (130-400) 01/02/24 03:54
Sodium 140 mmol/L (135-145) 01/03/24 03:54
Potassium 3.5 mmol/L (3.5-5.1) 01/03/24 03:54
BUN 29 mg/dl (9-20) H 01/03/24 03:54
Creatinine 3.9 mg/dL (0.7-1.3) H 01/03/24 03:54
Glucose 56 mg/dl (70-99) L 01/03/24 03:54
Troponins
01/01/24 01/01/24 01/02/24
13:46 20:27 03:53
Troponin I 0.064 H* 0.071 H* 0.069 H*
Vital Signs and I&O:
Vital Signs
Temp Pulse Resp BP Pulse Ox
96.8 F L 82 20 108/61 100
01/04/24 06:47 01/04/24 05:00 01/04/24 06:47 01/04/24 03:05 01/04/24 06:47
Vital Signs
Temp Pulse Resp BP Pulse Ox
96.8 F L 82 20 108/61 100
01/04/24 06:47 01/04/24 05:00 01/04/24 06:47 01/04/24 03:05 01/04/24 06:47
Intake & Output
01/02/24 01/03/24 01/04/24 01/05/24
06:59 06:59 06:59 06:59
Intake Total 480 / 480 1380 / 1380
Output Total 450 / 450 100 / 100
Balance 30 / 30 1280 / 1280
Physical Exam
Physical Exam
GEN: No distress, awake, alert, oriented x3
HEENT: supple, anicteric, mmm
LUNGS: CTA b/l, no wheezes/rales
CV: Reg, S1/S2, 1/6 syst murmur
EXT: No clubbing, cyanosis, or edema
NEURO: Gross non-focal
SKIN: Warm, dry, no rash
--- NOTE | 2024-01-04 08:43 | W.PN.HOSP.TC ---
Today's Communication/Plan
-
Discharge planning today
Assessment / Plan
Assessment / Plan
Gen: NAD, AAOx3, appears chronically ill.
Eyes: EOMI, PERRLA, no scleral icterus.
Neck: supple.
CV: remains irreg/irreg, +S1/S2, no m/r/g.
Resp: rales in the R base
Abd: +BS, soft, NT, ND
Skin: No rashes.
Neuro: remains CN 2-12 intact, non-focal.
Psych: Normal mood and affect.
CXR:
1. Moderate right pleural effusion, new compared to prior chest x-ray.
2. Right lower lobe airspace disease may also be present.
3. Mild pulmonary vascular congestion.
Acute on Chronic HFrEF with Right Pleural Effusion
-s/p R thoracentesis for 1100cc, transudative
-Cardiology following
-Echo June 2023: Severely reduced EF 25%.
-Discontinued Lasix 80mg IV Daily (makes urine). Plan for hemodialysis today. Cardiology signed off. Asked RN to have PT work with him today. Plan to discharge after hemodialysis.
-Monitor Is&Os and Daily Weights (wt down ~5Kg)
Elevated Troponin which is Non-Ischemic Myocardial Injury vs Chronic Troponin Elevation in the setting of ESRD
-Continue to trend
ESRD on HD MoWeFr
-Nephrology following for HD
ASCVD s/p Cardiac Stents, Right SFA Stent
-Continue Plavix
Permanent Atrial Fibrillation
-Continue Eliquis
Essential Hypertension
-Continue Toprol XL
Hyperlipidemia
-Continue Zetia
Diabetes Mellitus, Type II
-Continue Lantus and Tradjenta
-Monitor sugars and continue coverage insulin
Anemia of Chronic Disease
-Hgb stable
Hx Colon Cancer s/p Hemicolectomy
FULL/Eliquis
Anticipated Discharge: Today
Subjective/Interval History
-
Date of Service: January 04, 2024
No new complaints today. Blood pressure stable. No shortness of breath
Objective Data
-
Labs:
Laboratory Results
01/04/24
07:00
Hgb Pending
Hct Pending
Sodium Pending
Potassium Pending
Chloride Pending
Carbon Dioxide Pending
Vital Signs:
Vital Signs
Temp Pulse Resp BP Pulse Ox
96.8 F L 81 20 109/58 100
01/04/24 06:47 01/04/24 07:00 01/04/24 06:47 01/04/24 06:50 01/04/24 06:50
I&O
01/03/24 01/04/24 01/05/24
06:59 06:59 06:59
Intake Total 1380 / 1380
Output Total 100 / 100
Balance 1280 / 1280
[2024-01-04] MEDS: NOVOLOG FLEXPEN-LOW RESISTANCE SC ×3 (08:54→17:11)
[2024-01-04] MEDS: LANTUS 0.3 UNITS SC (08:55)
--- NOTE | 2024-01-04 11:19 | W.DCSUMMARY ---
Discharge Summary
Discharge Data
Date of Admission: 01/01/24
Date of Discharge: 01/04/24
-
Pending Results: No
Hospital Course
Patient 83 years old male history hypertension, hyperlipidemia, diabetes mellitus, CAD, CHF, A-fib, PVD, end-stage renal disease on hemodialysis, came into the hospital having difficulty breathing and found to be in heart failure. Patient had
evidence of CHF with BNP over 27,000 and chest x-ray with right pleural effusion. He still makes urine and he was started on IV diuretics. Cardiology consulted. Nephrology consulted as well. He was diuresed aggressively throughout this hospital
stay. His weight upon admission was 67.4 kg and weight upon discharge is 62.5 kg. Diuresis has been discontinued. Cardiology recommended to continue his home regimen. Nephrology is doing hemodialysis prior to discharge today. He has been
participating with physical therapy and Occupational Therapy who recommended home health and case management will arrange. Otherwise, patient feels back to his baseline. He did have low blood pressure during hemodialysis today and nephrology
recommends to use midodrine 5 mg on Thursday moving forward. He will be discharged in stable condition today.
Discharge duration: 35 minutes
Discharge Plan
-
Patient Disposition: Home with Home Care
Discharge Diagnosis/Procedures: Acute on chronic systolic congestive heart failure. Nonischemic myocardial injury. Aortic stenosis. Mitral regurgitation. Permanent atrial fibrillation. History of coronary artery disease. End-stage renal
disease on hemodialysis. Peripheral vascular disease.
Diet: Low Cholesterol, Low Sodium and Restrict fluids to 48 oz
Blood Work: Please PCP to order CBC, BMP within 1 week
Specialty Instructions: Weigh Daily- Call MD for wt gain/loss 3 lbs overnight/5 lbs in 1 week
Instructions: *[facility] Heart Failure Instructions
Referrals:
[facility] [Outside] (FAX [phone])
Modesta Howe PA-C [Specified Professional Personl] - 01/12/24 1:40 pm (You have a follow up visit with Dr. Hernandez's Modesta CISNEROS, at the [facility]. Please call with questions. )
Marce López CRNP [Family Provider] - in less than 1 week
Efraín Hu MD [Active] - in two to three weeks
Prescriptions:
New
midodrine 5 mg tablet
5 mg PO .[facility] Qty: 12 0RF
Continued
Tradjenta 5 MG tablet
5 mg PO DAILY
metoprolol succinate [Toprol XL] 25 mg Tablet Extended Release 24 Hr
25 mg PO DAILY
ezetimibe [Zetia] 10 mg Tablet
10 mg PO QPM
rosuvastatin [Crestor] 40 mg Tablet
40 mg PO QPM
Simbrinza 1-0.2 % Drops,Suspension
1 drp RIGHT EYE QPM
insulin glargine [Lantus Solostar U-100 Insulin] 100 unit/mL (3 mL) insulin pen
30 unit SC DAILY
clopidogrel 75 MG tablet
75 mg PO DAILY Qty: 0 0RF
latanoprost (PF) 0.005 % Dropperette
1 drp BOTH EYES HS
Eliquis 2.5 mg Tablet
2.5 mg PO BID
Discharge Orders:
Discharge Patient (As Directed); Ordered 01/04/24
Ordered By: Denny Granados
Care Plan Goals
Care Plan Goals:
Problem: Readiness for enhanced knowledge related to diagnosis and treatment plan
Goal: Understand your diagnosis and treatment plan needs, including medications if applicable.
Instructions: Know your diagnosis, underlying causes and treatment plan options, including medications if applicable. Consult with your health care team to learn about your diagnosis and treatment plan, including medications if applicable.
Discharge Date and Time
Discharge Date/Time: 01/04/24 18:21
Print Language: MONTENEGRIN
--- NOTE | 2024-01-04 11:22 | CM ---
Chart reviewed. Patient is independent of ADLS, lives with his in a [address] [facility], ambulates with a RW. Patient is ESRD getting HD M/W/F. Patient is not current with VN, but is interested in VN. Referral sent to [facility]. Plan is for the
[facility].
[2024-01-04 12:49] LABS: Glucose - Point of Care 68 mg/dl (70-99)
--- NOTE | 2024-01-04 12:49 | PTCARENOTE ---
Pt blood glucose 68. Pt eating his lunch, Will monitor.
[2024-01-04] MEDS: HEPARIN 500 UNITS IV ×2 (12:55→13:55)
[2024-01-04 13:12] LABS: Hemoglobin 12.3 g/dL (13.0-18.0)
[2024-01-04] MEDS: FLEXBUMIN 25% FOR HEMODIALYSIS 12.5 GRAMS IV ×2 (13:20→14:55)
[2024-01-04 13:25] LABS: Carbon Dioxide 23 mmol/L (22-30); Chloride 100 mmol/L (98-107); Potassium 3.8 mmol/L (3.5-5.1); Sodium 140 mmol/L (135-145)
[2024-01-04] MEDS: MANNITOL 25% 12.5 GRAMS IV ×2 (13:28→14:59)
[2024-01-04] MEDS: ProAmatine 5 MG PO (14:14)
[2024-01-04] MEDS: TOPROL XL PO (14:33)
--- NOTE | 2024-01-04 14:49 | W.PN.NEPH.HD ---
Assessment
-
pt seen during HD
BP low and difficult to do UF
midodrine given
likely today wt could be new DW
suspect he will likely need midodrine with HDs -start at d/c midodrine 5mg MWF
echo noted no changes from June
CVC functions well
seem AVF not used yet
Progress Note - Hemodialysis
-
Date of Service: January 04, 2024
Duration: 30 minutes and 3 hours
Potassium Bath: 3
Calcium Bath: 2.5
Opti-Dialyzer: 160
Ultrafiltration: Other (0.5-1kg)
Blood Flow: 400
Dialysate Flow: 600
Heparin: yesx2
EPO: no
[2024-01-04 16:14] LABS: Glucose - Point of Care 72 mg/dl (70-99)
[2024-01-04] MEDS: HEPARIN 4100 UNITS INTRACATH (16:21)
[2024-01-04] MEDS: JANUVIA 25 MG PO (17:12)
[2024-01-04] MEDS: ZETIA 10 MG PO (17:13)
[2024-01-04] MEDS: CRESTOR 10 MG PO (17:13)
[2024-01-04] MEDS: PLAVIX 75 MG PO (17:13)
--- NOTE | 2024-01-04 17:37 | PTCARENOTE ---
Discussed VN w/ pt and pt's . Pt's refused VN. Nothing faxed to VN. Pt for d/c.
--- NOTE | 2024-01-05 09:33 | W.HF.CON ---
Heart Failure
- LV Function
Left ventricular function study result: LV Ejection fraction </= 35%
Ejection Fraction Percentage: 20-25
- ARNI
Patient already on ARNI: No
Heart Failure ARNI Contraindication: End Stage Renal Disease, Hypotension
- ACEI/ARB
Patient already on ACEI/ARB: No
Heart Failure ACEI/ARB Contraindication: End Stage Renal Disease, Hypotension
- Beta Concepción
Patient already on Evidence Based Beta Concepción: Yes
- Mineralocorticord Receptor Antagonist
Patient already on MRA: No
Heart Failure MRA Contraindication: Cr > 2.5 in Men, Hypotension
- SGLT-2 Inhibitor
Patient already on SGLT-2 Inhibitor: No
Heart Failure SGLT-2 Inhibitor Contraindication: Patient currently on Dialysis
- Afib Anticoagulation
Patient already on Anticoagulation for Afib: Yes
- NYHA CHF Classification
NYHA CHF Classification Level: Class III - Symptoms w/ min exertion, interferes w/ nml daily activity
- ACC/AHA Stage
ACC/AHA Stage: Stage C: Symptomatic Heart Failure
== END 2024-01-04 18:21 | disposition home health service (06) | DRG 291 ==
LOC: IVU 17:42
PROVIDERS: Physician Assistant; Physician Assistant Medical; Radiology Vascular & Interventional Radiology; Registered Nurse; ADMITTING PHYSICIAN Hospitalist; ATTENDING PHYSICIAN Hospitalist; CONSULT PHYSICIAN Specialist; EMERGENCY PHYSICIAN Emergency Medicine; FAMILY PHYSICIAN Nurse Practitioner Family; OTHER PHYSICIAN Internal Medicine Cardiovascular Disease
PROC: 0W993ZX Drainage of Right Pleural Cavity, Percutaneous Approach, Diagnostic (ICD-10-PCS; 2024-01-02)
PROC: 5A1D70Z Performance of Urinary Filtration, Intermittent, Less than 6 Hours Per Day (ICD-10-PCS; 2024-01-02)
DX: I13.2 Hypertensive heart and chronic kidney disease with heart failure and with stage 5 chronic kidney disease, or end stage renal disease (principal); I50.23 Acute on chronic systolic (congestive) heart failure; N18.6 End stage renal disease; I48.21 Permanent atrial fibrillation; D63.8 Anemia in other chronic diseases classified elsewhere; E11.22 Type 2 diabetes mellitus with diabetic chronic kidney disease; E11.51 Type 2 diabetes mellitus with diabetic peripheral angiopathy without gangrene; I65.23 Occlusion and stenosis of bilateral carotid arteries; I70.221 Atherosclerosis of native arteries of extremities with rest pain, right leg; I08.0 Rheumatic disorders of both mitral and aortic valves; I95.3 Hypotension of hemodialysis; I5A Non-ischemic myocardial injury (non-traumatic); Z79.01 Long term (current) use of anticoagulants; Z99.2 Dependence on renal dialysis; E78.00 Pure hypercholesterolemia, unspecified; I25.10 Atherosclerotic heart disease of native coronary artery without angina pectoris; I25.5 Ischemic cardiomyopathy; Z95.5 Presence of coronary angioplasty implant and graft; Z79.02 Long term (current) use of antithrombotics/antiplatelets; Z79.4 Long term (current) use of insulin; Z79.84 Long term (current) use of oral hypoglycemic drugs; Z79.899 Other long term (current) drug therapy; Z86.73 Personal history of transient ischemic attack (TIA), and cerebral infarction without residual deficits; Z86.79 Personal history of other diseases of the circulatory system; Z87.19 Personal history of other diseases of the digestive system; Z85.038 Personal history of other malignant neoplasm of large intestine; Z87.891 Personal history of nicotine dependence; Z90.49 Acquired absence of other specified parts of digestive tract
CPT/HCPCS: 88305; 32555; 71045; 71046; 80048; 80051; 80053; 82150; 82248; 82945; 82962; 83036; 83615; 83735; 83880; 83986; 84157; 84478; 84484; 85014; 85018; 85025; 85027; 87015; 87070; 87205; 88112; 89051; 93005; 93306; 96374; 97163; 97166; 99285; G0257; P9047

== ENCOUNTER 2024-01-09 21:41 | Inpatient (IN) | payer MEDICARE, OTHER, SELFPAY ==
[2024-01-09 18:52] VITALS: BP 125/80
[2024-01-09 19:31] VITALS: BP 127/76
[2024-01-09 20:00] VITALS: BP 133/100
[2024-01-09 20:06] LABS: % Basophils 0.6 % (0-2); % Eosinophils 0.6 % (0-6); % Immature Granulocytes 0.3 % (0-0.5); % Lymphocytes 6.1 % (20.5-51.1); % Monocytes 6.4 % (1.7-9.3); Absolute Lymphocytes 0.4 10^3/uL (1.2-3.4); Absolute Monocytes 0.4 10^3/uL (0.1-0.6); Absolute Neutrophils 5.8 10^3/uL (1.4-6.5); Hematocrit 35.6 % (39.0-52.0); Hemoglobin 11.5 g/dL (13.0-18.0); Mean Corp Hgb Conc. 32.3 g/dL (33.0-37.0); Mean Corpuscular Hgb 30.7 pg (27.0-31.0); Mean Corpuscular Volume 94.9 fL (80.0-94.0); Mean Platelet Volume 10.9 fL (7.4-10.4); Nucleated Red Blood Cells % 0 % (-); Platelet Count 148 10^3/uL (130-400); Red Blood Cell Count 3.75 10^6/uL (4.70-6.10); Red Cell Dist. Width 15.5 % (11.5-14.5); White Blood Cell Count 6.7 10^3/uL (4.8-10.8)
[2024-01-09 20:49] LABS: Blood Urea Nitrogen 36 mg/dl (9-20); Calcium 8.5 mg/dl (8.4-10.2); Carbon Dioxide 25 mmol/L (22-30); Chloride 96 mmol/L (98-107); Glucose 199 mg/dl (70-99); Sodium 137 mmol/L (135-145); eGFR 12.97
[2024-01-09 20:50] LABS: NT-proBNP > 27000 pg/ml; Troponin I 0.323 ng/ml
--- NOTE | 2024-01-09 20:50 | ED.GENMED ---
History of Present Illness
General
Chief Complaint: Breathing Problem
Source: patient
Exam Limitations: none
Time Seen by Provider: 01/09/24 19:27
History of Present Illness
History of Present Illness:
This is a 83 year old male that comes in with c/o SOB. States that this started a couple of days ago and seems to have progressed. States that he had some chest pain but at this time it is gone. States that he did have diarrhea. Denies any fever,
chills, abd pain, nausea, vomiting, headache, dizziness. States that he does urinated about 4 times daily but very little.
Past History
Past History
ED Past Medical History: Arrthythmia (Atrial fib), Cancer (Colon cancer), CHF, CVA (Left sided slight weakness), HTN, Hypercholesterolemia, IDDM, VA, Renal failure (Dialysis M-W-) and Other (PVD, GI bleeding, Glaucoma, )
ED Past Surgical History: Bowel resection, Cardiac (Stent), Cholecystectomy, Orthopedic (left knee replacement), Tonsilectomy and Other (right leg stent, left arm fistula that is not finished)
Social History
Tobacco: Former smoker
Alcohol: Occasional
Personal:
Living: with family
Review of Systems
Review of Systems
All Other Systems: ROS reviewed and negative except as documented in HPI and ROS
Constitutional: Reports no symptoms; Denies fever or chills
EENT: Reports no symptoms
Respiratory: Reports trouble breathing; Denies cough
Cardiac: Reports chest pain
ABD/GI: Reports diarrhea; Denies abdominal pain, nausea or vomiting
: Reports no symptoms; Denies dysuria, frequency or urgency
Musculoskeletal: Reports no symptoms
Skin: Reports no symptoms
Neurological: Reports no symptoms; Denies dizzy or headache
Psychiatric: Reports no symptoms
Phy Exam
General Physical Exam
General Presentation: no apparent distress
General age: appears stated age
General Skin: warm and dry
General Habitus: elderly
General Mental: alert
General Hydration: appears well hydrated
ENT Exam
ENT Exam: TM's normal, pharynx normal and neck supple
Eye Exam
Eye Exam: EOMI
Cardiovascular Exam
Cardiovascular Exam: irregularly irregular
Pulmonary Exam
Pulmonary Exam: no rales, no crackles, no rhonchi, no wheezing, no cough and decreased breath sounds (Decreased breath sounds right base)
Gastrointestinal Exam
Gastrointestinal Exam: normal bowel sounds, non tender, soft, no organomegaly, no pulsatile mass and non distended
Musculoskeletal Exam
Musculoskeletal Exam: full ROM and no edema
Skin Exam
Skin Exam: normal color, warm/dry, no rash and no petechia
Psychiatric Exam
Psychiatric Exam: normal mood/affect
Scores
Heart Failure Risk
Heart Failure Risk Score: Not Applicable
Course
Orders/Labs/Results
Orders:
Orders
01/09/24 18:58
Electrocardiogram (*1) Urgent
Reason for Study: Shortness of Breath
EKG- Treatment ONCE
01/09/24 19:05
CR Chest - 2 Views Urgent
Comment:
Reason For Exam: SOB for 3 days. Recent thoracentesis 1 week ago
01/09/24 19:58
Basic Metabolic Panel Urgent
Complete Blood Count/With Diff Urgent
NT-proBNP Urgent
Troponin I Urgent
01/09/24 20:49
Comprehensive Metabolic Panel Urgent
Abnormal Lab Results
01/09/24
19:58
RBC 3.75 L 10^6/uL
(4.70-6.10)
Hgb 11.5 L g/dL
(13.0-18.0)
Hct 35.6 L %
(39.0-52.0)
MCV 94.9 H fL
(80.0-94.0)
MCHC 32.3 L g/dL
(33.0-37.0)
RDW 15.5 H %
(11.5-14.5)
MPV 10.9 H fL
(7.4-10.4)
Absolute Lymphs (auto) 0.4 L 10^3/uL
(1.2-3.4)
Neutrophils % 86.0 H %
(42.2-75.2)
Lymphocytes % 6.1 L %
(20.5-51.1)
Chloride 96 L mmol/L
(98-107)
BUN 36 H mg/dl
(9-20)
Creatinine 4.3 H* mg/dL
(0.7-1.3)
Glucose 199 H mg/dl
(70-99)
01/09/24 19:58
01/09/24 19:58
H/H slightly low. chloride slightly low. Chronic renal failure. hyperglycemia. Troponin 0.323, Pro-BNP >27,000
Vital Signs
Initial and Last Documented VS:
Initial Vital Signs
Temp Pulse Resp BP Pulse Ox
97.8 F 119 18 125/80 98
01/09/24 18:52 01/09/24 18:52 01/09/24 18:52 01/09/24 18:52 01/09/24 18:52
Last Documented Vital Signs
Temp Pulse Resp BP Pulse Ox
97.8 F 107 21 127/76 98
01/09/24 18:52 01/09/24 19:32 01/09/24 19:32 01/09/24 19:31 01/09/24 18:52
MDM/Problems Addressed
Differential Diagnosis Includes:
Pleural effusion, Coronary syndrome
MDM/Problems Addressed:
This is a 83 year old male that comes in with c/o chest pain and SOB. States that this started a couple of days ago and that it has progressed. States that he thought he better come in.
Will check labs and get Chest x-ray.
back into see patient and . Explained that he has a right pleural effusion. Troponin elevation. Will admit. Hospitalist notified.
Chronic conditions affecting care: Kidney disease
Acute Exacerbation and/or Progression of Chronic Illness: Kidney disease
*Radiology
Radiology exam reviewed: radiology read reviewed (Chest-increased small right pleural effusion with adjacent atelectasis. )
*EKG
Interpreted by ED Provider?: Yes
Heart Rate: 103
Rate: tachycardiac
Rhythm: a-fib
[place]ighton: left axis deviation
QRS Pattern: normal QRS
Ischemia: no ischemia
*Food Service Counter Clerk Interpretation
Rate: normal
Heart Rate: 96
Rhythm: a-fib
*Critical Care Note
Total Time (30-74mins, 75-104mins- exclusive of procedures): Not Applicable
ED Attending Note
-
Portions of this chart may have been created with voice recognition software.� Occasional wrong word or��sound alike� substitutions may have occurred due to the inherent limitations of voice recognition software.
Discharge Plan
Departure
Patient Disposition: Admit
Date of Disposition: 01/09/24
Time of Disposition: 21:14
Admit to: Telemetry
Presentation/result/management discussed w/ accepting MD/DO: Hospitalist
Patient with high blood pressure during this ER visit?: No
Condition: Good
Covid-19: Not Applicable
Discharge Problem:
Chest pain, Pleural effusion on right
Prescriptions:
No Action
Tradjenta 5 MG tablet
5 mg PO DAILY
metoprolol succinate [Toprol XL] 25 mg Tablet Extended Release 24 Hr
25 mg PO DAILY
ezetimibe [Zetia] 10 mg Tablet
10 mg PO QPM
rosuvastatin [Crestor] 40 mg Tablet
40 mg PO QPM
Simbrinza 1-0.2 % Drops,Suspension
1 drp RIGHT EYE QPM
insulin glargine [Lantus Solostar U-100 Insulin] 100 unit/mL (3 mL) insulin pen
30 unit SC DAILY
clopidogrel 75 MG tablet
75 mg PO DAILY Qty: 0 0RF
latanoprost (PF) 0.005 % Dropperette
1 drp BOTH EYES HS
Eliquis 2.5 mg Tablet
2.5 mg PO BID
midodrine 5 mg tablet
5 mg PO .MWF Qty: 12 0RF
Interventions
Interventions:
*Risk Screen - Suicide Last Done: 01/09/24 18:52
*General Assessment Last Done: 01/09/24 18:52
*Neglect/Abuse Screening Last Done: 01/09/24 18:52
*ED COVID-19 Vaccine History Last Done: 01/09/24 20:23
ED- Cardiac Assessment Last Done: 01/09/24 20:22
ED- Pulmonary Assessment Last Done: 01/09/24 20:22
Discharge Date and Time
Print Language: ECUADOREAN
--- NOTE | 2024-01-09 20:59 | HPS.HSE ---
Family Physician
-
Family Physician:
Chief Complaint
-
sob
History of Present Illness
83 year old male with PMH for chronic A-fib, type 2 diabetes, congestive heart failure, end-stage renal disease, CVA presented to us with shortness of breath which is worse with exertion for past 3 days. Patient also complained of mid sternal
chest pain. Patient complained of orthopnea. Denied fever, chills, runny nose, congestion, cough. Denied headache, dizziness, syncopal episode. Patient denied abdominal pain, nausea, vomiting diarrhea. Patient denied dysuria hematuria. Patient
denied any lower extremities edema or weight gain. Patient makes very little urine output.
as per , he did not get full session dialysis yesterday as he was having itching all over.
Upon arrival noted to have pleural effusion. Bumex, metolazone given in ER. Admitted for further management
Medical History
Past Medical History
Past Medical History: Reports Other
Additional Past Medical History:
Gangrene of right foot
Sacral decub
Chronic A-fib
Type 2 diabetes
Diastolic congestive heart failure
End-stage renal disease
CVA
Colon cancer
Hypertension
Hyperlipidemia
MRI
Glaucoma
Past Surgical History: Reports Other
Additional Past Surgical History:
Left varicocelectomy
Colon cancer oh removal
Tonsillectomy
Bilateral cataract surgery
Right glaucoma surgery
Total knee
Right great toe amputation
Left arm AV fistula
Social History
Tobacco: Non-smoker
Alcohol: None
Drug: None
Personal:
Living: With Family
Family History
Family History: Not pertinent
Allergies / Home Medications
Allergies reflects when Allergies were last updated in [place] [facility].
Home Medications with original date entered in [place] [facility]
Allergy/Medication List:
Allergies
Allergy/AdvReac Type Severity Reaction Status Date / Time
amiodarone Allergy Renal Verified 01/01/24 12:35
Failure
ibuprofen Allergy chest pain Verified 01/01/24 12:35
Home Medications
linagliptin 5 mg tablet (Tradjenta) 5 mg PO DAILY Diabetes 06/15/17
brinzolamide 1 %-brimonidine 0.2 % eye drops,suspension (Simbrinza) 1 drp RIGHT EYE QPM Eye Condition 04/21/23
ezetimibe 10 mg tablet (Zetia) 10 mg PO QPM High Cholesterol 04/21/23
metoprolol succinate 25 mg tablet,extended release 24 hr (Toprol XL) 25 mg PO DAILY Blood Pressure 04/21/23
rosuvastatin 40 mg tablet (Crestor) 40 mg PO QPM High Cholesterol 04/21/23
insulin glargine 100 unit/mL (3 mL) subcutaneous pen (Lantus Solostar U-100 Insulin) 30 unit SC DAILY Diabetes 05/18/23
clopidogrel 75 mg tablet 75 mg PO DAILY Heart disease/condition ##0 05/21/23
latanoprost (PF) 0.005 % eye drops in a dropperette 1 drp BOTH EYES HS Eye Condition 10/16/23
apixaban 2.5 mg tablet (Eliquis) 2.5 mg PO BID Blood Clot Prevention/Tx 01/01/24
midodrine 5 mg tablet 5 mg PO .MWF #12 tabs 01/04/24
Review of Systems
-
Constitutional: Reports No Symptoms
EENT: Reports No Symptoms
Respiratory: Reports Trouble Breathing
Cardiac: Reports Chest Pain
Abdomen/GI: Reports No Symptoms
: Reports No Symptoms
Musculoskeletal: Reports No Symptoms
Skin: Reports No Symptoms
Neurological: Reports No Symptoms
Endocrine: Reports No Symptoms
Hematologic/Lymphatic: Reports No Symptoms
Psych: Reports No Symptoms
Physical Exam
Vital Signs
Vital Signs
Temp Pulse Resp BP Pulse Ox
97.8 F 107 21 127/76 98
01/09/24 18:52 01/09/24 19:32 01/09/24 19:32 01/09/24 19:31 01/09/24 18:52
Physical Exam
General: Well Developed, Well Nourished and No Apparent Distress
HEENT: NormoCephalic, Moist mucous membranes and Atraumatic
Respiratory: Clear
Cardiac: S1/S2 and Regular Rhythm; No Murmur or Rub
GI: Soft, Non Tender, Non Distended and Normal Bowel Sounds; No Organomegaly
Rectal: Deferred by Provider
Musculoskeletal: No Clubbing, No Cyanosis and No Edema
Skin: No Rash
Neuro: AO x 3 and Nonfocal/grossly intact
Psych: Calm
Laboratory Results
-
01/09/24 19:58
Laboratory Results
Total Bilirubin Cancelled 01/09/24 19:58
AST Cancelled 01/09/24 19:58
ALT Cancelled 01/09/24 19:58
Alkaline Phosphatase Cancelled 01/09/24 19:58
Troponin I 0.323 ng/ml H* 01/09/24 19:58
Data Reviewed
-
Diagnostic Radiology: Report Reviewed by me
Lab Data: Labs Reviewed by me
Impression/Plan
-
#right pleural effusion/CHF exacerbation
-BNP greater than 27,000
-Chest x-ray with impression of Increased small right pleural effusion with adjacent atelectasis.
-Bumex and Metolazone given in ER
-Continue Bumex 4 mg twice a day
-Strict TASHI, daily weight
-Fluid restriction continued
-Patient had Toradol previous admission, impression of 1100 cc
--Echo June 2023: Severely reduced EF 25%.
# Atrial for with rapid response
-Heart rate in high 100
-Metoprolol continue with hold parameters
-Eliquis continued
#elevated trop likely demand ischemia
-Trend Trope
-EKG with A-fib with RVR
-Continue to monitor
# Anemia of chronic disease
-Hemoglobin 9.5
-No active bleeding
-Continue to monitor
#ESRD on HD MoWeFr
-Nephrology consulted
#ASCVD s/p Cardiac Stents, Right SFA Stent
-Continue Plavix
#type 2 Dm
-sliding scale
-CHO diet
-Lantus 20u at hs
#Hyperlipidemia
-Continue Zetia
-Statin continued
Hx Colon Cancer s/p Hemicolectomy
FULL/Eliquis
[2024-01-09 21:00] VITALS: BP 124/85
--- NOTE | 2024-01-09 21:49 | W.PN.UPDATE ---
Update Note
Progress Note Update
Patient seen in conjunction with CAIN. I agree with findings on history and physical as well as assessment and plan unless stated otherwise.
This is a 83-year-old male was past medical history of end-stage renal disease on hemodialysis Thursday, congestive heart failure, atrial fibrillation on anticoagulation with Eliquis, insulin-dependent diabetes and history of
recurrent right pleural effusion who presents to the emergency department with approximately 3 days of worsening shortness of breath and dyspnea on exertion. He reports orthopnea and dyspnea on exertion. He also reports chest discomfort that is
substernal that was persistent for 7 to 8 hours but now resolved. Not particularly associated with exertion. Patient reported that he was dialyzed last yesterday but the session was discontinued 2 3 hours due to itching. He was seen at urgent
care and was discharged home. He continued to have persistent shortness of breath so decided to come to the emergency department. No cough fevers or chills. He denies any increased lower extremity swelling. He has mild chest discomfort. Denies
any cough.
In the emergency department he was afebrile, blood pressure was 127/76 with a pulse of 107, he was satting 98% on room air. ECG shows atrial fibrillation at a rate of 103, CBC was unchanged from prior without leukocytosis, hemoglobin was stable at
11.5 and a platelet count 148. His labs are essentially unchanged from prior with a creatinine of 4.3, troponin was 0.32. BNP remains elevated. Chest x-ray shows slight increase in the small pleural effusion with atelectasis but no overwhelming
pulmonary edema.
Exam shows no edema and no significant crackles.
Assessment and plan
1. SOB - Orthopnea/pnd. Some chest pressure now resolved. Slight increase in R pleural effusion and atelectasis. Mild edema. Does not appear more markedly overloaded but never shows significant peripheral edema. Overall picture suggestive of
CHF exacerbation. EF 25% on prior echo. Trop elevated but ECG is non-ischemic. Trop elevation possibly non ischemic w/ esrd and cardiomyopathy but higher than prior levels.
- admit to telemetry
- asa, plavix continued, trend enzymes, if rising, will start heparin gtt
- continue eliquis pending trop trend
- continue statin and metoprolol
- consult cardiology
- patient still makes urine, will diurese with bumex 4mg iv and metolazone now as BP is tolerant, continue bumex 4 iv bid as tolerated
- nephrology consult for possible early uf
- daily weights and i/o
2. DM II
- continue lantus with sliding scale insulin
- linaglipitin
3. AFIB - rates in the low 100 to 110s
- metoprolol succinate with hold parameters
- on eliquis for now
Code Status - Full Code
[2024-01-09] MEDS: ZAROXOLYN 5 MG PO (21:58)
[2024-01-09] MEDS: BUMEX 4 MG IV (22:00)
[2024-01-09 22:01] VITALS: BP 106/94
[2024-01-09 23:48] VITALS: BP 128/82; BMI 22.8
[2024-01-10 00:04] VITALS: BMI 22.8
[2024-01-10] MEDS: XALATAN OPHTHALMIC SOLUTION 1 DROP BOTH EYES ×2 (03:23→20:50)
[2024-01-10 03:25] VITALS: BP 122/72
[2024-01-10 05:46] LABS: Hematocrit 36.2 % (39.0-52.0); Hemoglobin 11.8 g/dL (13.0-18.0); Mean Corp Hgb Conc. 32.6 g/dL (33.0-37.0); Mean Corpuscular Hgb 30.3 pg (27.0-31.0); Mean Corpuscular Volume 92.8 fL (80.0-94.0); Mean Platelet Volume 10.5 fL (7.4-10.4); Platelet Count 162 10^3/uL (130-400); Red Cell Dist. Width 15.4 % (11.5-14.5); White Blood Cell Count 6.5 10^3/uL (4.8-10.8)
[2024-01-10 06:00] VITALS: BMI 22.7
[2024-01-10 06:10] LABS: ALT (SGPT) 56 U/L (0-50); AST (SGOT) 51 U/L (17-59); Albumin 4.3 g/dl (3.5-5.0); Alkaline Phosphatase 178 U/L (38-126); Blood Urea Nitrogen 38 mg/dl (9-20); Calcium 8.9 mg/dl (8.4-10.2); Carbon Dioxide 25 mmol/L (22-30); Chloride 97 mmol/L (98-107); Direct Bilirubin 0.7 mg/dl (0.0-0.4); Estimated Creatinine Clearance 11 ml/min; Glucose 152 mg/dl (70-99); HDL Cholesterol 61 mg/dl; LDL Cholesterol, Calculated 41 mg/dl; Magnesium 2.2 mg/dl (1.6-2.3); Potassium 4.5 mmol/L (3.5-5.1); Sodium 138 mmol/L (135-145); Total Bilirubin 1.9 mg/dl (0.2-1.3); Total Cholesterol 118 mg/dl (50-199); Total Protein 7.2 g/dl (6.3-8.2); Triglyceride 84 mg/dl (10-149); Very Low Density Lipoprotein 16 mg/dl (0-30); eGFR 11.96
[2024-01-10 06:23] LABS: Troponin I 0.633 ng/ml
--- NOTE | 2024-01-10 06:37 | PTCARENOTE ---
2330 pt admitted to 321, oriented to room and call pascal. Placed on tele #[id number], reviewed POC, pt verb understanding, admission assessment completed
[2024-01-10 07:11] LABS: TSH Reflex To Free T4 7.46 uIU/ml (0.47-4.68)
[2024-01-10 07:39] LABS: Free T4 1.28 ng/dl (0.78-2.19)
[2024-01-10 07:40] VITALS: BP 140/79
[2024-01-10 08:09] LABS: Glucose - Point of Care 141 mg/dl (70-99)
[2024-01-10] MEDS: JANUVIA 25 MG PO (08:43)
[2024-01-10] MEDS: TOPROL XL 25 MG PO (08:46)
[2024-01-10] MEDS: BUMEX 4 MG PO ×2 (08:46→16:17)
[2024-01-10] MEDS: ELIQUIS 2.5 MG PO ×2 (08:47→20:47)
[2024-01-10] MEDS: PLAVIX 75 MG PO (08:47)
[2024-01-10] MEDS: LANTUS 0.2 UNITS SC (08:47)
--- NOTE | 2024-01-10 09:05 | W.PN.HOSP.TC ---
Today's Communication/Plan
-
IV Bumex. Hemodialysis.
Assessment / Plan
Assessment / Plan
Physical exam:
General: Acute on chronically ill
HEENT: Normocephalic, Atraumatic and Moist Mucous Membranes
Respiratory: Bilateral crackles and decreased breath sounds at the bases more pronounced on the right side; Negative Wheezes or Rhonchi
Cardiac: Irregular rate and rhythm, tachycardic, and S1/S2
GI: Soft, Nontender and Nondistended
Musculoskeletal: No Clubbing, No Cyanosis. Bilateral edema on both lower extremities
Neuro: Awake, Alert and Oriented, no neurological deficits
Psych: Calm
A/P:
Acute on chronic systolic congestive heart failure:
Continue Bumex 4 mg twice a day
Monitor urine output since he still makes urine
Cardiology consult appreciated
Discussed with family at bedside today on 01/09
Permanent atrial fibrillation:
Rate uncontrolled
Beta-blockers doses increased by cardiology today
Continue Eliquis 2.5 mg twice a day
Continue cardiac monitoring
End-stage renal disease on hemodialysis:
He says hemodialysis had to be cut short because of pruritus
Nephrology consult
Hemodialysis per nephrology
Recurrent right pleural effusion:
Recheck chest x-ray after diuresis and hemodialysis
If persistent, might require repeat thoracentesis
Elevated troponin:
Non-OH elevated troponin
Cardiac monitoring
CAD:
Continue anti-ischemic regimen with antiplatelet and statins and beta blockers
Hypertension:
Continue usual meds
Hyperlipidemia:
Continue statin and Zetia
Diabetes mellitus:
Insulin sliding scale
Continue Lantus 20 units daily
DVT prophylaxis:
Eliquis
CODE STATUS:
Full code
Total time spent on today's encounter was 52 minutes which included time spent in counseling the patient/family regarding diagnosis and treatment plan as listed above, goals of care, and symptom management. Case was discussed with nursing staff,
specialists, and care coordinators/case management. All labs and imaging personally reviewed by me. Remainder the time spent in detailed review of previous records, lab data, imaging, and other medical provider documentation.
Anticipated Discharge: > 48 hours
Subjective/Interval History
-
Date of Service: January 10, 2024
Patient still having some shortness of breath. No chest pain. Afebrile
Objective Data
-
Labs:
Laboratory Results
01/09/24 01/10/24
20:49 05:26
WBC 6.5
Hgb 11.8 L
Hct 36.2 L
Plt Count 162
Sodium Cancelled 138
Potassium Cancelled 4.5
Chloride Cancelled 97 L
Carbon Dioxide Cancelled 25
BUN Cancelled 38 H
Creatinine Cancelled 4.6 H*
Glucose Cancelled 152 H
Calcium Cancelled 8.9
Total Bilirubin Cancelled 1.9 H
AST Cancelled 51
ALT Cancelled 56 H
Alkaline Phosphatase Cancelled 178 H
Vital Signs:
Vital Signs
Temp Pulse Resp BP Pulse Ox
98.2 F 125 22 140/79 99
01/10/24 07:40 01/10/24 08:46 01/10/24 07:40 01/10/24 08:46 01/10/24 07:40
I&O
01/09/24 01/10/24 01/11/24
06:59 06:59 06:59
Intake Total 240 / 240
Balance 240 / 240
[2024-01-10] MEDS: NOVOLOG FLEXPEN-LOW RESISTANCE SC (09:30)
--- NOTE | 2024-01-10 09:58 | W.CON.NEPH ---
Consultation
-
Date/Time Consultation Requested: 01/09/24 2323
Date/Time Consultation Performed: 01/10/24 0930
Requesting Provider: Gabriela Belcher
Performing Provider: Flori Steve
Reason for Consultation: ESRD
Medical History
-
Chief Complaint: sob
History of Present Illness:
Mr. Chicas is an 83 YOM with HTN, perm afib on BB for rate control and AC with Eliquis, T2DM on insulin, HFrEF with diastolic dysfunction ( EF20-25%), stroke on plavix. He has ESRD on hemodialysis Wednesdays and Fridays at the [facility]. He was just discharged on 01/03 after treating CHF and pleural effusion. Had thoracentesis of 1100cc and had dialysis with UF. He had soft BPs which was limiting UF hence midodrine added with HD. He reports having 3hr HD on Thursday
01/07 since he developed reaction to benadryl and was rushed to [facility]. He noticed worsening SOB over 3days and presented back to ER last night. CXR noted increasing pleural effusion on right side. HE also noted to be in Afib with RVR
too. Nephrology consulted for dialysis needs. he offers no resting sob currently, no cp. No n/v. He received diuretics in ER. No fever or cough. HIs AVF is not mature and need 2nd stage to done in Jan.
Past Medical History
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
Coronary Artery Disease s/p stent
Bilateral Carotid Artery Stenosis
Chronic HFrEF
Atrial Fibrillation
Essential Hypertension
Hyperlipidemia
Diabetes Mellitus
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
Colon Cancer
Right Nadja angiogram with balloon angioplasty and stenting of right superficial femoral artery stenosis for critical limb 04/2023
Past Surgical History: Other (Cholecystectomy Right Hemicolectomy Ventral Hernia Repair Lower Extremity Angioplasty )
Social History
Tobacco: Former Smoker
Alcohol: None
Drug: None
Personal:
Living: With Family
Family History
no CKD
Family History: Not Pertinent
Allergies / Home Medications
Allergy/AdvReac Type Severity Reaction Status Date / Time
amiodarone Allergy Renal Verified 01/01/24 12:35
Failure
ibuprofen Allergy chest pain Verified 01/01/24 12:35
�Medication �Instructions �Recorded �Confirmed �Type
linagliptin 5 mg tablet (Tradjenta) 5 mg PO DAILY Diabetes 06/15/17 01/09/24 History
brinzolamide 1 %-brimonidine 0.2 % 1 drp RIGHT EYE QPM Eye Condition 04/21/23 01/09/24 History
eye drops,suspension (Simbrinza)
ezetimibe 10 mg tablet (Zetia) 10 mg PO QPM High Cholesterol 04/21/23 01/09/24 History
metoprolol succinate 25 mg 25 mg PO DAILY Blood Pressure 04/21/23 01/09/24 History
tablet,extended release 24 hr
(Toprol XL)
rosuvastatin 40 mg tablet (Crestor) 40 mg PO QPM High Cholesterol 04/21/23 01/09/24 History
insulin glargine 100 unit/mL (3 30 unit SC DAILY Diabetes 05/18/23 01/09/24 History
mL) subcutaneous pen (Lantus
Solostar U-100 Insulin)
clopidogrel 75 mg tablet 75 mg PO DAILY Heart 05/21/23 01/09/24 Rx
disease/condition ##0
latanoprost (PF) 0.005 % eye drops 1 drp BOTH EYES HS Eye Condition 10/16/23 01/09/24 History
in a dropperette
apixaban 2.5 mg tablet (Eliquis) 2.5 mg PO BID Blood Clot 01/01/24 01/09/24 History
Prevention/Tx
midodrine 5 mg tablet 5 mg PO .MWF #12 tabs 01/04/24 01/09/24 Rx
Review of Systems
-
All complete 12 point ROS have been inquired and found negative other than stated in HPI
Physical Exam
Vital Signs
Vital Signs
Temp Pulse Resp BP Pulse Ox
98.2 F 125 22 140/79 99
01/10/24 07:40 01/10/24 08:46 01/10/24 07:40 01/10/24 08:46 01/10/24 07:40
Lab Results
WBC 6.5 10^3/uL (4.8-10.8) 01/10/24 05:26
RBC 3.90 10^6/uL (4.70-6.10) L 01/10/24 05:26
Hgb 11.8 g/dL (13.0-18.0) L 01/10/24 05:26
Hct 36.2 % (39.0-52.0) L 01/10/24 05:26
Plt Count 162 10^3/uL (130-400) 01/10/24 05:26
Sodium 138 mmol/L (135-145) 01/10/24 05:26
Potassium 4.5 mmol/L (3.5-5.1) 01/10/24 05:26
Chloride 97 mmol/L (98-107) L 01/10/24 05:26
Carbon Dioxide 25 mmol/L (22-30) 01/10/24 05:26
BUN 38 mg/dl (9-20) H 01/10/24 05:26
Creatinine 4.6 mg/dL (0.7-1.3) H* 01/10/24 05:26
eGFR 11.96 01/10/24 05:26
Glucose 152 mg/dl (70-99) H 01/10/24 05:26
Calcium 8.9 mg/dl (8.4-10.2) 01/10/24 05:26
Ded-Q-Tiniwvadmyl Pept > 54287 pg/ml 01/09/24 19:58
Albumin 4.3 g/dl (3.5-5.0) 01/10/24 05:26
CXR:
IMPRESSION:
Increased small right pleural effusion with adjacent atelectasis.
Physical Exam
General: Awake, Alert, Oriented, AOx3 and No Distress
HEENT: Anicteric
Respiratory: Clear, Normal Excursion, Nonlabored Respirations and Other (decreased)
Cardiac: S1/S2 and Other (irregular and tachy)
Breast: Deferred by me
Abdomen: Soft, Nontender and Nondistended
Musculoskeletal: No Cyanosis and No Edema
Skin: No Rash
Neuro: Nonfocal/Grossly Intact
Psych: Mood/afflect pleasant, Insight/judgement good and Appropriate
Vascular Access: AVF (left UE -not in use yet)
Data Reviewed
-
Radiology: Report Reviewed by me, Discussed with Patient and Discussed with Family
Labs: Labs Reviewed by me, Discussed with Patient and Discussed with Family
Assessment/Plan
-
IMP:
Recurrent right pleural effusion
h/o thoracentesis 01/02/24
ESRD-MWF
Afib with RVR
Heart failure reduced ejection fraction, decompensated
PAD
Right iliac art aneurysm
DM2
Hyperlipidemia
Essential hypertension
History of stroke x 2
Permanent atrial fibrillation- Eliquis
CAD
h/o pericarditis
Chronic anemia
Hx Colon cancer s/p right hemicolectomy 2016
bilat carotid art disease
h/o ventral hernia repair 2021
left UE AVF
Plan:
Recent d/c and readmit with similar complaints
plan HD tomorrow with UF as much possible
will use midodrine as BP seem soft with HD
AVF not mature yet, will use CVC
should maintain strict FR and renal diet
may benefit from thoracentesis
Afib RVR-BB dose increased per cards
d/w nursing, pt and family
--- NOTE | 2024-01-10 10:15 | CON.CAR ---
Consultation
Consultation Request
Date/Time Consultation Requested: January 10, 2024
Date/Time Consultation Performed: January 10, 2024
Requesting Provider: Dr. Granados
Performing Provider: Dr. Johnson
Reason for Consultation: Heart failure atrial fibrillation
Medical History
-
Chief Complaint: SOB
History of Present Illness:
Patient is an 83 yo M with PMH of hypertension, hyperlipidemia, insulin-dependent diabetes, CAD with prior LCx stenting in 2018, ischemic cardiomyopathy with EF 20 to 25%, permanent afib on chronic eliquis, bilateral carotid artery disease status
post unsuccessful left carotid stent placement, history of TIAs, ESRD on HD started during admission 04/2023, on MWF schedule, still makes some urine.
He was recently discharged last week after admission for heart failure. He underwent diuresis through hemodialysis. Echocardiogram January 04, 2024 was stable from his previous echo with EF 20 to 25% and mild aortic stenosis with mean gradient 2
mmHg, mild AR mild TR. After discharge, he presented with several days of dyspnea and some chest pain. At his last dialysis treatment, he did not get full dialysis secondary to pruritus. He was found to have small troponin, 0.3. Admitted for
heart failure. Cardiology was consulted for further evaluation.
He was last seen by Dr. Hernandez in the office August 2023. At that time, volume was controlled by dialysis. EF remained stable at 20 to 25%. They opted against ICD placement. Aortic stenosis was moderate. He remained in permanent atrial
fibrillation on Eliquis and Plavix for multiple CVAs.
Past Medical History:
Chronic HFrEF
CAD with prior left circumflex stenting in 2018, residual complex proximal LAD disease, medically managed
Ischemic cardiomyopathy with a EF 20 to 25% by most recent echo
Permanent atrial fibrillation on chronic anticoagulation with Eliquis
Bilateral carotid artery disease status post unsuccessful left carotid stent placement
History of CVA/TIA x 3
ESRD on HD MWF starting April 2023
PAD with critical limb threatening ischemia of right lower extremity status post balloon angioplasty and stenting of R SFA, intravascular lithotripsy of right tibioperoneal trunk stenosis 04/2023
Hypertension
LVH
Hyperlipidemia
Insulin-dependent diabetes
Anemia of chronic disease
Past Medical History
Past Medical History: Other (in HPI)
Social History
Tobacco: Former Smoker
Alcohol: Other (rare)
Personal:
Living: With Family
Employment: Retired
Family History
Family History: Reviewed & Not Pertinent
Allergies / Home Medications
Allergy/AdvReac Type Severity Reaction Status Date / Time
amiodarone Allergy Renal Verified 01/01/24 12:35
Failure
ibuprofen Allergy chest pain Verified 01/01/24 12:35
�Medication �Instructions �Recorded �Confirmed �Type
linagliptin 5 mg tablet (Tradjenta) 5 mg PO DAILY Diabetes 06/15/17 01/09/24 History
brinzolamide 1 %-brimonidine 0.2 % 1 drp RIGHT EYE QPM Eye Condition 04/21/23 01/09/24 History
eye drops,suspension (Simbrinza)
ezetimibe 10 mg tablet (Zetia) 10 mg PO QPM High Cholesterol 04/21/23 01/09/24 History
metoprolol succinate 25 mg 25 mg PO DAILY Blood Pressure 04/21/23 01/09/24 History
tablet,extended release 24 hr
(Toprol XL)
rosuvastatin 40 mg tablet (Crestor) 40 mg PO QPM High Cholesterol 04/21/23 01/09/24 History
insulin glargine 100 unit/mL (3 30 unit SC DAILY Diabetes 05/18/23 01/09/24 History
mL) subcutaneous pen (Lantus
Solostar U-100 Insulin)
clopidogrel 75 mg tablet 75 mg PO DAILY Heart 05/21/23 01/09/24 Rx
disease/condition ##0
latanoprost (PF) 0.005 % eye drops 1 drp BOTH EYES HS Eye Condition 10/16/23 01/09/24 History
in a dropperette
apixaban 2.5 mg tablet (Eliquis) 2.5 mg PO BID Blood Clot 01/01/24 01/09/24 History
Prevention/Tx
midodrine 5 mg tablet 5 mg PO .[facility] #12 tabs 01/04/24 01/09/24 Rx
Review of Systems
-
History Source: Patient
All other systems: Negative unless noted
Respiratory: Trouble Breathing
Physical Exam
Vital Signs
Temp Pulse Resp BP Pulse Ox
98.2 F 125 22 140/79 99
01/10/24 07:40 01/10/24 08:46 01/10/24 07:40 01/10/24 08:46 01/10/24 07:40
General: No acute distress, AAOX3
Neck: Negative JVD
Heart: Irregular regular,, Negative S3 positive S1/S2, Negative S4, No murmur
Lungs: Mild basilar rales
Abd: Positive BS, NT/ND, neg rebound/rigidity/guarding
Ext: Negative cyanosis/clubbing/edema
Neuro: nonfocal
Lab Results
01/10/24 05:26
01/10/24 05:26
Troponin I 0.633 ng/ml H* 01/10/24 05:26
Pxl-F-Ejiwroctyre Pept > 82740 pg/ml 01/09/24 19:58
Impression / Plan
-
.
Primary County Demonstrator: Dr. Hernandez
Impression:
Presented with SOB
Acute on chronic HFrEF
Recent heart failure discharge January 04, 2024
Nonischemic myocardial injury, peak 0.7
CAD, with prior LCX PCI 2017, residual complex proximal LAD disease, medically managed
Ischemic cardiomyopathy with a EF 20 to 25% by most recent echo
Permanent atrial fibrillation on chronic anticoagulation with Eliquis with RVR
Status post right thoracentesis January 02, 2024 for right pleural effusion.
Bilateral carotid artery disease status post unsuccessful left carotid stent placement
History of CVA/TIA x 3
ESRD on HD MWF since April 2023
PAD with critical limb threatening ischemia of right lower extremity status post balloon angioplasty and stenting of R SFA, intravascular lithotripsy of right tibioperoneal trunk stenosis 04/2023
Hypertension
LVH
Hyperlipidemia
Insulin-dependent diabetes
Anemia of chronic disease
Elevated TSH
Echo June 2023: EF 24%, global hypokinesis, mild concentric LVH, MAC, mild to moderate MR, possible low-grade moderate aortic stenosis, peak/mean gradients 9/5 mmHg, MT 1.2 cm�, mild AR, mild to moderate TR, PAP 42 mmHg, severely dilated right
atrium, aortic root mildly dilated 4.1 cm
Echo January 04, 2024: EF 20 to 25%, mild MR, probable mild aortic stenosis consider low-flow moderate aortic stenosis, mean gradient 2 mmHg with aortic valve area 1.7 cm�, mild AR mild TR dally aortic root 3.9 cm at sinus of Valsalva, no
significant change from prior echo June 2023.
Plan:
Continue hemodialysis for diuresis. Weight is up from discharge on January 03.
Monitor chest x-ray. He is status post right thoracentesis January 02, 2024 for right pleural effusion.
He may require repeat thoracentesis with right pleural effusion noted on x-ray January 09, 2024
Permanent atrial fibrillation with elevated ventricular rates. Increase Toprol XL dosing. He takes 25 mg daily.
Will give additional 12.5 mg this a.m. January 09 and 12.5 mg p.m. January 09 and likely increase Toprol XL to 25 mg twice daily starting January 11, 2024
Continue Eliquis.
Continue medical therapy of non-VA troponin peak 0.7. Multifactorial likely secondary to rapid atrial fibrillation and heart failure
Patient has known CAD medical therapy.
Recent echo last week with EF 20 to 25% unchanged from June 2023. Valvular disease is also stable including mild aortic stenosis.
Discussed with nursing and family at bedside.
Data Reviewed
-
EKG: Tracing Personally Visualized and interpreted
Radiology: Image Personally Visualized and interpreted
Medical Tests (Nuc Med, Echo etc): Discussed with Family
Labs: Labs Reviewed by me
Old Records: Reviewed
[2024-01-10] MEDS: TOPROL XL 12.5 MG PO ×2 (11:18→20:46)
[2024-01-10 11:30] VITALS: BP 137/92
[2024-01-10 11:43] LABS: Glucose - Point of Care 207 mg/dl (70-99)
[2024-01-10 11:43] LABS: Troponin I 0.589 ng/ml
--- NOTE | 2024-01-10 12:02 | VATNOTE ---
Pt reports itching at HDC site after dressing change. States CHG has caused itching in the past. Dressing changed using sterile technique. Skin cleansed using sterile ellie and sterile saline and dried with sterile ellie. Sterile 70% alcohol applied
to HDC and surrounding tissue. Skin prep and biopatch applied and covered with transparent dressing.
[2024-01-10] MEDS: NOVOLOG FLEXPEN-LOW RESISTANCE 2 UNITS SC ×2 (12:57→17:26)
[2024-01-10 15:15] VITALS: BP 119/79
[2024-01-10] MEDS: SIMBRINZA 1%-0.2% OPHTH SUSP 1 DROP RIGHT EYE (16:19)
[2024-01-10] MEDS: ZETIA 10 MG PO (16:23)
[2024-01-10] MEDS: CRESTOR 40 MG PO (16:23)
[2024-01-10 17:18] LABS: Glucose - Point of Care 236 mg/dl (70-99)
[2024-01-10 19:20] VITALS: BP 123/76
[2024-01-10 21:50] LABS: Glucose - Point of Care 163 mg/dl (70-99)
[2024-01-10 23:06] VITALS: BP 115/76
[2024-01-11] VITALS (10 sets, daily range): BP systolic 87–120; BP diastolic 56–73; PULSE 87; O2SAT 100; BMI 22.1
[2024-01-11] MEDS: ProAmatine 5 MG PO (07:44)
[2024-01-11] MEDS: NOVOLOG FLEXPEN-LOW RESISTANCE SC ×2 (07:47→11:43)
[2024-01-11] MEDS: LANTUS 0.2 UNITS SC (07:48)
[2024-01-11 07:51] LABS: Glucose - Point of Care 135 mg/dl (70-99)
[2024-01-11 08:18] LABS: Hemoglobin 12.3 g/dL (13.0-18.0); Mean Corp Hgb Conc. 33.2 g/dL (33.0-37.0); Mean Corpuscular Hgb 30.3 pg (27.0-31.0); Mean Corpuscular Volume 91.1 fL (80.0-94.0); Mean Platelet Volume 10.9 fL (7.4-10.4); Platelet Count 193 10^3/uL (130-400); Red Blood Cell Count 4.06 10^6/uL (4.70-6.10); Red Cell Dist. Width 15.4 % (11.5-14.5); White Blood Cell Count 6.8 10^3/uL (4.8-10.8)
[2024-01-11] MEDS: FLEXBUMIN 25% FOR HEMODIALYSIS 12.5 GRAMS IV ×2 (08:30→10:00)
[2024-01-11] MEDS: MANNITOL 25% 12.5 GRAMS IV ×2 (08:35→10:06)
--- NOTE | 2024-01-11 08:42 | W.PN.NEPH.HD ---
Assessment
-
Patient seen on dialysis
Systolic blood pressure at 107, UF will be reduced as hemodynamically warranted
5 mg of midodrine provided on dialysis
Patient has recurrent problems with low blood pressure on dialysis which may make effective outpatient dialysis less plausible
Progress Note - Hemodialysis
-
Date of Service: January 11, 2024
Duration: 30 minutes and 3 hours
Potassium Bath: 2
Calcium Bath: 2.5
Opti-Dialyzer: 160
Ultrafiltration: Other (2 kg as hemodynamically tolerated)
Blood Flow: 400
Dialysate Flow: 600
Heparin: None
EPO: None
[2024-01-11 08:56] LABS: Blood Urea Nitrogen 50 mg/dl (9-20); Carbon Dioxide 26 mmol/L (22-30); Chloride 95 mmol/L (98-107); Estimated Creatinine Clearance 8 ml/min; Glucose 202 mg/dl (70-99); Potassium 4.1 mmol/L (3.5-5.1); Sodium 138 mmol/L (135-145)
[2024-01-11] MEDS: PLAVIX 75 MG PO (09:54)
[2024-01-11] MEDS: JANUVIA 25 MG PO (09:54)
[2024-01-11] MEDS: ELIQUIS 2.5 MG PO ×2 (09:54→19:55)
--- NOTE | 2024-01-11 11:12 | W.PN.HOSP.TC ---
Today's Communication/Plan
-
see A/P
Assessment / Plan
Assessment / Plan
Physical exam:
General: Acute on chronically ill
HEENT: Normocephalic, Atraumatic and Moist Mucous Membranes
Respiratory: Bilateral crackles and decreased breath sounds at the bases more pronounced on the right side; Negative Wheezes or Rhonchi
Cardiac: Irregular rate and rhythm, tachycardic, and S1/S2
GI: Soft, Nontender and Nondistended
Musculoskeletal: No Clubbing, No Cyanosis. Bilateral edema on both lower extremities
Neuro: Awake, Alert and Oriented, no neurological deficits
Psych: Calm
A/P:
# Acute on chronic systolic congestive heart failure:
Continue Bumex 4 mg twice a day
Monitor urine output since he still makes urine
HD per renal
Cardiology input appreciated
# Permanent atrial fibrillation, Rate uncontrolled
Toprol dose increased to 25 mg daily
Continue Eliquis 2.5 mg twice a day
Continue cardiac monitoring
# End-stage renal disease on hemodialysis:
He says hemodialysis had to be cut short because of pruritus
Hemodialysis per nephrology
Midodrine on HD days
# Recurrent right pleural effusion:
Repeat chest x-ray 01/08 noted Increased small right pleural effusion
IR CS for repeat R thoracentesis
# Non-ND elevated troponin
Cardiac monitoring
# CAD:
Cont FOOD AND BEVERAGE LEAD Plavix, Toprol, Crestor
# Hypertension:
Continue usual meds
# Hyperlipidemia:
Continue statin and Zetia
# Diabetes mellitus:
Insulin sliding scale
Continue Lantus 20 units daily (FOOD AND BEVERAGE LEAD 30 units daily)
DVT prophylaxis: Eliquis
CODE STATUS: Full code
Anticipated Discharge: Within 24 hours
Subjective/Interval History
-
Date of Service: January 11, 2024
Objective Data
-
Labs:
Laboratory Results
01/11/24
07:22
WBC 6.8
Hgb 12.3 L
Hct 37.0 L
Plt Count 193
Sodium 138
Potassium 4.1
Chloride 95 L
Carbon Dioxide 26
BUN 50 H
Creatinine 6.0 H*
Glucose 202 H
Calcium 9.0
Vital Signs:
Vital Signs
Temp Pulse Resp BP Pulse Ox
36.9 C 96 16 120/73 98
01/11/24 03:05 01/11/24 07:25 01/11/24 07:25 01/11/24 07:25 01/11/24 03:05
I&O
01/10/24 01/11/24 01/12/24
06:59 06:59 06:59
Intake Total 240 / 240 900 / 900
Output Total 950 / 950
Balance 240 / 240 -50 / -50
Review of Systems
-
All other systems: Reviewed and negative
Data Reviewed
-
Diagnostic Radiology: Image personally visualized and interpreted and Report Reviewed by me
Labs: Labs Reviewed by me
[2024-01-11 11:33] LABS: Glucose - Point of Care 113 mg/dl (70-99)
[2024-01-11] MEDS: BUMEX PO (11:45)
[2024-01-11] MEDS: TOPROL XL PO (11:50)
[2024-01-11] MEDS: BUMEX 4 MG PO (15:51)
--- NOTE | 2024-01-11 16:43 | CM ---
Reviewed chart, met with patient to obtain information for assessment. Patient stated that he lives with his in a two story home with two steps to enter. He described himself as independent with his bathing, dressing, ADLs, personal care and
ambulates with a walker. Patient stated that she has a walker on each floor. 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 Patient's can drive and transport patient to his appointments and help with the shopping.
Patient denied any other DME in his home.
He has had VN services in the past years ago but is not current with any agency.
Patient has been to [facility] in the past but did not like it.
Patient goes to dialysis on , , ([facility])
Patient has a prescription plan and uses, [facility] in [place] for all of his medications.
His PCP is, Marce BARLOW.
Patient's was at bedside and stated that she did not want patient to go to a SNF but would be agreeable to VN if indicated.
Plan: Case management will continue to follow and assist with discharge planning. Home with VN if indicated.
--- NOTE | 2024-01-11 17:24 | W.PN.CARDCBS ---
Addendum entered and electronically signed by Alvaro Winn MD 01/11/24 19:26:
83-year-old man with end-stage renal disease, circumflex PCI in 2018, ischemic cardiomyopathy EF 20-25%, permanent A-fib, failed left carotid stent placements, recently admitted with acute HFrEF and discharged, readmitted now with acute HFrEF, peak
troponin 0.633
PMH: CAD, left circumflex PCI 2018 residual complex proximal LAD disease managed medically, ischemic cardiomyopathy, EF 20-25%, permanent atrial fibrillation, bilateral carotid disease, history of CVA/TIA, end-stage renal disease on hemodialysis
since April 2023, PAD, limb threatening ischemia status post R SFA stents, lithotripsy of right tibioperoneal trunk, hypertension, hyperlipidemia, diabetes, anemia
PSH/SH/FH reviewed. Patient is and retired
Allergies to amiodarone and nonsteroidals
Outpatient meds: Reviewed
Current meds: Apixaban 2.5 twice daily, Simbrinza eyedrops, Plavix 75 mg a day, Zetia 10 mg a day, Xalatan, Januvia, Toprol 25, midodrine 5 mg on dialysis days, rosuvastatin, Bumex 4 twice daily, insulin
114/69 pulse 87, respirate 16, afebrile, weight is 4 kg, head neck exam unremarkable, lungs are clear, chronically ill-appearing, irregular rate and rhythm, JVD okay, soft systolic murmur, abdomen benign extremities without clubbing cyanosis or
edema, neuro nonfocal
Hemoglobin is 12.3, platelets are 193, troponin is 0.589
Atrial fibrillation, ventricular response 103, LVH, left axis deviation, possible inferior PA, consider lateral ischemia
Plan:
Despite recurrent CHF admission with elevated troponin he appears comfortable and relatively stable.
Continue to defer management of volume to nephrology. He is on high-dose Bumex and currently on dialysis. No evidence of volume overload at present.
He had right thoracentesis yesterday for 1700 mL. May need to consider pulmonary consultation if pleural fluid continues to recur, unclear if pleural catheter would be indicated/tolerated
On Eliquis for persistent/permanent atrial fibrillation and clopidogrel for elevated troponin. Hemoglobin is stable.
Overall medical regimen seems appropriate, no changes recommended today
We will sign off, please call if questions
Original Note:
Today's Communication / Plan
-
A-fib rates better controlled with up titration of metoprolol.
Bumex for continued diuresis.
Impression / Plan
-
.
Primary Lead Process Engineer: Dr. Hernandez
Impression:
Presented with SOB
Acute on chronic HFrEF
Recent heart failure discharge January 04, 2024
Nonischemic myocardial injury, peak 0.7
CAD, with prior LCX PCI 2017, residual complex proximal LAD disease, medically managed
Ischemic cardiomyopathy with a EF 20 to 25% by most recent echo
Permanent atrial fibrillation on chronic anticoagulation with Eliquis with RVR
Status post right thoracentesis January 02, 2024 for right pleural effusion, repeat right thoracentesis 01/11/2024 for recurrent right pleural effusion, 1700 cc drained
Bilateral carotid artery disease status post unsuccessful left carotid stent placement
History of CVA/TIA x 3
ESRD on HD MWF since April 2023
PAD with critical limb threatening ischemia of right lower extremity status post balloon angioplasty and stenting of R SFA, intravascular lithotripsy of right tibioperoneal trunk stenosis 04/2023
Hypertension
LVH
Hyperlipidemia
Insulin-dependent diabetes
Anemia of chronic disease
Elevated TSH
Echo June 2023: EF 24%, global hypokinesis, mild concentric LVH, MAC, mild to moderate MR, possible low-grade moderate aortic stenosis, peak/mean gradients 9/5 mmHg, MT 1.2 cm�, mild AR, mild to moderate TR, PAP 42 mmHg, severely dilated right
atrium, aortic root mildly dilated 4.1 cm
Echo January 04, 2024: EF 20 to 25%, mild MR, probable mild aortic stenosis consider low-flow moderate aortic stenosis, mean gradient 2 mmHg with aortic valve area 1.7 cm�, mild AR mild TR dally aortic root 3.9 cm at sinus of Valsalva, no
significant change from prior echo June 2023.
Plan:
Continue hemodialysis for diuresis. Weight is up from discharge on January 03.
Continue oral Bumex 4 mg twice daily. Weight down 3 pounds overnight to 141 pounds.
Status post repeat right thoracentesis 01/11/2024 for recurrent right pleural effusion, 1700 cc drained..
Permanent atrial fibrillation with elevated ventricular rates. Toprol increased to 25 mg twice daily today, 01/11/2024. Heart rates better controlled, 80s-90s.
Continue Eliquis 2.5 mg twice daily.
Continue medical therapy of non-PA troponin peak 0.7. Multifactorial likely secondary to rapid atrial fibrillation and heart failure
Patient has known CAD. Continue medical therapy with Plavix, Toprol, statin, Zetia.
Recent echo last week with EF 20 to 25% unchanged from June 2023. Valvular disease is also stable including mild aortic stenosis.
Discussed with pt and at bedside.
Progress Note - Lead Process Engineer
Subjective
Date of Service: January 11, 2024
Status post thoracentesis, 1700 cc drained.
Shortness of breath now improved
Weight down 4 pounds overnight
Objective
Labs:
01/11/24 07:22
01/11/24 07:22
Labs
Hgb 12.3 g/dL (13.0-18.0) L 01/11/24 07:22
Hct 37.0 % (39.0-52.0) L 01/11/24 07:22
Plt Count 193 10^3/uL (130-400) 01/11/24 07:22
Sodium 138 mmol/L (135-145) 01/11/24 07:22
Potassium 4.1 mmol/L (3.5-5.1) 01/11/24 07:22
BUN 50 mg/dl (9-20) H 01/11/24 07:22
Creatinine 6.0 mg/dL (0.7-1.3) H* 01/11/24 07:22
Glucose 202 mg/dl (70-99) H 01/11/24 07:22
Troponins
01/09/24 01/09/24 01/10/24
19:58 23:00 05:26
Troponin I 0.323 H* Cancelled 0.633 H*
01/10/24
11:06
Troponin I 0.589 H*
Vital Signs and I&O:
Vital Signs
Temp Pulse Resp BP Pulse Ox
98.3 F 90 16 111/73 99
01/11/24 14:30 01/11/24 14:52 01/11/24 14:52 01/11/24 14:52 01/11/24 14:52
Vital Signs
Temp Pulse Resp BP Pulse Ox
98.3 F 90 16 111/73 99
01/11/24 14:30 01/11/24 14:52 01/11/24 14:52 01/11/24 14:52 01/11/24 14:52
Intake & Output
01/09/24 01/10/24 01/11/24 01/12/24
06:59 06:59 06:59 06:59
Intake Total 240 / 240 900 / 900
Output Total 950 / 950
Balance 240 / 240 -50 / -50
Physical Exam
Physical Exam
GEN: No distress, awake, Ox3
HEENT: supple, anicteric, mmm
LUNGS: Few crackles bilateral bases
CV: Reg, S1/S2, 1/6 syst LSB,
ABD: soft, BS+, NT/ND
EXT: No edema
NEURO: Gross non-focal
SKIN: No rash
[2024-01-11] MEDS: ZETIA 10 MG PO (17:27)
[2024-01-11] MEDS: SIMBRINZA 1%-0.2% OPHTH SUSP 1 DROP RIGHT EYE (17:27)
[2024-01-11] MEDS: CRESTOR 40 MG PO (17:27)
[2024-01-11] MEDS: NOVOLOG FLEXPEN-LOW RESISTANCE 2 UNITS SC (17:30)
[2024-01-11 17:31] LABS: Glucose - Point of Care 209 mg/dl (70-99)
[2024-01-11 20:41] LABS: Glucose - Point of Care 227 mg/dl (70-99)
--- NOTE | 2024-01-11 20:43 | W.PN.UPDATE ---
Update Note
Progress Note Update
-Patient had witnessed fall hit his head on the bottom of the walker. He is alert and oriented x2 confused about the year. He admitted fall on the left side and hit LT frontal/temporal region.
Vital signs and bs within normal limits
Denies headache, blurred vision or pain.
Patient received dialysis today and currently on Eliquis 2.5mg BID.
-During exam, ROM BUE and BLE within patient`s baseline.
Small subconjunctival hemorrhage to the LT eye. Per patient, its started prior admission and he was seen by outpatient software reverse engineer, but does not remember if it was resolved at this time.
No neuro changes noted during the exam. No open wounds and no new bruises due to fall.
-Will order head CT and start neuro check and fall precautions.
CT head result shows No acute intracranial hemorrhage. No acute intracranial abnormality noted.
--- NOTE | 2024-01-11 21:00 | PTCARENOTE ---
Pt with fall, witnessed by staff at approximately 2030. Pt was ambulating with a walker in his room without assist and per staff, pt fell, hitting L side of head on walker and R thigh on floor. Staff at bedside to assess patient. No LOC, pain or
emesis post fall. Neuro checks remained at patient's baseline. CEMENT RUBBER at bedside to assess patient and Stat head CT done. Bed and chair alarm in place. Pt re-education on fall risk/precautions in place. Bed in lowest position and call pascal within
reach.
[2024-01-11 22:27] LABS: Glucose - Point of Care 149 mg/dl (70-99)
[2024-01-11] MEDS: XALATAN OPHTHALMIC SOLUTION 1 DROP BOTH EYES (22:47)
[2024-01-12] VITALS (8 sets, daily range): BP systolic 95–138; BP diastolic 56–95; PULSE 95; O2SAT 100; BMI 21.2
[2024-01-12 07:13] LABS: Glucose - Point of Care 84 mg/dl (70-99)
[2024-01-12] MEDS: NOVOLOG FLEXPEN-LOW RESISTANCE SC ×2 (07:15→12:18)
[2024-01-12 07:18] LABS: Hematocrit 38.5 % (39.0-52.0); Hemoglobin 12.2 g/dL (13.0-18.0); Mean Corp Hgb Conc. 31.7 g/dL (33.0-37.0); Mean Corpuscular Hgb 29.6 pg (27.0-31.0); Mean Corpuscular Volume 93.4 fL (80.0-94.0); Mean Platelet Volume 10.6 fL (7.4-10.4); Platelet Count 193 10^3/uL (130-400); Red Blood Cell Count 4.12 10^6/uL (4.70-6.10); Red Cell Dist. Width 15.2 % (11.5-14.5); White Blood Cell Count 8.4 10^3/uL (4.8-10.8)
[2024-01-12] MEDS: ELIQUIS 2.5 MG PO ×2 (07:23→21:06)
[2024-01-12] MEDS: PLAVIX 75 MG PO (07:23)
[2024-01-12] MEDS: BUMEX 4 MG PO ×2 (07:23→16:03)
[2024-01-12] MEDS: LANTUS 0.2 UNITS SC (07:24)
[2024-01-12] MEDS: JANUVIA 25 MG PO (07:24)
[2024-01-12] MEDS: TOPROL XL 25 MG PO (07:24)
[2024-01-12 07:33] LABS: Blood Urea Nitrogen 45 mg/dl (9-20); Calcium 8.9 mg/dl (8.4-10.2); Carbon Dioxide 31 mmol/L (22-30); Chloride 97 mmol/L (98-107); Estimated Creatinine Clearance 11 ml/min; Glucose 70 mg/dl (70-99); Potassium 4.1 mmol/L (3.5-5.1); Sodium 141 mmol/L (135-145); eGFR 11.96
--- NOTE | 2024-01-12 11:32 | W.PN.HOSP.TC ---
Today's Communication/Plan
-
see A/P
Assessment / Plan
Assessment / Plan
A/P:
# Acute on chronic systolic congestive heart failure:
Continue Bumex 4 mg twice a day
HD per renal
Cardiology input appreciated
# Permanent atrial fibrillation, Rate uncontrolled
Toprol dose increased to 25 mg daily
Continue Eliquis 2.5 mg twice a day
Continue cardiac monitoring
# End-stage renal disease on hemodialysis
He says hemodialysis had to be cut short because of pruritus
Hemodialysis per nephrology
Midodrine on HD days
# Recurrent right pleural effusion:
Repeat chest x-ray 01/08 noted Increased small right pleural effusion
s/p repeat R thoracentesis 01/10 and 1700 pleural fluid removed
# Non-[place] elevated troponin
Cardiac monitoring
# CAD:
Cont CORPORATE COMPLIANCE OFFICER Plavix, Toprol, Crestor
# Hypertension:
Continue usual meds
# Hyperlipidemia:
Continue statin and Zetia
# Diabetes mellitus:
Insulin sliding scale
Continue Lantus 20 units daily (CORPORATE COMPLIANCE OFFICER 30 units daily)
DVT prophylaxis: Eliquis
CODE STATUS: Full code
DW Renal
DW on the phone
total time spent 51 min
Anticipated Discharge: Within 24 hours
Subjective/Interval History
-
Date of Service: January 12, 2024
Objective Data
-
Labs:
Laboratory Results
01/12/24
06:33
WBC 8.4
Hgb 12.2 L
Hct 38.5 L
Plt Count 193
Sodium 141
Potassium 4.1
Chloride 97 L
Carbon Dioxide 31 H
BUN 45 H
Creatinine 4.6 H*
Glucose 70
Calcium 8.9
Vital Signs:
Vital Signs
Temp Pulse Resp BP Pulse Ox
36.3 C 94 16 147/61 98
01/12/24 07:05 01/12/24 07:05 01/12/24 07:05 01/12/24 07:23 01/12/24 07:05
I&O
01/11/24 01/12/24 01/13/24
06:59 06:59 06:59
Intake Total 900 / 900 480 / 480
Output Total 950 / 950
Balance -50 / -50 480 / 480
Review of Systems
-
All other systems: Reviewed and negative
Physical Exam
-
General: Well Developed, No Apparent Distress and Comfortable
HEENT: Negative Oxygen
Respiratory: Clear to Auscultation and Non Labored Respirations; Negative Accessory Resp Muscle Use
Cardiac: Regular Rhythm and S1/S2; Negative Murmur or Rub
GI: Soft, Nontender and Nondistended
Musculoskeletal: No Edema
Neuro: Awake, Alert, Oriented, No Motor Deficits and Nonfocal/Grossly Intact
Psych: Calm and Intact Judgement/Insight
Data Reviewed
-
Diagnostic Radiology: Image personally visualized and interpreted and Report Reviewed by me
Labs: Labs Reviewed by me
[2024-01-12 12:14] LABS: Glucose - Point of Care 140 mg/dl (70-99)
--- NOTE | 2024-01-12 15:28 | W.PN.NEPH.PH ---
Today's Communication / Plan
-
HD tomorrow
Assessment/Plan
-
IMP:
Recurrent right pleural effusion
h/o thoracentesis 01/02/24
ESRD-MWF
Afib with RVR
Heart failure reduced ejection fraction, decompensated
PAD
Right iliac art aneurysm
DM2
Hyperlipidemia
Essential hypertension
History of stroke x 2
Permanent atrial fibrillation- Eliquis
CAD
h/o pericarditis
Chronic anemia
Hx Colon cancer s/p right hemicolectomy 2016
bilat carotid art disease
h/o ventral hernia repair 2021
left UE AVF
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
Plan:
Recent d/c and readmit with similar complaints
plan HD tomorrow with UF as much possible but low bp in setting of endstage EDUCATIONAL ASSISTANT TEACHER limitus u/f
will use midodrine as BP seem soft with HD
AVF not mature yet, will use CVC
should maintain strict FR and renal diet
s/p thoracentesis
for discharge after HD
Afib RVR-BB dose increased per cards
-
-
Date of Service: January 12, 2024
CC / HPI / ROS
-
Chief Complaint:
ESRD
History of Present Illness:
End-stage renal disease on Thursday schedule
Baseline hemodynamically stable on chronic midodrine
Review of Systems:
No complaints of chest pain or shortness of breath
Tunneled IJ hemodialysis cath
Labs
-
Labs:
WBC 8.4 10^3/uL (4.8-10.8) 01/12/24 06:33
RBC 4.12 10^6/uL (4.70-6.10) L 01/12/24 06:33
Hgb 12.2 g/dL (13.0-18.0) L 01/12/24 06:33
Hct 38.5 % (39.0-52.0) L 01/12/24 06:33
Plt Count 193 10^3/uL (130-400) 01/12/24 06:33
Sodium 141 mmol/L (135-145) 01/12/24 06:33
Potassium 4.1 mmol/L (3.5-5.1) 01/12/24 06:33
Chloride 97 mmol/L (98-107) L 01/12/24 06:33
Carbon Dioxide 31 mmol/L (22-30) H 01/12/24 06:33
BUN 45 mg/dl (9-20) H 01/12/24 06:33
Creatinine 4.6 mg/dL (0.7-1.3) H* 01/12/24 06:33
eGFR 11.96 01/12/24 06:33
Glucose 70 mg/dl (70-99) 01/12/24 06:33
Calcium 8.9 mg/dl (8.4-10.2) 01/12/24 06:33
Gvg-A-Uebvwhfyetj Pept > 86417 pg/ml 01/09/24 19:58
Albumin 4.3 g/dl (3.5-5.0) 01/10/24 05:26
Physical Exam
-
Vital Signs:
Vital Signs
Temp Pulse Resp BP Pulse Ox
98.0 F 94 16 106/58 96
01/12/24 11:10 01/12/24 11:10 01/12/24 11:10 01/12/24 11:10 01/12/24 11:10
Cardiovascular:: Regular rate and rhythm
Lung Excursion:: Normal
Abdomen:: Nontender
Bowel Sounds:: Normal
Extremity Edema:: None: Bilateral:
[2024-01-12 16:51] LABS: Glucose - Point of Care 161 mg/dl (70-99)
[2024-01-12] MEDS: NOVOLOG FLEXPEN-LOW RESISTANCE 1 UNITS SC (16:58)
--- NOTE | 2024-01-12 16:58 | CM ---
Spoke with pt and his in his room .Offered VN they declined need.
IMM given pt signed on chart.
will drive him home.
He will resume HD --.
PLAN Home no needs
[2024-01-12] MEDS: ZETIA 10 MG PO (17:00)
[2024-01-12] MEDS: SIMBRINZA 1%-0.2% OPHTH SUSP 1 DROP RIGHT EYE (17:00)
[2024-01-12] MEDS: CRESTOR 40 MG PO (17:00)
[2024-01-12] MEDS: XALATAN OPHTHALMIC SOLUTION 1 DROP BOTH EYES (21:06)
[2024-01-12 21:27] LABS: Glucose - Point of Care 127 mg/dl (70-99)
[2024-01-13 04:20] VITALS: BP 121/73
[2024-01-13 05:35] VITALS: BMI 21.1
[2024-01-13 07:00] VITALS: BP 123/80
[2024-01-13 07:13] LABS: Glucose - Point of Care 144 mg/dl (70-99)
[2024-01-13 07:54] LABS: Hematocrit 36.6 % (39.0-52.0); Hemoglobin 12.2 g/dL (13.0-18.0)
[2024-01-13] MEDS: MANNITOL 25% 12.5 GRAMS IV ×2 (08:05→10:22)
[2024-01-13 08:19] LABS: Blood Urea Nitrogen 64 mg/dl (9-20); Calcium 8.7 mg/dl (8.4-10.2); Carbon Dioxide 27 mmol/L (22-30); Chloride 95 mmol/L (98-107); Estimated Creatinine Clearance 8 ml/min; Glucose 120 mg/dl (70-99); Sodium 136 mmol/L (135-145); eGFR 9.25
[2024-01-13] MEDS: FLEXBUMIN 25% FOR HEMODIALYSIS 12.5 GRAMS IV ×2 (09:03→10:20)
[2024-01-13] MEDS: ProAmatine 5 MG PO (09:24)
[2024-01-13] MEDS: PLAVIX 75 MG PO (09:25)
[2024-01-13] MEDS: JANUVIA 25 MG PO (09:25)
[2024-01-13] MEDS: ELIQUIS 2.5 MG PO (09:25)
[2024-01-13] MEDS: LANTUS 0.2 UNITS SC (09:26)
[2024-01-13] MEDS: NOVOLOG FLEXPEN-LOW RESISTANCE SC ×2 (09:27→12:31)
--- NOTE | 2024-01-13 10:30 | W.PN.NEPH.HD ---
Assessment
-
pt seen during HD
vitals stable, keep EDW low
s/p thoracentesis of 1.7 lit this admit
BP are low, cont midodrine with HD
for d/c today
CVC functions well
AVF maturing
Progress Note - Hemodialysis
-
Date of Service: January 13, 2024
Duration: 30 minutes and 3 hours
Potassium Bath: 2
Calcium Bath: 2.5
Opti-Dialyzer: 160
Ultrafiltration: Other (1-2kg)
Blood Flow: 400
Dialysate Flow: 600
Heparin: no
EPO: no
[2024-01-13 11:00] VITALS: BP 125/65
--- NOTE | 2024-01-13 11:07 | W.PN.HOSP.TC ---
Addendum entered and electronically signed by Tess Springer MD 01/13/24 14:00:
total DC time 36 min
Original Note:
Today's Communication/Plan
-
DC after HD today
Assessment / Plan
Assessment / Plan
A/P:
# Acute on chronic systolic congestive heart failure:
Continue Bumex 4 mg twice a day
HD per renal
Cardiology input appreciated
# Permanent atrial fibrillation, Rate uncontrolled
Toprol dose increased to 25 mg daily
Continue Eliquis 2.5 mg twice a day
Continue cardiac monitoring
# End-stage renal disease on hemodialysis
He says hemodialysis had to be cut short because of pruritus
Hemodialysis per nephrology. Midodrine on HD days
# Recurrent right pleural effusion:
Repeat chest x-ray 01/08 noted Increased small right pleural effusion
s/p repeat R thoracentesis 01/10 and 1700 pleural fluid removed
# Non-FL elevated troponin
Cardiac monitoring
# CAD:
Cont EXCEPTIONAL STUDENT EDUCATION AIDE Plavix, Toprol, Crestor
# Hypertension:
Continue usual meds
# Hyperlipidemia:
Continue statin and Zetia
# Diabetes mellitus:
Insulin sliding scale
Continue Lantus 20 units daily (EXCEPTIONAL STUDENT EDUCATION AIDE 30 units daily)
DVT prophylaxis: Eliquis
CODE STATUS: Full code
Anticipated Discharge: Today
Subjective/Interval History
-
Date of Service: January 13, 2024
Objective Data
-
Labs:
Laboratory Results
01/13/24
07:33
Hgb 12.2 L
Hct 36.6 L
Sodium 136
Potassium 4.0
Chloride 95 L
Carbon Dioxide 27
BUN 64 H
Creatinine 5.7 H*
Glucose 120 H
Calcium 8.7
Vital Signs:
Vital Signs
Temp Pulse Resp BP Pulse Ox
36.5 C 91 17 94/56 97
01/13/24 07:00 01/13/24 07:00 01/13/24 07:00 01/13/24 09:24 01/13/24 07:00
I&O
01/12/24 01/13/24 01/14/24
06:59 06:59 06:59
Intake Total 480 / 480 540 / 540
Output Total 725 / 725
Balance 480 / 480 -185 / -185
Review of Systems
-
All other systems: Reviewed and negative
Physical Exam
-
General: Well Developed, No Apparent Distress, Comfortable and Conversant
Respiratory: Clear to Auscultation and Non Labored Respirations; Negative Accessory Resp Muscle Use
Cardiac: Regular Rhythm and S1/S2; Negative Murmur or Rub
GI: Soft, Nontender and Nondistended
Neuro: Awake, Alert and Oriented
Psych: Calm and Intact Judgement/Insight
Data Reviewed
-
Labs: Labs Reviewed by me
[2024-01-13] MEDS: HEPARIN 4300 UNITS INTRACATH (11:15)
[2024-01-13 11:44] LABS: Glucose - Point of Care 107 mg/dl (70-99)
[2024-01-13] MEDS: TOPROL XL PO (12:31)
--- NOTE | 2024-01-13 13:07 | CM ---
Reviewed chart, met with patient to discuss discharge and review IMM. Patient is agreeable to d/c and stated that his is picking him up today. IMM signed on chart. He denied the need for VN as he stated that his nurse is an RN.
Plan: Case management will continue to follow and assist with discharge planning. Home.
[2024-01-13] MEDS: BUMEX PO (13:26)
--- NOTE | 2024-01-13 13:43 | W.DCSUMMARY ---
Discharge Summary
Discharge Data
Date of Admission: 01/09/24
Date of Discharge: 01/13/24
-
Pending Results: No
Hospital Course
Principal Diagnosis:
Acute on chronic systolic congestive heart failure
Chronic Diagnoses:�
Permanent atrial fibrillation
End-stage renal disease on hemodialysis
Recurrent right pleural effusion status post R thoracentesis 01/10 and 1700 pleural fluid removed
Coronary artery disease, on Plavix, Toprol, Crestor
Hypertension
Hyperlipidemia, on statin and Zetia
Insulin-dependent diabetes mellitus
Consultations:�
Nephrology
Cardiology
Procedures:�
Right thoracentesis 01/10 and 1700 pleural fluid removed
Clinical course:�
This is a 83-year-old male, with past medical history as stated above, who presented with orthopnea.
Problem 1:
Acute on chronic systolic congestive heart failure.
He was started with Bumex 4 mg twice daily this admission. He can continue with Bumex except on dialysis days.
He can continue to receive outpatient dialysis.
For his recurrent right pleural effusion, he underwent right thoracentesis this admission which yielded 1700 pleural fluid.
As for the rest of his medical problems, they were stable during his hospital stay.
Discharge Plan
-
Patient Disposition: Home with Home Care
Discharge Diagnosis/Procedures: Acute on chronic systolic congestive heart failure;
Permanent atrial fibrillation;
End-stage renal disease on hemodialysis
Condition: Fair
Diet: As tolerated
Activity: As tolerated
Driving Restrictions: As prior to admission
Specialty Instructions: Weigh Daily- Call MD for wt gain/loss 3 lbs overnight/5 lbs in 1 week
Instructions: *DCA Heart Failure Instructions
Referrals:
Modesta Howe PA-C [Specified Professional Personl] - 01/26/24 10:40 am (You have a cardiology follow up appointment at the [place] office with Dr. Hernandez's physician registrar assistant, Modesta. Please call with questions. )
Marce López CRNP [Family Provider] - in less than 1 week
Additional Discharge Medication Instructions: Continue Bumex 4 mg twice daily but HOLD on dialysis days
Prescriptions:
New
bumetanide 1 mg Tablet
4 mg PO BID@0800,1600 Qty: 60 0RF
Continued
Tradjenta 5 MG tablet
5 mg PO DAILY
metoprolol succinate [Toprol XL] 25 mg Tablet Extended Release 24 Hr
25 mg PO DAILY
ezetimibe [Zetia] 10 mg Tablet
10 mg PO QPM
rosuvastatin [Crestor] 40 mg Tablet
40 mg PO QPM
Simbrinza 1-0.2 % Drops,Suspension
1 drp RIGHT EYE QPM
clopidogrel 75 MG tablet
75 mg PO DAILY Qty: 0 0RF
latanoprost (PF) 0.005 % Dropperette
1 drp BOTH EYES HS
Eliquis 2.5 mg Tablet
2.5 mg PO BID
midodrine 5 mg tablet
5 mg PO .MWF Qty: 12 0RF
Changed
insulin glargine [Lantus Solostar U-100 Insulin] 100 unit/mL (3 mL) insulin pen
20 unit SC DAILY Qty: 0 0RF
Discharge Orders:
Discharge Patient (As Directed); Ordered 01/13/24
Ordered By: Tess Springer
Discharge Date and Time
Print Language: WOLOF
[2024-01-13 15:18] VITALS: BP 115/76
--- NOTE | 2024-01-13 15:30 | PTCARENOTE ---
Pt's family member didn't want this nurse caring for the pt. IV removal and discharge instructions performed by lodging manager Mel Easley.
== END 2024-01-13 15:50 | disposition home or self-care (01) | DRG 291 ==
LOC: 3 WEST ACU 21:41
PROVIDERS: Emergency Medicine; Radiology Vascular & Interventional Radiology; Registered Nurse; Specialist; ADMITTING PHYSICIAN Internal Medicine; ATTENDING PHYSICIAN Internal Medicine; CONSULT PHYSICIAN Internal Medicine; EMERGENCY PHYSICIAN Emergency Medicine; FAMILY PHYSICIAN Nurse Practitioner Family; OTHER PHYSICIAN Nuclear Medicine Nuclear Cardiology
PROC: 0W993ZZ Drainage of Right Pleural Cavity, Percutaneous Approach (ICD-10-PCS; 2024-01-11)
DX: I13.2 Hypertensive heart and chronic kidney disease with heart failure and with stage 5 chronic kidney disease, or end stage renal disease (principal); I50.23 Acute on chronic systolic (congestive) heart failure; N18.6 End stage renal disease; I48.21 Permanent atrial fibrillation; E11.52 Type 2 diabetes mellitus with diabetic peripheral angiopathy with gangrene; J98.11 Atelectasis; I25.10 Atherosclerotic heart disease of native coronary artery without angina pectoris; E11.22 Type 2 diabetes mellitus with diabetic chronic kidney disease; Z79.4 Long term (current) use of insulin; E11.65 Type 2 diabetes mellitus with hyperglycemia; Z86.73 Personal history of transient ischemic attack (TIA), and cerebral infarction without residual deficits; Z85.038 Personal history of other malignant neoplasm of large intestine; D63.8 Anemia in other chronic diseases classified elsewhere; Z90.49 Acquired absence of other specified parts of digestive tract; Z79.02 Long term (current) use of antithrombotics/antiplatelets; E78.00 Pure hypercholesterolemia, unspecified; I25.5 Ischemic cardiomyopathy; I35.0 Nonrheumatic aortic (valve) stenosis; Z99.2 Dependence on renal dialysis; Z79.01 Long term (current) use of anticoagulants; Z87.891 Personal history of nicotine dependence; Z79.84 Long term (current) use of oral hypoglycemic drugs; I5A Non-ischemic myocardial injury (non-traumatic); I65.23 Occlusion and stenosis of bilateral carotid arteries; I72.3 Aneurysm of iliac artery; Z79.899 Other long term (current) drug therapy; Z95.5 Presence of coronary angioplasty implant and graft; Z96.652 Presence of left artificial knee joint; W18.30XA Fall on same level, unspecified, initial encounter; Y92.230 Patient room in hospital as the place of occurrence of the external cause
CPT/HCPCS: 32555; 70450; 71045; 71046; 80048; 80053; 80061; 82248; 82962; 83735; 83880; 84439; 84443; 84484; 85014; 85018; 85025; 85027; 87070; 93005; 97163; 97166; 99285; G0257; P9047

== ENCOUNTER 2024-01-19 09:28 | Day surgery (SDC) | payer MEDICARE, OTHER, SELFPAY ==
--- NOTE | 2024-01-12 15:02 | PTCARENOTE ---
Patients 7/2 ECG abnormal- reviewed by Dr. Thomas- no additional interventions required
[2024-01-19] VITALS (14 sets, daily range): BP systolic 86–126; BP diastolic 49–90
[2024-01-19] MEDS: NSS 500 IV (10:44)
[2024-01-19] MEDS: BACTROBAN NASAL 1 GRAM NASAL (10:44)
[2024-01-19] MEDS: PERIDEX 0.12% ORAL RINSE 15 ML PO (10:45)
--- NOTE | 2024-01-19 10:45 | HP.FOC2 ---
Focused History & Physical
Chief Complaint
HPI:
Chief Complaint: ESRD
HPI / Indication for Planned Procedure: 83 year old male reports for planned procedure of revision of left upper extremity brachiobasilic AV fistula with basilic vein transposition with Dr. Martin Cordova III. Patient denies nausea, vomiting, fever,
chills, SOB, cough, or abdominal pain. He does endorse two recent hospitalizations for CHF and recurrent pleural effusion requiring right thoracentesis x2. Denies shortness of breath today. Dr. Cordova is aware of recent hospitalizations.
Relevant Past Medical History: Coronary Artery Disease and Stroke
Relevant Social History: Negative
Medication
See Medication form for detailed medications: Yes
Medication List (including Herbals & OTC):
linagliptin 5 mg tablet (Tradjenta) 5 mg PO DAILY Diabetes 06/15/17
brinzolamide 1 %-brimonidine 0.2 % eye drops,suspension (Simbrinza) 1 drp RIGHT EYE QPM Eye Condition 04/21/23
ezetimibe 10 mg tablet (Zetia) 10 mg PO QPM High Cholesterol 04/21/23
metoprolol succinate 25 mg tablet,extended release 24 hr (Toprol XL) 25 mg PO DAILY Blood Pressure 04/21/23
rosuvastatin 40 mg tablet (Crestor) 40 mg PO QPM High Cholesterol 04/21/23
clopidogrel 75 mg tablet 75 mg PO DAILY Heart disease/condition ##0 05/21/23
latanoprost (PF) 0.005 % eye drops in a dropperette 1 drp BOTH EYES HS Eye Condition 10/16/23
apixaban 2.5 mg tablet (Eliquis) 2.5 mg PO BID Blood Clot Prevention/Tx 01/01/24
midodrine 5 mg tablet 5 mg PO .MWF #12 tabs 01/04/24
bumetanide 1 mg tablet 4 mg (4 x 1 mg) PO BID@0800,1600 #60 tabs 01/13/24
insulin glargine 100 unit/mL (3 mL) subcutaneous pen (Lantus Solostar U-100 Insulin) 30 unit SC DAILY Diabetes 01/15/24
Medications Reviewed: Yes
Allergies and Reactions
Patient has Allergies: Yes
Noted Allergies and Reactions:
Allergy/AdvReac Type Severity Reaction Status Date / Time
amiodarone Allergy Renal Verified 01/15/24 11:38
Failure
ibuprofen Allergy chest pain Verified 01/15/24 11:38
Pertinent Physical Exam
All Other Systems: Negative
Head/Neck: Normal
Lungs: Normal (BL lungs CTA)
Heart: Other (Irregular rhythm )
Abdomen: Normal
Extremities: Normal
Neurological: Normal
Diagnosis / Assessment
Diagnosis: ESRD requiring HD
Plan / Procedure
Plan: will proceed with Revision of left upper extremity AV fistula with basilic vein transposition as scheduled
Anesthesia/Sedation to be done by Anesthesia Provider: Yes
[2024-01-19 11:05] LABS: Glucose - Point of Care 163 mg/dl (70-99)
[2024-01-19 11:46] LABS: Hematocrit 34.7 % (39.0-52.0); Hemoglobin 11.7 g/dL (13.0-18.0); Mean Corp Hgb Conc. 33.7 g/dL (33.0-37.0); Mean Platelet Volume 9.8 fL (7.4-10.4); Platelet Count 241 10^3/uL (130-400); Red Cell Dist. Width 14.8 % (11.5-14.5); White Blood Cell Count 6.9 10^3/uL (4.8-10.8)
[2024-01-19 11:47] LABS: INR 1.32; PT 16.7 Sec (11.4-14.6)
[2024-01-19 11:48] LABS: APTT 41.2 Sec (23.4-35.0)
[2024-01-19 11:56] LABS: Blood Urea Nitrogen 36 mg/dl (9-20); Calcium 8.8 mg/dl (8.4-10.2); Carbon Dioxide 31 mmol/L (22-30); Chloride 93 mmol/L (98-107); Estimated Creatinine Clearance 12 ml/min; Glucose 163 mg/dl (70-99); Potassium 4.5 mmol/L (3.5-5.1); Sodium 136 mmol/L (135-145); eGFR 12.28
--- NOTE | 2024-01-19 13:28 | OR.RPT ---
Operative Report
Operative Report
Date of Operation: 01/19/2024
Pre Op Diagnosis: Upper extremity brachiobasilic AV fistula (status post 1st stage of planned 2 stage basilic vein transposition)
Post Op Diagnosis: Upper extremity brachiobasilic AV fistula (status post 1st stage of planned 2 stage basilic vein transposition)
Procedure: Revision of left upper extremity brachiobasilic AV fistula with transposition of the basilic vein (second stage BVT)
Surgeon: Martin Cordova III, MD
Topstitcher Lockstitch: Adarsh Gallegos MD PhD, PGY2
Anesthesia: General
Complications: None
Estimated Blood Loss: 20 cc
History and Indications for Procedure: 83-year-old male with first stage of a planned two-stage basilic vein transposition. He was brought back to the operating room today for stage II.
Procedure in Detail: Pito Chicas was correctly identified and placed supine on the operating table. After adequate induction of anesthesia the left arm was abducted 90 degrees. A timeout procedure was performed with the nursing and anesthesia
staff confirming the patient's identity and the nature and laterality of the procedure. The basilic vein was marked in the upper arm with ultrasound guidance. The arm was then circumferentially prepped and draped in the usual sterile fashion. We
made an incision over the medial upper arm. The entire basilic vein was dissected with careful sharp dissection. All branches were ligated and divided between silk ties and metal clips. The vein was good caliber along the entire course and had an
excellent thrill. Once the entire vein had been carefully dissected we then created a gentle curved tunnel lateral to the incision over the bicep with a large clamp. Proximal control was obtained on the vein with a small vascular clamp. The vein was
marked and then transected near the arterial anastomosis. The vein was then brought through the tunnel carefully. The two ends of the vein were anastomosed to one another in an end-to-end fashion using a running 7-0 Prolene suture. At the completion
of the anastomosis the clamp was released and flow restored through the fistula. There was an excellent thrill in the tunnel. The suture line was inspected for hemostasis and this was achieved. The wound was irrigated with warm saline solution.
Hemostasis was achieved in the wound bed. The wound was then closed in multiple layers and sterile dressings applied. The patient had an easily palpable thrill in the tunnel and a palpable radial pulse at the left wrist at the conclusion of the
case.
The patient tolerated the procedure well was taken to the recovery room in good condition.
Attestation: I was present and responsible for the entire procedure
Signed:
Martin Cordova III, MD
[facility]
[phone] (cell)
[2024-01-19 13:32] LABS: Glucose - Point of Care 145 mg/dl (70-99)
--- NOTE | 2024-01-19 18:29 | W.IMMPOSTOP ---
Surgical Immed Post Op Note
-
Primary Surgeon: Dr. Martin Cordova III, MD
Assisting Surgeon: Adarsh Gallegos MD, PhD (PGY-2)
Pre-op Diagnosis: Prior left brachiobasilic fistula (stage 1)
Post-op Diagnosis: Prior left brachiobasilic fistula (stage 1)
Procedure Performed: Revision of left upper extremity brachiobasilic AV fistula with transposition of the basilic vein (second stage BVT)
Anesthesia Type: General
Specimen / Cultures: None
Estimated Blood Loss: Minimal
Complications: None
Operative Findings: The patient was brought to the OR and placed in the supine position with their left upper extremity abducted. The patient was prepped and draped in usual sterile fashion. Ultrasound was used to identify the prior AV fistula
anastomosis and traced the course of the basilic vein fistula in the arm. An incision was made along the course of the fistula. A combination of electrocautery and sharp dissection was performed to expose the basilic vein. Small branches were
ligated with silk ties and clipped with small clips then divided. A soft tissue tunnel was created with a tunneler. The fistula was divided proximally and passed through the subq tunnel. A 7-0 prolene suture was then used to perform an end-to-end
anastomosis between the two divided ends of the fistula vein. After the anastomosis was complete, the wound bed was irrigated and hemostasis was ensured. The wound was closed in 3-0 and 4-0 layers with skin glue at the surface. At the completion of
the case the patient had an excellent palpable thrill along the course of their fistula. The patient was transported to the PACU in stable condition.
== END 2024-01-19 15:36 | disposition home or self-care (01) ==
LOC: CATH 09:28
PROVIDERS: ATTENDING PHYSICIAN Surgery Vascular Surgery; FAMILY PHYSICIAN Nurse Practitioner Family; OTHER PHYSICIAN Internal Medicine Cardiovascular Disease
DX: I13.2 Hypertensive heart and chronic kidney disease with heart failure and with stage 5 chronic kidney disease, or end stage renal disease (principal); N18.6 End stage renal disease; I50.22 Chronic systolic (congestive) heart failure; E11.22 Type 2 diabetes mellitus with diabetic chronic kidney disease; I25.10 Atherosclerotic heart disease of native coronary artery without angina pectoris; Z86.73 Personal history of transient ischemic attack (TIA), and cerebral infarction without residual deficits; Z79.02 Long term (current) use of antithrombotics/antiplatelets; Z79.01 Long term (current) use of anticoagulants; Z79.4 Long term (current) use of insulin; Z79.84 Long term (current) use of oral hypoglycemic drugs
CPT/HCPCS: 36832; 80048; 82962; 85027; 85610; 85730

== ENCOUNTER → 2024-02-04 12:54 | Outpatient (REF) | payer MEDICARE, OTHER, SELFPAY | LOC: RAD 12:54 | PROVIDERS: ATTENDING PHYSICIAN Physician Assistant; FAMILY PHYSICIAN Nurse Practitioner Family | DX: I77.9 Disorder of arteries and arterioles, unspecified (principal) | CPT/HCPCS: 93922; 93925 ==

== ENCOUNTER 2024-02-25 13:18 | Emergency (ER) | payer MEDICARE, OTHER, SELFPAY ==
[2024-02-25 13:37] VITALS: BP 100/63
--- NOTE | 2024-02-25 13:43 | ED.GENMED ---
ED Provider Triage
<CAIN Yap - Last Filed: 02/25/24 13:46>
-
Patient seen by provider in Triage?: Seen in Triage
Attestation: A medical screening examination has been initiated by a qualified medical provider. Based on the assessment performed at this time, it has been determined that an emergent medical condition may exist and the patient has been informed
that further medical evaluation and possible additional diagnostic testing may be needed.
HPI: 83-year-old male presents to the ED with hematuria. Pt is on eliquis and plavix. Pt denies any back pain however did have back pain last week. Patient denies any urinary frequency or urgency. Denies any fever chills. No nausea vomiting
GENERAL: Alert , in no apparent distress
EYE: No visual abnormalities.
NECK: Trachea midline
ENT: No visible abnormalities.
LUNGS: No acute respiratory distress
NEUROLOGICAL: Alert and oriented
SKIN: Skin intact. No visible changes.
MUSCULOSKELETAL: Moving extremities normally
PSYCH: Normal and appropriate interaction.
This is a medical evaluation conducted in person to initiate diagnostic evaluation and provide initial therapeutics. Please see further documentation by the treating clinician.
History of Present Illness
<CAIN Yap - Last Filed: 02/25/24 13:46>
General
Chief Complaint: Male Genito-Urinary Symptoms
Time Seen by Provider: 02/25/24 17:51
<Jose Miguel Barlow MD - Last Filed: 02/25/24 21:07>
General
Source: patient and spouse
Exam Limitations: none
Nursing documentation reviewed up to this point in time: agreed with
History of Present Illness
History of Present Illness:
83-year-old male with history as documented notable for A-fib on Eliquis, CHF, hypertension, hyperlipidemia, ESRD on dialysis, insulin-dependent diabetes who presents to the emergency department for evaluation of hematuria. Patient reports that he
was in his normal state of health, earlier today urinated and noted essentially gross blood. He urinated again later in the day and although it was not as dark it was still blood-tinged and so he called PCP who recommended he come to the emergency
room. Although he is on dialysis he does urinate he says about 4 times a day roughly 8 ounces at a time. He says never had hematuria in the past. He says that although he had hematuria today he was not passing any clots and he felt he was able to
empty his bladder completely. He has not noticed any dysuria or change in frequency. He has not had any fevers, abdominal or flank pain. He is on Eliquis as above. He denies any other complaints.
Past History
<CAIN Yap - Last Filed: 02/25/24 13:46>
Past History
ED Past Medical History: Arrthythmia (Atrial fib), Cancer (Colon cancer), CHF, CVA (Left sided slight weakness), HTN, Hypercholesterolemia, IDDM, RI, Renal failure (Dialysis M-W-) and Other (PVD, GI bleeding, Glaucoma, )
ED Past Surgical History: Bowel resection, Cardiac (Stent), Cholecystectomy, Orthopedic (left knee replacement), Tonsilectomy and Other (right leg stent, left arm fistula that is not finished)
Social History
Tobacco: Former smoker
Alcohol: Occasional
Personal:
Living: with family
Review of Systems
<Jose Miguel Barlow MD - Last Filed: 02/25/24 21:07>
Review of Systems
All Other Systems: ROS reviewed and negative except as documented in HPI and ROS
Constitutional: Denies fever or chills
Respiratory: Denies trouble breathing
Cardiac: Denies chest pain
ABD/GI: Denies abdominal pain, nausea, vomiting or bloody stools
: Reports bleeding; Denies dysuria, frequency or flank pain
Musculoskeletal: Denies neck pain or back pain
Neurological: Denies headache
Phy Exam
<Jose Miguel Barlow MD - Last Filed: 02/25/24 21:07>
Physical Exam
Physical Exam:
General: Awake, alert, oriented x3; no acute distress
Head: Normocephalic, atraumatic
Eyes: Conjunctiva normal
Throat: Airway intact, handling secretions
Neck: Trachea midline
Lungs: Breathing comfortably no distress
Heart: Regular rate and rhythm, no murmurs, gallops, or rubs
Abd: Soft, non distended, nontender
Back: No CVA tenderness
Neuro: No gross deficits
Extremities: No edema in extremities, warm and well-perfused
Scores
<Jose Miguel Barlow MD - Last Filed: 02/25/24 21:07>
Heart Failure Risk
Heart Failure Risk Score: Not Applicable
Heart Score for Chest Pain Patients
STEMI patient?: Not applicable
Withdrawal Assessment of Alcohol
Withdrawal Assessment Completed?: Not applicable
Course
<CAIN Yap - Last Filed: 02/25/24 13:46>
Orders/Labs/Results
Orders:
Orders
02/25/24 13:46
CT Abd/pel Without Iv Or Oral Urgent
Comment:
Reason For Exam: flank pain/hematuria
02/25/24 13:49
Complete Blood Count/With Diff Urgent
Comprehensive Metabolic Panel Urgent
02/25/24 13:55
Urinalysis Reflex To Culture Urgent
Date Specimen was Collected: 02/25/24
Time Specimen was Collected: 13:41
Urine Microscopic Reflex Cult Urgent
Urine Culture Urgent
LUIS ENRIQUE Source: U
Specimen Description:
Date Specimen was Collected: 02/25/24
Time Specimen was Collected: 13:41
02/25/24 17:53
Bladder Scan- Treatment ONCE
02/25/24 18:07
CefTRIAXone [Rocephin] 1,000 mg IV NOW STA
Abnormal Lab Results
02/25/24 02/25/24
13:49 13:55
RBC 3.14 L 10^6/uL
(4.70-6.10)
Hgb 9.5 L g/dL
(13.0-18.0)
Hct 29.1 L %
(39.0-52.0)
MCHC 32.6 L g/dL
(33.0-37.0)
RDW 16.2 H %
(11.5-14.5)
MPV 10.7 H fL
(7.4-10.4)
Absolute Neuts (auto) 7.3 H 10^3/uL
(1.4-6.5)
Absolute Lymphs (auto) 0.5 L 10^3/uL
(1.2-3.4)
Neutrophils % 87.0 H %
(42.2-75.2)
Lymphocytes % 5.5 L %
(20.5-51.1)
Sodium 134 L mmol/L
(135-145)
Chloride 91 L mmol/L
(98-107)
Carbon Dioxide 31 H mmol/L
(22-30)
BUN 30 H mg/dl
(9-20)
Creatinine 4.3 H* mg/dL
(0.7-1.3)
Glucose 260 H mg/dl
(70-99)
Total Bilirubin 1.6 H mg/dl
(0.2-1.3)
ALT 57 H U/L
(0-50)
Ur Occult Blood Reflex 4+ A
(Negative)
Leukocyte Esterase Rfl 2+ A
(Negative)
Urine RBC >100 A /HPF
(0-2)
Urine Bacteria (Reflex) Moderate A
(Negative)
Urine Glucose 1+ A
(Negative)
Urine Albumin (Reflex) 3+ A
(Neg - Trace)
02/25/24 13:49
02/25/24 13:49
Vital Signs
Initial and Last Documented VS:
Initial Vital Signs
Temp Pulse Resp BP Pulse Ox
36.9 C 96 18 100/63 100
02/25/24 13:37 02/25/24 13:37 02/25/24 13:37 02/25/24 13:37 02/25/24 13:37
Last Documented Vital Signs
Temp Pulse Resp BP Pulse Ox
36.7 C 102 20 107/73 100
02/25/24 15:36 02/25/24 18:25 02/25/24 18:25 02/25/24 18:25 02/25/24 18:25
<Jose Miguel Barlow MD - Last Filed: 02/25/24 21:07>
Orders/Labs/Results
Orders:
Orders
02/25/24 13:46
CT Abd/pel Without Iv Or Oral Urgent
Comment:
Reason For Exam: flank pain/hematuria
02/25/24 13:49
Complete Blood Count/With Diff Urgent
Comprehensive Metabolic Panel Urgent
02/25/24 13:55
Urinalysis Reflex To Culture Urgent
Date Specimen was Collected: 02/25/24
Time Specimen was Collected: 13:41
Urine Microscopic Reflex Cult Urgent
Urine Culture Urgent
LUIS ENRIQUE Source: U
Specimen Description:
Date Specimen was Collected: 02/25/24
Time Specimen was Collected: 13:41
02/25/24 17:53
Bladder Scan- Treatment ONCE
02/25/24 18:07
CefTRIAXone [Rocephin] 1,000 mg IV NOW STA
Abnormal Lab Results
02/25/24 02/25/24
13:49 13:55
RBC 3.14 L 10^6/uL
(4.70-6.10)
Hgb 9.5 L g/dL
(13.0-18.0)
Hct 29.1 L %
(39.0-52.0)
MCHC 32.6 L g/dL
(33.0-37.0)
RDW 16.2 H %
(11.5-14.5)
MPV 10.7 H fL
(7.4-10.4)
Absolute Neuts (auto) 7.3 H 10^3/uL
(1.4-6.5)
Absolute Lymphs (auto) 0.5 L 10^3/uL
(1.2-3.4)
Neutrophils % 87.0 H %
(42.2-75.2)
Lymphocytes % 5.5 L %
(20.5-51.1)
Sodium 134 L mmol/L
(135-145)
Chloride 91 L mmol/L
(98-107)
Carbon Dioxide 31 H mmol/L
(22-30)
BUN 30 H mg/dl
(9-20)
Creatinine 4.3 H* mg/dL
(0.7-1.3)
Glucose 260 H mg/dl
(70-99)
Total Bilirubin 1.6 H mg/dl
(0.2-1.3)
ALT 57 H U/L
(0-50)
Ur Occult Blood Reflex 4+ A
(Negative)
Leukocyte Esterase Rfl 2+ A
(Negative)
Urine RBC >100 A /HPF
(0-2)
Urine Bacteria (Reflex) Moderate A
(Negative)
Urine Glucose 1+ A
(Negative)
Urine Albumin (Reflex) 3+ A
(Neg - Trace)
02/25/24 13:49
02/25/24 13:49
Vital Signs
Initial and Last Documented VS:
Initial Vital Signs
Temp Pulse Resp BP Pulse Ox
36.9 C 96 18 100/63 100
02/25/24 13:37 02/25/24 13:37 02/25/24 13:37 02/25/24 13:37 02/25/24 13:37
Last Documented Vital Signs
Temp Pulse Resp BP Pulse Ox
36.7 C 102 20 107/73 100
02/25/24 15:36 02/25/24 18:25 02/25/24 18:25 02/25/24 18:25 02/25/24 18:25
<Jose Miguel Barlow MD - Last Filed: 02/25/24 21:07>
MDM/Problems Addressed
Differential Diagnosis Includes:
UTI, polyp, kidney stone, bladder cancer, etc
MDM/Problems Addressed:
83-year-old male presents to the emergency room for evaluation of hematuria x 2 episodes today. Vitals and exam as above. He had labs sent off including a CBC which shows essentially stable hemoglobin. CMP shows findings consistent with his
chronic kidney disease. Random glucose 260 in the setting of known insulin-dependent diabetes. His urinalysis is positive for significant blood also has moderate bacteria. He was sent for a CT abdomen pelvis which showed no acute pathology�no
kidney stones, bladder appears relatively normal. Patient says he feels generally well. He had no retained urine on bladder scan and emptying his bladder completely. I think it would cover him for possible UTI with bacteria in his urinalysis and
hematuria but no clear indication for hospital admission at this point in time without fever or leukocytosis and with a well-appearing patient. He prefers discharge from the hospital. Will refer to urology for outpatient follow-up and started on
antibiotics after dose of IV antibiotics here. I spoke to him and his in detail about return precautions including worsening hematuria, passing of clots or difficulty urinating, fevers, abdominal or flank pain or any other concerns. They feel
very comfortable with this. All questions answered.
Chronic conditions affecting care:
ESRD, A-fib on Eliquis
<Jose Miguel Barlow MD - Last Filed: 02/25/24 21:07>
*Radiology
Radiology exam reviewed: radiology read reviewed
*Pulse Oximetry
Patient hypoxic: no
*Critical Care Note
Total Time (30-74mins, 75-104mins- exclusive of procedures): Not Applicable
Data Reviewed
Review of Other/Old Records Reveals: Labs and Records
Source: patient, records and spouse
ED Attending Note
<CAIN Yap - Last Filed: 02/25/24 13:46>
-
Portions of this chart may have been created with voice recognition software.� Occasional wrong word or��sound alike� substitutions may have occurred due to the inherent limitations of voice recognition software.
Discharge Plan
Departure
Patient Disposition: Home (Routine Discharge)
Date of Disposition: 02/25/24
Time of Disposition: 19:15
Patient with high blood pressure during this ER visit?: No
Discharge Problem:
Hematuria
Instructions: Blood in Urine (Hematuria), Adult ED
Prescriptions:
New
cephalexin 500 mg capsule
500 mg PO QID 5 Days Qty: 20 0RF
No Action
Tradjenta 5 MG tablet
5 mg PO DAILY
metoprolol succinate [Toprol XL] 25 mg Tablet Extended Release 24 Hr
25 mg PO DAILY
ezetimibe [Zetia] 10 mg Tablet
10 mg PO QPM
rosuvastatin [Crestor] 40 mg Tablet
40 mg PO QPM
Simbrinza 1-0.2 % Drops,Suspension
1 drp RIGHT EYE QPM
clopidogrel 75 MG tablet
75 mg PO DAILY Qty: 0 0RF
latanoprost (PF) 0.005 % Dropperette
1 drp BOTH EYES HS
insulin glargine [Lantus Solostar U-100 Insulin] 100 unit/mL (3 mL) insulin pen
30 unit SC DAILY
oxycodone 5 mg Tablet
5 mg PO Q8H PRN (Reason: moderate pain) Qty: 7 0RF
Eliquis 2.5 mg Tablet
2.5 mg PO BID
midodrine 5 mg tablet
5 mg PO .MWF Qty: 12 0RF
bumetanide 1 mg Tablet
4 mg PO BID@0800,1600 Qty: 60 0RF
Rx Instructions:
Tue, Thur, Sat, Sun
Referrals:
Marce López CRNP [Family Provider] -
Booker Moe MD [Active] - Call in 1-3 days for appt (Urology)
Activity Restrictions/Additional Instructions:
Thank you for visiting the Emergency Department at [facility].
1. Please schedule a follow up appointment as directed. Call first thing tomorrow morning to make an appointment.
2. If indicated, please take your medications as instructed and indicated on discharge paperwork.
3. If any of your symptoms do not improve, or persist, or become more severe within 6-12 hours, please return to the emergency department for further care.
4. Please return to the emergency department if you develop a headache, neck pain/stiffness, fever greater than 100.4F, chest pain, shortness of breath, persistent nausea, vomiting, slurred speech, difficulty walking, numbness/tingling, weakness,
signs of infection or any other symptoms that are worrisome to you.
Please call [phone] if you have any questions.
Interventions
Interventions:
*Risk Screen - Suicide Last Done: 02/25/24 13:37
*General Assessment Last Done: 02/25/24 13:37
ED- Fall Risk Assessment Last Done: 02/25/24 19:51
*ED COVID-19 Vaccine History Last Done: 02/25/24 13:37
*Nursing Disposition Last Done: 02/25/24 19:51
ED-Male Genitourinary Assessment Last Done: 02/25/24 18:29
Discharge Date and Time
Discharge Date/Time: 02/25/24 19:51
Print Language: URDU
[2024-02-25 14:23] LABS: % Basophils 0.4 % (0-2); % Eosinophils 0.4 % (0-6); % Immature Granulocytes 0.2 % (0-0.5); % Lymphocytes 5.5 % (20.5-51.1); % Monocytes 6.5 % (1.7-9.3); Absolute Lymphocytes 0.5 10^3/uL (1.2-3.4); Absolute Monocytes 0.5 10^3/uL (0.1-0.6); Absolute Neutrophils 7.3 10^3/uL (1.4-6.5); Hematocrit 29.1 % (39.0-52.0); Hemoglobin 9.5 g/dL (13.0-18.0); Mean Corp Hgb Conc. 32.6 g/dL (33.0-37.0); Mean Corpuscular Hgb 30.3 pg (27.0-31.0); Mean Corpuscular Volume 92.7 fL (80.0-94.0); Mean Platelet Volume 10.7 fL (7.4-10.4); Nucleated Red Blood Cells % 0 % (-); Platelet Count 141 10^3/uL (130-400); Red Blood Cell Count 3.14 10^6/uL (4.70-6.10); Red Cell Dist. Width 16.2 % (11.5-14.5); White Blood Cell Count 8.4 10^3/uL (4.8-10.8)
[2024-02-25 14:36] LABS: ALT (SGPT) 57 U/L (0-50); AST (SGOT) 55 U/L (17-59); Albumin 4.2 g/dl (3.5-5.0); Alkaline Phosphatase 121 U/L (38-126); Blood Urea Nitrogen 30 mg/dl (9-20); Calcium 8.4 mg/dl (8.4-10.2); Carbon Dioxide 31 mmol/L (22-30); Chloride 91 mmol/L (98-107); Glucose 260 mg/dl (70-99); Potassium 4.7 mmol/L (3.5-5.1); Sodium 134 mmol/L (135-145); Total Bilirubin 1.6 mg/dl (0.2-1.3); Total Protein 6.9 g/dl (6.3-8.2); eGFR 12.97
[2024-02-25 15:36] VITALS: BP 94/54
[2024-02-25 15:36] LABS: Urine Albumin 3+ (Neg - Trace); Urine Bilirubin Negative (Negative); Urine Character Slightly Cloudy (Clear); Urine Color Red; Urine Glucose 1+ (Negative); Urine Ketone Negative (Negative); Urine Leukocyte 2+ (Negative); Urine Nitrite Negative (Negative); Urine Occult Blood 4+ (Negative); Urine Urobilinogen Negative (Neg - 1+)
[2024-02-25 15:46] LABS: Urine Red Blood Cell >100 /HPF (0-2)
[2024-02-25 15:47] LABS: Urine Bacteria Moderate (Negative)
[2024-02-25] MEDS: ROCEPHIN 1000 MG IV (18:18)
[2024-02-25 18:25] VITALS: BP 107/73
== END 2024-02-25 19:51 | disposition home or self-care (01) ==
LOC: EMR 13:18
PROVIDERS: Emergency Medicine; EMERGENCY PHYSICIAN Emergency Medicine; FAMILY PHYSICIAN Nurse Practitioner Family
DX: R31.9 Hematuria, unspecified (principal); I13.2 Hypertensive heart and chronic kidney disease with heart failure and with stage 5 chronic kidney disease, or end stage renal disease; I50.9 Heart failure, unspecified; N18.6 End stage renal disease; I69.354 Hemiplegia and hemiparesis following cerebral infarction affecting left non-dominant side; E78.00 Pure hypercholesterolemia, unspecified; E11.22 Type 2 diabetes mellitus with diabetic chronic kidney disease; E11.51 Type 2 diabetes mellitus with diabetic peripheral angiopathy without gangrene; I48.91 Unspecified atrial fibrillation; M19.90 Unspecified osteoarthritis, unspecified site; H40.9 Unspecified glaucoma; I25.2 Old myocardial infarction; Z99.2 Dependence on renal dialysis; Z79.4 Long term (current) use of insulin; Z79.01 Long term (current) use of anticoagulants; Z95.5 Presence of coronary angioplasty implant and graft; Z96.652 Presence of left artificial knee joint; Z85.038 Personal history of other malignant neoplasm of large intestine; Z87.891 Personal history of nicotine dependence; Z90.49 Acquired absence of other specified parts of digestive tract; Z98.0 Intestinal bypass and anastomosis status; Z88.6 Allergy status to analgesic agent; Z88.8 Allergy status to other drugs, medicaments and biological substances
CPT/HCPCS: 99284; 96374; 51798; 74176; 80053; 81003; 81015; 85025; 87086

== ENCOUNTER → 2024-04-19 14:13 | Outpatient (REF) | payer MEDICARE, OTHER, SELFPAY | LOC: RAD 14:13 | PROVIDERS: ATTENDING PHYSICIAN Surgery Vascular Surgery | DX: I73.9 Peripheral vascular disease, unspecified (principal) | CPT/HCPCS: 93922 ==

== ENCOUNTER 2024-04-25 17:36 | Inpatient (IN) | payer MEDICARE, OTHER, SELFPAY ==
[2024-04-25] VITALS (14 sets, daily range): BP systolic 100–129; BP diastolic 54–92; BMI 21.6
--- NOTE | 2024-04-25 08:52 | ED.GENMED ---
History of Present Illness
<CAIN Yap - Last Filed: 04/27/24 14:41>
General
Chief Complaint: Weakness
Source: patient
Exam Limitations: none
Time Seen by Provider: 04/25/24 08:44
Nursing documentation reviewed up to this point in time: agreed with
History of Present Illness
History of Present Illness:
Patient is an 84-year-old male with past medical history of A-fib on Eliquis CAD with stents end-stage renal disease on dialysis Thursday, hypertension hyperlipidemia insulin-dependent diabetes presents to the ER for evaluation of
weakness and shortness of breath for the past 2 days. he denies any chest pain
He denies any lower extremity swelling
Past History
<CAIN Yap - Last Filed: 04/27/24 14:41>
Past History
ED Past Medical History: Arrthythmia (Atrial fib), Cancer (Colon cancer), CHF, CVA (Left sided slight weakness), HTN, Hypercholesterolemia, IDDM, HI, Renal failure (Dialysis -W-) and Other (PVD, GI bleeding, Glaucoma, )
ED Past Surgical History: Bowel resection, Cardiac (Stent), Cholecystectomy, Orthopedic (left knee replacement), Tonsilectomy and Other (right leg stent, left arm fistula that is not finished)
Social History
Tobacco: Former smoker
Alcohol: Occasional
Personal:
Living: with family
Review of Systems
<CAIN Yap - Last Filed: 04/27/24 14:41>
Review of Systems
Allergies reviewed?: Yes
All Other Systems: ROS reviewed and negative except as documented in HPI and ROS
Constitutional: Reports fatigue; Denies fever or chills
EENT: Reports no symptoms
Respiratory: Reports trouble breathing; Denies cough
Cardiac: Reports no symptoms; Denies chest pain or palpitations
ABD/GI: Reports no symptoms
: Reports no symptoms
Musculoskeletal: Reports no symptoms
Skin: Reports no symptoms
Neurological: Reports no symptoms
Psychiatric: Reports no symptoms
Phy Exam
<CAIN Yap - Last Filed: 04/27/24 14:41>
General Physical Exam
General Presentation: no apparent distress
General age: appears stated age
General Skin: warm and dry
General Habitus: elderly
General Mental: alert
General Hydration: dry mucous membranes
Cardiovascular Exam
Cardiovascular Exam: regular rate/rhythm, no murmur and normal peripheral pulses
Pulmonary Exam
Pulmonary Exam: lungs clear and no respiratory distress
Neurological Exam
Neurological Exam: alert and oriented x3
Musculoskeletal Exam
Musculoskeletal Exam: full ROM and other ( no l/e swelling )
Skin Exam
Skin Exam: normal color and warm/dry
Psychiatric Exam
Psychiatric Exam: normal mood/affect
Course
<CAIN Yap - Last Filed: 04/27/24 14:41>
Orders/Labs/Results
Orders:
Orders
04/25/24 09:00
IV Insert/Care/Rem.- Treatment PRN
04/25/24 09:08
Electrocardiogram (*1) Stat
Reason for Study: Other
Other Reason for Exam: chest pain
Cardiac Monitoring- Treatment ONCE
EKG- Treatment ONCE
IV Insert/Care/Rem.- Treatment PRN
CR Chest - 2 Views Urgent
Comment:
Reason For Exam: sob
04/25/24 09:23
COVID-19 Antigen Urgent
Source: Nasal Swab
Complete Blood Count/With Diff Urgent
Comprehensive Metabolic Panel Urgent
Pro-BNP [NT-proBNP] Urgent
Influenza A+B Rapid Molecular Urgent
LUIS ENRIQUE Source: Nasal Swab
Specimen Description:
04/25/24 14:32
Urinalysis Reflex To Culture Urgent
Date Specimen was Collected: 04/25/24
Time Specimen was Collected: 14:30
Urine Microscopic Reflex Cult Urgent
Urine Culture Urgent
LUIS ENRIQUE Source: U
Specimen Description:
Date Specimen was Collected: 04/25/24
Time Specimen was Collected: 14:30
04/25/24 Dinner
Potassium, 2 Gram
At Your Request: Full Participation
Does patient need a safe tray?: Yes
04/25/24 15:27
CefTRIAXone [Rocephin] 1,000 mg IV NOW STA
04/25/24 16:55
NEPHROLOGY CONSULT Routine
Consulting Provider: Efraín Hu
Was physician already notified: Yes
Reason for consult: esrd missed dialysis has UTI
04/25/24 16:56
Admit/Transfer Patient As Directed
Co-Sign Provider:
Level of Care: Inpatient admission
Assign to:: Telemetry
Physician / Group: pito giron
Diagnosis: symptomtic uti, esrd missed dialysis
Reason for Telemetry: Arrhythmia
Date to Stop Telemetry: 04/28/24
Time to Stop Telemetry: 11:00
Reason for Hospitalization: symptomtic uti, esrd missed dialysis
Expected length of stay greater than two midnights?: Yes
ELOS- Estimated Length of Stay in days: 4
I certify the patient meets the requirements for IP care: Yes
Code Status As Directed
Resuscitation Status: Full Code
04/25/24 17:02
PRN Pain Medication Management As Directed
May give lesser potent ordered pain med per pt: Yes
preference::
Protocol:: Medication orders for pain may be administered in a
manner that supports deferring to patient preference
when the pt is:
- Requesting an ordered lesser potent pain medication.
Least to most potent pain medications are defined
as: acetaminophen < NSAID < tramadol < opioids
(morphine, oxycodone, hydromorphone).
- Requesting a lesser dose of the same medication IF
ORDERED.
- Requesting a less intrusive route of administration
if both routes are prescribed by the provider (PO <
IV).
04/25/24 17:31
Hemodialysis treatment As Directed
Treatment date:: 04/26/24
Treatment type: Hemodialysis
Ultrafiltration (kg): 3
Treatment time (duration): 3 hours 30 minutes
Use dialysis access:: AVF
Dialyzer:: Optiflux 160
Blood flow rate minimum: 350
Blood flow rate maximum: 400
Dialysis flow rate: 600 mL/min
Dialysate temperature: 35 degrees Celsius
Sodium (Na): 140
Potassium (K): 2
Calcium (Ca): 2.5
Bicarbonate (HCO3): 35
04/25/24 19:37
Acetaminophen [Tylenol] 650 mg PO Q4HPRN PRN
Brinzolamide/Brimonidine Tart [Simbrinza 1%-0.2% Ophth Susp] See Dose Instructions RIGHT EYE QPM
Ezetimibe [Zetia] 10 mg PO QPM
Rosuvastatin Calcium [Crestor] 40 mg PO QPM
04/25/24 19:37
VTE Contraindication Routine
VTE Mechanical Device Contraindication: Medical Contraindication
Pharmocologic Contraindication: Medical Contraindication
Comment: Patient on Eliquis
Activity As Directed
Activity Level: As Tolerated
Intake/ Output As Directed
Frequency: Per unit guidelines
Vital Signs As Directed
Frequency: Per unit guidelines
Weight As Directed
Frequency: Daily
Ot Eval And Treat Routine
Pt Eval And Treat Routine
Activity Level: As Tolerated
04/25/24 20:00
Apixaban [Eliquis] 2.5 mg PO BID
04/25/24 22:00
Latanoprost [Xalatan Ophthalmic Solution] See Dose Instructions BOTH EYES HS
04/26/24 06:37
Complete Blood Count/With Diff IN AM
Comprehensive Metabolic Panel IN AM
Magnesium IN AM
04/26/24 08:00
Albumin Human 25% 50 ml [Flexbumin 25% For Hemodialysis] 12.5 grams IV HD-Q1HPRN PRN
Bumetanide [Bumex] 4 mg PO SuTuThSa@0800,1700
Clopidogrel Bisulfate [Plavix] 75 mg PO DAILY
Epoetin Rakesh-Epbx [Retacrit] 10,000 units IV HD-ONCE ONE
Finasteride [Proscar] 5 mg PO DAILY
Mannitol 25% 12.5 grams IV HD-Q1HPRN PRN
Metoprolol Xl [Toprol Xl] 25 mg PO DAILY
Sitagliptin Phosphate [Januvia] 25 mg PO DAILY
Sodium Chloride [Sodium Chloride 4 Meq/ml For Hemodialysis] 10 ml IV HD-Q1HPRN PRN
Timolol Maleate 0.5% [Timoptic 0.5% Ophthalmic Solution] 1 drop RIGHT EYE BID
insulin glargine [Lantus Solostar U-100 Insulin] 30 unit SC DAILY
04/26/24 16:00
CefTRIAXone [Rocephin] 1,000 mg IV Q24H
04/27/24 08:00
Midodrine [ProAmatine] 5 mg PO MOWEFR@0800
04/27/24 12:52
Comprehensive Metabolic Panel IN AM
04/28/24 06:00
Comprehensive Metabolic Panel IN AM
04/28/24 11:00
DC Protocol for Telemetry ONCE
04/29/24 06:00
Comprehensive Metabolic Panel IN AM
Abnormal Lab Results
04/25/24 04/25/24
09 14:32
RBC 3.08 L 10^6/uL
(4.70-6.10)
Hgb 9.6 L g/dL
(13.0-18.0)
Hct 28.6 L %
(39.0-52.0)
MCH 31.2 H pg
(27.0-31.0)
RDW 14.9 H %
(11.5-14.5)
Absolute Lymphs (auto) 0.6 L 10^3/uL
(1.2-3.4)
Neutrophils % 83.4 H %
(42.2-75.2)
Lymphocytes % 8.2 L %
(20.5-51.1)
Sodium 134 L mmol/L
(135-145)
BUN 45 H mg/dl
(9-20)
Creatinine 5.1 H* mg/dL
(0.7-1.3)
Glucose 181 H mg/dl
(70-99)
AST 66 H U/L
(17-59)
ALT 70 H U/L
(0-50)
Alkaline Phosphatase 187 H U/L
(38-126)
Ur Occult Blood Reflex 4+ A
(Negative)
Leukocyte Esterase Rfl 3+ A
(Negative)
Urine RBC 30-40 A /HPF
(0-2)
Urine WBC (Reflex) >100 A /HPF
(0-5)
Urine Bacteria (Reflex) Many A
(Negative)
Urine Albumin (Reflex) 4+ A
(Neg - Trace)
04/25/24 09:23
04/25/24 09:23
Vital Signs
Initial and Last Documented VS:
Initial Vital Signs
Temp Pulse Resp BP Pulse Ox
97.7 F 78 18 114/60 100
04/25/24 08:06 04/25/24 08:06 04/25/24 08:06 04/25/24 08:06 04/25/24 08:06
Last Documented Vital Signs
Temp Pulse Resp BP Pulse Ox
98.2 F 86 18 90/53 99
04/27/24 11:07 04/27/24 12:48 04/27/24 11:07 04/27/24 12:48 04/27/24 11:07
<Booker Mishra, DO - Last Filed: 04/26/24 18:55>
Orders/Labs/Results
Orders:
Orders
04/25/24 09:00
IV Insert/Care/Rem.- Treatment PRN
04/25/24 09:08
Electrocardiogram (*1) Stat
Reason for Study: Other
Other Reason for Exam: chest pain
Cardiac Monitoring- Treatment ONCE
EKG- Treatment ONCE
IV Insert/Care/Rem.- Treatment PRN
CR Chest - 2 Views Urgent
Comment:
Reason For Exam: sob
04/25/24 09:23
COVID-19 Antigen Urgent
Source: Nasal Swab
Complete Blood Count/With Diff Urgent
Comprehensive Metabolic Panel Urgent
Pro-BNP [NT-proBNP] Urgent
Influenza A+B Rapid Molecular Urgent
LUIS ENRIQUE Source: Nasal Swab
Specimen Description:
04/25/24 14:32
Urinalysis Reflex To Culture Urgent
Date Specimen was Collected: 04/25/24
Time Specimen was Collected: 14:30
Urine Microscopic Reflex Cult Urgent
Urine Culture Urgent
LUIS ENRIQUE Source: U
Specimen Description:
Date Specimen was Collected: 04/25/24
Time Specimen was Collected: 14:30
04/25/24 Dinner
Potassium, 2 Gram
At Your Request: Full Participation
Does patient need a safe tray?: Yes
04/25/24 15:27
CefTRIAXone [Rocephin] 1,000 mg IV NOW STA
04/25/24 16:55
NEPHROLOGY CONSULT Routine
Consulting Provider: Efraín Hu
Was physician already notified: Yes
Reason for consult: esrd missed dialysis has UTI
04/25/24 16:56
Admit/Transfer Patient As Directed
Co-Sign Provider:
Level of Care: Inpatient admission
Assign to:: Telemetry
Physician / Group: pito giron
Diagnosis: symptomtic uti, esrd missed dialysis
Reason for Telemetry: Arrhythmia
Date to Stop Telemetry: 04/28/24
Time to Stop Telemetry: 11:00
Reason for Hospitalization: symptomtic uti, esrd missed dialysis
Expected length of stay greater than two midnights?: Yes
ELOS- Estimated Length of Stay in days: 4
I certify the patient meets the requirements for IP care: Yes
Code Status As Directed
Resuscitation Status: Full Code
04/25/24 17:02
PRN Pain Medication Management As Directed
May give lesser potent ordered pain med per pt: Yes
preference::
Protocol:: Medication orders for pain may be administered in a
manner that supports deferring to patient preference
when the pt is:
- Requesting an ordered lesser potent pain medication.
Least to most potent pain medications are defined
as: acetaminophen < NSAID < tramadol < opioids
(morphine, oxycodone, hydromorphone).
- Requesting a lesser dose of the same medication IF
ORDERED.
- Requesting a less intrusive route of administration
if both routes are prescribed by the provider (PO <
IV).
04/25/24 17:31
Hemodialysis treatment As Directed
Treatment date:: 04/26/24
Treatment type: Hemodialysis
Ultrafiltration (kg): 3
Treatment time (duration): 3 hours 30 minutes
Use dialysis access:: AVF
Dialyzer:: Optiflux 160
Blood flow rate minimum: 350
Blood flow rate maximum: 400
Dialysis flow rate: 600 mL/min
Dialysate temperature: 35 degrees Celsius
Sodium (Na): 140
Potassium (K): 2
Calcium (Ca): 2.5
Bicarbonate (HCO3): 35
04/25/24 19:37
Acetaminophen [Tylenol] 650 mg PO Q4HPRN PRN
Brinzolamide/Brimonidine Tart [Simbrinza 1%-0.2% Ophth Susp] See Dose Instructions RIGHT EYE QPM
Ezetimibe [Zetia] 10 mg PO QPM
Rosuvastatin Calcium [Crestor] 40 mg PO QPM
04/25/24 19:37
VTE Contraindication Routine
VTE Mechanical Device Contraindication: Medical Contraindication
Pharmocologic Contraindication: Medical Contraindication
Comment: Patient on Eliquis
Activity As Directed
Activity Level: As Tolerated
Intake/ Output As Directed
Frequency: Per unit guidelines
Vital Signs As Directed
Frequency: Per unit guidelines
Weight As Directed
Frequency: Daily
Ot Eval And Treat Routine
Pt Eval And Treat Routine
Activity Level: As Tolerated
04/25/24 20:00
Apixaban [Eliquis] 2.5 mg PO BID
04/25/24 22:00
Latanoprost [Xalatan Ophthalmic Solution] See Dose Instructions BOTH EYES HS
04/26/24 06:37
Complete Blood Count/With Diff IN AM
Comprehensive Metabolic Panel IN AM
Magnesium IN AM
04/26/24 08:00
Albumin Human 25% 50 ml [Flexbumin 25% For Hemodialysis] 12.5 grams IV HD-Q1HPRN PRN
Bumetanide [Bumex] 4 mg PO SuTuThSa@0800,1700
Clopidogrel Bisulfate [Plavix] 75 mg PO DAILY
Epoetin Rakesh-Epbx [Retacrit] 10,000 units IV HD-ONCE ONE
Finasteride [Proscar] 5 mg PO DAILY
Mannitol 25% 12.5 grams IV HD-Q1HPRN PRN
Metoprolol Xl [Toprol Xl] 25 mg PO DAILY
Sitagliptin Phosphate [Januvia] 25 mg PO DAILY
Sodium Chloride [Sodium Chloride 4 Meq/ml For Hemodialysis] 10 ml IV HD-Q1HPRN PRN
Timolol Maleate 0.5% [Timoptic 0.5% Ophthalmic Solution] 1 drop RIGHT EYE BID
insulin glargine [Lantus Solostar U-100 Insulin] 30 unit SC DAILY
04/26/24 16:00
CefTRIAXone [Rocephin] 1,000 mg IV Q24H
04/27/24 08:00
Midodrine [ProAmatine] 5 mg PO MOWEFR@0800
04/27/24 12:52
Comprehensive Metabolic Panel IN AM
04/28/24 06:00
Comprehensive Metabolic Panel IN AM
04/28/24 11:00
DC Protocol for Telemetry ONCE
04/29/24 06:00
Comprehensive Metabolic Panel IN AM
Abnormal Lab Results
04/25/24 04/25/24
09:23 14:32
RBC 3.08 L 10^6/uL
(4.70-6.10)
Hgb 9.6 L g/dL
(13.0-18.0)
Hct 28.6 L %
(39.0-52.0)
MCH 31.2 H pg
(27.0-31.0)
RDW 14.9 H %
(11.5-14.5)
Absolute Lymphs (auto) 0.6 L 10^3/uL
(1.2-3.4)
Neutrophils % 83.4 H %
(42.2-75.2)
Lymphocytes % 8.2 L %
(20.5-51.1)
Sodium 134 L mmol/L
(135-145)
BUN 45 H mg/dl
(9-20)
Creatinine 5.1 H* mg/dL
(0.7-1.3)
Glucose 181 H mg/dl
(70-99)
AST 66 H U/L
(17-59)
ALT 70 H U/L
(0-50)
Alkaline Phosphatase 187 H U/L
(38-126)
Ur Occult Blood Reflex 4+ A
(Negative)
Leukocyte Esterase Rfl 3+ A
(Negative)
Urine RBC 30-40 A /HPF
(0-2)
Urine WBC (Reflex) >100 A /HPF
(0-5)
Urine Bacteria (Reflex) Many A
(Negative)
Urine Albumin (Reflex) 4+ A
(Neg - Trace)
04/25/24 09:23
04/25/24 09:23
Vital Signs
Initial and Last Documented VS:
Initial Vital Signs
Temp Pulse Resp BP Pulse Ox
97.7 F 78 18 114/60 100
04/25/24 08:06 04/25/24 08:06 04/25/24 08:06 04/25/24 08:06 04/25/24 08:06
Last Documented Vital Signs
Temp Pulse Resp BP Pulse Ox
98.2 F 86 18 90/53 99
04/27/24 11:07 04/27/24 12:48 04/27/24 11:07 04/27/24 12:48 04/27/24 11:07
<CAIN Yap - Last Filed: 04/27/24 14:41>
MDM/Problems Addressed
MDM/Problems Addressed:
Patient is an 84-year-old male end-stage renal disease on hemodialysis missed dialysis today because he felt very weak. Patient is weak a little short breath of the past several days. Patient was found to have UTI here in the ER. He is afebrile
with a normal white count stable hemoglobin; renal function elevated however chronic kidney disease missed dialysis today however potassium normal at 4.4.
Urine shows greater than 100 white blood cells and 30�40 RBCs negative COVID-negative flu patient with small right pleural effusion increased compared to prior 12/2023
Chronic conditions affecting care:
ESRD missed dialysis today
<CAIN Yap - Last Filed: 04/27/24 14:41>
*Radiology
Radiology exam reviewed: radiology read reviewed
*EKG
Interpreted by ED Provider?: Yes
Interpretation: abnormal
Heart Rate: 99
Rate: normal
Rhythm: a-fib
*Critical Care Note
Total Time (30-74mins, 75-104mins- exclusive of procedures): Not Applicable
ED Attending Note
<CAIN Yap - Last Filed: 04/27/24 14:41>
-
Portions of this chart may have been created with voice recognition software.� Occasional wrong word or��sound alike� substitutions may have occurred due to the inherent limitations of voice recognition software.
<Booker Mishra DO - Last Filed: 04/26/24 18:55>
ED Attending Note
Patient seen and examined by attending physician: Yes
I performed the substantive portion of visit, reviewed & personally made and approve the management plan that is documented in note by myself or ENZO.: Yes
ED Attending Note:
I have seen and evaluated the patient with a [id number] encounter. I have spoken to the advance practicer provider and involved in the medical history, the physical exam, medical decision making.
Evaluation and management service: agree unless noted differently below.
Results interpretation: agree unless noted differently below.
Focused HPI: 84-year-old male presenting with generalized weakness. Patient has a history of end-stage renal disease and was due for dialysis today. Family at bedside states that he is too weak. Family believes that he might have a urinary tract
infection. Patient complains of pain when he urinates
Physical exam: Sitting bed comfortably. No acute distress
Medical Decision Making: Patient has a lot of lab abnormalities which appear chronic and unchanged from prior. Urinalysis pending but will admit given his generalized weakness
Discharge Plan
Departure
Patient Disposition: Admit
Date of Disposition: 04/25/24
Time of Disposition: 15:27
Admit to: Med/Surg
Admit to doctor: hospitalist
Presentation/result/management discussed w/ accepting MD/DO: Hospitalist
Patient with high blood pressure during this ER visit?: No
Condition: Fair
Covid-19: Not Applicable
Discharge Problem:
Acute UTI, Weakness
Interventions
Interventions:
*General Assessment Last Done: 04/25/24 09:30
*Neglect/Abuse Screening Last Done: 04/25/24 08:06
*ED- Fall Risk Assessment Last Done: 04/25/24 09:30
*Nursing Disposition Last Done: 04/26/24 10:48
ED- Cardiac Assessment Last Done: 04/25/24 09:40
ED- Neurological Assessment Last Done: 04/25/24 09:40
ED- Pulmonary Assessment Last Done: 04/25/24 09:40
--- NOTE | 2024-04-25 09:03 | EDRN ---
Graciela Fountain INSTRUCTIONAL TECHNOLOGY TEACHER in room w/ pt at this time.
[2024-04-25 09:42] LABS: % Basophils 0.6 % (0-2); % Eosinophils 1.3 % (0-6); % Immature Granulocytes 0.3 % (0-0.5); % Lymphocytes 8.2 % (20.5-51.1); % Monocytes 6.2 % (1.7-9.3); % Neutrophils 83.4 % (42.2-75.2); Absolute Eosinophils 0.1 10^3/uL (0-0.7); Absolute Lymphocytes 0.6 10^3/uL (1.2-3.4); Absolute Monocytes 0.4 10^3/uL (0.1-0.6); Absolute Neutrophils 5.9 10^3/uL (1.4-6.5); Hematocrit 28.6 % (39.0-52.0); Hemoglobin 9.6 g/dL (13.0-18.0); Mean Corp Hgb Conc. 33.6 g/dL (33.0-37.0); Mean Corpuscular Hgb 31.2 pg (27.0-31.0); Mean Corpuscular Volume 92.9 fL (80.0-94.0); Mean Platelet Volume 10.2 fL (7.4-10.4); Nucleated Red Blood Cells % 0 % (-); Platelet Count 165 10^3/uL (130-400); Red Blood Cell Count 3.08 10^6/uL (4.70-6.10); Red Cell Dist. Width 14.9 % (11.5-14.5); White Blood Cell Count 7.1 10^3/uL (4.8-10.8)
[2024-04-25 09:53] LABS: COVID-19 Antigen Negative (Negative)
[2024-04-25 10:29] LABS: ALT (SGPT) 70 U/L (0-50); AST (SGOT) 66 U/L (17-59); Albumin 3.9 g/dl (3.5-5.0); Alkaline Phosphatase 187 U/L (38-126); Blood Urea Nitrogen 45 mg/dl (9-20); Calcium 9.4 mg/dl (8.4-10.2); Carbon Dioxide 26 mmol/L (22-30); Chloride 98 mmol/L (98-107); Glucose 181 mg/dl (70-99); Potassium 4.4 mmol/L (3.5-5.1); Sodium 134 mmol/L (135-145); Total Bilirubin 1.2 mg/dl (0.2-1.3); Total Protein 6.7 g/dl (6.3-8.2); eGFR 10.51
[2024-04-25 11:17] LABS: NT-proBNP > 27000 pg/ml
--- NOTE | 2024-04-25 12:29 | EDRN ---
Pt to get up and attempt to ambulate w/ 2 ED pod 2 techs. This RN spoke to Graciela Fountain NP about pt's attempt to get up to get weighed. Pt was very weak and could not stand w/out support and was max assist of 1. This RN suggested PT eval at this time.
--- NOTE | 2024-04-25 12:39 | EDRN ---
2 techs in to walk pt but pt on phone. Spouse came out saying pt is ready to ambulate. Techs who are in w/ ambulance that just arrived informed. Techs said that spouse said that they could wait as pt has been waiting for them.
--- NOTE | 2024-04-25 13:22 | EDRN ---
Graciela Fountain RESEARCH NEUROPSYCHOLOGIST was in to see pt and pt said he had pain w/ walking. Graciela Fountain NP was also updated on pt's need for walker and at least an assist of one to ambulate as he was very weak per ED pile driver who walked pt. pt ambulated to BR and back to
stretcher after voiding. Pt now drinking water to get urine spec.
--- NOTE | 2024-04-25 13:30 | EDRN ---
Pt had complained to pain to Graciela Fountain NP. This RN asked about pt's pain at this time. Pt stated pain was only present on voiding and described it as 8/10 and burning like in the ureter. Pain was w/ void when pt OOB to BR w/ 2 ED plant specialist on
attempting to walk in room.
--- NOTE | 2024-04-25 13:43 | EDRN ---
Pt attempting urine spec in urinal at this time.
--- NOTE | 2024-04-25 14:35 | EDRN ---
Pt just voided standing at side of stretcher at this time. Pt stated this time he had no pain w/ voiding as he had had after ambulating to BR earlier.
--- NOTE | 2024-04-25 14:43 | EDRN ---
Pt voided, urine very thick and cloudy as well as whitish in color. Shown to Graciela Fountain NP. Graciela Fountain NP said okay for pt to eat and tech will get him a boxed lunch at this time.
[2024-04-25 14:51] LABS: Urine Albumin 4+ (Neg - Trace); Urine Bilirubin Negative (Negative); Urine Character Cloudy (Clear); Urine Color Yellow; Urine Glucose Negative (Negative); Urine Ketone Negative (Negative); Urine Leukocyte 3+ (Negative); Urine Nitrite Negative (Negative); Urine Occult Blood 4+ (Negative); Urine Urobilinogen Negative (Neg - 1+)
[2024-04-25 15:24] LABS: Urine Amorphous Seen; Urine Red Blood Cell 30-40 /HPF (0-2); Urine Squamous Cell 0-2 /LPF (Few); Urine Urothelial Cell 0-2 /LPF (FEW)
[2024-04-25 15:25] LABS: Urine White Cell >100 /HPF (0-5)
[2024-04-25 15:26] LABS: Urine Bacteria Many (Negative)
--- NOTE | 2024-04-25 16:25 | HPS.HSE ---
Family Physician
-
Family Physician: CAIN Martinez
Chief Complaint
-
Shortness of breath, weakness x 2 days, dysuria x 2 days
History of Present Illness
84-year-old male with history end-stage renal disease on dialysis Thursday was in complaining of weakness and shortness of breath over the past 2 days. He missed dialysis today due to feeling weak. He is also complaining of dysuria
with voiding twice a day at 2 AM and 2 PM. In the ER he was noted to have UTI was too weak to walk with PT. He denies fever, chills, chest pain, palpitations, cough, shortness of breath, abdominal pain, nausea, vomiting, diarrhea. He has a
dialysis catheter right upper chest wall and an AV fistula left arm both are working and being used
He has past medical history of Chronic A-fib,End-stage renal disease (dialysis Thursday fistula left arm 02/05/2024 (, Type 2 diabetes , CAD/[place]/cardiac stent diastolic congestive heart failure,CVA left-sided weakness,
Hypertension,Hyperlipidemia, GI bleed, PVD, right leg stent, gangrene of right foot
Colon cancer , Sacral decub,Glaucoma
Medical History
Past Medical History
Past Medical History: Reports Other
Additional Past Medical History:
Gangrene of right foot
Sacral decub
Chronic A-fib
Type 2 diabetes
Diastolic congestive heart failure
End-stage renal disease
CVA
Colon cancer
Hypertension
Hyperlipidemia
MRI
Glaucoma
Past Surgical History: Reports Other
Additional Past Surgical History:
Left varicocelectomy
Colon cancer oh removal
Tonsillectomy
Bilateral cataract surgery
Right glaucoma surgery
Total knee
Right great toe amputation
Left upper chest AV fistula
Left arm AV fistula
01/19/2024 revision of left upper extremity brachiobasilic AV fistula with transposition of the basilic vein (second stage BVT)
Social History
Tobacco: Non-smoker
Alcohol: None
Drug: None
Personal:
Living: With Family
Family History
Family History: Not pertinent
Allergies / Home Medications
Allergies reflects when Allergies were last updated in [facility].
Home Medications with original date entered in [facility]
Allergy/Medication List:
Allergies
Allergy/AdvReac Type Severity Reaction Status Date / Time
amiodarone Allergy Renal Verified 04/25/24 08:06
Failure
ibuprofen Allergy chest pain Verified 04/25/24 08:06
Home Medications
linagliptin 5 mg tablet (Tradjenta) 5 mg PO DAILY Diabetes 06/15/17
brinzolamide 1 %-brimonidine 0.2 % eye drops,suspension (Simbrinza) 1 drp RIGHT EYE QPM Eye Condition 04/21/23
ezetimibe 10 mg tablet (Zetia) 10 mg PO QPM High Cholesterol 04/21/23
metoprolol succinate 25 mg tablet,extended release 24 hr (Toprol XL) 25 mg PO DAILY Blood Pressure 04/21/23
rosuvastatin 40 mg tablet (Crestor) 40 mg PO QPM High Cholesterol 04/21/23
clopidogrel 75 mg tablet 75 mg PO DAILY Heart disease/condition ##0 05/21/23
latanoprost (PF) 0.005 % eye drops in a dropperette 1 drp BOTH EYES HS Eye Condition 10/16/23
insulin glargine 100 unit/mL (3 mL) subcutaneous pen (Lantus Solostar U-100 Insulin) 30 unit SC DAILY Diabetes 01/15/24
apixaban 2.5 mg tablet (Eliquis) 2.5 mg PO BID 04/25/24
bumetanide 1 mg tablet 4 mg PO SuTuThSa@0800,1700 04/25/24
finasteride 5 mg tablet 5 mg PO DAILY 04/25/24
midodrine 5 mg tablet 5 mg PO MOWEFR@0800 04/25/24
timolol maleate 0.5 % once daily eye drops 1 drp RIGHT EYE DAILY 04/25/24
Review of Systems
-
History Source: Patient and Family ( Henny at bedside)
A 12 point ROS was completed and negative except as noted: Yes
Constitutional: Reports Fatigue; Denies Fever or Chills
EENT: Denies Sore Throat or Runny Nose
Respiratory: Reports Trouble Breathing
Cardiac: Denies Chest Pain, Diaphoresis, Palpitations or Syncope
Abdomen/GI: Denies Abdominal Pain, Nausea, Vomiting, Diarrhea or Constipated
: Reports Dysuria; Denies Frequency, Flank Pain or Incontinence
Musculoskeletal: Denies Joint Pain or Edema
Skin: Denies Itching or Rash
Neurological: Reports Weakness (Generalized); Denies Headache
Endocrine: Denies Polyuria
Hematologic/Lymphatic: Reports No Symptoms
Psych: Reports No Symptoms and Calm
Physical Exam
Vital Signs
Vital Signs
Temp Pulse Resp BP Pulse Ox
97.7 F 107 28 123/72 92
04/25/24 08:06 04/25/24 16:00 04/25/24 16:00 04/25/24 16:00 04/25/24 16:00
Physical Exam
General: Comfortable and Conversant; No Pain, Fever or Chills
HEENT: NormoCephalic, Anicteric, Moist mucous membranes, PERRLA and [place] Conjunctivae
Respiratory: Clear; No Wheezes, Rales or Rhonchi
Cardiac: S1/S2, Regular Rhythm and Other (Right upper chest wall dialysis catheter present); No Murmur, Rub, Gallop or Peripheral Edema
Breast: Deferred by me
GI: Soft, Non Tender, Non Distended, Normal Bowel Sounds and No Hepatosplenomegaly
Rectal: Deferred by Provider
Genito-urinary: Deferred by me
Musculoskeletal: No Clubbing, No Cyanosis and No Edema
Skin: Warm, Dry and IV/Catheter Site (AV fistula left upper arm positive thrill); No Rash
Neuro: AO x 3, No Motor Deficits (While in bed), Nonfocal/grossly intact, Cranial Nerves Intact and No Sensory Deficits; No Slurred Speech, Facial Droop, Tremors or Sedated
Psych: Calm
Laboratory Results
-
04/25/24 09:23
04/25/24:
Laboratory Results
Total Bilirubin 1.2 mg/dl (0.2-1.3) 04/25/24:
AST 66 U/L (17-59) H 04/25/24:
ALT 70 U/L (0-50) H 04/25/24:
Alkaline Phosphatase 187 U/L (38-126) H 04/25/24:
Data Reviewed
-
Diagnostic Radiology: Report Reviewed by me
Lab Data: Labs Reviewed by me
Impression/Plan
-
Impression/plan:
Admit to telemetry
#Acute weakness secondary to symptomatic UTI-2 days dysuria/weakness
#End-stage renal disease (dialysis Thursday)
fistula left arm 02/04/2023
UA +3 leukocyte, RBC 3040, WBC greater than 100, many bacteria
-Will follow urine culture
-IV Rocephin
-Consult Nephrology
CXR:Small right pleural effusion and adjacent atelectasis/consolidation, increased as compared with prior. Unchanged cardiomegaly
#Anemia of CKD
Creat 9.6 appears near baseline 9.5 February
#Chronic A-fib
-cont Eliquis 2.5 mg twice daily, metoprolol
#Type 2 diabetes
-Accu-Cheks with SSI
-Continue Lantus 30 units at bedtime, Tradjenta 5 mg daily
#CAD/[place]/cardiac stent
-Continue Eliquis, Zetia 10 mg at bedtime, Plavix 75 mg daily
#Diastolic congestive heart failure
-I/O, daily weights
-Continue Bumex 4 mg Thursday
#CVA left-sided weakness
Continue statins
#Hypertension
BP 123/72
-Continue Toprol XL 25 mg daily, midodrine 5 mg Thursday before dialysis
#Hyperlipidemia
-Continue Zetia 10 mg every afternoon, Crestor 40 mg every afternoon
GI bleed
-No current meds
PVD
Right leg stent
Gangrene of right foot
Other PMH:
Colon cancer
Sacral decub,
Glaucoma-continue timolol, Simbrinza
DVT prophylaxis
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
Full code
[2024-04-25] MEDS: ROCEPHIN 1000 MG IV (16:39)
--- NOTE | 2024-04-25 16:43 | EDRN ---
Segundo Pulliam PARTS INSPECTOR in w/ pt at this time and spouse.
--- NOTE | 2024-04-25 17:25 | W.CON.NEPH ---
Consultation
-
Date/Time Consultation Requested: 04/25/2024 5 PM
Date/Time Consultation Performed: 04/25/2024 5 PM
Requesting Provider: Dr. Baltazar
Performing Provider: Dr. Hu
Reason for Consultation: ESRD
Medical History
-
Chief Complaint: sob
History of Present Illness:
Mr. Chicas is an 84 YOM with HTN but now relative hypotension receiving midodrine on dialysis days, perm afib on BB for rate control and anticoagulation with Eliquis, T2DM on insulin, HFrEF with diastolic dysfunction ( EF20-25%), stroke on plavix.
He has ESRD on hemodialysis Wednesdays and Fridays at the [facility] unit. He does have any an AV fistula in the left upper arm which has been used intermittently with partial success at the unit recently. He still has a dialysis
catheter in the right chest wall. He says that in the last 2 days time he has not been feeling very well. He may have had some shortness of breath as well as dysuria. These apparently have worsened in the last 2 days. It was particularly bad
this morning and so instead of going to dialysis he came to the emergency room. He was felt to have a urinary tract infection. We are asked to assist in management of his dialysis.
Past Medical History
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
Coronary Artery Disease s/p stent
Bilateral Carotid Artery Stenosis
Chronic HFrEF
Atrial Fibrillation
Essential Hypertension
Hyperlipidemia
Diabetes Mellitus
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
Colon Cancer
Right Nadja angiogram with balloon angioplasty and stenting of right superficial femoral artery stenosis for critical limb 04/2023
Past Surgical History: Other (Cholecystectomy Right Hemicolectomy Ventral Hernia Repair Lower Extremity Angioplasty )
Social History
Tobacco: Former Smoker
Alcohol: None
Drug: None
Personal:
Living: With Family
Family History
no CKD
Family History: Not Pertinent
Allergies / Home Medications
Allergy/AdvReac Type Severity Reaction Status Date / Time
amiodarone Allergy Renal Verified 04/25/24 08:06
Failure
ibuprofen Allergy chest pain Verified 04/25/24 08:06
�Medication �Instructions �Recorded �Confirmed �Type
linagliptin 5 mg tablet (Tradjenta) 5 mg PO DAILY Diabetes 06/15/17 04/25/24 History
brinzolamide 1 %-brimonidine 0.2 % 1 drp RIGHT EYE QPM Eye Condition 04/21/23 04/25/24 History
eye drops,suspension (Simbrinza)
ezetimibe 10 mg tablet (Zetia) 10 mg PO QPM High Cholesterol 04/21/23 04/25/24 History
metoprolol succinate 25 mg 25 mg PO DAILY Blood Pressure 04/21/23 04/25/24 History
tablet,extended release 24 hr
(Toprol XL)
rosuvastatin 40 mg tablet (Crestor) 40 mg PO QPM High Cholesterol 04/21/23 04/25/24 History
clopidogrel 75 mg tablet 75 mg PO DAILY Heart 05/21/23 04/25/24 Rx
disease/condition ##0
latanoprost (PF) 0.005 % eye drops 1 drp BOTH EYES HS Eye Condition 10/16/23 04/25/24 History
in a dropperette
insulin glargine 100 unit/mL (3 30 unit SC DAILY Diabetes 01/15/24 04/25/24 History
mL) subcutaneous pen (Lantus
Solostar U-100 Insulin)
apixaban 2.5 mg tablet (Eliquis) 2.5 mg PO BID 04/25/24 04/25/24 History
bumetanide 1 mg tablet 4 mg PO SuTuThSa@0800,1700 04/25/24 04/25/24 History
finasteride 5 mg tablet 5 mg PO DAILY 04/25/24 04/25/24 History
midodrine 5 mg tablet 5 mg PO MOWEFR@0800 04/25/24 04/25/24 History
timolol maleate 0.5 % once daily 1 drp RIGHT EYE DAILY 04/25/24 04/25/24 History
eye drops
Review of Systems
-
Dysuria, shortness of breath. No pain. Mild nausea
All other systems: Negative unless noted
Physical Exam
Vital Signs
Vital Signs
Temp Pulse Resp BP Pulse Ox
97.7 F 102 17 123/72 100
04/25/24 08:06 04/25/24 17:00 04/25/24 17:00 04/25/24 16:00 04/25/24 17:00
Lab Results
WBC 7.1 10^3/uL (4.8-10.8) 04/25/24 09:23
RBC 3.08 10^6/uL (4.70-6.10) L 04/25/24 09:
Hgb 9.6 g/dL (13.0-18.0) L 04/25/24 09:23
Hct 28.6 % (39.0-52.0) L 04/25/24 09:23
Plt Count 165 10^3/uL (130-400) 04/25/24 09:23
Sodium 134 mmol/L (135-145) L 04/25/24 09:23
Potassium 4.4 mmol/L (3.5-5.1) 04/25/24 09:
Chloride 98 mmol/L (98-107) 04/25/24 09:23
Carbon Dioxide 26 mmol/L (22-30) 04/25/24 09:23
BUN 45 mg/dl (9-20) H 04/25/24 09:23
Creatinine 5.1 mg/dL (0.7-1.3) H* 04/25/24 09:
eGFR 10.51 04/25/24 09:23
Glucose 181 mg/dl (70-99) H 04/25/24 09:
Calcium 9.4 mg/dl (8.4-10.2) 04/25/24 09:23
Vxt-O-Qmdnjwmqkub Pept > 84415 pg/ml 04/25/24 09:23
Albumin 3.9 g/dl (3.5-5.0) 04/25/24 09:23
Laboratory Tests
02/25/24 04/25/24
13:49 09:23
AST 55
ALT 57 H
Qpc-H-Tgxjzhsirpa Pept > 33374
Physical Exam
Patient is awake alert oriented and in no distress. Mood and affect were pleasant, insight and judgment were good. Pupils are equal round and reactive to light, extraocular movements are intact, sclera were anicteric. Hearing was normal, ears and
nose are intact. Oropharynx was clear. Neck was supple with trachea midline and no thyromegaly. Heart was regular rate and rhythm without rubs. Lower extremities without edema. Lungs were clear to auscultation bilaterally and with normal
excursion. Abdomen was soft, nontender, with normal active bowel sounds, and no hepatosplenomegaly. Skin was without rash and with normal turgor. Left upper arm AV fistula with good thrill and bruit
Data Reviewed
-
Radiology: Image Personally Visualized and interpreted (Chest x-ray 04/25/2024 by reading shows vascular prominence, right effusion)
Medical Tests (Nuc Med, Echo etc): Image Personally Visualized and interpreted (EKG 04/25/2024 by my reading atrial fibrillation left axis deviation LVH lateral ST-T wave abnormality)
Labs: Labs Reviewed by me
Old Records: Reviewed
Assessment/Plan
-
IMP:
Recurrent right pleural effusion
h/o thoracentesis 01/02/24
ESRD-MWF
Afib
Heart failure reduced ejection fraction 20%
PAD
Right iliac art aneurysm
DM2
Hyperlipidemia
History of stroke x 2
Permanent atrial fibrillation- Eliquis
CAD
Chronic anemia
left UE AVF
Plan:
Currently not requiring supplemental oxygen and not short of breath
plan HD tomorrow
May continue midodrine
We will try AV fistula with dialysis catheter backup
Antibiotics for presumed UTI per primary team
Discussed with patient and
--- NOTE | 2024-04-25 17:37 | W.PN.UPDATE ---
Update Note
Progress Note Update
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
84-year-old male past medical history of end-stage renal disease on hemodialysis Thursday, Thursday, Thursday, atrial fibrillation on Eliquis, CAD status stents, diastolic CHF, hypertension, hyperlipidemia, diabetes, colon cancer, CVA with residual
left-sided weakness, PVD with right leg stent, gangrene of the right foot, glaucoma, sacral decubitus ulcer, presenting with dysuria for 2 days with weakness and shortness of breath.� No swelling.
Urinalysis showed UTI.
Labs show transaminitis.� Cardiac BNP greater than 27,000.
Chest x-ray shows small right pleural effusion and adjacent atelectasis/consolidation.
Patient with UTI and volume overload secondary to missed dialysis session today.�
Urine culture, ceftriaxone.� Nephrology consulted for dialysis.
--- NOTE | 2024-04-25 17:51 | EDRN ---
Pt ordering a dinner tray on phone w/ dietary.
--- NOTE | 2024-04-25 18:02 | EDRN ---
Pt OOB to BR at this time and back.
--- NOTE | 2024-04-25 18:20 | EDRN ---
Diet tray arrived at this time and pt is now eating.
--- NOTE | 2024-04-25 19:00 | EDRN ---
Report received, patient eating meal with family at bedside, informed him and family that I will keep them updated on bed status as I find out more, call pascal in reach, no complaints at this time.
[2024-04-25] MEDS: ZETIA 10 MG PO (20:31)
[2024-04-25] MEDS: SIMBRINZA 1%-0.2% OPHTH SUSP 1 DROP RIGHT EYE (20:31)
[2024-04-25] MEDS: ELIQUIS 2.5 MG PO (20:31)
[2024-04-25] MEDS: CRESTOR 40 MG PO (20:31)
--- NOTE | 2024-04-25 21:54 | EDRN ---
Patient placed on a hospital bed and lights turned down, call pascal in reach, resting comfortably at this time.
[2024-04-25] MEDS: XALATAN OPHTHALMIC SOLUTION 1 DROP BOTH EYES (22:15)
--- NOTE | 2024-04-25 22:51 | EDRN ---
Patient provided with another blanket and lights turned down, resting comfortably, call pascal in reach.
[2024-04-26] VITALS (7 sets, daily range): BP systolic 103–119; BP diastolic 52–84; BMI 21.3
--- NOTE | 2024-04-26 01:34 | EDRN ---
Helped patient reposition to sit on the side of the bed, call pascal in reach.
--- NOTE | 2024-04-26 05:18 | EDRN ---
Patient is sleeping at this time, will continue to monitor
[2024-04-26 06:58] LABS: % Basophils 0.4 % (0-2); % Immature Granulocytes 0.7 % (0-0.5); % Lymphocytes 1.1 % (20.5-51.1); % Monocytes 3.3 % (1.7-9.3); % Neutrophils 93.5 % (42.2-75.2); Absolute Eosinophils 0.1 10^3/uL (0-0.7); Absolute Immature Granulocytes 0.1 10^3/uL (0-0.05); Absolute Lymphocytes 0.1 10^3/uL (1.2-3.4); Absolute Monocytes 0.3 10^3/uL (0.1-0.6); Absolute Neutrophils 7.9 10^3/uL (1.4-6.5); Hematocrit 28.2 % (39.0-52.0); Hemoglobin 9.5 g/dL (13.0-18.0); Mean Corp Hgb Conc. 33.7 g/dL (33.0-37.0); Mean Corpuscular Hgb 30.8 pg (27.0-31.0); Mean Corpuscular Volume 91.6 fL (80.0-94.0); Mean Platelet Volume 10.4 fL (7.4-10.4); Nucleated Red Blood Cells % 0 % (-); Platelet Count 161 10^3/uL (130-400); Red Blood Cell Count 3.08 10^6/uL (4.70-6.10); Red Cell Dist. Width 14.8 % (11.5-14.5); White Blood Cell Count 8.4 10^3/uL (4.8-10.8)
[2024-04-26 07:40] LABS: ALT (SGPT) 50 U/L (0-50); AST (SGOT) 42 U/L (17-59); Albumin 3.5 g/dl (3.5-5.0); Alkaline Phosphatase 143 U/L (38-126); Blood Urea Nitrogen 51 mg/dl (9-20); Carbon Dioxide 23 mmol/L (22-30); Chloride 99 mmol/L (98-107); Estimated Creatinine Clearance 10 ml/min; Glucose 261 mg/dl (70-99); Magnesium 2.2 mg/dl (1.6-2.3); Potassium 4.2 mmol/L (3.5-5.1); Sodium 133 mmol/L (135-145); Total Bilirubin 1.2 mg/dl (0.2-1.3); Total Protein 6.1 g/dl (6.3-8.2); eGFR 10.51
[2024-04-26 09:48] LABS: Glucose - Point of Care 296 mg/dl (70-99)
[2024-04-26] MEDS: LANTUS 0.3 UNITS SC (09:51)
[2024-04-26] MEDS: PROSCAR 5 MG PO (09:51)
[2024-04-26] MEDS: TOPROL XL 25 MG PO (09:51)
[2024-04-26] MEDS: PLAVIX 75 MG PO (09:51)
[2024-04-26] MEDS: ELIQUIS 2.5 MG PO ×2 (09:51→19:35)
[2024-04-26] MEDS: TIMOPTIC 0.5% OPHTHALMIC SOLUTION 1 DROP RIGHT EYE ×2 (10:08→19:37)
[2024-04-26 11:08] LABS: Glucose - Point of Care 308 mg/dl (70-99)
[2024-04-26] MEDS: JANUVIA 25 MG PO (11:32)
[2024-04-26] MEDS: NOVOLOG FLEXPEN-LOW RESISTANCE 4 UNITS SC (11:54)
[2024-04-26] MEDS: NOVOLOG FLEXPEN-LOW RESISTANCE SC ×2 (11:54→17:21)
--- NOTE | 2024-04-26 12:07 | W.PN.HOSP.TC ---
Today's Communication/Plan
-
Volume removal via HD should help
Continue with home medication
PT and OT in the morning
Holding Bumex for today
Assessment / Plan
Assessment / Plan
General: Comfortable and Conversant; No Pain, Fever or Chills,disshelved
HEENT: NormoCephalic, Anicteric, Moist mucous membranes, PERRLA and [place] Conjunctivae
Respiratory: Clear; No Wheezes, Rales or Rhonchi
Cardiac: S1/S2, irregularly irregular nd Other (Right upper chest wall dialysis catheter present); No Murmur, Rub, Gallop or Peripheral Edema
GI: Soft, Non Tender, Non Distended, Normal Bowel Sounds and No Hepatosplenomegaly
Rectal: Deferred by Provider
Genito-urinary: Deferred by me
Musculoskeletal: No Clubbing, No Cyanosis and No Edema
Skin: Warm, Dry and IV/Catheter Site (AV fistula left upper arm positive thrill); No Rash
Neuro: AO x 3, No Motor Deficits (While in bed), Nonfocal/grossly intact, Cranial Nerves Intact and No Sensory Deficits; No Slurred Speech, Facial Droop, Tremors or Sedated
Psych: Calm
#Acute weakness secondary to symptomatic UTI-2 days dysuria/weakness
#End-stage renal disease (dialysis Thursday)
fistula left arm placed by Dr. Martin Cordova. Has not been used.
-Will follow urine culture
-IV Rocephin
-Consult Nephrology
-midodrine preHD
-CXR:Small right pleural effusion and adjacent atelectasis/consolidation, increased as compared with prior. Unchanged cardiomegaly
#Anemia of CKD
Creat 9.6 appears near baseline 9.5 February
EPO and IV iron per nephrology
#Chronic A-fib
-cont Eliquis 2.5 mg twice daily, metoprolol
-Currently in A-fib.
#Type 2 diabetes
-Accu-Cheks with SSI
-Continue Lantus 30 units at bedtime, Tradjenta 5 mg daily
#CAD/[place]/cardiac stent
-Continue Eliquis, Zetia 10 mg at bedtime, Plavix 75 mg daily
#Diastolic congestive heart failure
-I/O, daily weights
-Continue Bumex 4 mg Thursday
#CVA left-sided weakness
Continue statins
#Hyperlipidemia
-Continue Zetia 10 mg every afternoon, Crestor 40 mg every afternoon
GI bleed
-No current meds
PVD
Right leg stent
Gangrene of right foot
Other PMH:
Colon cancer
Sacral decub,
Glaucoma-continue timolol, Simbrinza
DVT prophylaxis
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
Full code
Anticipated Discharge: > 48 hours
Subjective/Interval History
-
Date of Service: April 26, 2024
States of mild shortness of breath
About to be started on hemodialysis
Bumex was held as plan for HD today
Objective Data
-
Labs:
Laboratory Results
04/26/24
06:37
WBC 8.4
Hgb 9.5 L
Hct 28.2 L
Plt Count 161
Sodium 133 L
Potassium 4.2
Chloride 99
Carbon Dioxide 23
BUN 51 H
Creatinine 5.1 H*
Glucose 261 H
Calcium 9.0
Total Bilirubin 1.2
AST 42
ALT 50
Alkaline Phosphatase 143 H
Vital Signs:
Vital Signs
Temp Pulse Resp BP Pulse Ox
98.7 F 116 20 119/80 90
04/26/24 10:41 04/26/24 10:41 04/26/24 10:41 04/26/24 10:41 04/26/24 10:41
Data Reviewed
-
Total Time Spent with Patient (in minutes): 55
[2024-04-26] MEDS: ProAmatine 5 MG PO (13:39)
[2024-04-26] MEDS: ROCEPHIN 1000 MG IV (15:13)
[2024-04-26] MEDS: STERILE WATER FOR INJECTION 10 ML IV (15:14)
[2024-04-26] MEDS: RETACRIT 10000 UNITS IV (15:40)
--- NOTE | 2024-04-26 17:03 | W.PN.NEPH.HD ---
Assessment
-
Seen on HD. no complaints. VSS, access ok
no supplemental O2
Progress Note - Hemodialysis
-
Date of Service: April 26, 2024
Duration: 30 minutes and 3 hours
Potassium Bath: 2
Calcium Bath: 2.5
Opti-Dialyzer: 160
Ultrafiltration: Other (2.5kg)
Blood Flow: 400
Dialysate Flow: 600
Heparin: no
EPO: 20679 units
[2024-04-26 17:19] LABS: Glucose - Point of Care 142 mg/dl (70-99)
[2024-04-26] MEDS: SIMBRINZA 1%-0.2% OPHTH SUSP 1 DROP RIGHT EYE (17:21)
[2024-04-26] MEDS: ZETIA 10 MG PO (17:21)
[2024-04-26] MEDS: CRESTOR 40 MG PO (17:21)
[2024-04-26] MEDS: XALATAN OPHTHALMIC SOLUTION 1 DROP BOTH EYES (21:38)
[2024-04-26 21:39] LABS: Glucose - Point of Care 352 mg/dl (70-99)
[2024-04-27] VITALS (8 sets, daily range): BP systolic 94–110; BP diastolic 46–68; PULSE 85–88; O2SAT 97; BMI 21.2
[2024-04-27] MEDS: ProAmatine 5 MG PO ×4 (06:24→14:48)
[2024-04-27 07:32] LABS: Glucose - Point of Care 137 mg/dl (70-99)
[2024-04-27] MEDS: NOVOLOG FLEXPEN-LOW RESISTANCE SC ×2 (07:40→15:57)
[2024-04-27] MEDS: PLAVIX 75 MG PO (08:23)
[2024-04-27] MEDS: JANUVIA 25 MG PO (08:23)
[2024-04-27] MEDS: ELIQUIS 2.5 MG PO ×2 (08:23→20:18)
[2024-04-27] MEDS: LANTUS 0.3 UNITS SC (08:24)
[2024-04-27] MEDS: TIMOPTIC 0.5% OPHTHALMIC SOLUTION 1 DROP RIGHT EYE ×2 (08:25→20:19)
[2024-04-27] MEDS: PROSCAR 5 MG PO (08:25)
[2024-04-27] MEDS: TOPROL XL PO (08:25)
--- NOTE | 2024-04-27 10:46 | CM ---
CM reviewed chart, patient seen bedside, initial assessment completed. Patient resides with his in a three level home, two steps to enter. Patient has a walker and cane at home, has had VN in past, unsure agency, SNF in past, unsure of
facility. Patient receives outpatient HD at [facility], [facility], Fr 5:20 a.m, spoke with center to confirm. Patient PCP Marce López, pharmacy [facility], confirms prescription coverage. PT/OT consulted, will watch for further
recommendations. CM will continue to follow for all discharge planning needs.
Plan; home, watch for PT/OT recommendations, outpatient HD
[facility]
[2024-04-27 11:16] LABS: Glucose - Point of Care 299 mg/dl (70-99)
[2024-04-27] MEDS: EMLA CREAM 1 GRAM TOPICAL (11:34)
[2024-04-27] MEDS: NOVOLOG FLEXPEN-LOW RESISTANCE 3 UNITS SC (11:38)
--- NOTE | 2024-04-27 12:03 | W.PN.HOSP.TC ---
Today's Communication/Plan
-
DC ceftriaxone start Cipro
Holding diuretic
HD today
Assessment / Plan
Assessment / Plan
General: Comfortable and Conversant; No Pain, Fever or Chills,disshelved
HEENT: NormoCephalic, Anicteric, Moist mucous membranes, PERRLA and [place] Conjunctivae
Respiratory: Clear; No Wheezes, Rales or Rhonchi
Cardiac: S1/S2, irregularly irregular nd Other (Right upper chest wall dialysis catheter present); No Murmur, Rub, Gallop or Peripheral Edema
GI: Soft, Non Tender, Non Distended, Normal Bowel Sounds and No Hepatosplenomegaly
Rectal: Deferred by Provider
Genito-urinary: Deferred by me
Musculoskeletal: No Clubbing, No Cyanosis and No Edema
Skin: Warm, Dry and IV/Catheter Site (AV fistula left upper arm positive thrill); No Rash
Neuro: AO x 3, No Motor Deficits (While in bed), Nonfocal/grossly intact, Cranial Nerves Intact and No Sensory Deficits; No Slurred Speech, Facial Droop, Tremors or Sedated
Psych: Calm
#End-stage renal disease (dialysis Thursday)
fistula left arm placed by Dr. Martin Cordova. Has not been used.
-Consult Nephrology
-midodrine preHD
-CXR:Small right pleural effusion and adjacent atelectasis/consolidation, increased as compared with prior. Unchanged cardiomegaly
-Plan for HD again later today.
# Enterobacter UTI
-Susceptibility noted. DC ceftriaxone. Start Cipro. Renally dosed.
-Discussed with pharmacy. Plan for 500 mg nightly.
#Anemia of CKD
Creat 9.6 appears near baseline 9.5 February
EPO and IV iron per nephrology
#Chronic A-fib
-cont Eliquis 2.5 mg twice daily, metoprolol
-Currently in A-fib.
#Type 2 diabetes
-Accu-Cheks with SSI
-Continue Lantus 30 units at bedtime, Tradjenta 5 mg daily
#CAD/[place]/cardiac stent
-Continue Eliquis, Zetia 10 mg at bedtime, Plavix 75 mg daily
#Diastolic congestive heart failure
-I/O, daily weights
-Continue Bumex 4 mg Thursday-on hold as with soft bp this morning and plan for repaet HD today
#CVA left-sided weakness
Continue statins
#Hyperlipidemia
-Continue Zetia 10 mg every afternoon, Crestor 40 mg every afternoon
GI bleed
-No current meds
PVD
Right leg stent
Gangrene of right foot
Other PMH:
Colon cancer
Sacral decub,
Glaucoma-continue timolol, Simbrinza
DVT prophylaxis
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
Full code
Anticipated Discharge: Within 24 hours
Subjective/Interval History
-
date of Service: April 27, 2024
States of itching
States of mild improvement in breathing
States walks with a walker at home
Objective Data
-
Vital Signs:
Vital Signs
Temp Pulse Resp BP Pulse Ox
98.2 F 93 18 107/63 99
04/27/24 11:07 04/27/24 11:07 04/27/24 11:07 04/27/24 11:07 04/27/24 11:07
I&O
04/26/24 04/27/24 04/28/24
06:59 06:59 06:59
Intake Total 720 / 720
Balance 720 / 720
Data Reviewed
-
Total Time Spent with Patient (in minutes): 55
[2024-04-27] MEDS: MANNITOL 25% 12.5 GRAMS IV ×2 (13:05→14:06)
[2024-04-27] MEDS: FLEXBUMIN 25% FOR HEMODIALYSIS 12.5 GRAMS IV ×2 (13:06→14:06)
[2024-04-27 13:58] LABS: ALT (SGPT) 42 U/L (0-50); AST (SGOT) 40 U/L (17-59); Albumin 3.2 g/dl (3.5-5.0); Alkaline Phosphatase 123 U/L (38-126); Blood Urea Nitrogen 37 mg/dl (9-20); Calcium 8.4 mg/dl (8.4-10.2); Carbon Dioxide 28 mmol/L (22-30); Chloride 96 mmol/L (98-107); Estimated Creatinine Clearance 12 ml/min; Glucose 266 mg/dl (70-99); Potassium 3.5 mmol/L (3.5-5.1); Sodium 133 mmol/L (135-145); Total Bilirubin 1.1 mg/dl (0.2-1.3); Total Protein 5.8 g/dl (6.3-8.2); eGFR 14.49
[2024-04-27] MEDS: RETACRIT 10000 UNITS IV (14:07)
--- NOTE | 2024-04-27 14:38 | W.PN.NEPH.HD ---
Assessment
-
pt seen during HD
SBP 90 despite midodrine, unable to do any UF
another dose of midodirne if needed
AVF functions fine
Progress Note - Hemodialysis
-
Date of Service: April 27, 2024
Duration: 30 minutes and 3 hours
Potassium Bath: 2
Calcium Bath: 2.5
Opti-Dialyzer: 160
Ultrafiltration: Other (0-1kg)
Blood Flow: 400
Dialysate Flow: 600
Heparin: no
EPO: 65792
[2024-04-27 15:31] LABS: Glucose - Point of Care 145 mg/dl (70-99)
[2024-04-27 16:58] LABS: Glucose - Point of Care 161 mg/dl (70-99)
[2024-04-27] MEDS: CRESTOR 40 MG PO (17:04)
[2024-04-27] MEDS: SIMBRINZA 1%-0.2% OPHTH SUSP 1 DROP RIGHT EYE (17:04)
[2024-04-27] MEDS: ZETIA 10 MG PO (17:04)
[2024-04-27] MEDS: NOVOLOG FLEXPEN-LOW RESISTANCE 1 UNITS SC (17:25)
[2024-04-27 20:55] LABS: Glucose - Point of Care 118 mg/dl (70-99)
[2024-04-27] MEDS: CIPRO 500 MG PO (21:22)
[2024-04-27] MEDS: XALATAN OPHTHALMIC SOLUTION 1 DROP BOTH EYES (21:22)
[2024-04-28 03:18] VITALS: BP 98/55
[2024-04-28 06:00] VITALS: BMI 21.3
[2024-04-28 07:26] LABS: Glucose - Point of Care 134 mg/dl (70-99)
[2024-04-28 07:30] VITALS: BP 104/55
[2024-04-28 08:22] LABS: ALT (SGPT) 46 U/L (0-50); AST (SGOT) 42 U/L (17-59); Albumin 3.6 g/dl (3.5-5.0); Alkaline Phosphatase 126 U/L (38-126); Blood Urea Nitrogen 27 mg/dl (9-20); Calcium 8.9 mg/dl (8.4-10.2); Carbon Dioxide 31 mmol/L (22-30); Chloride 97 mmol/L (98-107); Estimated Creatinine Clearance 16 ml/min; Glucose 128 mg/dl (70-99); Potassium 3.6 mmol/L (3.5-5.1); Sodium 137 mmol/L (135-145); Total Bilirubin 1.3 mg/dl (0.2-1.3); Total Protein 6.3 g/dl (6.3-8.2); eGFR 19.86
[2024-04-28] MEDS: NOVOLOG FLEXPEN-LOW RESISTANCE SC (08:53)
[2024-04-28] MEDS: LANTUS 0.3 UNITS SC (08:54)
[2024-04-28] MEDS: ELIQUIS 2.5 MG PO ×2 (08:54→20:22)
[2024-04-28] MEDS: JANUVIA 25 MG PO (08:54)
[2024-04-28] MEDS: TOPROL XL PO (08:55)
[2024-04-28] MEDS: PLAVIX 75 MG PO (08:55)
[2024-04-28] MEDS: TIMOPTIC 0.5% OPHTHALMIC SOLUTION 1 DROP RIGHT EYE ×2 (08:55→20:22)
[2024-04-28] MEDS: PROSCAR 5 MG PO (08:55)
--- NOTE | 2024-04-28 10:35 | W.PN.HOSP.TC ---
Today's Communication/Plan
-
HD per nephro
Monitor bp
holding bumex
Assessment / Plan
Assessment / Plan
General: Comfortable and Conversant; No Pain, Fever or Chills,disshelved
HEENT: NormoCephalic, Anicteric, Moist mucous membranes, [place] Conjunctivae
Respiratory: Clear; No Wheezes, Rales or Rhonchi
Cardiac: S1/S2, irregularly irregular (Right upper chest wall dialysis catheter present); No Murmur, Rub, Gallop or Peripheral Edema
GI: Soft, Non Tender, Non Distended, Normal Bowel Sounds and No Hepatosplenomegaly
Rectal: Deferred by Provider
Genito-urinary: Deferred by me
Musculoskeletal: No Clubbing, No Cyanosis and No Edema
Skin: Warm, Dry and IV/Catheter Site (AV fistula left upper arm positive thrill); No Rash
Neuro: AO x 3, No Motor Deficits , Nonfocal/grossly intact, Cranial Nerves Intact and No Sensory Deficits; No Slurred Speech, Facial Droop, Tremors or Sedated
Psych: Calm
#End-stage renal disease (dialysis Thursday)
fistula left arm placed by Dr. Martin Cordova. Has not been used.
-Consult Nephrology
-midodrine preHD
-CXR:Small right pleural effusion and adjacent atelectasis/consolidation, increased as compared with prior. Unchanged cardiomegaly
-Plan for regularly schedule HD most likely tomm. No urgent need for HD today.
# Enterobacter UTI
-Susceptibility noted. DC ceftriaxone. Start Cipro. Renally dosed.
-Discussed with pharmacy. Plan for 500 mg nightly.
#Anemia of CKD
Creat 9.6 appears near baseline 9.5 February
EPO and IV iron per nephrology
#Chronic A-fib
-cont Eliquis 2.5 mg twice daily, metoprolol
-Currently in A-fib.
#Type 2 diabetes
-Accu-Cheks with SSI
-POC am 134
-Continue Lantus 30 units at bedtime, Tradjenta 5 mg daily
#CAD/RI/cardiac stent
-Continue Eliquis, Zetia 10 mg at bedtime, Plavix 75 mg daily
#Diastolic congestive heart failure
-I/O, daily weights
- Bumex 4 mg Thursday-on hold as with soft bp. Probably wont be able to handle it anymore due to hypotension.
#CVA left-sided weakness
Continue statins
#Hyperlipidemia
-Continue Zetia 10 mg every afternoon, Crestor 40 mg every afternoon
GI bleed
-No current meds
PVD
Right leg stent
Gangrene of right foot
Other PMH:
Colon cancer
Sacral decub,
Glaucoma-continue timolol, Simbrinza
DVT prophylaxis
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
Full code
PT/OT-SNF. Refused SNF. Wants to go home.
Anticipated Discharge: Within 24 hours
Subjective/Interval History
-
Date of Service: April 28, 2024
tolerating diet
states feeling extremely weak
Objective Data
-
Labs:
Laboratory Results
04/28/24
07:25
Sodium 137
Potassium 3.6
Chloride 97 L
Carbon Dioxide 31 H
BUN 27 H
Creatinine 3.0 H
Glucose 128 H
Calcium 8.9
Total Bilirubin 1.3
AST 42
ALT 46
Alkaline Phosphatase 126
Vital Signs:
Vital Signs
Temp Pulse Resp BP Pulse Ox
98.6 F 94 16 104/55 100
04/28/24 07:30 04/28/24 07:30 04/28/24 07:30 04/28/24 08:55 04/28/24 07:30
I&O
04/27/24 04/28/24 04/29/24
06:59 06:59 06:59
Intake Total 720 / 720 960 / 960
Balance 720 / 720 960 / 960
Data Reviewed
-
Total Time Spent with Patient (in minutes): 55
[2024-04-28 11:03] VITALS: BP 113/76
[2024-04-28 11:31] LABS: Glucose - Point of Care 265 mg/dl (70-99)
[2024-04-28] MEDS: NOVOLOG FLEXPEN-LOW RESISTANCE 3 UNITS SC ×2 (11:43→17:24)
--- NOTE | 2024-04-28 13:11 | CM ---
CM reviewed chart, patient seen bedside, discussed PT recommendations of SNF vs VN. Patient declining SNF, would like to return home, will offer VN services to patient. Patient likely for discharge tomorrow. CM will continue to follow for all
discharge planning needs.
Plan; home, outpatient HD, declining SNF
[facility]
--- NOTE | 2024-04-28 13:37 | W.PN.NEPH.PH ---
Today's Communication / Plan
-
HD tomorrow
Assessment/Plan
-
IMP:
Recurrent right pleural effusion
h/o thoracentesis 01/02/24
ESRD-MWF
Afib
Heart failure reduced ejection fraction 20%
PAD
Right iliac art aneurysm
DM2
Hyperlipidemia
History of stroke x 2
Permanent atrial fibrillation- Eliquis
CAD
Chronic anemia
left UE AVF
Plan:
plan HD tomorrow
May continue midodrine
AVF working well, catheter backup
Antibiotics for presumed UTI per primary team
-
-
Date of Service: April 28, 2024
CC / HPI / ROS
-
Chief Complaint:
ESRD
History of Present Illness:
tolerated HD yesterday
BP stable
on RA, no fever
Review of Systems:
no cp or sob
no n/v
Labs
-
Labs:
WBC Cancelled 04/27/24 06:00
RBC Cancelled 04/27/24 06:00
Hgb Cancelled 04/27/24 06:00
Hct Cancelled 04/27/24 06:00
Plt Count Cancelled 04/27/24 06:00
Sodium 137 mmol/L (135-145) 04/28/24 07:25
Potassium 3.6 mmol/L (3.5-5.1) 04/28/24 07:25
Chloride 97 mmol/L (98-107) L 04/28/24 07:25
Carbon Dioxide 31 mmol/L (22-30) H 04/28/24 07:25
BUN 27 mg/dl (9-20) H 04/28/24 07:25
Creatinine 3.0 mg/dL (0.7-1.3) H 04/28/24 07:25
eGFR 19.86 04/28/24 07:25
Glucose 128 mg/dl (70-99) H 04/28/24 07:25
Calcium 8.9 mg/dl (8.4-10.2) 04/28/24 07:25
Cvj-T-Axvkyurgnrt Pept > 81964 pg/ml 04/25/24 09:23
Albumin 3.6 g/dl (3.5-5.0) 04/28/24 07:25
Physical Exam
-
Vital Signs:
Vital Signs
Temp Pulse Resp BP Pulse Ox
97.6 F 98 18 113/76 96
04/28/24 11:03 04/28/24 11:03 04/28/24 11:03 04/28/24 11:03 04/28/24 11:03
Cardiovascular:: Regular rate and rhythm
Lung Excursion:: Normal
Abdomen:: Nontender
Bowel Sounds:: Normal
Extremity Edema:: None: Bilateral:
Cordova Catheter: No
[2024-04-28 15:20] VITALS: BP 120/90
[2024-04-28 16:39] LABS: Glucose - Point of Care 271 mg/dl (70-99)
[2024-04-28] MEDS: ZETIA 10 MG PO (17:25)
[2024-04-28] MEDS: CRESTOR 40 MG PO (17:25)
[2024-04-28] MEDS: SIMBRINZA 1%-0.2% OPHTH SUSP 1 DROP RIGHT EYE (17:25)
[2024-04-28 19:30] VITALS: BP 113/60
[2024-04-28 21:21] LABS: Glucose - Point of Care 255 mg/dl (70-99)
[2024-04-28] MEDS: CIPRO 500 MG PO (22:03)
[2024-04-28] MEDS: XALATAN OPHTHALMIC SOLUTION 1 DROP BOTH EYES (22:03)
[2024-04-28 23:30] VITALS: BP 92/58
[2024-04-29 03:14] VITALS: BP 110/81
[2024-04-29 05:38] VITALS: BMI 21.4
[2024-04-29 07:45] VITALS: BP 79/41
[2024-04-29 08:07] LABS: Glucose - Point of Care 140 mg/dl (70-99)
[2024-04-29] MEDS: NOVOLOG FLEXPEN-LOW RESISTANCE SC ×2 (08:11→14:01)
[2024-04-29] MEDS: FLEXBUMIN 25% FOR HEMODIALYSIS 12.5 GRAMS IV (08:47)
[2024-04-29] MEDS: MANNITOL 25% 12.5 GRAMS IV (08:59)
[2024-04-29 09:28] LABS: ALT (SGPT) 41 U/L (0-50); AST (SGOT) 38 U/L (17-59); Albumin 3.2 g/dl (3.5-5.0); Alkaline Phosphatase 126 U/L (38-126); Blood Urea Nitrogen 42 mg/dl (9-20); Calcium 8.4 mg/dl (8.4-10.2); Carbon Dioxide 25 mmol/L (22-30); Chloride 98 mmol/L (98-107); Estimated Creatinine Clearance 12 ml/min; Glucose 131 mg/dl (70-99); Potassium 3.6 mmol/L (3.5-5.1); Sodium 134 mmol/L (135-145); Total Bilirubin 1.2 mg/dl (0.2-1.3); Total Protein 5.8 g/dl (6.3-8.2); eGFR 14.49
[2024-04-29] MEDS: ProAmatine 5 MG PO (09:28)
[2024-04-29] MEDS: LANTUS 0.3 UNITS SC (09:28)
[2024-04-29] MEDS: EMLA CREAM 1 GRAM TOPICAL (09:30)
[2024-04-29] MEDS: TIMOPTIC 0.5% OPHTHALMIC SOLUTION 1 DROP RIGHT EYE (09:31)
--- NOTE | 2024-04-29 10:58 | W.PN.NEPH.HD ---
Assessment
-
Seen on HD. no complaints. VSS, access ok
ok for dc after HD
Progress Note - Hemodialysis
-
Date of Service: April 29, 2024
Duration: 30 minutes and 3 hours
Potassium Bath: 2
Calcium Bath: 2.5
Opti-Dialyzer: 160
Ultrafiltration: Other (2kg)
Blood Flow: 400
Dialysate Flow: 600
Heparin: no
EPO: 4000 units
[2024-04-29] MEDS: RETACRIT 4000 UNITS IV (11:35)
--- NOTE | 2024-04-29 12:40 | W.PN.HOSP.TC ---
Today's Communication/Plan
-
po cipro
Home
refused SNF
HD as outpatient to be continued
Assessment / Plan
Assessment / Plan
General: Comfortable and Conversant; No Pain, Fever or Chills,disshelved
HEENT: NormoCephalic, Anicteric, Moist mucous membranes, [place] Conjunctivae
Respiratory: Clear; No Wheezes, Rales or Rhonchi
Cardiac: S1/S2, irregularly irregular (Right upper chest wall dialysis catheter present); No Murmur, Rub, Gallop or Peripheral Edema
GI: Soft, Non Tender, Non Distended, Normal Bowel Sounds and No Hepatosplenomegaly
Rectal: Deferred by Provider
Genito-urinary: Deferred by me
Musculoskeletal: No Clubbing, No Cyanosis and No Edema
Skin: Warm, Dry and IV/Catheter Site (AV fistula left upper arm positive thrill); No Rash
Neuro: AO x 3, No Motor Deficits , Nonfocal/grossly intact, Cranial Nerves Intact and No Sensory Deficits; No Slurred Speech, Facial Droop, Tremors or Sedated
Psych: Calm
#End-stage renal disease (dialysis Thursday)
fistula left arm placed by Dr. Martin Cordova. Has not been used.
-Consult Nephrology
-midodrine preHD
-CXR:Small right pleural effusion and adjacent atelectasis/consolidation, increased as compared with prior. Unchanged cardiomegaly
-Plan for regularly schedule HD. Status post hemodialysis. Blood pressure stable post HD.
# Enterobacter UTI
-Susceptibility noted. DC ceftriaxone. Start Cipro. Renally dosed.
-Discussed with pharmacy. Plan for 500 mg nightly. Plan for 7d course
#Anemia of CKD
Creat 9.6 appears near baseline 9.5 February
EPO and IV iron per nephrology
#Chronic A-fib
-cont Eliquis 2.5 mg twice daily, metoprolol
-Currently in A-fib.
#Type 2 diabetes
-Accu-Cheks with SSI
-POC am 140
-Continue Lantus 30 units at bedtime, Tradjenta 5 mg daily
#CAD/ME/cardiac stent
-Continue Eliquis, Zetia 10 mg at bedtime, Plavix 75 mg daily
#Diastolic congestive heart failure
-I/O, daily weights
- Bumex 4 mg Thursday-on hold as with soft bp. Probably wont be able to handle it anymore due to hypotension.
#CVA left-sided weakness
Continue statins
#Hyperlipidemia
-Continue Zetia 10 mg every afternoon, Crestor 40 mg every afternoon
GI bleed
-No current meds
PVD
Right leg stent
Gangrene of right foot
Other PMH:
Colon cancer
Sacral decub,
Glaucoma-continue timolol, Simbrinza
DVT prophylaxis
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
Full code
PT/OT-SNF. Refused SNF. Wants to go home.
More than 30 minutes spent in discharge including
Final examination of the patient
Summarizing hospital stay
Instructions for continuing care to all relevant caregivers
Preparation of discharge records, prescriptions, and referral forms
Total time spent (in minutes): 55
Anticipated Discharge: Today
Subjective/Interval History
-
Date of Service: April 29, 2024
seen on HD this morning
BP noted
denies lightheadedness or dizziness
Objective Data
-
Labs:
Laboratory Results
04/29/24
07:19
Sodium 134 L
Potassium 3.6
Chloride 98
Carbon Dioxide 25
BUN 42 H
Creatinine 3.9 H
Glucose 131 H
Calcium 8.4
Total Bilirubin 1.2
AST 38
ALT 41
Alkaline Phosphatase 126
Vital Signs:
Vital Signs
Temp Pulse Resp BP Pulse Ox
97.2 F 83 14 79/49 98
04/29/24 07:45 04/29/24 07:45 04/29/24 07:45 04/29/24 09:28 04/29/24 07:45
I&O
04/28/24 04/29/24 04/30/24
06:59 06:59 06:59
Intake Total 960 / 960 480 / 480
Balance 960 / 960 480 / 480
[2024-04-29 13:16] LABS: Glucose - Point of Care 69 mg/dl (70-99)
[2024-04-29 13:34] LABS: Glucose - Point of Care 76 mg/dl (70-99)
[2024-04-29 13:40] VITALS: BP 108/68
[2024-04-29] MEDS: PLAVIX 75 MG PO (14:00)
[2024-04-29] MEDS: JANUVIA PO (14:00)
[2024-04-29] MEDS: TOPROL XL PO (14:00)
[2024-04-29] MEDS: ELIQUIS 2.5 MG PO (14:00)
[2024-04-29] MEDS: PROSCAR 5 MG PO (14:00)
--- NOTE | 2024-04-29 14:09 | W.DCSUMMARY ---
Discharge Summary
Discharge Data
Date of Admission: 04/25/24
Date of Discharge: 04/29/24
-
Pending Results: No
Hospital Course
84-year-old male past medical history of ESRD on hemodialysis, anemia, diabetes mellitus, atrial fibrillation, HFpEF, CVA with left-sided weakness, hyperlipidemia, GI bleeding, peripheral vascular disease, history of colon cancer, glaucoma, who is
presenting from home with weakness and shortness of breath. Patient was found to be in significant volume overloaded. Patient was eval by nephrology and underwent multiple session of hemodialysis. Patient blood pressure was found to be
significantly low and Bumex was held on admission. Recommend to follow-up outpatient with nephrology if Bumex can be restarted depending on blood pressure. Patient was also found to have Enterobacter UTI and IV ceftriaxone transition to p.o.
ciprofloxacin on discharge. Patient received EPO and IV iron per nephrology. Patient was monitored on telemetry and was in atrial fibrillation rate controlled. Patient was up by physical and Occupational Therapy recommended SNF which patient
refused and wants to go home. Patient received dialysis on the day of discharge. Post HD patient blood pressure was stable. Recommended to hold Bumex until outpatient evaluation by nephrology and patient was discharged home as he was eager to
leave hospital.
Discharge Plan
-
Patient Disposition: Home (Routine Discharge)
Discharge Diagnosis/Procedures: Weakness likely multifactorial
Enterobacter urinary tract infection
End-stage renal disease with volume overload status post hemodialysis
Chronic hypotension
Condition: Fair
Diet: 2 Gram Sodium, Diabetic, Carb Controlled and Restrict fluids to 48 oz
Activity: With assistance and As tolerated
Driving Restrictions: Not until seen by your Dr
Activity Restrictions/Additional Instructions:
Hold Bumex till outpatient trench shovel operator evaluation.
Referrals:
Marce López CRNP [Family Provider] - in less than 1 week
Prescriptions:
New
ciprofloxacin HCl 500 mg Tablet
500 mg PO HS 5 Days Qty: 5 0RF
Continued
Tradjenta 5 MG tablet
5 mg PO DAILY
metoprolol succinate [Toprol XL] 25 mg Tablet Extended Release 24 Hr
25 mg PO DAILY
ezetimibe [Zetia] 10 mg Tablet
10 mg PO QPM
rosuvastatin [Crestor] 40 mg Tablet
40 mg PO QPM
Simbrinza 1-0.2 % Drops,Suspension
1 drp RIGHT EYE QPM
clopidogrel 75 MG tablet
75 mg PO DAILY Qty: 0 0RF
latanoprost (PF) 0.005 % Dropperette
1 drp BOTH EYES HS
insulin glargine [Lantus Solostar U-100 Insulin] 100 unit/mL (3 mL) insulin pen
30 unit SC DAILY
finasteride 5 mg Tablet
5 mg PO DAILY
timolol maleate 0.5 % Drops, Once Daily
1 drp RIGHT EYE DAILY
midodrine 5 mg tablet
5 mg PO MOWEFR@0800
Eliquis 2.5 mg Tablet
2.5 mg PO BID
Held
bumetanide 1 mg Tablet
4 mg PO SuTuThSa@0800,1700
Hold Instructions: Resume on 05/02/24. Hold till evaluation by your outpatient trench shovel operator
Discharge Orders:
Discharge Patient (As Directed); Ordered 04/29/24
Ordered By: Cecilio Quiroga
Discharge Date and Time
Print Language: [place]
--- NOTE | 2024-04-29 15:03 | CM ---
CM reviewed chart, patient seen bedside with , for discharge today. Patient declining SNF/VN. IMM verbally reviewed, provided with copy, placed in chart. to transport home. CM will continue to follow for all discharge planning needs.
Plan; home with , declining VN/SNF
[facility]
== END 2024-04-29 15:37 | disposition home or self-care (01) | DRG 689 ==
LOC: 4 WEST ACU 17:36
PROVIDERS: Clinical Nurse Specialist Family Health; Internal Medicine; Nurse Practitioner; ADMITTING PHYSICIAN Hospitalist; ATTENDING PHYSICIAN Hospitalist; CONSULT PHYSICIAN Specialist; EMERGENCY PHYSICIAN Student in an Organized Health Care Education/Training Program; FAMILY PHYSICIAN Nurse Practitioner Family
PROC: 5A1D70Z Performance of Urinary Filtration, Intermittent, Less than 6 Hours Per Day (ICD-10-PCS; 2024-04-26)
DX: N39.0 Urinary tract infection, site not specified (principal); N18.6 End stage renal disease; E11.52 Type 2 diabetes mellitus with diabetic peripheral angiopathy with gangrene; I50.42 Chronic combined systolic (congestive) and diastolic (congestive) heart failure; I13.2 Hypertensive heart and chronic kidney disease with heart failure and with stage 5 chronic kidney disease, or end stage renal disease; I48.21 Permanent atrial fibrillation; J98.11 Atelectasis; I69.354 Hemiplegia and hemiparesis following cerebral infarction affecting left non-dominant side; R53.1 Weakness; D63.1 Anemia in chronic kidney disease; B96.89 Other specified bacterial agents as the cause of diseases classified elsewhere; I95.89 Other hypotension; E78.00 Pure hypercholesterolemia, unspecified; E11.22 Type 2 diabetes mellitus with diabetic chronic kidney disease; H40.9 Unspecified glaucoma; L89.159 Pressure ulcer of sacral region, unspecified stage; I25.10 Atherosclerotic heart disease of native coronary artery without angina pectoris; Z96.652 Presence of left artificial knee joint; Z87.891 Personal history of nicotine dependence; Z99.2 Dependence on renal dialysis; Z79.01 Long term (current) use of anticoagulants; I25.2 Old myocardial infarction; Z85.038 Personal history of other malignant neoplasm of large intestine; Z87.19 Personal history of other diseases of the digestive system; Z90.49 Acquired absence of other specified parts of digestive tract; Z89.411 Acquired absence of right great toe; Z88.6 Allergy status to analgesic agent; Z88.8 Allergy status to other drugs, medicaments and biological substances; Z79.02 Long term (current) use of antithrombotics/antiplatelets; Z95.5 Presence of coronary angioplasty implant and graft; Z79.84 Long term (current) use of oral hypoglycemic drugs; Z79.4 Long term (current) use of insulin; Z11.52 Encounter for screening for COVID-19
CPT/HCPCS: 71046; 80053; 81003; 81015; 82962; 83735; 83880; 85025; 87077; 87086; 87186; 87502; 87811; 93005; 96374; 97163; 97167; 99285; G0257; P9047; Q5106